=== PATIENT | female | born 1960 | race Caucasian/White ===

== ENCOUNTER → 2018-03-04 09:00 | Outpatient (CLI) | payer OTHER, SELFPAY | PROVIDERS: Family Provider Physician Assistant; PCP Physician Assistant | DX: Z23 Encounter for immunization (principal) | CPT/HCPCS: 90471; 90686 ==

== ENCOUNTER → 2018-05-20 09:55 | Outpatient (CLI) | payer OTHER, SELFPAY ==
[2018-05-20 10:15] LABS: Add Manual Diff / Slide Review NO; Basophils Percent Auto 0.5 % (0-2); Eosinophils Percent Auto 2.6 % (2-4); Hematocrit 35.3 % (36-46); Hemoglobin 11.9 g/dL (12.0-16.0); Lymphocytes Percent Auto 18.7 % (25-40); Mean Corpuscular HGB Conc 33.6 % (30-36); Mean Corpuscular Hemoglobin 30.8 PG (26-34); Mean Corpuscular Volume 91.7 fL (80-100); Monocytes Percent Auto 8.1 % (3-14); Neutrophils Absolute Auto 4800 /uL (3000-5900); Neutrophils Percent Auto 70.1 % (50-75); Platelet Count 179 X10^3/uL (150-400); Red Blood Cell Count 3.85 X10^6/uL (4.0-5.2); Red Cell Distribution Width 12.8 % (11.6-14.8); White Blood Cell Count 6.8 X10^3/uL (4.5-11.0)
[2018-05-20 10:25] LABS: Hemoglobin A1C% w Est Avg Glu 8.8 % (4.0-6.0)
[2018-05-20 10:38] LABS: Alanine Aminotransferase 35 IU/L (9-52); Albumin 4.2 g/dL (3.5-5.0); Albumin Globulin Ratio 1.5 (1.0-2.8); Alkaline Phosphatase 79 U/L (38-126); Aspartate Aminotransferase 29 IU/L (14-36); BUN Creatinine Ratio 25.4 (6-22); Bilirubin Total 0.6 mg/dL (0.2-1.3); Blood Urea Nitrogen 33 mg/dL (7-17); Calcium 9.7 mg/dL (8.4-10.2); Carbon Dioxide 26 mmol/L (22-32); Chloride 100 mmol/L (98-107); Estimated Glomerular Filt Rate 42.1 mL/min (>60); Globulin 2.8 g/dL (1.7-4.1); Glucose 293 mg/dL (70-100); HEMOLYSIS < 15 (0-50); Potassium 4.5 mmol/L (3.4-5.1); Sodium 139 mmol/L (137-145)
[2018-05-20 13:13] LABS: Creatinine Urine Random 81.8 mg/dL
[2018-05-20 13:36] LABS: Microalbumi Creatinin Ratio Ur 298.2 ug/mg CR (<30); Microalbumin Urine Random 24.4 mg/dL (0-1.6)
== END ==
PROVIDERS: Family Provider Physician Assistant; PCP Physician Assistant; Visit Provider Physician Assistant
DX: R73.9 Hyperglycemia, unspecified (principal); R39.9 Unspecified symptoms and signs involving the genitourinary system
CPT/HCPCS: 36415; 80053; 82043; 82570; 83036; 85025; 87077; 87086; 87186

== ENCOUNTER → 2018-05-27 14:30 | Outpatient (CLI) | payer OTHER, SELFPAY | PROVIDERS: Family Provider Physician Assistant; PCP Physician Assistant; Visit Provider Physician Assistant | DX: R30.0 Dysuria (principal) | CPT/HCPCS: 87077; 87086 ==

== ENCOUNTER → 2018-06-11 10:21 | Outpatient (CLI) | payer OTHER, SELFPAY ==
--- NOTE | 2018-06-11 | DI.US.S_ITS ---
PROCEDURE: US RENAL COMPLETE INDICATIONS: ACUTE KIDNEY INJURY/CHRONIC KIDNEY DISEASE TECHNIQUE: Real-time scanning was performed of the kidneys and bladder, with image documentation. COMPARISON: None. FINDINGS: Kidneys: Kidneys are normal in size. Right kidney measures 9.9 cm long; left kidney measures 10.2 cm long. Right renal cortical thickness is 1.6 cm; left renal cortical thickness is 1.4 cm. Renal cortical echotexture is normal. No hydronephrosis or nephrolithiasis. No suspicious solid mass lesions. Bladder: Urinary bladder is completely decompressed at time of imaging which precludes ultrasound evaluation. Miscellaneous: No free pelvic fluid. IMPRESSION: No sonographic abnormality identified of the kidneys. Dictated by: Anya Garcia MD, PhD on 06/11/2018 at 11:49 Approved by: Anya Garcia MD, PhD on 06/11/2018 at 11:49
== END ==
PROVIDERS: Family Provider Physician Assistant; PCP Physician Assistant; Visit Provider Student in an Organized Health Care Education/Training Program
DX: N17.9 Acute kidney failure, unspecified (principal); N18.9 Chronic kidney disease, unspecified
CPT/HCPCS: 76770

== ENCOUNTER → 2018-06-15 14:56 | Outpatient (CLI) | payer OTHER, SELFPAY ==
[2018-06-15 15:38] LABS: Hemoglobin A1C% w Est Avg Glu 7.9 % (4.0-6.0)
== END ==
PROVIDERS: Family Provider Physician Assistant; PCP Physician Assistant; Visit Provider Physician Assistant
DX: E11.65 Type 2 diabetes mellitus with hyperglycemia (principal)
CPT/HCPCS: 36415; 83036

== ENCOUNTER → 2018-06-29 14:14 | Outpatient (CLI) | payer OTHER, SELFPAY ==
[2018-06-29 14:22] LABS: Bacteria Urine None Seen; RBC Urine None Seen (0-5/HPF)
[2018-06-29 14:42] LABS: Appearance Urine UA CLEAR; Bilirubin Urine UA NEGATIVE (NEGATIVE); Color Urine UA YELLOW; Glucose Urine UA NEGATIVE (Negative); Ketones Urine UA NEGATIVE (NEGATIVE); Leukocyte Esterase Urine UA NEGATIVE (NEGATIVE); Nitrite Urine UA NEGATIVE (Negative); Occult Blood Urine UA NEGATIVE (Negative); Protein Urine UA NEGATIVE (Negative); Urobilinogen Urine UA 0.2 E.U./dL (0.2)
[2018-06-29 14:48] LABS: Hematocrit 36.1 % (36-46)
[2018-06-29 15:10] LABS: HEMOLYSIS < 15 (0-50); Iron 110 ug/dL (37-170)
[2018-06-29 15:18] LABS: Culture Indicated Urine Cult Not Indicated; Squamous Epithelial Cell Urine 0-1 /HPF; WBC Urine 0-1/HPF (0-5/HPF)
[2018-06-29 15:20] LABS: Percent Iron Saturation 35 % (15-50); Total Iron Binding Capacity 314 ug/dL (265-497); Transferrin 272 mg/dL (206-381)
[2018-06-29 15:28] LABS: BUN Creatinine Ratio 24.7 (6-22); Blood Urea Nitrogen 42 mg/dL (7-17); Calcium 10.2 mg/dL (8.4-10.2); Carbon Dioxide 27 mmol/L (22-32); Chloride 104 mmol/L (98-107); Estimated Glomerular Filt Rate 30.9 mL/min (>60); Glucose 105 mg/dL (70-100); HEMOLYSIS < 15 (0-50); Phosphorous 3.9 mg/dL (2.5-4.5); Potassium 4.3 mmol/L (3.4-5.1); Sodium 140 mmol/L (137-145)
[2018-06-29 15:31] LABS: Creatinine Urine Random 89.3 mg/dL; Protein (Total) Urine Random 7 mg/dL (0-12); Protein Creatinine Ratio Urine 0.07 GRAM/24H
[2018-07-02 14:26] LABS: Parathyroid Hormone Int 13 pg/mL (14-64)
== END ==
PROVIDERS: Family Provider Physician Assistant; PCP Physician Assistant; Visit Provider Student in an Organized Health Care Education/Training Program
DX: N05.9 Unspecified nephritic syndrome with unspecified morphologic changes (principal); D50.0 Iron deficiency anemia secondary to blood loss (chronic); D64.9 Anemia, unspecified; E83.30 Disorder of phosphorus metabolism, unspecified; N25.81 Secondary hyperparathyroidism of renal origin; N30.00 Acute cystitis without hematuria; R80.9 Proteinuria, unspecified; E11.65 Type 2 diabetes mellitus with hyperglycemia
CPT/HCPCS: 36415; 80048; 81001; 82570; 82728; 83036; 83540; 83550; 83970; 84100; 84156; 85014; 85018

== ENCOUNTER → 2018-08-02 11:44 | Outpatient (CLI) | payer OTHER, SELFPAY ==
[2018-08-02 12:40] LABS: Hematocrit 36.5 % (36-46); Hemoglobin 12.2 g/dL (12.0-16.0)
[2018-08-02 12:55] LABS: HEMOLYSIS < 15 (0-50); Iron 100 ug/dL (37-170)
[2018-08-02 13:01] LABS: BUN Creatinine Ratio 24.2 (6-22); Blood Urea Nitrogen 46 mg/dL (7-17); Calcium 9.4 mg/dL (8.4-10.2); Carbon Dioxide 26 mmol/L (22-32); Chloride 102 mmol/L (98-107); Estimated Glomerular Filt Rate 27.2 mL/min (>60); Glucose 102 mg/dL (70-100); HEMOLYSIS < 15 (0-50); Potassium 4.2 mmol/L (3.4-5.1); Sodium 139 mmol/L (137-145)
[2018-08-02 13:06] LABS: Percent Iron Saturation 33 % (15-50); Total Iron Binding Capacity 306 ug/dL (265-497); Transferrin 243 mg/dL (206-381)
[2018-08-02 15:27] LABS: Creatinine Urine Random 83.6 mg/dL; Protein (Total) Urine Random 7 mg/dL (0-12); Protein Creatinine Ratio Urine 0.08 GRAM/24H
== END ==
PROVIDERS: Family Provider Physician Assistant; PCP Physician Assistant; Visit Provider Student in an Organized Health Care Education/Training Program
DX: N05.9 Unspecified nephritic syndrome with unspecified morphologic changes (principal); D50.0 Iron deficiency anemia secondary to blood loss (chronic); D64.9 Anemia, unspecified; R80.9 Proteinuria, unspecified
CPT/HCPCS: 36415; 80048; 82570; 82728; 83540; 83550; 84156; 85014; 85018

== ENCOUNTER → 2018-08-12 08:43 | Outpatient (CLI) | payer OTHER, SELFPAY ==
[2018-08-12 10:28] LABS: BUN Creatinine Ratio 25.7 (6-22); Blood Urea Nitrogen 36 mg/dL (7-17); Calcium 9.4 mg/dL (8.4-10.2); Carbon Dioxide 28 mmol/L (22-32); Chloride 102 mmol/L (98-107); Estimated Glomerular Filt Rate 38.6 mL/min (>60); Glucose 144 mg/dL (70-100); HEMOLYSIS < 15 (0-50); Potassium 4.2 mmol/L (3.4-5.1); Sodium 139 mmol/L (137-145)
[2018-08-12 10:31] LABS: B Type Natriuretic Peptide < 100 (<100)
== END ==
PROVIDERS: PCP Physician Assistant; Visit Provider Student in an Organized Health Care Education/Training Program
DX: N05.9 Unspecified nephritic syndrome with unspecified morphologic changes (principal)
CPT/HCPCS: 36415; 80048; 83880

== ENCOUNTER → 2018-09-09 08:46 | Outpatient (CLI) | payer OTHER, SELFPAY ==
[2018-09-09 10:09] LABS: B Type Natriuretic Peptide < 100 (<100)
[2018-09-09 10:21] LABS: BUN Creatinine Ratio 22.1 (6-22); Blood Urea Nitrogen 31 mg/dL (7-17); Calcium 8.8 mg/dL (8.4-10.2); Carbon Dioxide 25 mmol/L (22-32); Chloride 102 mmol/L (98-107); Estimated Glomerular Filt Rate 38.6 mL/min (>60); Glucose 244 mg/dL (70-100); HEMOLYSIS 35 (0-50); Potassium 3.9 mmol/L (3.4-5.1); Sodium 137 mmol/L (137-145)
== END ==
PROVIDERS: PCP Physician Assistant; Visit Provider Student in an Organized Health Care Education/Training Program
DX: N05.9 Unspecified nephritic syndrome with unspecified morphologic changes (principal); I50.32 Chronic diastolic (congestive) heart failure
CPT/HCPCS: 36415; 80048; 83880

== ENCOUNTER → 2018-10-04 08:35 | Outpatient (CLI) | payer OTHER, SELFPAY ==
[2018-10-04 11:17] LABS: Hemoglobin A1C% w Est Avg Glu 6.5 % (4.0-6.0)
[2018-10-04 11:47] LABS: Thyroid Stimulating Hormone 3.67 uIU/mL (0.47-4.68)
== END ==
PROVIDERS: PCP Physician Assistant; Visit Provider Physician Assistant
DX: E11.65 Type 2 diabetes mellitus with hyperglycemia (principal); E89.0 Postprocedural hypothyroidism
CPT/HCPCS: 36415; 83036; 84443

== ENCOUNTER → 2018-12-17 09:29 | Outpatient (CLI) | payer OTHER, SELFPAY ==
[2018-12-17 10:11] LABS: Hemoglobin 11.9 g/dL (12.0-16.0)
[2018-12-17 10:24] LABS: Creatinine Urine Random 104.8 mg/dL; Protein (Total) Urine Random 8 mg/dL (0-12); Protein Creatinine Ratio Urine 0.07 GRAM/24H
[2018-12-17 10:33] LABS: Hemoglobin A1C% w Est Avg Glu 7.1 % (4.0-6.0)
[2018-12-17 11:27] LABS: Alanine Aminotransferase 28 IU/L (9-52); Albumin Globulin Ratio 1.3 (1.0-2.8); Alkaline Phosphatase 88 U/L (38-126); Aspartate Aminotransferase 28 IU/L (14-36); BUN Creatinine Ratio 16.9 (6-22); Bilirubin Total 0.8 mg/dL (0.2-1.3); Blood Urea Nitrogen 22 mg/dL (7-17); Calcium 9.3 mg/dL (8.4-10.2); Carbon Dioxide 27 mmol/L (22-32); Chloride 105 mmol/L (98-107); Cholesterol 220 mg/dL (140-199); Estimated Glomerular Filt Rate 42.1 mL/min (>60); Globulin 3.2 g/dL (1.7-4.1); Glucose 146 mg/dL (70-100); HDL Cholesterol 52 mg/dL (40-60); HEMOLYSIS < 15 (0-50); LDL Cholesterol Calculated 131 mg/dL (<100); Potassium 4.8 mmol/L (3.4-5.1); Sodium 142 mmol/L (137-145); Total Protein 7.2 g/dL (6.3-8.2); Triglycerides 185 mg/dL (35-150)
[2018-12-21 15:18] LABS: Parathyroid Hormone Int 72 pg/mL (14-64)
== END ==
PROVIDERS: Family Provider Physician Assistant; PCP Physician Assistant; Visit Provider Student in an Organized Health Care Education/Training Program
DX: D64.9 Anemia, unspecified (principal); N25.81 Secondary hyperparathyroidism of renal origin; R80.9 Proteinuria, unspecified; E11.65 Type 2 diabetes mellitus with hyperglycemia; E78.5 Hyperlipidemia, unspecified; I12.9 Hypertensive chronic kidney disease with stage 1 through stage 4 chronic kidney disease, or unspecified chronic kidney disease; N18.9 Chronic kidney disease, unspecified
CPT/HCPCS: 80053; 80061; 82570; 83036; 83970; 84156; 85014; 85018

== ENCOUNTER → 2019-01-10 16:04 | Outpatient (CLI) | payer OTHER, SELFPAY ==
--- NOTE | 2019-01-10 16:10 | DI.ECHO.S_ITS ---
[facility] +---------+ : : [address] : : : : [id number] : : : : Phone: [phone]+ Echocardiogram Report + + :Name: ROBLES CASTELAN Jose Luis Study Date: 01/10/2019 Height: 66 in : :[facility] Weight: 297 lb : : Gender: Female BSA: 2.4 m2 : :: 1960 Age: 58 yrs BP: 138/80 mmHg: :Reason For Study: Murmur : : Performed By: Lluvia Laguna : :Referring: ASHWIN BLOOM : + + Interpretation Summary The left ventricle is normal in size, wall thickness, and systolic function without any focal wall motion abnormalities. The right ventricle grossly appears normal in size with probable normal systolic function. There is mild aortic stenosis. There is mild aortic regurgitation. The right ventricular systolic pressure is estimated to be at least 29 mmHg based on an estimated right atrial pressure of 8 mm Hg. There is no prior echocardiogram noted for this patient. Procedure: A two-dimensional transthoracic echocardiogram with color flow and Doppler was performed. The study quality was technically adequate. There is no prior echocardiogram noted for this patient. The patient was in normal sinus rhythm during the exam. Left Ventricle: The left ventricle is normal in size, wall thickness, and systolic function without any focal wall motion abnormalities. The ejection fraction is estimated to be 60-65%. Diastolic parameters suggest probable normal left ventricular diastolic function and normal filling pressures. Right Ventricle: The right ventricle grossly appears normal in size with probable normal systolic function. Atria: The left atrial size is normal. Right atrial size is normal. There is no Doppler evidence for an interatrial shunt. Mitral Valve: The mitral valve is normal in structure and function. There is no mitral regurgitation noted. Aortic Valve: The aortic valve is mildly calcified. The calculated aortic valve area is 1.6 cm2. The peak aortic velocity is 2.4 m/sec. The aortic valve mean gradient is 12 mmHg. Severity ratio is 0.49. There is mild aortic stenosis. There is mild aortic regurgitation. Tricuspid Valve: The tricuspid valve is normal in structure and function. There is trace tricuspid regurgitation. The right ventricular systolic pressure is estimated to be at least 29 mmHg based on an estimated right atrial pressure of 8 mm Hg. Pulmonic Valve: The pulmonic valve is not well visualized. There is no pulmonic valvular regurgitation. Great Vessels: The aortic root is normal size. The aortic arch is normal in size. The IVC is of normal diameter and collapses greater than 50% with a sniff. This suggests a low right atrial pressure of 3 mm Hg. Pericardium/ Pleura There is no pericardial effusion. There is no pleural effusion. MMode/2D Measurements & Calculations LVIDd: 4.7 cm LVOT diam: 2.0 cm LVIDs: 2.6 cm Ao root diam: 3.2 cm FS: 45.7 % Aortic Jxn: 2.5 cm IVSd: 0.95 cm Ao Arch Diam (Prox Trans): 3.1 cm LVPWd: 0.86 cm LV smith. diameter/BSA (cm/m^2): 2.0 LV sys. diameter/BSA (cm/m^2): 1.1 LA dimension: 3.9 cm RA long axis: 5.6 cm LA A2 area: 25.1 cm2 RA area: 22.5 cm2 LA A4 area: 20.0 cm2 RA vol: 76.9 ml LA length (vol): 5.4 cm RA : 32.5 ml/m2 LA vol: 79.2 ml IVC diam: 2.2 cm LA vol index: 33.5 ml/m2 Doppler Measurements & Calculations Ao V2 max: 238.6 cm/sec LVOT Max Pascual: 109.4 cm/sec Ao V2 mean: 155.9 cm/sec LV V1 max P.8 mmHg Ao max P.8 mmHg LV V1 VTI: 23.9 cm Ao mean P.5 mmHg PAULINE(I,D): 1.6 cm2 Ao V2 VTI: 48.4 cm PAULINE(V,D): 1.5 cm2 sev ratio: 0.49 PAULINE indexed to BSA (cm^2/m^2): 0.68 AI P1/2t: 533.0 msec AI dec slope: 244.1 cm/sec2 MV E max pascual: 87.8 cm/sec TR max pascual: 254.4 cm/sec MV A max pascual: 68.2 cm/sec TR max P.9 mmHg MV E/A: 1.3 PA V2 max: 117.5 cm/sec Med Peak E' Pascual: 9.9 cm/sec PA V2 mean: 80.5 cm/sec E/E' med: 8.9 PA mean P.9 mmHg Lat Peak E' Pascual: 11.9 cm/sec PA Accel Time: 0.16 sec E/E' lat: 7.4 E/e' average: 8.1 MV dec time: 0.18 sec MV P1/2t: 54.8 msec MV P1/2t max pascual: 88.1 cm/sec SV(LVOT): 77.4 ml MVA(P1/2t): 4.0 cm2 Electronically signed by: Roberto Reyna M.D. on Reading Physician:01/10/2019 06:10 PM
== END ==
PROVIDERS: Family Provider Physician Assistant; PCP Physician Assistant; Visit Provider Physician Assistant
DX: I35.2 Nonrheumatic aortic (valve) stenosis with insufficiency (principal); R01.1 Cardiac murmur, unspecified; R60.9 Edema, unspecified; R06.00 Dyspnea, unspecified
CPT/HCPCS: 93306

== ENCOUNTER → 2019-03-01 11:41 | Outpatient (CLI) | payer OTHER, SELFPAY | PROVIDERS: PCP Physician Assistant | DX: Z23 Encounter for immunization (principal) | CPT/HCPCS: 90471; 90686 ==

== ENCOUNTER → 2019-04-19 12:20 | Outpatient (CLI) | payer OTHER, SELFPAY ==
--- NOTE | 2019-04-19 12:21 | DI.MG.S_ITS ---
BILATERAL DIGITAL SCREENING MAMMOGRAM 3D/2D WITH CAD: 04/19/2019 CLINICAL: Routine screening. Comparison is made to exams dated: 05/28/2016 mammogram, 06/09/2014 mammogram, and 02/20/2011 mammogram - [facility]. There are scattered fibroglandular elements in both breasts. Current study was also evaluated with a Computer Aided Detection (CAD) system. No significant masses, calcifications, or other findings are seen in either breast. There has been no significant interval change. IMPRESSION: NEGATIVE There is no mammographic evidence of malignancy. A 1 year screening mammogram is recommended. This exam was interpreted at Station ID: [id number]. NOTE: For mammograms, a report in lay terms will be sent to the patient. Approximately 15% of breast malignancies will not be visualized mammographically. In the management of a palpable breast mass, a negative mammogram must not discourage biopsy of a clinically suspicious lesion. Electronically Signed By: Mayur sanderson/christiano:04/19/2019 18:38:13 letter sent: Normal Exam ACR BI-RADS Category 1: Negative [id number]
[2019-04-19 15:14] LABS: Hemoglobin A1C% w Est Avg Glu 6.5 % (4.0-6.0)
[2019-04-19 16:03] LABS: Thyroid Stimulating Hormone 6.51 uIU/mL (0.47-4.68)
== END ==
PROVIDERS: PCP Physician Assistant; Visit Provider Physician Assistant
DX: Z12.31 Encounter for screening mammogram for malignant neoplasm of breast (principal); E11.65 Type 2 diabetes mellitus with hyperglycemia; E89.0 Postprocedural hypothyroidism
CPT/HCPCS: 36415; 77063; 77067; 83036; 84443

== ENCOUNTER → 2019-05-04 12:32 | Outpatient (CLI) | payer OTHER, SELFPAY ==
[2019-05-04 13:38] LABS: Hematocrit 37.4 % (36-46); Hemoglobin 12.6 g/dL (12.0-16.0)
[2019-05-04 13:57] LABS: BUN Creatinine Ratio 13.8 (6-22); Blood Urea Nitrogen 18 mg/dL (7-17); Calcium 9.4 mg/dL (8.4-10.2); Carbon Dioxide 28 mmol/L (22-32); Chloride 103 mmol/L (98-107); Estimated Glomerular Filt Rate 41.9 mL/min (>60); Glucose 134 mg/dL (70-100); HEMOLYSIS < 15 (0-50); Potassium 4.6 mmol/L (3.4-5.1); Sodium 138 mmol/L (137-145)
[2019-05-04 15:11] LABS: Creatinine Urine Random 113.3 mg/dL; Protein (Total) Urine Random 8 mg/dL (0-12); Protein Creatinine Ratio Urine 0.07 GRAM/24H
[2019-05-07 14:11] LABS: Parathyroid Hormone Int 61 pg/mL (14-64)
== END ==
PROVIDERS: Family Provider Physician Assistant; PCP Physician Assistant; Visit Provider Student in an Organized Health Care Education/Training Program
DX: N05.9 Unspecified nephritic syndrome with unspecified morphologic changes (principal); D64.9 Anemia, unspecified; N25.81 Secondary hyperparathyroidism of renal origin; R80.9 Proteinuria, unspecified
CPT/HCPCS: 36415; 80048; 82570; 83970; 84156; 85014; 85018

== ENCOUNTER → 2019-06-15 13:59 | Outpatient (CLI) | payer OTHER, SELFPAY ==
[2019-06-15 16:38] LABS: Thyroid Stimulating Hormone 1.24 uIU/mL (0.47-4.68)
== END ==
PROVIDERS: PCP Physician Assistant; Visit Provider Physician Assistant
DX: E89.0 Postprocedural hypothyroidism (principal)
CPT/HCPCS: 36415; 84443

== ENCOUNTER 2019-10-26 14:30 | Emergency (ER) | payer OTHER, SELFPAY ==
[2019-10-26] VITALS (10 sets, daily range): BP systolic 130–197; BP diastolic 58–95; PULSE 92–101; RESP 16–94; TEMP 36.8–37; O2SAT 86–100; BMI 42.4
--- NOTE | 2019-10-26 14:34 | ED.GENADULT ---
HPI - General Adult General Chief complaint: Chest Pain Stated complaint: Shortness of Breath Time Seen by Provider: 10/26/19 14:33 Source: patient Mode of arrival: Wheelchair Limitations: no limitations History of Present Illness HPI narrative: Patient is a 59-year-old female who works here at this facility who while she was walking into the emergency department developed primarily shortness of breath with some chest pain. Has never had anything like this in the past. Does not have any underlying lung pathology. No new swelling in her lower extremities. No history of blood clots. No history of cardiac disease. Patient was seen by nursing staff here in the emergency department walking in and was immediately brought back to the emergency department prior to any interventions. Related Data Home Medications Medication Instructions Recorded Confirmed acetaminophen 650 mg PO Q8HP PRN #0 tab 03/10/16 07/14/19 metoprolol succinate 25 mg 25 mg PO DAILY 06/14/18 07/14/19 tablet,extended release 24 hr calcium carbonate 500 mg (1,250 1 tab PO 3XW PRN tab 06/15/18 07/14/19 mg)-vitamin D3 200 unit tablet multivitamin 1 tab PO 3XW PRN tab 06/15/18 07/14/19 hydrochlorothiazide 12.5 mg tablet 12.5 mg PO DAILY 09/27/18 07/14/19 magnesium chloride 64 mg 64 mg PO ONCE PRN tab 12/28/18 07/14/19 (magnesium chloride) tablet,delayed release Previous Rx's Medication Instructions Recorded albuterol sulfate [Ventolin HFA] 2 puff INH Q4-6HP PRN #1 ea 06/16/16 orphenadrine citrate 100 mg PO QDAYP PRN #30 ter 10/09/16 Glucometer with controls #1 ea 05/27/18 Lancets #100 each 05/27/18 Test Strips #100 each 05/27/18 citalopram 20 mg tablet 10 mg PO QDAYP #30 tabs 10/28/18 levothyroxine 175 mcg tablet 175 mcg PO DAILY #90 tab 06/15/19 Allergies Allergy/AdvReac Type Severity Reaction Status Date / Time cefadroxil [CEFADROXIL] Allergy Severe HIVES, Verified 10/26/19 15:10 VOMITING cephalexin [CEPHALEXIN] Allergy Severe HIVES, Verified 10/26/19 15:10 VOMITING dexamethasone [DEXAMETHASONE] Allergy Severe REDNESS, Verified 10/26/19 15:10 RASH AND SWELLING IN BOTH EYES neomycin [NEOMYCIN] Allergy Severe REDNESS, Verified 10/26/19 15:10 RASH AND SWELLING IN BOTH EYES Penicillins [PENICILLINS] Allergy Severe HIVES Verified 10/26/19 15:10 polymyxin B [POLYMYXIN B] Allergy Severe REDNESS, Verified 10/26/19 15:10 RASH AND SWELLING IN BOTH EYES oxycodone [OXYCODONE] AdvReac Intermediate Nausea and Verified 10/26/19 15:10 vomiting Review of Systems Constitutional Constitutional: Denies fatigue, Denies fever(s) and Denies headache(s) ENT Ears, Nose, Mouth, and Throat: Denies vertigo and Denies headache(s) Cardiovascular Cardiovascular: Reports chest pain, Denies syncope, Denies rapid heart rate, Denies irregular heart rhythm, Reports dyspnea and Reports dyspnea on exertion Respiratory Respiratory: Denies cough, Reports dyspnea and Reports dyspnea on exertion Gastrointestinal Gastrointestinal: Denies nausea and Denies vomiting Musculoskeletal Musculoskeletal: Denies myalgias and Denies arthralgias Integumentary/Breasts Skin/Breast: Denies lesions and Denies rash Neurologic Neurologic: Denies vertigo, Denies syncope and Denies headache(s) Psychiatric Psychiatric: Reports anxiety Endocrine Endocrine: Denies fatigue Hematologic/Lymphatic Hematologic/Lymphatic: Denies easy bleeding and Denies easy bruising Patient History Medical History Arthritis (Chronic Unknown) Chronic back pain (Chronic Unknown) Depression (Chronic Unknown) Hyperlipidemia (Chronic) Hypertension (Chronic) Morbid obesity with body mass index (BMI) of 45.0 to 49.9 in adult (Chronic) Osteopenia (Chronic 09/2017) Peptic ulcer disease (Chronic Unknown) Plantar fasciitis (Resolved Unknown) 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) Surgical History History of tonsillectomy and adenoidectomy (Resolved Unknown) Hx of appendectomy (Resolved Unknown) Hx of bilateral oophorectomy (Resolved Unknown) Hx of cholecystectomy (Resolved Unknown) Hx of tubal ligation (Resolved Unknown) Social History Smoking Status: Former smoker (Quit 06/09/13) Tobacco: How many years used: 30 second hand exposure: No alcohol intake: current (rum and coke occasionally) substance use type: does not use Smoking Status: Former smoker (Quit 06/09/13) Exam Initial Vital Signs Initial Vital Signs: Vital Signs Temperature 98.6 F 10/26/19 14:34 Pulse Rate 97 H 10/26/19 14:34 Respiratory Rate 28 H 10/26/19 14:34 Blood Pressure 197/88 H 10/26/19 14:34 Pulse Oximetry 86 L 10/26/19 14:34 Const General: cooperative, No comfortable (Uncomfortable), No acute distress and ill appearing Limitations: mental status not altered HENMT Head: normal to inspection and normocephalic Resp Effort & Inspection: labored and tachypneic Auscultation: clear to auscultation bilaterally Cardio Rate: regular rate Rhythm: regular rhythm GI Inspection: non-distended Skin Lesions: no lesions Rashes: no rashes Neuro General: alert and awake Cognition: normal cognition Speech: speech normal Extrem General: normal to inspection and capillary refill normal Psych Appearance: grossly normal and well kempt Scores GCS [place] coma scale eye opening: Spontaneous [place] coma scale verbal response: Orientated [place] coma scale motor response: Obey commands [place] coma scale total score: 15 Course Orders Ordered: ED Orders 10/26/19 14:34 XR chest 1V Stat EKG-12 Lead Stat 10/26/19 14:35 Complete Blood Count AUTO DIFF Stat Comprehensive Metabolic Panel Stat Lipase Stat NT-proBNP (BNP-Adult 18+) Stat Partial Thromboplastin Time Stat Prothrombin Time INR Stat Troponin I Stat 10/26/19 14:43 CT angio chest PE protocol Stat 10/26/19 14:44 EKG-12 Lead Stat Sodium Chloride (Normal Saline 0.9%) 1,000 mls @ 125 mls/hr IV CONT DANIELE Last Admin: 10/26/19 14:54 Dose: 125 mls/hr Documented by: ELSA Heparin Sodium/Dextrose (Heparin Drip) 25,000 unit in 500 mls @ 24 mls/hr IV CONT DANIELE; Protocol Last Admin: 10/26/19 15:55 Dose: 1,200 units/hr, 24 mls/hr Documented by: ELSA Discontinued Medications Aspirin (Aspirin Chew) 324 mg PO NOW ONE Stop: 10/26/19 15:13 Last Admin: 10/26/19 15:26 Dose: 324 mg Documented by: ELSA Citalopram Hydrobromide (Celexa) 20 mg PO NOW ONE Stop: 10/26/19 14:42 Last Admin: 10/26/19 14:53 Dose: 20 mg Documented by: ELSA Heparin Sodium (Porcine) (Heparin) 7,500 unit IV NOW ONE Stop: 10/26/19 15:31 Last Admin: 10/26/19 15:45 Dose: 7,500 unit Documented by: ELSA Lorazepam (Ativan) 0.5 mg IV NOW ONE Stop: 10/26/19 16:08 Last Admin: 10/26/19 16:13 Dose: 0.5 mg Documented by: ELSA Nitroglycerin (Nitro-Bid) 0.5 inch TOP NOW ONE Stop: 10/26/19 14:42 Last Admin: 10/26/19 14:54 Dose: 0.5 inch Documented by: ELSA Vital Signs Vital signs: Vital Signs - 8 hr 10/26/19 14:34 10/26/19 14:54 10/26/19 15:00 Temperature 98.6 F Pulse Rate 97 H 93 H 92 H Respiratory Rate 28 H 20 Blood Pressure 197/88 H 197/88 H Blood Pressure [rt arm] 130/58 L Pulse Oximetry 86 L 92 10/26/19 15:29 10/26/19 16:22 10/26/19 16:50 Temperature Pulse Rate 98 H 100 H Respiratory Rate 20 22 25 H Blood Pressure Blood Pressure [rt arm] 143/90 H 155/87 H Pulse Oximetry 92 92 90 L 10/26/19 17:16 Temperature Pulse Rate 101 H Respiratory Rate 18 Blood Pressure Blood Pressure [rt arm] 147/87 H Pulse Oximetry 93 Medical Decision Making Lab Data Lab results reviewed: Yes I reviewed the patient's lab results. Result diagrams: 10/26/19 14:35 10/26/19 14:35 Labs: Lab Results 10/26/19 10/26/19 10/26/19 Range/Units 14:35 14:35 14:35 WBC 6.7 (4.5-11.0) X10^3/uL RBC 4.71 (4.0-5.2) X10^6/uL Hgb 14.3 (12.0-16.0) g/dL Hct 42.3 (36-46) % MCV 89.7 (80-100) fL MCH 30.3 (26-34) PG MCHC 33.8 (30-36) % RDW 13.4 (11.6-14.8) % Plt Count 191 (150-400) X10^3/uL Neut % (Auto) 62.0 (50-75) % Lymph % (Auto) 26.5 (25-40) % [place] % (Auto) 8.5 (3-14) % Eos % (Auto) 2.4 (2-4) % Baso % (Auto) 0.6 (0-2) % Neut # (Auto) 4200 (9316-3708) /uL Lymph # (Auto) 1800 (4767-8503) /uL [place] # (Auto) 600 (0-900) /uL Eos # (Auto) 200 (0-450) /uL Baso # (Auto) 0 (0-100) /uL PT 12.2 (10.1-12.7) SECONDS INR 1.1 (0.9-1.3) APTT 39 H (26.4-36.2) SECONDS Sodium 135 L (137-145) mmol/L Potassium 3.7 (3.4-5.1) mmol/L Chloride 97 L (98-107) mmol/L Carbon Dioxide 27 (22-32) mmol/L BUN 25 H (7-17) mg/dL Creatinine 1.28 H (0.52-1.04) mg/dL Estimated GFR 42.7 L (>60) mL/min BUN/Creatinine Ratio 19.5 (6-22) Glucose 349 H (70-100) mg/dL Calcium 10.4 H (8.4-10.2) mg/dL Total Bilirubin 1.0 (0.2-1.3) mg/dL AST 54 H (14-36) IU/L ALT 30 (<35) IU/L Alkaline Phosphatase 122 (38-126) U/L Troponin I (0.01-0.034) ng/mL NT-Pro-B Natriuret Pep (<125) pg/mL Total Protein 8.1 (6.3-8.2) g/dL Albumin 4.4 (3.5-5.0) g/dL Globulin 3.7 (1.7-4.1) g/dL Albumin/Globulin Ratio 1.2 (1.0-2.8) Lipase (23-300) U/L COVID-19 PCR (Negative) 10/26/19 10/26/19 10/26/19 Range/Units 14:35 14:35 14:37 WBC (4.5-11.0) X10^3/uL RBC (4.0-5.2) X10^6/uL Hgb (12.0-16.0) g/dL Hct (36-46) % MCV (80-100) fL MCH (26-34) PG MCHC (30-36) % RDW (11.6-14.8) % Plt Count (150-400) X10^3/uL Neut % (Auto) (50-75) % Lymph % (Auto) (25-40) % [place] % (Auto) (3-14) % Eos % (Auto) (2-4) % Baso % (Auto) (0-2) % Neut # (Auto) (5739-4347) /uL Lymph # (Auto) (4155-2119) /uL [place] # (Auto) (0-900) /uL Eos # (Auto) (0-450) /uL Baso # (Auto) (0-100) /uL PT (10.1-12.7) SECONDS INR (0.9-1.3) APTT (26.4-36.2) SECONDS Sodium (137-145) mmol/L Potassium (3.4-5.1) mmol/L Chloride (98-107) mmol/L Carbon Dioxide (22-32) mmol/L BUN (7-17) mg/dL Creatinine (0.52-1.04) mg/dL Estimated GFR (>60) mL/min BUN/Creatinine Ratio (6-22) Glucose (70-100) mg/dL Calcium (8.4-10.2) mg/dL Total Bilirubin (0.2-1.3) mg/dL AST (14-36) IU/L ALT (<35) IU/L Alkaline Phosphatase (38-126) U/L Troponin I 0.079 H (0.01-0.034) ng/mL NT-Pro-B Natriuret Pep 68 (<125) pg/mL Total Protein (6.3-8.2) g/dL Albumin (3.5-5.0) g/dL Globulin (1.7-4.1) g/dL Albumin/Globulin Ratio (1.0-2.8) Lipase 80 (23-300) U/L COVID-19 PCR Negative (Negative) Imaging Data Chest x-ray: Radiologist's Impression: [address] [address] XRay Report Signed Patient: Caridad Castelan BMR#: [id number] : 1960Acct:[id number] Age/Sex: 59 / FDate of Service: 10/26/19 Loc: ED Accession Number: [id number] Procedure: XR chest 1V Ordering Provider: Clifford León D.O. PROCEDURE: XR CHEST 1V INDICATIONS: Chest pain or shortness of breath TECHNIQUE: One view of the chest was acquired. COMPARISON: [facility], , CHEST 1 VIEW, 09/01/2013, 23:27. [facility], , CHEST 2 VIEW, 01/15/2009, 22:33. FINDINGS: Surgical changes and devices: None. Lungs and pleura: Lungs are abnormal with a mild interstitial prominence previously present, accentuated by reduced inspiratory volume. No pleural effusions or pneumothorax. Mediastinum: Mediastinal contours appear normal. Heart size is normal. Bones and chest wall: No suspicious bony lesions. Overlying soft tissues appear unremarkable. IMPRESSION: Mild chronic interstitial prominence but accentuated by reduced inspiratory volume. A source of chest pain is not found. Dictated by: Shlomo Miguel M.D. on 10/26/2019 at 15:31 Approved by: Shlomo Miguel M.D. on 10/26/2019 at 15:31 CT scan - chest: Radiologist's Impression: [address] [address] [address] Scan Report Signed Patient: Caridad Castelan BMR#: [id number] : 1960Acct:[id number] Age/Sex: 59 / FDate of Service: 10/26/19 Loc: ED Accession Number: [id number] Procedure: CT angio chest PE protocol Ordering Provider: Clifford León D.O. PROCEDURE: CT ANGIO CHEST PE PROTOCOL INDICATIONS: Chest pain, shortness of breath, tachycardia TECHNIQUE: After the administration of intravenous contrast, 2 mm thick sections acquired from the pulmonary apices to the posterior costophrenic angles. 3-dimensional maximum intensity projection (MIP) coronal and sagittal reformats were then acquired through the thorax. For radiation dose reduction, the following was used: automated exposure control, adjustment of mA and/or kV according to patient size. COMPARISON: None. FINDINGS: Image quality: Excellent. Pulmonary arteries: Pulmonary arteries are normal in size, but demonstrate definite bilateral intraluminal filling defects diagnostic of central pulmonary embolism. These include a saddle embolus the crosses the main branch point of the pulmonary artery and extends into the right and left main pulmonary arteries, and also emboli going cephalad on the left into the left upper lobe pulmonary artery, and caudad on the left to involve the basilar segmental pulmonary arteries to a moderate degree. On the right the right upper lobe pulmonary artery also contains thrombus, and more inferiorly the basilar right-sided pulmonary arteries also contain embolus. The embolus present appears acute or subacute, and not chronic. Lungs and pleura: Lungs are clear. No pleural effusions or pneumothorax. Central and peripheral airways are patent. Mediastinum: Heart size is normal, without pericardial effusion. No mediastinal or hilar adenopathy. Thoracic aorta is normal in caliber and enhancement. Esophagus is normal in caliber, without hiatal hernia. Bones and chest wall: No suspicious bony lesions. Ribs and thoracic spine appear intact throughout. Thyroid gland savi is not well-seen. No axillary or supraclavicular adenopathy. Abdomen: Visualized upper abdominal solid organs appear normal in the early arterial phase of enhancement. IMPRESSION: Extensive pulmonary emboli bilaterally as discussed, and findings were immediately called and discussed in detail with Dr. León, the emergency room physician caring for the patient. No pulmonary infarction is found. Dictated by: Shlomo Miguel M.D. on 10/26/2019 at 15:31 Approved by: Shlomo Miguel M.D. on 10/26/2019 at 15:36 echo: Radiologist's Impression: [address] [address] Echocardiography Report Signed Patient: Caridad Castelan BMR#: [id number] : 1960Acct:[id number] Age/Sex: 58 / FDate of Service: 01/10/19 Loc: ECHO Accession Number: [id number] Procedure: EC echo doppler complete Ordering Provider: Kiki Rhoades P.A-C +---------+ Hospital +---------+ : : [address] : : : : [id number] : : : : Phone: [phone] Echocardiogram Report + + :Name: CARIDAD CASTELAN Jose Luis Study Date: 01/10/2019 Height: 66 in : :[facility] Weight: 297 lb : : Gender: Female BSA: 2.4 m2 : :: 1960 Age: 58 yrs BP: 138/80 mmHg: :Reason For Study: Murmur : : Performed By: Lluvia Laguna : :Referring: KIKI RHOADES : + + Interpretation Summary The left ventricle is normal in size, wall thickness, and systolic function without any focal wall motion abnormalities. The right ventricle grossly appears normal in size with probable normal systolic function. There is mild aortic stenosis. There is mild aortic regurgitation. The right ventricular systolic pressure is estimated to be at least 29 mmHg based on an estimated right atrial pressure of 8 mm Hg. There is no prior echocardiogram noted for this patient. Procedure: A two-dimensional transthoracic echocardiogram with color flow and Doppler was performed. The study quality was technically adequate. There is no prior echocardiogram noted for this patient. The patient was in normal sinus rhythm during the exam. Left Ventricle: The left ventricle is normal in size, wall thickness, and systolic function without any focal wall motion abnormalities. The ejection fraction is estimated to be 60-65%. Diastolic parameters suggest probable normal left ventricular diastolic function and normal filling pressures. Right Ventricle: The right ventricle grossly appears normal in size with probable normal systolic function. Atria: The left atrial size is normal. Right atrial size is normal. There is no Doppler evidence for an interatrial shunt. Mitral Valve: The mitral valve is normal in structure and function. There is no mitral regurgitation noted. Aortic Valve: The aortic valve is mildly calcified. The calculated aortic valve area is 1.6 cm2. The peak aortic velocity is 2.4 m/sec. The aortic valve mean gradient is 12 mmHg. Severity ratio is 0.49. There is mild aortic stenosis. There is mild aortic regurgitation. Tricuspid Valve: The tricuspid valve is normal in structure and function. There is trace tricuspid regurgitation. The right ventricular systolic pressure is estimated to be at least 29 mmHg based on an estimated right atrial pressure of 8 mm Hg. Pulmonic Valve: The pulmonic valve is not well visualized. There is no pulmonic valvular regurgitation. Great Vessels: The aortic root is normal size. The aortic arch is normal in size. The IVC is of normal diameter and collapses greater than 50% with a sniff. This suggests a low right atrial pressure of 3 mm Hg. Pericardium/ Pleura There is no pericardial effusion. There is no pleural effusion. MMode/2D Measurements & Calculations LVIDd: 4.7 cm LVOT diam: 2.0 cm LVIDs: 2.6 cm Ao root diam: 3.2 cm FS: 45.7 % Aortic Jxn: 2.5 cm IVSd: 0.95 cm Ao Arch Diam (Prox Trans): 3.1 cm LVPWd: 0.86 cm LV smith. diameter/BSA (cm/m^2): 2.0 LV sys. diameter/BSA (cm/m^2): 1.1 LA dimension: 3.9 cm RA long axis: 5.6 cm LA A2 area: 25.1 cm2 RA area: 22.5 cm2 LA A4 area: 20.0 cm2 RA vol: 76.9 ml LA length (vol): 5.4 cm RA : 32.5 ml/m2 LA vol: 79.2 ml IVC diam: 2.2 cm LA vol index: 33.5 ml/m2 Doppler Measurements & Calculations Ao V2 max: 238.6 cm/sec LVOT Max Pascual: 109.4 cm/sec Ao V2 mean: 155.9 cm/sec LV V1 max P.8 mmHg Ao max P.8 mmHg LV V1 VTI: 23.9 cm Ao mean P.5 mmHg PAULINE(I,D): 1.6 cm2 Ao V2 VTI: 48.4 cm PAULINE(V,D): 1.5 cm2 sev ratio: 0.49 PAULINE indexed to BSA (cm^2/m^2): 0.68 AI P1/2t: 533.0 msec AI dec slope: 244.1 cm/sec2 MV E max pascual: 87.8 cm/sec TR max pascual: 254.4 cm/sec MV A max pascual: 68.2 cm/sec TR max P.9 mmHg MV E/A: 1.3 PA V2 max: 117.5 cm/sec Med Peak E' Pascual: 9.9 cm/sec PA V2 mean: 80.5 cm/sec E/E' med: 8.9 PA mean P.9 mmHg Lat Peak E' Pascual: 11.9 cm/sec PA Accel Time: 0.16 sec E/E' lat: 7.4 E/e' average: 8.1 MV dec time: 0.18 sec MV P1/2t: 54.8 msec MV P1/2t max pascual: 88.1 cm/sec SV(LVOT): 77.4 ml MVA(P1/2t): 4.0 cm2 Electronically signed by: Roberto Reyna M.D. on Reading Physician:01/10/2019 06:10 PM ECG Data Attestation: I personally reviewed and interpreted this ECG as follows: Prior ECG tracings: not available for review Interpretation: EKG upon arrival time 1430 hours Sinus rhythm Normal axis , normal QRS Normal QTC ST depression in lead [address] elevations Repeat EKG timed 1534 hours Sinus rhythm Normal axis Normal QRS ST depression in 1 aVL MDM Narrative Medical decision making narrative: Echocardiogram included in this note is for reference purposes only. It was not performed during this emergency department visit. Patient had fairly sudden onset of both chest pain and shortness of breath with primarily a predominance of the shortness of breath. Patient ill appearing upon arrival. Hypoxic which did improve with 2 L by nasal cannula. Initial EKG had ST depressions but no ST elevations. Was given aspirin. Nitro paste placed for concerns of potential cardiac etiology of her symptoms. CT scan of her chest did show bilateral pulmonary embolisms with a fairly large clot burden. Normal BNP however slightly elevated troponin. Repeat EKG relatively unchanged. Patient's rapid coronavirus test negative. Patient did have quite a bit of anxiety so was given anxiolytics. Patient was never hypotensive. Heparin started. Discussed the case with intensive care medicine at [facility] who recommended transferring patient for catheter directed thrombolysis. I then discussed the case with with Internal Medicine who accepts the patient in transport. Discussed the diagnosis in the transfer with the patient. She expressed understanding and agreement. Patient is stable for transfer. Critical Care Time Critical Care Time Critical Care Time: Yes Total Critical Care Time: 45 Attestation: The high probability of a clinically significant, sudden or life threatening deterioration of the cardiovascular, respiratory system(s) required my full and direct attention, intervention and personal management. The aggregate critical care time was 45 minutes. This time is in addition to time spent performing reported procedures but includes the following: [] Data Review and interpretation [] Patient assessment and monitoring of vital signs [] Documentation [] Medication orders and management Discharge Plan Departure Patient Disposition: [facility] Clinical Impression: Hypoxia Pulmonary embolism Qualifiers: Pulmonary embolism type: saddle Chronicity: acute Acute cor pulmonale presence: unspecified Qualified Code(s): I26.92 - Saddle embolus of pulmonary artery without acute cor pulmonale Prescriptions: No Action multivitamin tablet 1 tab PO 3XW PRNRF: 0 calcium carbonate-vitamin D3 500 mg(1,250mg) -200 unit tablet 1 tab PO 3XW PRNRF: 0 (DME) Glucometer with controls Qty: 1 RF: 0 (DME) Lancets Qty: 100 RF: 0 (DME) Test Strips Qty: 100 RF: 0 acetaminophen 650 MG tablet extended release 650 mg PO Q8HP PRNQty: 0 RF: 0 albuterol sulfate [Ventolin HFA] 90 MCG/PUFF HFA aerosol inhaler 2 puff INH Q4-6HP PRNQty: 1 RF: 0 orphenadrine citrate 100 MG tablet extended release 100 mg PO QDAYP PRNQty: 30 RF: 3 metoprolol succinate 25 mg tablet extended release 24 hr 25 mg PO DAILY RF: 0 hydrochlorothiazide 12.5 mg tablet 12.5 mg PO DAILY RF: 0 citalopram 20 mg tablet 10 mg PO QDAYP Qty: 30 RF: 0 levothyroxine 175 mcg tablet 175 mcg PO DAILY Qty: 90 RF: 1 magnesium chloride 64 mg tablet,delayed release (DR/EC) 64 mg PO ONCE PRNRF: 0 Referrals: Karri Gonzales ARNP [Primary Care Provider] -
--- NOTE | 2019-10-26 14:43 | DI.CT.S_ITS ---
PROCEDURE: CT ANGIO CHEST PE PROTOCOL INDICATIONS: Chest pain, shortness of breath, tachycardia TECHNIQUE: After the administration of intravenous contrast, 2 mm thick sections acquired from the pulmonary apices to the posterior costophrenic angles. 3-dimensional maximum intensity projection (MIP) coronal and sagittal reformats were then acquired through the thorax. For radiation dose reduction, the following was used: automated exposure control, adjustment of mA and/or kV according to patient size. COMPARISON: None. FINDINGS: Image quality: Excellent. Pulmonary arteries: Pulmonary arteries are normal in size, but demonstrate definite bilateral intraluminal filling defects diagnostic of central pulmonary embolism. These include a saddle embolus the crosses the main branch point of the pulmonary artery and extends into the right and left main pulmonary arteries, and also emboli going cephalad on the left into the left upper lobe pulmonary artery, and caudad on the left to involve the basilar segmental pulmonary arteries to a moderate degree. On the right the right upper lobe pulmonary artery also contains thrombus, and more inferiorly the basilar right-sided pulmonary arteries also contain embolus. The embolus present appears acute or subacute, and not chronic. Lungs and pleura: Lungs are clear. No pleural effusions or pneumothorax. Central and peripheral airways are patent. Mediastinum: Heart size is normal, without pericardial effusion. No mediastinal or hilar adenopathy. Thoracic aorta is normal in caliber and enhancement. Esophagus is normal in caliber, without hiatal hernia. Bones and chest wall: No suspicious bony lesions. Ribs and thoracic spine appear intact throughout. Thyroid gland savi is not well-seen. No axillary or supraclavicular adenopathy. Abdomen: Visualized upper abdominal solid organs appear normal in the early arterial phase of enhancement. IMPRESSION: Extensive pulmonary emboli bilaterally as discussed, and findings were immediately called and discussed in detail with Dr. León, the emergency room physician caring for the patient. No pulmonary infarction is found. Dictated by: Shlomo Miguel M.D. on 10/26/2019 at 15:31 Approved by: Shlomo Miguel M.D. on 10/26/2019 at 15:36
[2019-10-26 14:44] LABS: Add Manual Diff / Slide Review NO; Basophils Absolute Auto 0 /uL (0-100); Basophils Percent Auto 0.6 % (0-2); Eosinophils Absolute Auto 200 /uL (0-450); Eosinophils Percent Auto 2.4 % (2-4); Hematocrit 42.3 % (36-46); Hemoglobin 14.3 g/dL (12.0-16.0); Lymphocytes Absolute Auto 1800 /uL (1100-4500); Lymphocytes Percent Auto 26.5 % (25-40); Mean Corpuscular HGB Conc 33.8 % (30-36); Mean Corpuscular Hemoglobin 30.3 PG (26-34); Mean Corpuscular Volume 89.7 fL (80-100); Monocytes Absolute Auto 600 /uL (0-900); Monocytes Percent Auto 8.5 % (3-14); Neutrophils Absolute Auto 4200 /uL (1500-7000); Platelet Count 191 X10^3/uL (150-400); Red Blood Cell Count 4.71 X10^6/uL (4.0-5.2); Red Cell Distribution Width 13.4 % (11.6-14.8); White Blood Cell Count 6.7 X10^3/uL (4.5-11.0)
[2019-10-26 14:51] LABS: INR 1.1 (0.9-1.3); Prothrombin Time 12.2 SECONDS (10.1-12.7)
[2019-10-26 14:53] LABS: PTT Partial Thromboplastin Tim 39 SECONDS (26.4-36.2)
[2019-10-26] MEDS: CITALOPRAM 20 MG TABLET PO (14:53)
[2019-10-26] MEDS: SODIUM CHLORIDE 0.9% 1,000 ML 125 ML IV (14:54)
[2019-10-26] MEDS: NITROGLYCERIN OINT 1 INCH/GM OINT...G. 0.5 INCH TOP (14:54)
[2019-10-26 14:56] LABS: Alanine Aminotransferase 30 IU/L (<35); Albumin 4.4 g/dL (3.5-5.0); Albumin Globulin Ratio 1.2 (1.0-2.8); Alkaline Phosphatase 122 U/L (38-126); Aspartate Aminotransferase 54 IU/L (14-36); BUN Creatinine Ratio 19.5 (6-22); Blood Urea Nitrogen 25 mg/dL (7-17); Calcium 10.4 mg/dL (8.4-10.2); Carbon Dioxide 27 mmol/L (22-32); Chloride 97 mmol/L (98-107); Estimated Glomerular Filt Rate 42.7 mL/min (>60); Globulin 3.7 g/dL (1.7-4.1); Glucose 349 mg/dL (70-100); HEMOLYSIS < 15 (0-50); Lipase 80 U/L (23-300); Potassium 3.7 mmol/L (3.4-5.1); Sodium 135 mmol/L (137-145); Total Protein 8.1 g/dL (6.3-8.2)
[2019-10-26 15:05] LABS: NT-proBNP (BNP-Adult 18+) 68 pg/mL (<125)
[2019-10-26 15:08] LABS: Troponin I 0.079 ng/mL (0.01-0.034)
[2019-10-26] MEDS: ASPIRIN 81 MG CHEW TAB 324 MG PO (15:26)
[2019-10-26 15:35] LABS: COVID19 -Nasal RAPID Negative (Negative)
[2019-10-26] MEDS: HEPARIN 5,000 UNIT/ML VIAL 7500 UNIT IV (15:45)
[2019-10-26] MEDS: HEPARIN DRIP 25,000 UNIT/500 ML IV.SOLN 24 UNIT IV (15:55)
--- NOTE | 2019-10-26 16:12 | PC.NURSE ---
patient has developed dull ache in middle upper abdomen post starting heparin gtt. pt states 2/[address] León notified.
[2019-10-26] MEDS: LORazepam 2 MG/ML INJ 0.5 MG IV (16:13)
--- NOTE | 2019-10-26 18:00 | PC.NURSE ---
pt requested to use the restroom, pt used bedside commode, pt on 3l O2, sats down to 81% once back to the bed. pt O2 up to 5l for 2min and sats up to 95%, O2 back down to 3l, maintaining 93% sat.
== END 2019-10-26 18:21 | disposition short-term general hospital (02) ==
PROVIDERS: Emergency Provider Emergency Medicine; PCP Nurse Practitioner Family
DX: I26.92 Saddle embolus of pulmonary artery without acute cor pulmonale (principal); R09.02 Hypoxemia; R00.0 Tachycardia, unspecified; F41.9 Anxiety disorder, unspecified
CPT/HCPCS: 36415; 71045; 71275; 80053; 83690; 83880; 84484; 85025; 85610; 85730; 87635; 93005; 96365; 96366; 96375; 99285; J1644; J2060; Q9967

== ENCOUNTER → 2019-11-25 11:34 | Outpatient (CLI) | payer OTHER, SELFPAY ==
[2019-11-28 12:13] LABS: Protein S-Functional >280 % (63-140)
[2019-12-14 13:19] LABS: Cardiolipin IgA 29.6
== END ==
PROVIDERS: PCP Nurse Practitioner Family; Referring Provider Internal Medicine Medical Oncology; Visit Provider Internal Medicine Medical Oncology
DX: I74.9 Embolism and thrombosis of unspecified artery (principal)
CPT/HCPCS: 36415; 81240; 81241; 83520; 85300; 85303; 85306; 85307; 86147

== ENCOUNTER → 2019-12-01 12:03 | Outpatient (CLI) | payer OTHER, SELFPAY ==
[2019-12-01 12:47] LABS: BUN Creatinine Ratio 23.8 (6-22); Blood Urea Nitrogen 30 mg/dL (7-17); Calcium 9.3 mg/dL (8.4-10.2); Carbon Dioxide 28 mmol/L (22-32); Chloride 104 mmol/L (98-107); Estimated Glomerular Filt Rate 43.5 mL/min (>60); Glucose 123 mg/dL (70-100); HEMOLYSIS < 15 (0-50); Potassium 4.3 mmol/L (3.4-5.1); Sodium 139 mmol/L (137-145)
== END ==
PROVIDERS: PCP Nurse Practitioner Family; Referring Provider Registered Nurse; Visit Provider Registered Nurse
DX: Z86.711 Personal history of pulmonary embolism (principal)
CPT/HCPCS: 36415; 80048

== ENCOUNTER → 2019-12-16 12:29 | Outpatient (CLI) | payer OTHER, SELFPAY ==
[2019-12-16 13:10] LABS: Hematocrit 34.6 % (36-46); Hemoglobin 11.4 g/dL (12.0-16.0)
[2019-12-16 14:08] LABS: BUN Creatinine Ratio 21.8 (6-22); Blood Urea Nitrogen 24 mg/dL (7-17); Calcium 9.5 mg/dL (8.4-10.2); Carbon Dioxide 26 mmol/L (22-32); Chloride 106 mmol/L (98-107); Estimated Glomerular Filt Rate 50.8 mL/min (>60); Glucose 180 mg/dL (70-100); HEMOLYSIS < 15 (0-50); Potassium 4.3 mmol/L (3.4-5.1); Sodium 138 mmol/L (137-145)
[2019-12-16 16:08] LABS: Creatinine Urine Random 129.4 mg/dL; Protein (Total) Urine Random 6 mg/dL (0-12); Protein Creatinine Ratio Urine 0.04 GRAM/24H
[2019-12-17 09:39] LABS: Parathyroid Hormone Int 26 pg/mL (15-65)
== END ==
PROVIDERS: PCP Nurse Practitioner Family; Referring Provider Nurse Practitioner Family; Visit Provider Student in an Organized Health Care Education/Training Program
DX: N05.9 Unspecified nephritic syndrome with unspecified morphologic changes (principal); D64.9 Anemia, unspecified; N25.81 Secondary hyperparathyroidism of renal origin; R80.9 Proteinuria, unspecified
CPT/HCPCS: 36415; 80048; 82570; 83970; 84156; 85014; 85018

== ENCOUNTER → 2020-01-31 08:41 | Outpatient (CLI) | payer OTHER, SELFPAY ==
--- NOTE | 2020-01-31 | DI.ECHO.S_ITS ---
[place] +---------+ [facility] +---------+ : : [address] : : : : [id number] : : : : Phone: [phone] Echocardiogram Report + + :Name: ROBLES CASTELAN Study Date: 01/31/2020 Height: 67 in : :[facility] Weight: 283 lb : : Gender: Female BSA: 2.3 m2 : :: 1960 Age: 59 yrs BP: 149/68 mmHg: :Reason For Study: HISTORY OF PULMONARY EMBOLISM : :Ordering Physician: Mariah : :Galina Performed By: Oksana Millan : + + Interpretation Summary Normal sinus rhythm. Normal LV size and wall thickness. Normal wall motion and LV systolic function. EF is 60-65%. Moderate LA enlargement; otherwise normal chamber sizes. Aortic valve leaflets are mildly thickened and calcified with mild-moderate associated aortic regurgitation and mild aortic stenosis. Compared to prior study 01/10/2019 no significant changes have occurred. Procedure: A two-dimensional transthoracic echocardiogram with color flow and Doppler was performed. The study quality was technically adequate. Left Ventricle: The left ventricle is normal in size and wall thickness. Left ventricular ejection fraction is estimated to be 65 +/- 5%. Diastolic parameters suggest a relaxation abnormality of the left ventricle, consistent with probable normal filling pressures. Right Ventricle: The right ventricle is normal in size and function. Atria: The left atrium is moderately dilated. Right atrial size is normal. There is no Doppler evidence for an interatrial shunt. Mitral Valve: The mitral valve is normal in structure and function. There is trace mitral regurgitation. Aortic Valve: The aortic valve is trileaflet. The aortic valve is mildly calcified. There is mild to moderate aortic regurgitation. Tricuspid Valve: The tricuspid valve is normal in structure and function. The right ventricular systolic pressure is estimated to be at least 31 mmHg based on an estimated right atrial pressure of 8 mm Hg. There is mild tricuspid regurgitation. Pulmonic Valve: The pulmonic valve is not well seen, but is grossly normal. There is no pulmonic valvular regurgitation. Great Vessels: The aortic root is normal size. The ascending aorta is mildly enlarged. The IVC is dilated (diameter is greater than 2.1 cm) yet it collapses greater than 50% with a sniff. This suggests a right atrial pressure of 8 mm Hg. Pericardium/ Pleura There is no pericardial effusion. There is no pleural effusion. MMode/2D Measurements & Calculations LVIDd: 4.8 cm LVOT diam: 2.1 cm LVIDs: 3.0 cm Ao root diam: 2.9 cm FS: 38.2 % asc Aorta Diam: 3.6 cm EPSS: 0.46 cm Ao Arch Diam (Prox Trans): 2.5 cm IVSd: 1.1 cm LVPWd: 0.92 cm LV smith. diameter/BSA (cm/m^2): 2.1 LV sys. diameter/BSA (cm/m^2): 1.3 LA A2 area: 28.8 cm2 RA long axis: 5.4 cm LA A4 area: 27.2 cm2 RA area: 16.8 cm2 LA length (vol): 6.6 cm RA vol: 44.5 ml LA vol: 100.2 ml RA : 19.0 ml/m2 LA vol index: 42.8 ml/m2 IVC diam: 2.2 cm RVD1 (basal): 3.9 cm TAPSE: 2.3 cm Doppler Measurements & Calculations Ao V2 max: 249.6 cm/sec LVOT Max Pascual: 122.1 cm/sec Ao V2 mean: 166.9 cm/sec LV V1 max P.0 mmHg Ao max P.9 mmHg LV V1 VTI: 26.9 cm Ao mean P.7 mmHg PAULINE(I,D): 1.7 cm2 Ao V2 VTI: 56.3 cm PAULINE(V,D): 1.7 cm2 sev ratio: 0.48 PAULINE indexed to BSA (cm^2/m^2): 0.73 AI P1/2t: 668.2 msec AI dec slope: 202.3 cm/sec2 MV E max pascual: 85.5 cm/sec TR max pascual: 240.2 cm/sec MV A max pascual: 85.1 cm/sec TR max P.1 mmHg MV E/A: 1.0 PA V2 max: 94.6 cm/sec Med Peak E' Pascual: 9.7 cm/sec PA V2 mean: 60.5 cm/sec E/E' med: 8.8 PA mean P.7 mmHg Lat Peak E' Pascual: 9.3 cm/sec PA pr(Accel): 39.6 mmHg E/E' lat: 9.2 E/e' average: 9.0 MV dec time: 0.25 sec SV(LVOT): 96.1 ml Electronically signed by: Shanika Cronin M.D. on Reading Physician:02/01/2020 12:23 AM
[2020-01-31 10:05] LABS: Hemoglobin 11.7 g/dL (12.0-16.0); Mean Corpuscular HGB Conc 33.3 % (30-36); Mean Corpuscular Hemoglobin 30.5 PG (26-34); Mean Corpuscular Volume 91.4 fL (80-100); Platelet Count 202 X10^3/uL (150-400); Red Blood Cell Count 3.83 X10^6/uL (4.0-5.2); Red Cell Distribution Width 13.9 % (11.6-14.8); White Blood Cell Count 4.7 X10^3/uL (4.5-11.0)
[2020-01-31 10:11] LABS: Hemoglobin A1C% w Est Avg Glu 6.6 % (4.0-6.0)
[2020-01-31 11:07] LABS: Alanine Aminotransferase 27 IU/L (<35); Albumin 3.7 g/dL (3.5-5.0); Albumin Globulin Ratio 1.2 (1.0-2.8); Alkaline Phosphatase 86 U/L (38-126); Aspartate Aminotransferase 46 IU/L (14-36); BUN Creatinine Ratio 17.7 (6-22); Bilirubin Total 0.5 mg/dL (0.2-1.3); Blood Urea Nitrogen 20 mg/dL (7-17); Calcium 9.5 mg/dL (8.4-10.2); Carbon Dioxide 29 mmol/L (22-32); Chloride 107 mmol/L (98-107); Cholesterol 197 mg/dL (140-199); Estimated Glomerular Filt Rate 49.3 mL/min (>60); Globulin 3.1 g/dL (1.7-4.1); Glucose 109 mg/dL (70-100); HDL Cholesterol 52 mg/dL (40-60); HEMOLYSIS 16 (0-50); LDL Cholesterol Calculated 106 mg/dL (<100); Potassium 4.3 mmol/L (3.4-5.1); Sodium 140 mmol/L (137-145); Total Protein 6.8 g/dL (6.3-8.2); Triglycerides 193 mg/dL (35-150)
== END ==
PROVIDERS: PCP Nurse Practitioner Family; Referring Provider Nurse Practitioner Family; Visit Provider Registered Nurse
DX: I08.2 Rheumatic disorders of both aortic and tricuspid valves (principal); I77.89 Other specified disorders of arteries and arterioles; E11.65 Type 2 diabetes mellitus with hyperglycemia; Z13.6 Encounter for screening for cardiovascular disorders; Z86.711 Personal history of pulmonary embolism
CPT/HCPCS: 36415; 80053; 80061; 83036; 85027; 93306

== ENCOUNTER → 2020-03-08 | Outpatient (CLI) | payer OTHER, SELFPAY | PROVIDERS: PCP Nurse Practitioner Family; Referring Provider Internal Medicine; Visit Provider Internal Medicine | DX: Z23 Encounter for immunization (principal) | CPT/HCPCS: 90471; 90686 ==

== ENCOUNTER 2020-04-20 03:12 | Emergency (ER) | payer OTHER, SELFPAY ==
[2020-04-20 03:19] VITALS: BP 143/62; PULSE 92; RESP 20; O2SAT 98; BMI 39.5
--- NOTE | 2020-04-20 03:30 | DI.RAD.S_ITS ---
PROCEDURE: XR KNEE RT 3V INDICATIONS: pain and effusion TECHNIQUE: 3 views of the knee were acquired. COMPARISON: None. FINDINGS: Bones: No fractures or dislocations. No suspicious bony lesions. Moderate tricompartmental osteoarthritis. Soft tissues: Large suprapatellar joint effusion. No suspicious soft tissue calcifications. IMPRESSION: 1. Moderate tricompartmental osteoarthritis. 2. Large nonspecific joint effusion. Dictated by: Anya Garcia MD, PhD on 04/20/2020 at 8:38 Approved by: Anya Garcia MD, PhD on 04/20/2020 at 8:39
--- NOTE | 2020-04-20 03:31 | ED.LOWEXIN ---
HPI - Extremity Injury (Lower) General Chief Complaint: Extremity Injury, Lower Stated Complaint: right knee pain Time Seen by Provider: 04/20/20 03:18 Source: patient Mode of arrival: Wheelchair Limitations: no limitations History of Present Illness HPI Narrative: 60-year-old woman with recently diagnosed bilateral pulmonary embolism on Pradaxa, recently diagnosed uterine cancer, hypothyroidism, diabetes, and hyperlipidemia presents with severe exhaustion and significant right knee pain. Patient works at [employer] and had finished her evening shift. She noted that her right knee has been bothering her a bit more and she had been limping a bit by the end of her shift over the last few days. Today was similar. After she drove home she stated that the pain was severe she had trouble getting out of the car that progressively got worse in the 2 hours that she was home. She was noticing significant muscle spasm associated with the knee. She is unable to bear weight. She describes no specific trauma. She does note that she has had intermittent issues with her knees compounded by her morbid obesity. She also notes that she is dramatically more fatigued and slightly dyspneic. She reports heavy vaginal bleeding going through multiple large pads daily since her recent uterine cancer diagnosis. She is scheduled to complete a 6 month course of Pradaxa within the next week or so and then will stop the Pradaxa and is scheduled for hysterectomy on May 08. Related Data Home Medications Medication Instructions Recorded Confirmed acetaminophen 650 mg PO Q8HP PRN #0 tab 03/10/16 02/28/20 Glucometer with controls ea 11/04/19 02/28/20 Lancets each 11/04/19 02/28/20 Test Strips each 11/04/19 02/28/20 multivitamin 1 tab PO DAILY tab 11/04/19 02/28/20 Previous Rx's Medication Instructions Recorded orphenadrine citrate 100 mg PO QDAYP PRN #30 ter 10/09/16 citalopram 20 mg tablet 10 mg PO QDAYP PRN #45 tab 11/28/19 dabigatran etexilate 150 mg capsule 150 mg PO BID #180 cap 11/28/19 glipizide 2.5 mg tablet, extended 2.5 mg PO BID #180 tab 11/28/19 release 24 hr metformin 500 mg tablet 500 mg PO BID #180 tab 11/28/19 levothyroxine 175 mcg tablet 175 mcg PO DAILY #90 tab 12/07/19 rosuvastatin 5 mg tablet 5 mg PO DAILY #90 tab 02/03/20 D/C oxygen #1 ea 02/07/20 hydrocodone-acetaminophen [Concepcion] 1 tab PO Q6H PRN #14 tab 04/20/20 hydroxyzine HCl 25 mg PO QID PRN #20 tab 04/20/20 Allergies Allergy/AdvReac Type Severity Reaction Status Date / Time cefadroxil [CEFADROXIL] Allergy Severe HIVES, Verified 02/28/20 11:49 VOMITING cephalexin [CEPHALEXIN] Allergy Severe HIVES, Verified 02/28/20 11:49 VOMITING dexamethasone [DEXAMETHASONE] Allergy Severe REDNESS, Verified 02/28/20 11:49 RASH AND SWELLING IN BOTH EYES neomycin [NEOMYCIN] Allergy Severe REDNESS, Verified 02/28/20 11:49 RASH AND SWELLING IN BOTH EYES Penicillins [PENICILLINS] Allergy Severe HIVES Verified 02/28/20 11:49 polymyxin B [POLYMYXIN B] Allergy Severe REDNESS, Verified 02/28/20 11:49 RASH AND SWELLING IN BOTH EYES oxycodone [OXYCODONE] AdvReac Intermediate Nausea and Verified 02/28/20 11:49 vomiting Review of Systems Review of Systems Narrative: Pertinent positive and negative findings as per HPI Remainder of review of systems is otherwise unremarkable for Constitutional: Fevers, chills, ENT: No sore throat, neck pain, ear pain CV: Chest pain, Respiratory: Cough, wheeze, GI: vomiting, diarrhea, change in bowel habits, black or bloody stools : Dysuria, hematuria, flank pain Patient History Medical History Arthritis (Chronic Unknown) Chronic back pain (Chronic Unknown) Depression (Chronic Unknown) Family history of colon cancer (Acute) Hyperlipidemia (Chronic) Hypertension (Chronic) Morbid obesity with body mass index (BMI) of 45.0 to 49.9 in adult (Chronic) Osteopenia (Chronic 09/2017) Peptic ulcer disease (Chronic Unknown) Plantar fasciitis (Resolved Unknown) 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) Postmenopausal bleeding (Acute) Pulmonary embolism (Acute 10/2019) Uterine cancer (Acute) Surgical History History of tonsillectomy and adenoidectomy (Resolved Unknown) Hx of appendectomy (Resolved Unknown) Hx of bilateral oophorectomy (Resolved Unknown) Hx of cholecystectomy (Resolved Unknown) Social History Smoking Status: Former smoker Tobacco: How many years used: 30 second hand exposure: No alcohol intake: current (rum and coke occasionally) substance use type: does not use Smoking Status: Former smoker alcohol intake frequency: other Substance Use Type: does not use Exam Narrative Exam Narrative: General: Morbidly obese, pale and obvious pain, appears fatigued. Able to give a complete and coherent history. Well-nourished well-developed HEENT: Moist mucous membranes, normal sclera with reactive pupils, Respiratory: Lungs are clear to auscultation, no wheezing no rales no rhonchi. Full and symmetrical air movement Cardiac: Regular rate and rhythm, 3/6 systolic ejection murmur no bruits Abdomen: Soft nontender good bowel tones, no flank pain Skin: Pale, dry, no rashes Neurologic: Grossly neurologically intact with no obvious asymmetries or abnormalities Extremities: No trauma, well perfused, chronic lower extremity edema with chronic venous stasis changes. Right knee with moderate effusion, no warmth or erythema. Exquisitely tender to touch with quadriceps muscle spasm. Range of motion exam is not possible due to severity of pain. Psych: Cooperative, appropriate insight and affect Initial Vital Signs Initial Vital Signs: Vital Signs Pulse Rate 92 H 04/20/20 03:19 Respiratory Rate 20 04/20/20 03:19 Blood Pressure 143/62 H 04/20/20 03:19 Pulse Oximetry 98 04/20/20 03:19 Course Orders Ordered: ED Orders 04/20/20 03:30 XR knee RT 3V Stat 04/20/20 03:45 Complete Blood Count AUTO DIFF Stat Comprehensive Metabolic Panel Stat 04/20/20 03:50 COVID19 Stat Hydromorphone HCl (Dilaudid) 0.5 mg IV Q15MIN PRN PRN Reason: Pain, Last Admin: 04/20/20 04:35 Dose: 0.5 mg Documented by: JOSEPH Discontinued Medications Hydrocodone Bitart/Acetaminophen (Concepcion 10/325) 1 tab PO NOW ONE Stop: 04/20/20 03:31 Last Admin: 04/20/20 04:22 Dose: Not Given Documented by: JOSEPH Hydrocodone Bitart/Acetaminophen (Concepcion 5/325) 2 tab PO NOW ONE Stop: 04/20/20 03:44 Last Admin: 04/20/20 03:46 Dose: 2 tab Documented by: JOSEPH Hydrocodone Bitart/Acetaminophen (Vicodin 5/325 Prepack) 1 bottle MISC SEEINSTR ONE Stop: 04/20/20 04:32 Last Admin: 04/20/20 04:36 Dose: 1 bottle Documented by: JOSEPH Hydroxyzine Pamoate (Vistaril) 50 mg PO NOW ONE Stop: 04/20/20 03:31 Last Admin: 04/20/20 03:42 Dose: 50 mg Documented by: JOSEPH Ketorolac Tromethamine (Toradol) 15 mg IV NOW ONE Stop: 04/20/20 03:31 Last Admin: 04/20/20 03:42 Dose: 15 mg Documented by: JOSEPH Ondansetron HCl (Zofran Odt) 4 mg SL NOW ONE Stop: 04/20/20 04:18 Last Admin: 04/20/20 04:22 Dose: 4 mg Documented by: JOSEPH Ondansetron HCl (Zofran Odt Prepack) 1 bottle MISC SEEINSTR ONE Stop: 04/20/20 04:32 Vital Signs Vital signs: Vital Signs - 8 hr 04/20/20 03:19 Pulse Rate 92 H Respiratory Rate 20 Blood Pressure 143/62 H Pulse Oximetry 98 MDM - Extremity Injury (Lower) Medical Records Attestation: I reviewed the patient's medical records. Lab Data Result diagrams: 04/20/20 03:45 04/20/20 03:45 Labs: Lab Results 04/20/20 04/20/20 04/20/20 Range/Units 03:45 03:45 03:50 WBC 9.2 (4.5-11.0) X10^3/uL RBC 2.78 L (4.0-5.2) X10^6/uL Hgb 8.5 L (12.0-16.0) g/dL Hct 25.6 L (36-46) % MCV 92.2 (80-100) fL MCH 30.5 (26-34) PG MCHC 33.1 (30-36) % RDW 13.5 (11.6-14.8) % Plt Count 213 (150-400) X10^3/uL Neut % (Auto) 71.3 (50-75) % Lymph % (Auto) 16.0 L (25-40) % [place] % (Auto) 8.3 (3-14) % Eos % (Auto) 3.6 (2-4) % Baso % (Auto) 0.8 (0-2) % Neut # (Auto) 6600 (4098-5401) /uL Lymph # (Auto) 1500 (8320-1125) /uL [place] # (Auto) 800 (0-900) /uL Eos # (Auto) 300 (0-450) /uL Baso # (Auto) 100 (0-100) /uL Sodium 135 L (137-145) mmol/L Potassium 4.1 (3.4-5.1) mmol/L Chloride 106 (98-107) mmol/L Carbon Dioxide 22 (22-32) mmol/L BUN 29 H (7-17) mg/dL Creatinine 1.45 H (0.52-1.04) mg/dL Estimated GFR 36.8 L (>60) mL/min BUN/Creatinine Ratio 20.0 (6-22) Glucose 185 H (80-110) mg/dL Calcium 8.8 (8.4-10.2) mg/dL Total Bilirubin 0.4 (0.2-1.3) mg/dL AST 44 H (14-36) IU/L ALT 26 (<35) IU/L Alkaline Phosphatase 96 (38-126) U/L Total Protein 6.5 (6.3-8.2) g/dL Albumin 3.4 L (3.5-5.0) g/dL Globulin 3.1 (1.7-4.1) g/dL Albumin/Globulin Ratio 1.1 (1.0-2.8) COVID-19 PCR Negative (Negative) MDM Narrative Medical decision making narrative: 60-year-old woman who works at [employer] complaining of severe rather acute onset right knee pain with effusion uncertain etiology. She also notes heavy vaginal bleeding, increasing fatigue and dyspnea and is at high risk for COVID exposure through her work setting. Will treat her right knee pain, follow-up with x-rays, will also check a CBC as well as a COVID test Pain is modestly improved enough that she is able to at least move her leg. We have reviewed her anemia and she is aware that she needs to review this with her surgeon. She has 4 days off to allow the knee to rest. She will need to re-evaluate her personal pain threshold, overall level of fatigue from her anemia and her ability to work and not end up in the severity of pain that she was experiencing this evening in deciding whether not she will be able to return to work prior to her surgery. She is safe for home discharge Discharge Plan Departure Patient Disposition: Home Clinical Impression: Acute blood loss anemia Acute knee pain Qualifiers: Laterality: right Qualified Code(s): M25.561 - Pain in right knee Uterine cancer Qualifiers: Malignant neoplasm of uterus location: unspecified site of uterus Qualified Code(s): C55 - Malignant neoplasm of uterus, part unspecified Instructions: DI for Knee Pain Activity Restrictions/Additional Instructions: Thank you for coming into Your knee does not have any evidence of acute injury. It looks more like chronic arthritis that has been irritated to the point that you have developed an effusion and that is contributing to the severe pain and muscle spasm. Use the walker for stability. Ice and elevation can help. I have given you Concepcion to use sparingly for the knee pain. I have also given you hydroxyzine to use for muscle spasm related to the knee pain. 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 Hemoglobin and hematocrit (blood counts) on April 01 were 11.7 and 35.0. Today they are 8.5 and 25.6. This level of anemia is clearly contributing to your overall fatigue by the end of a work shift. Please contact your surgeon and let him know these most recent numbers. He may have additional recommendations and may recommend transfusion in the weaker to prior to your anticipated surgery. It would be prudent to recheck these numbers in a few days to understand how quickly they are dropping. Prescriptions: New hydrocodone-acetaminophen [Concepcion] 10-325 mg tablet 1 tab PO Q6H PRN (Reason: pain) Qty: 14 RF: 0 hydroxyzine HCl 25 mg tablet 25 mg PO QID PRN (Reason: Spasm) Qty: 20 RF: 0 No Action multivitamin Tablet 1 tab PO DAILY RF: 0 acetaminophen 650 MG tablet extended release 650 mg PO Q8HP PRNQty: 0 RF: 0 orphenadrine citrate 100 MG tablet extended release 100 mg PO QDAYP PRNQty: 30 RF: 3 citalopram 20 mg tablet 10 mg PO QDAYP PRN (Reason: depression) Qty: 45 RF: 1 glipizide 2.5 mg tablet extended release 24hr 2.5 mg PO BID Qty: 180 RF: 1 metformin 500 mg tablet 500 mg PO BID Qty: 180 RF: 1 Pradaxa 150 mg capsule 150 mg PO BID Qty: 180 RF: 1 levothyroxine 175 mcg tablet 175 mcg PO DAILY Qty: 90 RF: 1 (DME) D/C oxygen Qty: 1 RF: 0 (DME) Glucometer with controls RF: 0 (DME) Lancets RF: 0 (DME) Test Strips RF: 0 rosuvastatin 5 mg tablet 5 mg PO DAILY Qty: 90 RF: 0 Referrals: Karri Gonzales ARNP [Primary Care Provider] -
[2020-04-20] MEDS: hydrOXYzine pamoate 25 MG CAPSULE 50 MG PO (03:42)
[2020-04-20] MEDS: KETOROLAC 60 MG/2 ML VIAL 15 MG IV (03:42)
[2020-04-20] MEDS: HYDROCODONE/ACET 5/325 TABLET 2 TAB PO (03:46)
[2020-04-20 03:48] LABS: Add Manual Diff / Slide Review NO; Basophils Absolute Auto 100 /uL (0-100); Basophils Percent Auto 0.8 % (0-2); Eosinophils Absolute Auto 300 /uL (0-450); Eosinophils Percent Auto 3.6 % (2-4); Hematocrit 25.6 % (36-46); Hemoglobin 8.5 g/dL (12.0-16.0); Lymphocytes Absolute Auto 1500 /uL (1100-4500); Mean Corpuscular HGB Conc 33.1 % (30-36); Mean Corpuscular Hemoglobin 30.5 PG (26-34); Mean Corpuscular Volume 92.2 fL (80-100); Monocytes Absolute Auto 800 /uL (0-900); Monocytes Percent Auto 8.3 % (3-14); Neutrophils Absolute Auto 6600 /uL (1500-7000); Neutrophils Percent Auto 71.3 % (50-75); Platelet Count 213 X10^3/uL (150-400); Red Blood Cell Count 2.78 X10^6/uL (4.0-5.2); Red Cell Distribution Width 13.5 % (11.6-14.8); White Blood Cell Count 9.2 X10^3/uL (4.5-11.0)
[2020-04-20 04:00] LABS: Alanine Aminotransferase 26 IU/L (<35); Albumin 3.4 g/dL (3.5-5.0); Albumin Globulin Ratio 1.1 (1.0-2.8); Alkaline Phosphatase 96 U/L (38-126); Aspartate Aminotransferase 44 IU/L (14-36); Bilirubin Total 0.4 mg/dL (0.2-1.3); Blood Urea Nitrogen 29 mg/dL (7-17); Calcium 8.8 mg/dL (8.4-10.2); Carbon Dioxide 22 mmol/L (22-32); Chloride 106 mmol/L (98-107); Estimated Glomerular Filt Rate 36.8 mL/min (>60); Globulin 3.1 g/dL (1.7-4.1); Glucose 185 mg/dL (80-110); HEMOLYSIS 24 (0-50); Potassium 4.1 mmol/L (3.4-5.1); Sodium 135 mmol/L (137-145); Total Protein 6.5 g/dL (6.3-8.2)
[2020-04-20] MEDS: ONDANSETRON 4 MG ODT SL (04:22)
[2020-04-20 04:33] LABS: COVID19 -Nasal RAPID Negative (Negative)
[2020-04-20] MEDS: HYDROMORPHONE 0.5 MG INJ IV (04:35)
[2020-04-20] MEDS: HYDROCODONE/ACET 5/325 PREPACK 1 BOTTLE MISC (04:36)
--- NOTE | 2020-04-20 04:46 | PC.NURSE ---
Initial pain meds did nt help much she said,MD notified and new orders were received and carried out.
[2020-04-20] MEDS: ONDANSETRON 4 MG ODT PREPACK 1 BOTTLE MISC (05:02)
[2020-04-20 05:28] VITALS: BP 131/61; PULSE 90; RESP 18; O2SAT 95
--- NOTE | 2020-04-20 05:30 | PC.NURSE ---
WE provided her with a walker which she was able to use safely here.
== END 2020-04-20 05:30 | disposition home or self-care (01) ==
PROVIDERS: Emergency Provider Emergency Medicine; PCP Nurse Practitioner Family
DX: M25.561 Pain in right knee (principal); C55 Malignant neoplasm of uterus, part unspecified; D62 Acute posthemorrhagic anemia; I26.99 Other pulmonary embolism without acute cor pulmonale; Z79.01 Long term (current) use of anticoagulants
CPT/HCPCS: 36415; 73562; 80053; 85025; 87635; 96374; 96375; 99284; J1170; J1885

== ENCOUNTER → 2020-04-26 10:48 | Outpatient (CLI) | payer OTHER, SELFPAY ==
[2020-04-26 13:16] LABS: HEMOLYSIS < 15 (0-50); Iron 51 ug/dL (37-170)
[2020-04-26 13:30] LABS: Percent Iron Saturation 15 % (15-50); Total Iron Binding Capacity 331 ug/dL (265-497); Transferrin 241 mg/dL (206-381)
[2020-04-26 13:53] LABS: Ferritin 64 ng/mL (11-264)
[2020-04-26 16:24] LABS: Alanine Aminotransferase 21 IU/L (<35); Albumin Globulin Ratio 1.1 (1.0-2.8); Alkaline Phosphatase 89 U/L (38-126); Aspartate Aminotransferase 38 IU/L (14-36); BUN Creatinine Ratio 12.3 (6-22); Bilirubin Total 0.6 mg/dL (0.2-1.3); Blood Urea Nitrogen 20 mg/dL (7-17); Calcium 8.3 mg/dL (8.4-10.2); Carbon Dioxide 27 mmol/L (22-32); Chloride 104 mmol/L (98-107); Estimated Glomerular Filt Rate 32.4 mL/min (>60); Globulin 2.8 g/dL (1.7-4.1); Glucose 231 mg/dL (80-110); HEMOLYSIS < 15 (0-50); Sodium 137 mmol/L (137-145); Total Protein 5.8 g/dL (6.3-8.2)
[2020-04-26 16:55] LABS: Thyroid Stimulating Hormone 9.55 uIU/mL (0.47-4.68)
== END ==
PROVIDERS: PCP Nurse Practitioner Family; Referring Provider Nurse Practitioner Family; Visit Provider Nurse Practitioner Family
DX: D62 Acute posthemorrhagic anemia (principal); E11.65 Type 2 diabetes mellitus with hyperglycemia; Z00.00 Encounter for general adult medical examination without abnormal findings; E89.0 Postprocedural hypothyroidism
CPT/HCPCS: 36415; 80053; 82728; 83540; 83550; 84443

== ENCOUNTER → 2020-04-27 15:55 | Outpatient (CLI) | payer OTHER, SELFPAY ==
[2020-04-27 16:43] LABS: Hematocrit 21.7 % (36-46); Mean Corpuscular HGB Conc 32.2 % (30-36); Mean Corpuscular Hemoglobin 30.2 PG (26-34); Mean Corpuscular Volume 93.8 fL (80-100); Platelet Count 243 X10^3/uL (150-400); Red Blood Cell Count 2.31 X10^6/uL (4.0-5.2); Red Cell Distribution Width 14.6 % (11.6-14.8)
== END ==
PROVIDERS: PCP Nurse Practitioner Family; Referring Provider Nurse Practitioner Family; Visit Provider Nurse Practitioner Family
DX: E11.65 Type 2 diabetes mellitus with hyperglycemia (principal); Z00.00 Encounter for general adult medical examination without abnormal findings
CPT/HCPCS: 85027

== ENCOUNTER 2020-04-27 19:12 | Emergency (ER) | payer OTHER, SELFPAY ==
[2020-04-27] VITALS (15 sets, daily range): BP systolic 98–145; BP diastolic 49–65; PULSE 71–90; RESP 14–27; TEMP 36.3–36.8; O2SAT 93–100; BMI 42.5
--- NOTE | 2020-04-27 20:11 | ED.RECABL ---
HPI - Recheck/Abnormal Lab/Rx General Chief Complaint: Recheck/Abnormal Lab/Rx Stated Complaint: LOW BLOOD COUNT AND WEAKNESS Time Seen by Provider: 04/27/20 19:15 Source: patient Mode of arrival: Ambulatory Limitations: no limitations History of Present Illness HPI narrative: 60-year-old female former smoker with history of pulmonary embolism on anticoagulation as well as relatively newly diagnosed uterine cancer presents with a chief complaint of significant vaginal bleeding including the saturation of a pad every 3-4 hours. She presents feeling weak and fatigued and states that she had outpatient labs and was called at home stating her hemoglobin was too and she should proceed to the emergency department immediately. She denies runny nose, sore throat or cough. She denies fever or chills. She has scheduled to be on her anticoagulant for 2 more days and then goes off it prior to a scheduled hysterectomy in a few weeks. MD complaint: abnormal lab Symptoms since prior visit: no new symptoms Associated symptoms: shortness of breath Related Data Home Medications Medication Instructions Recorded Confirmed acetaminophen 650 mg PO Q8HP PRN #0 tab 03/10/16 02/28/20 Glucometer with controls ea 11/04/19 02/28/20 Lancets each 11/04/19 02/28/20 Test Strips each 11/04/19 02/28/20 multivitamin 1 tab PO DAILY tab 11/04/19 02/28/20 Previous Rx's Medication Instructions Recorded orphenadrine citrate 100 mg PO QDAYP PRN #30 ter 10/09/16 citalopram 20 mg tablet 10 mg PO QDAYP PRN #45 tab 11/28/19 dabigatran etexilate 150 mg capsule 150 mg PO BID #180 cap 11/28/19 glipizide 2.5 mg tablet, extended 2.5 mg PO BID #180 tab 11/28/19 release 24 hr metformin 500 mg tablet 500 mg PO BID #180 tab 11/28/19 levothyroxine 175 mcg tablet 175 mcg PO DAILY #90 tab 12/07/19 rosuvastatin 5 mg tablet 5 mg PO DAILY #90 tab 02/03/20 D/C oxygen #1 ea 02/07/20 hydrocodone-acetaminophen [[place]] 1 tab PO Q6H PRN #14 tab 04/20/20 hydroxyzine HCl 25 mg PO QID PRN #20 tab 04/20/20 Allergies Allergy/AdvReac Type Severity Reaction Status Date / Time cefadroxil [CEFADROXIL] Allergy Severe HIVES, Verified 04/27/20 19:32 VOMITING cephalexin [CEPHALEXIN] Allergy Severe HIVES, Verified 04/27/20 19:32 VOMITING dexamethasone [DEXAMETHASONE] Allergy Severe REDNESS, Verified 04/27/20 19:32 RASH AND SWELLING IN BOTH EYES neomycin [NEOMYCIN] Allergy Severe REDNESS, Verified 04/27/20 19:32 RASH AND SWELLING IN BOTH EYES Penicillins [PENICILLINS] Allergy Severe HIVES Verified 04/27/20 19:32 polymyxin B [POLYMYXIN B] Allergy Severe REDNESS, Verified 04/27/20 19:32 RASH AND SWELLING IN BOTH EYES oxycodone [OXYCODONE] AdvReac Intermediate Nausea and Verified 04/27/20 19:32 vomiting Review of Systems Constitutional Constitutional: Denies chills, Denies fatigue, Denies fever(s), Denies frequent falls, Denies lethargy and Denies weakness Eyes Eyes: Denies change in vision, Denies eye discharge, Denies irritation and Denies loss of vision ENT Ears, Nose, Mouth, and Throat: Denies change in voice, Denies dizziness, Denies neck pain, Denies sore throat and Denies throat swelling Cardiovascular Cardiovascular: Denies chest pain, Denies irregular heart rhythm, Denies lightheadedness, Denies palpitations, Denies dyspnea, Denies dyspnea on exertion and Denies orthopnea Respiratory Respiratory: Denies cough, Denies dyspnea, Denies dyspnea on exertion and Denies wheezing Gastrointestinal Gastrointestinal: Denies abdominal pain, Denies change in bowel habits, Denies diarrhea, Denies nausea and Denies vomiting Genitourinary Genitourinary: Reports abnormal vaginal bleeding Musculoskeletal Musculoskeletal: Denies neck pain and Denies numbness Integumentary/Breasts Skin/Breast: Denies pruritus, Denies erythema, Denies rash and Denies wounds Neurologic Neurologic: Denies behavioral changes, Denies confusion, Denies dizziness, Denies frequent falls, Denies loss of vision, Denies numbness and Denies weakness Psychiatric Psychiatric: Denies anxiety, Denies behavioral changes, Denies confusion, Denies depression, Denies homicidal ideation and Denies suicidal ideation Endocrine Endocrine: Denies fatigue, Denies flushing and Denies palpitations Hematologic/Lymphatic Hematologic/Lymphatic: Denies easy bruising Allergic/Immunologic Allergic/Immunologic: Denies urticaria, Denies throat swelling and Denies wheezing Patient History Medical History (Updated 04/28/20 @ 03:10 by Mina Maharaj DO) Arthritis (Unknown) Chronic back pain (Unknown) Depression (Unknown) Family history of colon cancer Hyperlipidemia Hypertension Morbid obesity with body mass index (BMI) of 45.0 to 49.9 in adult Osteopenia (09/2017) Peptic ulcer disease (Unknown) Plantar fasciitis (Unknown) 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) Postmenopausal bleeding Pulmonary embolism (10/2019) Uterine cancer Surgical History History of tonsillectomy and adenoidectomy (Unknown) Hx of appendectomy (Unknown) Hx of bilateral oophorectomy (Unknown) Hx of cholecystectomy (Unknown) Social History Smoking Status: Former smoker Tobacco: How many years used: 30 second hand exposure: No alcohol intake: current (rum and coke occasionally) substance use type: does not use Smoking Status: Former smoker alcohol intake frequency: other Substance Use Type: does not use Exam Narrative Exam Narrative: GENERAL: [60] year old patient appears stated age. Well-nourished, well-developed patient, in mild distress. Weak and fatigued HEAD: Atraumatic. Normocephalic. EYES: Pale conjunctiva Pupils equal round and reactive. Extraocular motions intact. No scleral icterus. No injection or drainage. ENT: Nose without bleeding, purulent drainage. Throat without erythema, tonsillar hypertrophy or exudate. Airway patent. NECK: Trachea midline. Non tender CARDIOVASCULAR: Regular rate and rhythm without murmurs, gallops, or rubs. RESPIRATORY: Clear to auscultation. Breath sounds equal bilaterally. No wheezes, rales, or rhonchi. GASTROINTESTINAL: Abdomen soft, non-tender, nondistended. EXTREMITIES: No edema or joint tenderness. BACK: Nontender without deformity or crepitance. No flank tenderness. NEURO: AOx3. SKIN: No rash or erythema of visible areas Initial Vital Signs Initial Vital Signs: Vital Signs Temperature 98.1 F 04/27/20 19:32 Pulse Rate 90 04/27/20 19:32 Respiratory Rate 26 H 04/27/20 19:32 Blood Pressure 145/64 H 04/27/20 19:32 Pulse Oximetry 99 04/27/20 19:32 Course Course Course Narrative: Patient feeling significant improvement after a few units of blood. Her color has improved, she denies any dizziness or shortness of breath. Her vitals remain stable, she looks and feels great. She understands return precautions and has had her questions answered to her apparent satisfaction. Orders Ordered: ED Orders 04/27/20 19:54 Packed Cells Stat Type and Screen Stat Vital Signs Vital signs: Vital Signs - 8 hr 04/27/20 22:18 04/27/20 22:26 04/27/20 22:30 Temperature 97.3 F L Pulse Rate 78 75 73 Respiratory Rate 22 27 H 19 Blood Pressure 112/58 L 112/58 L 114/57 L Pulse Oximetry 98 96 04/27/20 22:39 04/27/20 22:41 04/27/20 23:00 Temperature 98.3 F Pulse Rate 73 75 73 Respiratory Rate 16 24 18 Blood Pressure 106/57 L 106/57 L 117/55 L Pulse Oximetry 97 93 04/27/20 23:30 04/27/20 23:35 04/28/20 00:00 Temperature Pulse Rate 74 77 78 Respiratory Rate 18 20 21 Blood Pressure 98/49 L 110/61 113/56 L Pulse Oximetry 96 95 97 04/28/20 00:30 04/28/20 00:35 04/28/20 00:47 Temperature 98 F 98 F Pulse Rate 78 78 78 Respiratory Rate 15 20 20 Blood Pressure 110/56 L 110/56 L 110/56 L Pulse Oximetry 96 04/28/20 00:50 04/28/20 01:08 04/28/20 01:30 Temperature 97.9 F Pulse Rate 80 82 78 Respiratory Rate 22 18 Blood Pressure 131/62 131/62 Pulse Oximetry 95 04/28/20 02:00 04/28/20 02:23 04/28/20 02:30 Temperature Pulse Rate 72 72 71 Respiratory Rate 17 18 18 Blood Pressure 111/56 L Pulse Oximetry 94 95 93 04/28/20 03:00 04/28/20 03:08 04/28/20 03:18 Temperature 98.1 F Pulse Rate 70 72 72 Respiratory Rate 15 20 20 Blood Pressure 117/56 L 117/56 L Pulse Oximetry 96 96 [facility] - Recheck/Abnormal Lab/Rx Lab Data Labs: Lab Results 04/27/20 Range/Units 19:54 Blood Type A Positive Antibody Screen Negative Crossmatch See Detail [facility] Narrative Medical decision making narrative: Anticoagulated patient with increased vaginal bleeding due to uterine cancer and planned hysterectomy presents feeling fatigued with suspicion of anemia. Blood counts note hemoglobin 7, 2 units packed red cells ordered. Bedside discussion involved discussion of stopping anticoagulation, contacting her providers. Return precautions include worsening of symptoms, saturation of a pad per hour and other concerns. Discharge Plan Departure Patient Disposition: Home Clinical Impression: Abnormal vaginal bleeding Anemia Qualifiers: Anemia type: unspecified type Qualified Code(s): D64.9 - Anemia, unspecified Instructions: Anemia Activity Restrictions/Additional Instructions: *You have been diagnosed with [weakness and fatigue due to anemia secondary to ongoing bleeding and persistent use of anticoagulation.] *What to do: *Take medications as directed: Please stop your anticoagulation as discussed. *Follow up with your primary care provider in 2-3 days, call for an appointment. Let them know you were seen in the Emergency Department and that we ask that you be seen in follow up *Return to ER if you should have any new, worsening or concerning symptoms, such as [bleeding through more than 1 pad per hour for multiple hours, fever greater than 101 F, significant pain, other bothersome symptoms] Prescriptions: No Action multivitamin Tablet 1 tab PO DAILY RF: 0 acetaminophen 650 MG tablet extended release 650 mg PO Q8HP PRNQty: 0 RF: 0 orphenadrine citrate 100 MG tablet extended release 100 mg PO QDAYP PRNQty: 30 RF: 3 citalopram 20 mg tablet 10 mg PO QDAYP PRN (Reason: depression) Qty: 45 RF: 1 glipizide 2.5 mg tablet extended release 24hr 2.5 mg PO BID Qty: 180 RF: 1 metformin 500 mg tablet 500 mg PO BID Qty: 180 RF: 1 Pradaxa 150 mg capsule 150 mg PO BID Qty: 180 RF: 1 levothyroxine 175 mcg tablet 175 mcg PO DAILY Qty: 90 RF: 1 (DME) D/C oxygen Qty: 1 RF: 0 (DME) Glucometer with controls RF: 0 (DME) Lancets RF: 0 (DME) Test Strips RF: 0 rosuvastatin 5 mg tablet 5 mg PO DAILY Qty: 90 RF: 0 hydrocodone-acetaminophen [[place]] 10-325 mg tablet 1 tab PO Q6H PRN (Reason: pain) Qty: 14 RF: 0 hydroxyzine HCl 25 mg tablet 25 mg PO QID PRN (Reason: Spasm) Qty: 20 RF: 0 Referrals: Karri Gonzales ARNP [Primary Care Provider] -
[2020-04-28] VITALS (13 sets, daily range): BP systolic 110–131; BP diastolic 56–62; PULSE 70–82; RESP 15–22; TEMP 36.6–36.7; O2SAT 93–97
--- NOTE | 2020-04-28 01:25 | PC.NURSE ---
after her first unit of blood transfused,she had me wait until she went to the bathroom,her blood pressure was slightly elevated after but soon returned to baseline,she verbalized feeling better,more energy and warmer.She had me wait to start the 2nd unit of blood while she went to the bathroom.
--- NOTE | 2020-04-28 03:24 | PC.NURSE ---
approx. 650 ml packed red blood cells infused when she left at 0330 on 04/28/20.also 100 ml ns infused.
== END 2020-04-28 03:36 | disposition home or self-care (01) ==
PROVIDERS: Emergency Provider Emergency Medicine; PCP Nurse Practitioner Family
DX: N93.9 Abnormal uterine and vaginal bleeding, unspecified (principal); D64.9 Anemia, unspecified; C55 Malignant neoplasm of uterus, part unspecified; R53.1 Weakness; I26.99 Other pulmonary embolism without acute cor pulmonale; Z79.01 Long term (current) use of anticoagulants
CPT/HCPCS: 36430; 85027; 86850; 86900; 86901; 99281; 99284; P9016

== ENCOUNTER → 2020-05-30 14:44 | Outpatient (CLI) | payer OTHER, SELFPAY ==
[2020-05-30 15:45] LABS: Hemoglobin 9.7 g/dL (12.0-16.0); Mean Corpuscular HGB Conc 32.5 % (30-36); Mean Corpuscular Hemoglobin 29.3 PG (26-34); Mean Corpuscular Volume 90.2 fL (80-100); Platelet Count 319 X10^3/uL (150-400); Red Blood Cell Count 3.32 X10^6/uL (4.0-5.2); Red Cell Distribution Width 14.8 % (11.6-14.8); White Blood Cell Count 6.3 X10^3/uL (4.5-11.0)
== END ==
PROVIDERS: PCP Nurse Practitioner Family; Referring Provider Nurse Practitioner Family; Visit Provider Nurse Practitioner Family
DX: D64.9 Anemia, unspecified (principal); N93.9 Abnormal uterine and vaginal bleeding, unspecified
CPT/HCPCS: 36415; 85027

== ENCOUNTER → 2020-06-12 13:32 | Outpatient (CLI) | payer OTHER, SELFPAY ==
[2020-06-12 14:58] LABS: Hematocrit 33.2 % (36-46); Hemoglobin 10.8 g/dL (12.0-16.0); Mean Corpuscular HGB Conc 32.4 % (30-36); Mean Corpuscular Hemoglobin 28.9 PG (26-34); Mean Corpuscular Volume 89.3 fL (80-100); Platelet Count 258 X10^3/uL (150-400); Red Blood Cell Count 3.72 X10^6/uL (4.0-5.2); Red Cell Distribution Width 14.8 % (11.6-14.8); White Blood Cell Count 5.6 X10^3/uL (4.5-11.0)
[2020-06-12 15:08] LABS: Hemoglobin A1C% w Est Avg Glu 6.1 % (4.0-6.0)
[2020-06-12 15:17] LABS: Alanine Aminotransferase 33 IU/L (<35); Albumin 4.1 g/dL (3.5-5.0); Albumin Globulin Ratio 1.1 (1.0-2.8); Alkaline Phosphatase 92 U/L (38-126); Aspartate Aminotransferase 59 IU/L (14-36); Bilirubin Total 0.4 mg/dL (0.2-1.3); Blood Urea Nitrogen 29 mg/dL (7-17); Calcium 9.2 mg/dL (8.4-10.2); Carbon Dioxide 28 mmol/L (22-32); Chloride 106 mmol/L (98-107); Estimated Glomerular Filt Rate 45.4 mL/min (>60); Globulin 3.6 g/dL (1.7-4.1); Glucose 161 mg/dL (80-110); HEMOLYSIS < 15 (0-50); Potassium 4.3 mmol/L (3.4-5.1); Sodium 140 mmol/L (137-145); Total Protein 7.7 g/dL (6.3-8.2)
[2020-06-12 15:27] LABS: HEMOLYSIS < 15 (0-50); Iron 54 ug/dL (37-170)
[2020-06-12 15:43] LABS: Percent Iron Saturation 14 % (15-50); Total Iron Binding Capacity 374 ug/dL (265-497); Transferrin 278 mg/dL (206-381)
[2020-06-12 15:47] LABS: Ferritin 77 ng/mL (11-264)
[2020-06-12 16:00] LABS: Thyroid Stimulating Hormone 1.63 uIU/mL (0.47-4.68)
== END ==
PROVIDERS: PCP Nurse Practitioner Family; Referring Provider Nurse Practitioner Family; Visit Provider Nurse Practitioner Family
DX: E11.65 Type 2 diabetes mellitus with hyperglycemia (principal); I10 Essential (primary) hypertension; N18.9 Chronic kidney disease, unspecified; D50.9 Iron deficiency anemia, unspecified; E89.0 Postprocedural hypothyroidism
CPT/HCPCS: 36415; 80053; 82728; 83036; 83540; 83550; 84443; 85027

== ENCOUNTER → 2020-06-26 12:05 | Outpatient (CLI) | payer OTHER, SELFPAY ==
--- NOTE | 2020-06-26 12:08 | DI.MG.S_ITS ---
BILATERAL DIGITAL SCREENING MAMMOGRAM 3D/2D WITH CAD: 06/26/2020 CLINICAL: Routine screening. Comparison is made to exams dated: 04/19/2019 mammogram, 05/28/2016 mammogram, and 06/09/2014 mammogram - [facility]. There are scattered fibroglandular elements in both breasts. Current study was also evaluated with a Computer Aided Detection (CAD) system. No significant masses, calcifications, or other findings are seen in either breast. There has been no significant interval change. IMPRESSION: NEGATIVE There is no mammographic evidence of malignancy. A 1 year screening mammogram is recommended. This exam was interpreted at Station ID: [id number]. NOTE: For mammograms, a report in lay terms will be sent to the patient. Approximately 15% of breast malignancies will not be visualized mammographically. In the management of a palpable breast mass, a negative mammogram must not discourage biopsy of a clinically suspicious lesion. Electronically Signed By: Brady mcfarland/[email or web address]:06/26/2020 14:41:44 letter sent: Normal Exam ACR BI-RADS Category 1: Negative [id number]
== END ==
PROVIDERS: PCP Nurse Practitioner Family; Referring Provider Nurse Practitioner Family; Visit Provider Nurse Practitioner Family
DX: Z12.31 Encounter for screening mammogram for malignant neoplasm of breast (principal); M85.851 Other specified disorders of bone density and structure, right thigh; Z78.0 Asymptomatic menopausal state; E07.9 Disorder of thyroid, unspecified; E11.9 Type 2 diabetes mellitus without complications; Z87.891 Personal history of nicotine dependence
CPT/HCPCS: 77063; 77067; 77080

== ENCOUNTER → 2020-08-20 10:27 | Outpatient (CLI) | payer OTHER, SELFPAY ==
[2020-08-20 11:40] LABS: COVID19 -Nasal RAPID Negative (Negative)
== END ==
PROVIDERS: PCP Nurse Practitioner Family; Visit Provider Surgery
DX: Z20.822 Contact with and (suspected) exposure to COVID-19 (principal)
CPT/HCPCS: 87635; C9803

== ENCOUNTER 2020-08-21 09:25 | Day surgery (SDC) | payer OTHER, SELFPAY ==
[2020-08-21] VITALS (8 sets, daily range): BP systolic 110–147; BP diastolic 59–80; PULSE 72–83; RESP 11–20; TEMP 35.9–37.1; O2SAT 93–97
--- NOTE | 2020-08-21 | PATH_ITS ---
[facility] Accession Number: [id number] . 01 Material submitted: . PART A: colon - SMALL COLON POLYP AT 55CM PART B: colon - 35CM COLON POLYP . 01 Clinical history: . SCREENING COLONOSCOPY . 02 Diagnosis: A. Small Colon Polyp at 55 cm: Serrated lesion, favor hyperplastic polyp. . B. 35 cm Colon Polyp: Tubular adenoma. MRV 08/27/2020 1336 Local . 02 Electronically signed: . Morenita Kahn MD, Pathologist NPI- [id number] . 01 Gross description: . A. The specimen is received in formalin, labeled small polyp at 55 cm and consists of a 0.4 x 0.4 x 0.3 cm gallagher fragment of soft tissue which is entirely submitted in cassette A1. B. The specimen is received in formalin, labeled 35 cm colon polyp and consists of a 0.4 x 0.4 x 0.3 cm gallagher fragment of soft tissue which is entirely submitted in cassette B1. (EA:[id number]) /MRV 08/22/2020 1203 Local . 02 Pathologist provided ICD-10: K63.5, Z12.11, Z80.0 . 02 CPT . 544603, 450993 Performed at: 01 [facility] [address], [place], [place] [id number] MD Satya Weinberg MD Phone: [phone] Performed at: 02 [facility] [address] [place], [place] [id number] MD Mariah Duval MD Phone: [phone]
[2020-08-21] MEDS: SODIUM CHLORIDE 0.9% 1,000 ML 200 ML IV (10:37)
--- NOTE | 2020-08-21 10:49 | P.OP.ENDO_ITS ---
Operative Date/Time/Diagnoses Date of procedure: 08/21/20 Time of procedure: 10:49 Pre-op diagnosis: Family history of colon cancer in a primary relative, personal history of colon polyps Post-op diagnosis: other (two small polyps) Procedure & Clinicians Study performed: Colonoscopy Procedural sedation performed by the endoscopy Polypectomy x2 with Jumbo forceps Same procedure as scheduled: Yes Indications: Personal history of colon polyps, high risk family history for colon cancer Surgeon: Jacey Yeboah Procedure Notes SCOAP/Timeout: Performed Procedure in detail: The patient was brought to the room and placed in left lateral decubitus position with all bony prominences padded. A time-out was performed and then the patient was given procedural sedation starting with 4 mg of Versed and 100 mcg of fentanyl. A total of 5 mg of Versed and 150 micro g of fentanyl were given for the entire procedure. Vitals were monitored throughout the procedure and remained stable. Once adequately sedated, the procedure was begun. A rectal exam was performed revealing no abnormalities. The colonoscope was then introduced to the rectum and advanced to the cecum in the usual fashion. The cecum was identified by the appendiceal orifice, the mucosal tri- fold, and the ileocecal valve. The scope was then retracted while rotating side to side and examining each mucosal fold. Two polyps were found and removed with Jumbo forceps. One polyp was at 55 cm and the other was at 35 cm. Both appeared benign. At the conclusion of the procedure retroflexion was performed and small grade 1-2 internal hemorrhoids without stigmata of bleeding were seen. The scope was then withdrawn from the rectum the procedure was concluded. The patient tolerated the procedure well and was transferred to the PACU in stable condition. Scope withdrawal time: 11 Sedation minutes: 23 Findings: polyp Specimen(s): other (Two small polyps) Complications: none Impression: Two small polyps, otherwise normal colon Post-procedure Recommendations: Colonscopy in 5 years Follow up: as needed Disposition: PACU
--- NOTE | 2020-08-21 10:50 | P.HP_ITS ---
History of Present Illness History of Present Illness Date Patient Seen: 08/21/20 Time Patient Seen: 10:50 Chief complaint: SCREENING COLONOCOSPY Narrative: This is a 60-year-old woman with obesity, hypertension, history of pulmonary emboli, history of gynecologic cancer. She has a family history of a colon cancer in her mother and maternal grandfather. She has had colonoscopies every 5 years with no abnormal findings. She is here for follow-up 5 year high risk screening colonoscopy. She denies any melena, hematochezia, unexplained abdominal pain, unexplained weight loss, changes in bowel habit ROS: Thirteen system review is otherwise negative other than as mentioned below and in HPI. PE: GENERAL: Well groomed and cooperative. Appears stated age. Answers questions promptly and appropriately. Vital signs noted. HENT: Normocephalic, atraumatic. Hearing intact. EYES: Conjunctiva pink, sclera white, no periorbital swelling. CARDIOVASCULAR: Regular rate. No pedal edema. RESPIRATORY: Non-tachypneic, breathing comfortably on room air. GASTROINTESTINAL: Abdomen soft and non-distended GENITALURINARY: No flank tenderness. MUSCULOSKELETAL: Equal tone and mass bilaterally. SKIN: Warm, dry, soft, appropriate color for ethnicity. No other lesions, rashes, or wounds. NEURO: Alert and Oriented X 3. No gross sensory deficits, or cognitive issues. PSYCH: Appropriate affect and mood. 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) Postmenopausal bleeding Pulmonary embolism (10/2019) Uterine cancer Surgical History History of hysterectomy (05/2020) History of tonsillectomy and adenoidectomy (Unknown) Hx of appendectomy (Unknown) Hx of bilateral oophorectomy (Unknown) Hx of cholecystectomy (Unknown) Family & Social History Social History: household members spouse Tobacco & Substance use: Smoking Status Former smoker alcohol intake current alcohol intake frequency holiday/special occasion Substance Use Type does not use,painkillers Meds Home Medications and Allergies Home Medications Medication Instructions Recorded Confirmed Type acetaminophen 650 mg PO Q8HP PRN #0 tab 03/10/16 08/21/20 History Glucometer with controls ea 11/04/19 06/05/20 History Lancets each 11/04/19 06/05/20 History Test Strips each 11/04/19 06/05/20 History multivitamin 1 tab PO DAILY tab 11/04/19 08/21/20 History citalopram 20 mg tablet 10 mg PO QDAYP PRN #45 tab 11/28/19 08/21/20 Rx D/C oxygen #1 ea 02/07/20 06/05/20 Rx hydrocodone-acetaminophen [[place]] 1 tab PO Q6H PRN #14 tab 04/20/20 08/21/20 Rx orphenadrine citrate 100 mg 100 mg PO QDAYP PRN #30 ter 05/02/20 08/21/20 Rx tablet,extended release glipizide 2.5 mg tablet, extended 2.5 mg PO BID #180 tab 05/25/20 08/21/20 Rx release 24 hr docusate sodium 250 mg capsule 250 mg PO DAILY 06/06/20 08/21/20 History ferrous sulfate 325 mg (65 mg 325 mg PO DAILY 06/06/20 08/21/20 History iron) tablet metformin 500 mg tablet 500 mg PO BID #180 tab 06/14/20 08/21/20 Rx levothyroxine 175 mcg tablet See Rx Instructions .ROUTE 06/27/20 08/21/20 Rx .COMPLEX #90 tab rosuvastatin 5 mg tablet 5 mg PO DAILY #90 tab 08/14/20 08/21/20 Rx Allergies Allergy/AdvReac Type Severity Reaction Status Date / Time cefadroxil [CEFADROXIL] Allergy Severe HIVES, Verified 06/05/20 13:52 VOMITING cephalexin [CEPHALEXIN] Allergy Severe HIVES, Verified 06/05/20 13:52 VOMITING dexamethasone [DEXAMETHASONE] Allergy Severe REDNESS, Verified 06/05/20 13:52 RASH AND SWELLING IN BOTH EYES neomycin [NEOMYCIN] Allergy Severe REDNESS, Verified 06/05/20 13:52 RASH AND SWELLING IN BOTH EYES Penicillins [PENICILLINS] Allergy Severe HIVES Verified 06/05/20 13:52 polymyxin B [POLYMYXIN B] Allergy Severe REDNESS, Verified 06/05/20 13:52 RASH AND SWELLING IN BOTH EYES hydroxyzine Allergy Intermediate Rash to Verified 06/05/20 13:54 abdomen oxycodone [OXYCODONE] AdvReac Intermediate Nausea and Verified 06/05/20 13:52 vomiting Exam Vital Signs (past 8 hours): - 08/21/20 10:13 Temperature 98.7 F Pulse Rate 75 Respiratory Rate 20 Blood Pressure 147/74 H Pulse Oximetry 95 Oxygen Delivery Method Room Air Assessment & Plan Assessment and plan (1) Morbid obesity with body mass index (BMI) of 45.0 to 49.9 in adult: Status: Chronic (2) Pulmonary embolism: Problem details: Result of elevated BMI, historical. Resolved. Qualifiers: Pulmonary embolism type: unspecified Chronicity: unspecified Acute cor pulmonale presence: unspecified Qualified Code(s): I26.99 - Other pulmonary embolism without acute cor pulmonale Status: Acute (3) Family history of colon cancer: Status: Acute Assessment & Plan narrative: Risks and benefits of screening colonoscopy and possible polypectomy were discussed with the patient including risk of bleeding, perforation, need for additional procedures, risks of anesthesia. The patient desires to proceed with the colonoscopy procedure. COVID-19 COVID-19 status: Negative Result date/Date tested (Pos, Neg/Pending): 08/20/20 Time Spent With Patient Time with patient: 15-24 minutes Quality VTE Deep Vein Thrombosis/Pulmonary Embolism Present on Admission: No
[2020-08-21] MEDS: fentaNYL 250 MCG/5 ML INJ IV (11:01)
[2020-08-21] MEDS: MIDAZOLAM 5 MG/5 ML VIAL IV (11:01)
--- NOTE | 2020-08-21 16:19 | SUR.PHASEII ---
late entry. Pt A/O, up steady on feet. tolerating fluids. DC to home with spouse.
== END 2020-08-21 12:10 | disposition home or self-care (01) ==
PROVIDERS: PCP Nurse Practitioner Family; Referring Provider Surgery; Visit Provider Surgery
PROC: 0DJD8ZZ Inspection of Lower Intestinal Tract, Via Natural or Artificial Opening Endoscopic (ICD-10-PCS; CPT 45378; principal; 2020-08-21 10:45)
DX: Z12.11 Encounter for screening for malignant neoplasm of colon (principal); Z86.010 Personal history of colon polyps; Z80.0 Family history of malignant neoplasm of digestive organs; E66.01 Morbid (severe) obesity due to excess calories; Z68.42 Body mass index [BMI] 45.0-49.9, adult; D50.9 Iron deficiency anemia, unspecified; I10 Essential (primary) hypertension; Z86.711 Personal history of pulmonary embolism; E03.9 Hypothyroidism, unspecified; K64.0 First degree hemorrhoids
CPT/HCPCS: 45380; 99152; J2250; J3010

== ENCOUNTER → 2020-09-03 14:31 | Outpatient (CLI) | payer OTHER, SELFPAY ==
[2020-09-03 15:24] LABS: Hemoglobin A1C% w Est Avg Glu 8.5 % (4.0-6.0)
[2020-09-03 15:35] LABS: Alanine Aminotransferase 29 IU/L (<35); Albumin 3.8 g/dL (3.5-5.0); Albumin Globulin Ratio 1.1 (1.0-2.8); Alkaline Phosphatase 76 U/L (38-126); Aspartate Aminotransferase 48 IU/L (14-36); BUN Creatinine Ratio 22.7 (6-22); Bilirubin Total 0.6 mg/dL (0.2-1.3); Blood Urea Nitrogen 25 mg/dL (7-17); Calcium 9.3 mg/dL (8.4-10.2); Carbon Dioxide 27 mmol/L (22-32); Chloride 104 mmol/L (98-107); Estimated Glomerular Filt Rate 50.7 mL/min (>60); Globulin 3.4 g/dL (1.7-4.1); Glucose 267 mg/dL (80-110); HEMOLYSIS < 15 (0-50); Sodium 138 mmol/L (137-145); Total Protein 7.2 g/dL (6.3-8.2)
[2020-09-03 15:36] LABS: Hematocrit 37.5 % (36-46); Hemoglobin 12.4 g/dL (12.0-16.0); Mean Corpuscular HGB Conc 33.1 % (30-36); Mean Corpuscular Hemoglobin 28.9 PG (26-34); Mean Corpuscular Volume 87.5 fL (80-100); Platelet Count 176 X10^3/uL (150-400); Red Blood Cell Count 4.28 X10^6/uL (4.0-5.2); Red Cell Distribution Width 15.1 % (11.6-14.8)
[2020-09-03 16:36] LABS: Creatinine Urine Random 139.7 mg/dL; Protein (Total) Urine Random 7 mg/dL (0-12); Protein Creatinine Ratio Urine 0.05 GRAM/24H
[2020-09-03 16:47] LABS: Thyroid Stimulating Hormone 0.402 uIU/mL (0.47-4.68)
[2020-09-04 05:36] LABS: Parathyroid Hormone Int 47 pg/mL (15-65)
== END ==
PROVIDERS: PCP Nurse Practitioner Family; Referring Provider Student in an Organized Health Care Education/Training Program; Visit Provider Student in an Organized Health Care Education/Training Program
DX: Z00.00 Encounter for general adult medical examination without abnormal findings (principal); N05.9 Unspecified nephritic syndrome with unspecified morphologic changes; D64.9 Anemia, unspecified; N25.81 Secondary hyperparathyroidism of renal origin; R80.9 Proteinuria, unspecified; D50.8 Other iron deficiency anemias; E11.65 Type 2 diabetes mellitus with hyperglycemia; N18.32 Chronic kidney disease, stage 3b
CPT/HCPCS: 80053; 82570; 83036; 83970; 84156; 84443; 85027

== ENCOUNTER 2020-09-23 20:58 | Emergency (ER) | payer OTHER, SELFPAY ==
--- NOTE | 2020-09-23 20:59 | ED.ABDPAIN ---
HPI - Abdominal Pain General Chief Complaint: Abdominal Pain Stated Complaint: right lower abdomen knot that really hurts Time Seen by Provider: 09/23/20 20:59 Source: patient and family Mode of arrival: Ambulatory Limitations: no limitations History of Present Illness HPI narrative: 60-year-old female former smoker with history of pulmonary emboli, iron deficiency anemia, chronic kidney disease, uterine cancer presents with a chief complaint of a painful bulge in her right lower abdomen for the past few days. It is near incision site from a surgery she had last year and seems to be worse when she stands up and improves when she lays down. She denies any fever chills nor any nausea or vomiting. She has had no constipation dysuria or frequency. The pain does not move and she has never had discomfort like this in the past MD complaint: abdominal pain Onset (ago): day(s) Pain Consistency: constant Location: RLQ Severity: moderate Quality: stabbing Radiation: none Relieving factors: rest Exacerbating factors: movement Associated symptoms: denies other symptoms Related Data Home Medications Medication Instructions Recorded Confirmed acetaminophen 650 mg PO Q8HP PRN #0 tab 03/10/16 08/21/20 Glucometer with controls ea 11/04/19 06/05/20 Lancets each 11/04/19 06/05/20 Test Strips each 11/04/19 06/05/20 multivitamin 1 tab PO DAILY tab 11/04/19 08/21/20 docusate sodium 250 mg capsule 250 mg PO DAILY 06/06/20 08/21/20 ferrous sulfate 325 mg (65 mg 325 mg PO DAILY 06/06/20 08/21/20 iron) tablet Previous Rx's Medication Instructions Recorded citalopram 20 mg tablet 10 mg PO QDAYP PRN #45 tab 11/28/19 D/C oxygen #1 ea 02/07/20 hydrocodone-acetaminophen [[place]] 1 tab PO Q6H PRN #14 tab 04/20/20 orphenadrine citrate 100 mg 100 mg PO QDAYP PRN #30 ter 05/02/20 tablet,extended release glipizide 2.5 mg tablet, extended 2.5 mg PO BID #180 tab 05/25/20 release 24 hr metformin 500 mg tablet 500 mg PO BID #180 tab 06/14/20 levothyroxine 175 mcg tablet See Rx Instructions .ROUTE 06/27/20 .COMPLEX #90 tab rosuvastatin 5 mg tablet 5 mg PO DAILY #90 tab 08/14/20 hydrocodone-acetaminophen 1 tab PO Q4-6H PRN #20 tab 09/23/20 Allergies Allergy/AdvReac Type Severity Reaction Status Date / Time cefadroxil [CEFADROXIL] Allergy Severe HIVES, Verified 06/05/20 13:52 VOMITING cephalexin [CEPHALEXIN] Allergy Severe HIVES, Verified 06/05/20 13:52 VOMITING dexamethasone [DEXAMETHASONE] Allergy Severe REDNESS, Verified 06/05/20 13:52 RASH AND SWELLING IN BOTH EYES neomycin [NEOMYCIN] Allergy Severe REDNESS, Verified 06/05/20 13:52 RASH AND SWELLING IN BOTH EYES Penicillins [PENICILLINS] Allergy Severe HIVES Verified 06/05/20 13:52 polymyxin B [POLYMYXIN B] Allergy Severe REDNESS, Verified 06/05/20 13:52 RASH AND SWELLING IN BOTH EYES hydroxyzine Allergy Intermediate Rash to Verified 06/05/20 13:54 abdomen oxycodone [OXYCODONE] AdvReac Intermediate Nausea and Verified 06/05/20 13:52 vomiting Review of Systems Constitutional Constitutional: Denies chills, Denies fatigue, Denies fever(s), Denies frequent falls, Denies lethargy and Denies weakness Eyes Eyes: Denies change in vision, Denies eye discharge, Denies irritation and Denies loss of vision ENT Ears, Nose, Mouth, and Throat: Denies change in voice, Denies dizziness, Denies neck pain, Denies sore throat and Denies throat swelling Cardiovascular Cardiovascular: Denies chest pain, Denies irregular heart rhythm, Denies lightheadedness, Denies palpitations, Denies dyspnea, Denies dyspnea on exertion and Denies orthopnea Respiratory Respiratory: Denies cough, Denies dyspnea, Denies dyspnea on exertion and Denies wheezing Gastrointestinal Gastrointestinal: Reports abdominal pain, Denies change in bowel habits, Denies diarrhea, Denies nausea and Denies vomiting Musculoskeletal Musculoskeletal: Denies neck pain and Denies numbness Integumentary/Breasts Skin/Breast: Denies pruritus, Denies erythema, Denies rash and Denies wounds Neurologic Neurologic: Denies behavioral changes, Denies confusion, Denies dizziness, Denies frequent falls, Denies loss of vision, Denies numbness and Denies weakness Psychiatric Psychiatric: Denies anxiety, Denies behavioral changes, Denies confusion, Denies depression, Denies homicidal ideation and Denies suicidal ideation Endocrine Endocrine: Denies fatigue, Denies flushing and Denies palpitations Hematologic/Lymphatic Hematologic/Lymphatic: Denies easy bruising Allergic/Immunologic Allergic/Immunologic: Denies urticaria, Denies throat swelling and Denies wheezing 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) Postmenopausal bleeding Pulmonary embolism (10/2019) Uterine cancer Surgical History History of hysterectomy (05/2020) History of tonsillectomy and adenoidectomy (Unknown) Hx of appendectomy (Unknown) Hx of bilateral oophorectomy (Unknown) Hx of cholecystectomy (Unknown) Social History household members: spouse Smoking Status: Former smoker Tobacco: How many years used: 30 second hand exposure: No alcohol intake: current substance use type: does not use Smoking Status: Former smoker alcohol intake frequency: holidays/special occasions only Substance Use Type: does not use and painkillers Exam Narrative Exam Narrative: GENERAL: [60] year old patient appears stated age. Well-nourished, well-developed patient, in mild distress. Obviously uncomfortable, rubbing her right lower abdomen HEAD: Atraumatic. Normocephalic. EYES: Pupils equal round and reactive. Extraocular motions intact. No scleral icterus. No injection or drainage. ENT: Nose without bleeding, purulent drainage. Throat without erythema, tonsillar hypertrophy or exudate. Airway patent. NECK: Trachea midline. Non tender CARDIOVASCULAR: Regular rate and rhythm without murmurs, gallops, or rubs. RESPIRATORY: Clear to auscultation. Breath sounds equal bilaterally. No wheezes, rales, or rhonchi. GASTROINTESTINAL: Abdomen soft, tender in right lower quadrant just medial to surgical incision, small palpable lump and possible associated rent consistent with possible hernia, no overlying erythema. Resolves when laying flat, nondistended. EXTREMITIES: No edema or joint tenderness. BACK: Nontender without deformity or crepitance. No flank tenderness. NEURO: AOx3. SKIN: No rash or erythema of visible areas Initial Vital Signs Initial Vital Signs: Vital Signs Temperature 99.2 F 09/23/20 21:03 Pulse Rate 101 H 09/23/20 21:03 Respiratory Rate 22 09/23/20 21:03 Blood Pressure 182/87 H 09/23/20 21:03 Pulse Oximetry 95 09/23/20 21:03 Course Orders Ordered: ED Orders 09/23/20 21:10 Complete Blood Count AUTO DIFF Stat Comprehensive Metabolic Panel Stat Lactate (Lactic Acid) Stat Lipase Stat 09/23/20 21:45 CT abdomen pelvis w con Stat Discontinued Medications Hydrocodone Bitart/Acetaminophen (Hydrocodone/Acet 5/325 Prepack) 1 bottle [facility] Stop: 09/23/20 22:50 Last Admin: 09/23/20 22:55 Dose: 1 bottle Documented by: JESSICA Hydromorphone HCl (Hydromorphone 0.5 Mg Inj) 0.5 mg IV NOW ONE Stop: 09/23/20 21:06 Last Admin: 09/23/20 21:17 Dose: 0.5 mg Documented by: JESSICA Hydromorphone HCl (Hydromorphone 0.5 Mg Inj) 0.5 mg IV NOW ONE Stop: 09/23/20 21:46 Last Admin: 09/23/20 21:51 Dose: 0.5 mg Documented by: JESSICA Sodium Chloride (Normal Saline 0.9%) 1,000 mls @ 125 mls/hr IV CONT DANIELE Last Infusion: 09/23/20 22:48 Dose: 0 mls/hr Documented by: Admin: 09/23/20 21:16 Dose: 125 mls/hr Documented by: JESSICA Ondansetron HCl (Ondansetron 4 Mg Odt Prepack) 1 bottle MISC SEEINSTR ONE Stop: 09/23/20 22:50 Last Admin: 09/23/20 22:55 Dose: 1 bottle Documented by: JESSICA Vital Signs Vital signs: Vital Signs - 8 hr 04/18/21 21:03 09/23/20 21:22 09/23/20 21:30 Temperature 99.2 F Pulse Rate 101 H 89 93 H Respiratory Rate 22 Blood Pressure 182/87 H Pulse Oximetry 95 94 92 09/23/20 22:00 09/23/20 22:23 09/23/20 22:30 Temperature Pulse Rate 82 84 82 Respiratory Rate 16 Blood Pressure 182/87 H 178/80 H Pulse Oximetry 95 92 96 MDM - Abdominal Pain Lab Data Result diagrams: 09/23/20 21:10 09/23/20 21:10 Labs: Lab Results 09/23/20 09/23/20 09/23/20 Range/Units 21:10 21:10 21:10 WBC 7.4 (4.5-11.0) X10^3/uL RBC 4.46 (4.0-5.2) X10^6/uL Hgb 12.8 (12.0-16.0) g/dL Hct 39.4 (36-46) % MCV 88.2 (80-100) fL MCH 28.6 (26-34) PG MCHC 32.4 (30-36) % RDW 15.3 H (11.6-14.8) % Plt Count 207 (150-400) X10^3/uL Neut % (Auto) 59.6 (50-75) % Lymph % (Auto) 26.1 (25-40) % [place] % (Auto) 9.7 (3-14) % Eos % (Auto) 4.1 H (2-4) % Baso % (Auto) 0.5 (0-2) % Neut # (Auto) 4400 (8496-4729) /uL Lymph # (Auto) 1900 (8599-4871) /uL [place] # (Auto) 700 (0-900) /uL Eos # (Auto) 300 (0-450) /uL Baso # (Auto) 0 (0-100) /uL Sodium 140 (137-145) mmol/L Potassium 3.8 (3.4-5.1) mmol/L Chloride 104 (98-107) mmol/L Carbon Dioxide 26 (22-32) mmol/L BUN 28 H (7-17) mg/dL Creatinine 1.27 H (0.52-1.04) mg/dL Estimated GFR 42.9 L (>60) mL/min BUN/Creatinine Ratio 22.0 (6-22) Glucose 207 H (80-110) mg/dL Lactate 1.7 (0.7-2.1) mmol/L Calcium 9.5 (8.4-10.2) mg/dL Total Bilirubin 0.4 (0.2-1.3) mg/dL AST 50 H (14-36) IU/L ALT 29 (<35) IU/L Alkaline Phosphatase 80 (38-126) U/L Total Protein 7.9 (6.3-8.2) g/dL Albumin 4.1 (3.5-5.0) g/dL Globulin 3.8 (1.7-4.1) g/dL Albumin/Globulin Ratio 1.1 (1.0-2.8) Lipase 127 (23-300) U/L Imaging Data CT scan - abdomen/pelvis: Radiologist's Impression: No evidence of acute pathology. No free air or ascites. No GI tract obstruction or wall thickening. No secondary signs of acute appendicitis. No significant abdominal or inguinal hernia MDM Narrative Medical decision making narrative: Multiple diagnoses considered including hernia versus bowel obstruction versus appendicitis versus kidney stone versus other. Her exam is most consistent with an early postsurgical rent and possible hernia that seems to reduce when she lays flat. Very reassuring labs and imaging. Return precautions given and questions answered to her apparent satisfaction Discharge Plan Departure Patient Disposition: Home Clinical Impression: Abdominal wall pain in right lower quadrant Instructions: DI for Abdominal Pain-Adult Activity Restrictions/Additional Instructions: *You have been diagnosed with [abdominal wall pain, possibly due to early hernia. Physical exam, labs and CT scan are very reassuring and do not demonstrate any significant findings that would require admission to the hospital or surgery] *What to do: *Take medications as directed * avoid heavy lifting. Be sure to drink plenty of water and eat foods high in fiber and possibly take stool softeners to ensure there is no straining with bowel movements *Follow up with your surgeon in 2-3 days, call for an appointment. Let them know you were seen in the Emergency Department and that we ask that you be seen in follow up *Return to ER if you should have any new, worsening or concerning symptoms, such as [increasing pain, fever greater than 101 F, persistent vomiting, inability to have bowel movement or pass gas or other bothersome symptoms] Prescriptions: New hydrocodone-acetaminophen 5-325 mg tablet 1 tab PO Q4-6H PRN (Reason: pain) Qty: 20 RF: 0 No Action multivitamin Tablet 1 tab PO DAILY RF: 0 acetaminophen 650 MG tablet extended release 650 mg PO Q8HP PRN (Reason: Pain (Scale Score 1-3)) Qty: 0 RF: 0 citalopram 20 mg tablet 10 mg PO QDAYP PRN (Reason: depression) Qty: 45 RF: 1 (DME) D/C oxygen Qty: 1 RF: 0 orphenadrine citrate 100 mg tablet extended release 100 mg PO QDAYP PRN (Reason: Knee Pain) Qty: 30 RF: 3 glipizide 2.5 mg tablet extended release 24hr 2.5 mg PO BID Qty: 180 RF: 1 metformin 500 mg tablet 500 mg PO BID Qty: 180 RF: 1 levothyroxine 175 mcg tablet See Rx Instructions .ROUTE .COMPLEX Qty: 90 RF: 0 rosuvastatin 5 mg tablet 5 mg PO DAILY Qty: 90 RF: 3 (DME) Glucometer with controls RF: 0 (DME) Lancets RF: 0 (DME) Test Strips RF: 0 ferrous sulfate [Feosol] 325 mg (65 mg iron) tablet 325 mg PO DAILY RF: 0 docusate sodium [Stool Softener] 250 mg capsule 250 mg PO DAILY RF: 0 hydrocodone-acetaminophen [[place]] 10-325 mg tablet 1 tab PO Q6H PRN (Reason: pain) Qty: 14 RF: 0 Referrals: Karri Gonzales ARNP [Primary Care Provider] - Jacey Yeboah MD [Physician] -
[2020-09-23 21:03] VITALS: BP 182/87; PULSE 101; RESP 22; TEMP 37.3; O2SAT 95
[2020-09-23] MEDS: SODIUM CHLORIDE 0.9% 1,000 ML 125 ML IV (21:16)
[2020-09-23] MEDS: HYDROMORPHONE 0.5 MG INJ IV ×2 (21:17→21:51)
[2020-09-23 21:21] LABS: Add Manual Diff / Slide Review NO; Basophils Absolute Auto 0 /uL (0-100); Basophils Percent Auto 0.5 % (0-2); Eosinophils Absolute Auto 300 /uL (0-450); Eosinophils Percent Auto 4.1 % (2-4); Hematocrit 39.4 % (36-46); Hemoglobin 12.8 g/dL (12.0-16.0); Lymphocytes Absolute Auto 1900 /uL (1100-4500); Lymphocytes Percent Auto 26.1 % (25-40); Mean Corpuscular HGB Conc 32.4 % (30-36); Mean Corpuscular Hemoglobin 28.6 PG (26-34); Mean Corpuscular Volume 88.2 fL (80-100); Monocytes Absolute Auto 700 /uL (0-900); Monocytes Percent Auto 9.7 % (3-14); Neutrophils Absolute Auto 4400 /uL (1500-7000); Neutrophils Percent Auto 59.6 % (50-75); Platelet Count 207 X10^3/uL (150-400); Red Blood Cell Count 4.46 X10^6/uL (4.0-5.2); Red Cell Distribution Width 15.3 % (11.6-14.8); White Blood Cell Count 7.4 X10^3/uL (4.5-11.0)
[2020-09-23 21:22] VITALS: PULSE 89; O2SAT 94
[2020-09-23 21:30] VITALS: PULSE 93; O2SAT 92
[2020-09-23 21:31] LABS: Alanine Aminotransferase 29 IU/L (<35); Albumin 4.1 g/dL (3.5-5.0); Albumin Globulin Ratio 1.1 (1.0-2.8); Alkaline Phosphatase 80 U/L (38-126); Aspartate Aminotransferase 50 IU/L (14-36); Bilirubin Total 0.4 mg/dL (0.2-1.3); Blood Urea Nitrogen 28 mg/dL (7-17); Calcium 9.5 mg/dL (8.4-10.2); Carbon Dioxide 26 mmol/L (22-32); Chloride 104 mmol/L (98-107); Estimated Glomerular Filt Rate 42.9 mL/min (>60); Globulin 3.8 g/dL (1.7-4.1); Glucose 207 mg/dL (80-110); HEMOLYSIS < 15 (0-50); Lipase 127 U/L (23-300); Potassium 3.8 mmol/L (3.4-5.1); Sodium 140 mmol/L (137-145); Total Protein 7.9 g/dL (6.3-8.2)
[2020-09-23 21:32] LABS: Lactate (Lactic Acid) 1.7 mmol/L (0.7-2.1)
--- NOTE | 2020-09-23 21:45 | DI.CT.S_ITS ---
PROCEDURE: CT ABDOMEN PELVIS W CON INDICATIONS: severe pain in right mid abdomen, painful lump, incarcerated TECHNIQUE: After the administration of intravenous contrast, 5 mm thick sections acquired from the diaphragm to the symphysis. 5 mm coronal and sagittal reformats were acquired. For radiation dose reduction, the following was used: automated exposure control, adjustment of mA and/or kV according to patient size. COMPARISON: [facility], CT, CT ANGIO CHEST PE PROTOCOL, 10/26/2019, 15:03. CT, KIDNEY/ URETER/BLADDER, 03/25/2011, 5:31. FINDINGS: Image quality: Excellent. ABDOMEN: Lung bases: Lung bases are clear. Heart size is normal. Solid organs: Liver is normal in size and enhancement. Gallbladder has been resected. Biliary system is non dilated. Pancreas enhances normally. Spleen is normal in size and enhancement. No adrenal nodules. Kidneys demonstrate normal size and enhancement, without hydronephrosis. Peritoneum and bowel: Bowel loops demonstrate normal wall thickness and caliber. No free fluid or air. Nodes and vessels: No retroperitoneal or mesenteric adenopathy by size criteria. Aorta and inferior vena cava are normal in size. Miscellaneous: No ventral hernias. PELVIS: Genitourinary: Bladder wall thickness is normal. Miscellaneous: No inguinal hernias or adenopathy. Bones: No suspicious bony lesions. No vertebral body compression fractures. IMPRESSION: Portions of the right lower quadrant are not fully evaluated due to absence of oral contrast, and depending on the clinical status follow-up by colonoscopy may be warranted if pain is considered potentially secondary to mass within the right colon. Prior cholecystectomy. Dictated by: Shlomo Miguel M.D. on 09/24/2020 at 10:12 Approved by: Shlomo Miguel M.D. on 09/24/2020 at 10:15
[2020-09-23 22:00] VITALS: PULSE 82; O2SAT 95
[2020-09-23 22:23] VITALS: BP 182/87; PULSE 84; RESP 16; O2SAT 92
[2020-09-23 22:30] VITALS: BP 178/80; PULSE 82; O2SAT 96
[2020-09-23] MEDS: HYDROCODONE/ACET 5/325 PREPACK 1 BOTTLE MISC (22:55)
[2020-09-23] MEDS: ONDANSETRON 4 MG ODT PREPACK 1 BOTTLE MISC (22:55)
== END 2020-09-23 22:59 | disposition home or self-care (01) ==
PROVIDERS: Emergency Provider Emergency Medicine; PCP Nurse Practitioner Family
DX: R10.31 Right lower quadrant pain (principal)
CPT/HCPCS: 36415; 74177; 80053; 83605; 83690; 85025; 96361; 96374; 96376; 99284; J1170; Q9967

== ENCOUNTER → 2020-11-16 13:42 | Outpatient (CLI) | payer OTHER, SELFPAY ==
[2020-11-16 15:12] LABS: Free T4, Direct Thyroxine 1.68 ng/dL (0.78-2.19)
[2020-11-16 15:26] LABS: Thyroid Stimulating Hormone 1.35 uIU/mL (0.47-4.68)
== END ==
PROVIDERS: PCP Nurse Practitioner Family; Referring Provider Nurse Practitioner Family; Visit Provider Nurse Practitioner Family
DX: E89.0 Postprocedural hypothyroidism (principal)
CPT/HCPCS: 36415; 84439; 84443

== ENCOUNTER → 2021-01-31 15:10 | Outpatient (CLI) | payer OTHER, SELFPAY | PROVIDERS: PCP Nurse Practitioner Family; Referring Provider Nurse Practitioner; Visit Provider Nurse Practitioner | DX: N39.0 Urinary tract infection, site not specified (principal) | CPT/HCPCS: 87077; 87086; 87186 ==

== ENCOUNTER → 2021-02-01 16:20 | Outpatient (CLI) | payer OTHER, SELFPAY ==
[2021-02-01 16:50] LABS: Hematocrit 36.7 % (36-46); Mean Corpuscular HGB Conc 32.8 % (30-36); Mean Corpuscular Hemoglobin 29.8 PG (26-34); Mean Corpuscular Volume 90.9 fL (80-100); Platelet Count 197 X10^3/uL (150-400); Red Blood Cell Count 4.04 X10^6/uL (4.0-5.2); Red Cell Distribution Width 14.1 % (11.6-14.8); White Blood Cell Count 6.9 X10^3/uL (4.5-11.0)
[2021-02-01 18:06] LABS: Alanine Aminotransferase 29 IU/L (<35); Albumin 3.8 g/dL (3.5-5.0); Alkaline Phosphatase 90 U/L (38-126); Aspartate Aminotransferase 43 IU/L (14-36); BUN Creatinine Ratio 16.1 (6-22); Bilirubin Total 0.7 mg/dL (0.2-1.3); Blood Urea Nitrogen 24 mg/dL (7-17); Calcium 10.3 mg/dL (8.4-10.2); Carbon Dioxide 29 mmol/L (22-32); Chloride 102 mmol/L (98-107); Cholesterol 131 mg/dL (140-199); Estimated Glomerular Filt Rate 35.7 mL/min (>60); Globulin 3.7 g/dL (1.7-4.1); Glucose 242 mg/dL (80-110); HDL Cholesterol 52 mg/dL (40-60); HEMOLYSIS < 15 (0-50); LDL Cholesterol Calculated 55 mg/dL (<100); Potassium 4.4 mmol/L (3.4-5.1); Sodium 136 mmol/L (137-145); Total Protein 7.5 g/dL (6.3-8.2); Triglycerides 119 mg/dL (35-150)
[2021-02-01 18:18] LABS: Free T4, Direct Thyroxine 1.46 ng/dL (0.78-2.19)
[2021-02-01 18:31] LABS: Thyroid Stimulating Hormone 7.05 uIU/mL (0.47-4.68)
== END ==
PROVIDERS: PCP Nurse Practitioner Family; Referring Provider Nurse Practitioner; Visit Provider Nurse Practitioner
DX: Z00.00 Encounter for general adult medical examination without abnormal findings (principal); E89.0 Postprocedural hypothyroidism; E78.2 Mixed hyperlipidemia; I10 Essential (primary) hypertension; E11.65 Type 2 diabetes mellitus with hyperglycemia; Z13.6 Encounter for screening for cardiovascular disorders
CPT/HCPCS: 80053; 80061; 83036; 84439; 84443; 85027

== ENCOUNTER → 2021-02-07 08:24 | Outpatient (CLI) | payer OTHER, SELFPAY ==
[2021-02-07] MEDS: COVID-19 VACC #1, MRNA(MOD) 100 MCG/0.5 ML VIAL IM (14:20)
== END ==
PROVIDERS: PCP Nurse Practitioner Family; Referring Provider Internal Medicine; Visit Provider Internal Medicine
DX: Z23 Encounter for immunization (principal)
CPT/HCPCS: 0011A; 91301

== ENCOUNTER → 2021-03-07 12:20 | Outpatient (CLI) | payer OTHER, SELFPAY ==
[2021-03-07] MEDS: COVID-19 VACC #2, MRNA(MOD) 100 MCG/0.5 ML VIAL IM (14:25)
== END ==
PROVIDERS: PCP Nurse Practitioner Family; Visit Provider Internal Medicine
DX: Z23 Encounter for immunization (principal)
CPT/HCPCS: 0012A; 91301

== ENCOUNTER → 2021-03-07 13:42 | Outpatient (CLI) | payer OTHER, SELFPAY ==
[2021-03-07 14:50] LABS: Add Manual Diff / Slide Review NO; Basophils Absolute Auto 0 /uL (0-100); Basophils Percent Auto 0.5 % (0-2); Eosinophils Absolute Auto 300 /uL (0-450); Eosinophils Percent Auto 6.8 % (2-4); Hematocrit 37.9 % (36-46); Hemoglobin 12.5 g/dL (12.0-16.0); Lymphocytes Absolute Auto 1300 /uL (1100-4500); Lymphocytes Percent Auto 29.1 % (25-40); Mean Corpuscular HGB Conc 32.9 % (30-36); Mean Corpuscular Hemoglobin 30.3 PG (26-34); Mean Corpuscular Volume 92.2 fL (80-100); Monocytes Absolute Auto 400 /uL (0-900); Monocytes Percent Auto 8.8 % (3-14); Neutrophils Absolute Auto 2500 /uL (1500-7000); Neutrophils Percent Auto 54.8 % (50-75); Platelet Count 177 X10^3/uL (150-400); Red Blood Cell Count 4.11 X10^6/uL (4.0-5.2); White Blood Cell Count 4.6 X10^3/uL (4.5-11.0)
[2021-03-07 15:19] LABS: Alanine Aminotransferase 28 IU/L (<35); Albumin 3.8 g/dL (3.5-5.0); Albumin Globulin Ratio 1.2 (1.0-2.8); Alkaline Phosphatase 84 U/L (38-126); Aspartate Aminotransferase 46 IU/L (14-36); BUN Creatinine Ratio 20.9 (6-22); Bilirubin Total 0.6 mg/dL (0.2-1.3); Blood Urea Nitrogen 24 mg/dL (7-17); Calcium 9.8 mg/dL (8.4-10.2); Carbon Dioxide 29 mmol/L (22-32); Chloride 102 mmol/L (98-107); Globulin 3.1 g/dL (1.7-4.1); Glucose 409 mg/dL (80-110); HEMOLYSIS < 15 (0-50); Potassium 4.3 mmol/L (3.4-5.1); Sodium 137 mmol/L (137-145); Total Protein 6.9 g/dL (6.3-8.2)
[2021-03-08 15:07] LABS: Calcium 9.7 mg/dL (8.7-10.3); Parathyroid Hormone, Intact 20 pg/mL (15-65)
== END ==
PROVIDERS: PCP Family Medicine; Referring Provider Family Medicine; Visit Provider Family Medicine
DX: E11.65 Type 2 diabetes mellitus with hyperglycemia (principal); E78.5 Hyperlipidemia, unspecified; E83.52 Hypercalcemia; I10 Essential (primary) hypertension; R10.9 Unspecified abdominal pain
CPT/HCPCS: 36415; 80053; 82310; 83970; 85025

== ENCOUNTER → 2021-03-17 15:42 | Outpatient (CLI) | payer OTHER, SELFPAY ==
[2021-03-17 16:10] LABS: COVID19 -Nasal RAPID Negative (Negative)
== END ==
PROVIDERS: PCP Family Medicine; Visit Provider Nurse Practitioner Family
DX: H92.09 Otalgia, unspecified ear (principal); Z20.822 Contact with and (suspected) exposure to COVID-19
CPT/HCPCS: 87635

== ENCOUNTER → 2021-04-04 12:39 | Outpatient (CLI) | payer OTHER, SELFPAY ==
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
== END ==
PROVIDERS: PCP Family Medicine; Referring Provider Family Medicine; Visit Provider Family Medicine
DX: E11.9 Type 2 diabetes mellitus without complications (principal); Z71.3 Dietary counseling and surveillance; Z79.84 Long term (current) use of oral hypoglycemic drugs; Z79.4 Long term (current) use of insulin
CPT/HCPCS: G0108

== ENCOUNTER → 2021-04-18 12:50 | Outpatient (CLI) | payer OTHER, SELFPAY ==
--- NOTE | 2021-04-23 14:14 | DIAB.FU ---
Follow-up Diabetes Education Assessment Name: Caridad Clements Date: 04/18/21 Time: 1-2p Dx: Type II Diabetes Caridad presents for follow-up DM ed. States she has started insulin and is up to 18u HS. Following provider guidelines for titration. States she has been avoiding sweets, but this is difficult as her ([place]) often purchases sweets, ie licorice. When discussing carb counting and moderation, she states she would prefer to avoid sweets all together. Endorses increased vegetable intake and more consistent protein. Continues only two eating occurrences most days. Also reports drinking sugared sodas 2 x per week. Anthropometrics: Ht: 68 Wt: 285.2# today Weight history: 282# last PCP visit Physical Activity: Not currently walking due to weather. Was walking on the weekends with niece. Safety concerns with walking in her neighborhood reportedly. Does butt crunches q night. Self-Monitoring Blood Glucose: Overall BG have improved since last visit with fewer readings in the 200s, however BG seem to range vastly in the morning from 154-296 mg/dL. Endorses 8 hours of fasting prior to FBG checks. Possible that late night soda is contributing? Plans to titrate insulin appropriately. Date Pre Post Pre Post Pre Post HS 04/07 216 04/08 225 04/11 159 04/12 163 04/13 154 04/14 217 04/15 296 Diabetes Medications: 500 mg Metformin BID 5mg glipizide BID Glargine 18u HS Pertinent Labs: 02/01/21: HgA1c 10% H, T, cholesterol: 131, HDL: 52 Past Medical History: (Last Updated 02/14/21 @ 10:47 by Nestor Godinez MD) Arthritis (Unknown) Chronic back pain (Unknown) Chronic kidney disease Follows with Nephrology Depression (Unknown) Family history of colon cancer History of hysterectomy (05/2020) History of tonsillectomy and adenoidectomy (Unknown) Hx of appendectomy (Unknown) Hx of bilateral oophorectomy (Unknown) Hx of cholecystectomy (Unknown) Hypercalcemia Hyperlipidemia Hypertension Hypothyroidism Iron deficiency anemia Related to blood loss Morbid obesity with body mass index (BMI) of 45.0 to 49.9 in adult Osteopenia (09/2017) Peptic ulcer disease (Unknown) Plantar fasciitis (Unknown) Postablative hypothyroidism (02/23/16) Postmenopausal bleeding Pulmonary embolism (10/2019) Result of elevated BMI, historical. Resolved. Uterine cancer Diagnosed March 2020, hysterectomy May 08, 2020, was told she is cancer free Intervention: This participant was very receptive. Provided appropriate educational handouts. Discussed the following topics: Recent blood sugar results and trends Medication management Review of general nutrition recommendations and current intake Impact of sugared beverages on BG, carb counting and reading food labels Physical activity plan and impact on blood sugars Prevention of complications: foot care, dental and eye appointments, kidney and heart health, neuropathy, vaccination recommendations Snack ideas Created SMART goals for patient self-care and success. Goals: Try walking videos at home Increase insulin as rx'd Have a balanced, scheduled HS snack Follow-up: HUGH MEJIA follow-up in 2-3 weeks Paty Peña RDN, JACKIE Certified Diabetes Care and Manufacturing Automation Engineer P: [phone] Thank you for this referral
== END ==
PROVIDERS: PCP Family Medicine; Referring Provider Family Medicine; Visit Provider Family Medicine
DX: E11.9 Type 2 diabetes mellitus without complications (principal)
CPT/HCPCS: G0108

== ENCOUNTER → 2021-04-25 15:12 | Outpatient (CLI) | payer OTHER, SELFPAY | PROVIDERS: PCP Family Medicine; Referring Provider Internal Medicine; Visit Provider Internal Medicine | DX: Z23 Encounter for immunization (principal) | CPT/HCPCS: 90471; 90686 ==

== ENCOUNTER → 2021-05-01 14:12 | Outpatient (CLI) | payer OTHER, SELFPAY ==
[2021-05-01 14:37] LABS: Hematocrit 37.7 % (36-46); Hemoglobin 12.4 g/dL (12.0-16.0)
[2021-05-01 16:28] LABS: BUN Creatinine Ratio 25.2 (6-22); Blood Urea Nitrogen 29 mg/dL (7-17); Calcium 9.5 mg/dL (8.4-10.2); Carbon Dioxide 26 mmol/L (22-32); Chloride 103 mmol/L (98-107); Glucose 468 mg/dL (80-110); HEMOLYSIS < 15 (0-50); Potassium 4.2 mmol/L (3.4-5.1); Sodium 138 mmol/L (137-145)
[2021-05-01 16:30] LABS: Creatinine Urine Random 38.4 mg/dL; Protein (Total) Urine Random 6 mg/dL (0-12); Protein Creatinine Ratio Urine 0.15 GRAM/24H
[2021-05-02 10:37] LABS: Parathyroid Hormone Int 26 pg/mL (15-65)
== END ==
PROVIDERS: Referring Provider Student in an Organized Health Care Education/Training Program; Visit Provider Student in an Organized Health Care Education/Training Program
DX: N05.9 Unspecified nephritic syndrome with unspecified morphologic changes (principal); D64.9 Anemia, unspecified; N25.81 Secondary hyperparathyroidism of renal origin; R80.9 Proteinuria, unspecified
CPT/HCPCS: 36415; 80048; 82570; 83970; 84156; 85014; 85018

== ENCOUNTER → 2021-06-04 12:59 | Outpatient (CLI) | payer OTHER, SELFPAY ==
--- NOTE | 2021-06-04 14:24 | DIAB.FU ---
Follow-up Diabetes Education Assessment Name: Caridad Clements Date: 06/04/21 Time: 1-2pm Dx: Type II Diabetes Caridad presents for follow-up diabetes visit. States she saw the endo on 05/29 and as a result increased insulin to 34u HS. States she has not received instruction from him to continue titrating until FBG in range, but he is trying to get her approved for Trulicity. No other DM med changes currently. She plans to check in with him via phone in two weeks and in person in three months. States her main concerns today are diet and exercise. Cont eating BID with some meals high in CHO, ie 1.5c raisin bran with milk (70-75g). States she has been trying to have variety for breakfast. Denies any recent changes in wt. Recently her has had two hospitalizations for sepsis related to dental issues. He has unmanaged T2DM with hyperglycemia. As a result of recent health concerns, he has been bringing home much less refined carb foods. Caridad endorses checking feet daily, getting her flu shot, and seeing her accounts payable specialist and dentist this year. She is interested in taking DM classes in Jul. Physical Activity: No program. Barriers reported: weather, husbands health, dog hair on the ground (does not want to do her exercises on the floor). Self-Monitoring Blood Glucose: No meter today. Endorses improved FBG of 150-165 mg/dL. Still above goal, but hoping Trulicity will be approved soon. Diabetes Medications: 500 mg Metformin BID 5mg glipizide BID Glargine 18u HS Waiting on Trulicity Pertinent Labs: 02/01/21: HgA1c 10% H, T, cholesterol: 131, HDL: 52. Received rapid HgA1c in endo clinic of 9.8% Past Medical History: (Last Updated 02/14/21 @ 10:47 by Nestor Godinez MD) Arthritis (Unknown) Chronic back pain (Unknown) Chronic kidney disease Follows with Nephrology Depression (Unknown) Family history of colon cancer History of hysterectomy (05/2020) History of tonsillectomy and adenoidectomy (Unknown) Hx of appendectomy (Unknown) Hx of bilateral oophorectomy (Unknown) Hx of cholecystectomy (Unknown) Hypercalcemia Hyperlipidemia Hypertension Hypothyroidism Iron deficiency anemia Related to blood loss Morbid obesity with body mass index (BMI) of 45.0 to 49.9 in adult Osteopenia (09/2017) Peptic ulcer disease (Unknown) Plantar fasciitis (Unknown) 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 Resolved. Uterine cancer Diagnosed March 2020, hysterectomy May 08, 2020, was told she is cancer free Intervention: This participant was very receptive. Provided appropriate educational handouts. Discussed the following topics: Recent blood sugar results and trends Medication management Review of nutrition recommendations and current intake Label reading and cereal carb content Macronutrient pairing Physical activity plan and impact on blood sugars Created SMART goals for patient self-care and success. Goals: Try walking videos at home- not met Increase insulin as rx'd - met Have a balanced, scheduled HS snack- d/c Look into lower carb cereals- new Add protein to breakfast- new Consider seated or standing exercises discussed- new Follow-up: [facility] MEJIA follow-up in 1 month for DSME class series. Agrees to bring as support person. She agrees that they both could benefit from education. Encouraged her to contact me prn this month with Dm questions or concerns. Otherwise, plans to discuss med changes with endo provider. Paty Peña RDN, [facility] Certified Diabetes Care and Salesperson [employer] P: [phone] Thank you for this referral
== END ==
PROVIDERS: PCP Family Medicine; Referring Provider Family Medicine; Visit Provider Family Medicine
DX: E11.9 Type 2 diabetes mellitus without complications (principal); Z79.84 Long term (current) use of oral hypoglycemic drugs
CPT/HCPCS: G0108

== ENCOUNTER → 2021-07-09 09:17 | Outpatient (CLI) | payer OTHER, SELFPAY ==
--- NOTE | 2021-07-09 14:25 | DIAB.FU ---
Diabetes Education Class Series: Diabetes and Nutrition Name: Caridad Clements Date: 07/09/21 Time: [id number] Caridad presents to class 1 for the diabetes education class series. States she has been working on avoiding sweets. Reports sweets were a big part of her family growing up, always having dessert after dinner. Her with T2Dm as well, has been successfully working on changes to lifestyle as well. One barrier in nutrition reported, limited acceptance of certain vegetables reported. Class topics covered: ? Debunk nutrition myths and discuss how to sustain healthy eating long-term through moderation and variety ? Define macronutrients and determine their impact on blood sugars ? Discuss macronutrient pairing, Plate Method, and carb counting ? Review general recommendations for carbohydrates ? Practice label reading ? Discuss the role of fiber in diabetes and provide examples of sources ? Review heart health nutrition: fats, fiber, and sodium ? Determine recommendations for grocery shopping and eating out ? Discuss alcohol recommendations ? Review the role of substitute sugars in diabetes management ? Set SMART goals Goal Set: Prepare carrots and celery ahead of time for 4 days per week Follow-up: Diabetes Physiology and Medication Class in one week Paty Peña RDN, [facility] Certified Diabetes Care and Mineralogy Professor P: [phone] Thank you for this referral
== END ==
PROVIDERS: PCP Family Medicine; Referring Provider Family Medicine; Visit Provider Family Medicine
DX: E11.9 Type 2 diabetes mellitus without complications (principal)
CPT/HCPCS: G0108

== ENCOUNTER → 2021-07-16 09:16 | Outpatient (CLI) | payer OTHER, SELFPAY ==
--- NOTE | 2021-07-16 16:36 | DIAB.FU ---
Diabetes Education Class Series: Diabetes Physiology and Medications Name: Caridad Clements Date: 07/16/21 Time: [id number] Caridad presents today for class 2 of 3 of diabetes Ed. States she has been increasing vegetable intake to meet the goal she set last visit. States she does have questions today about eating out, which we addressed at the end of class. Reports difficulty trying to get her insurance to cover her for a GLP1 RA, still in progress. Reports elevated BG, FBG often 130-140. Class topics covered: ? Diabetes pathophysiology ? Discuss different types of diabetes ? Review criteria for diagnosing diabetes ? Review HgA1c measurement and associated blood sugars ? Review blood sugar monitoring safety, technique, and goals ? Discuss ways to reduce complications associated with diabetes, includes microvascular and macrovascular complications ? Review diabetes medications types, action, and side effects ? Health care visits recommended for people with T2DM ? Immunization recommended for people with T2DM ? SMART goals review Goal Set: Prepare carrots and celery ahead of time for 4 days per week - met Follow-up: Diabetes Lifestyle and Ongoing Support Class next week Paty Peña RDN, [facility] Certified Diabetes Care and Passenger Service Manager P: [phone] Thank you for this referral
== END ==
PROVIDERS: PCP Family Medicine; Referring Provider Family Medicine; Visit Provider Family Medicine
DX: E11.9 Type 2 diabetes mellitus without complications (principal); Z71.3 Dietary counseling and surveillance
CPT/HCPCS: G0109

== ENCOUNTER → 2021-07-23 09:24 | Outpatient (CLI) | payer OTHER, SELFPAY ==
--- NOTE | 2021-07-23 17:38 | DIAB.FU ---
Diabetes Education Class Series: Diabetes Lifestyle Change and Ongoing Support Name: Caridad Clements Date: 07/23/21 Time: [id number] Caridad reports she has been more consistent with veggie intake. Physical activity is still a work in progress. Also reports some difficulty with getting her on board with changes. States she feels her depression is more an issue with overly empathizing with others. States she manages stress with expressing her feelings directly and trying not to hold feelings in. Class topics covered: ? Discuss the difference between physical activity and exercise ? Determine physical activity benefits and impact on diabetes ? Review physical activity recommendations and safety ? Discuss emergency preparedness ? Discuss diabetes and emotions (diabetes burnout/distress) ? Review and practice stress management techniques ? Review support groups and community resources ? Discuss the role of family support in diabetes care ? What is going well? Challenges of diabetes? ? Set SMART goals Goal Set: Add vegetables to meals- met Follow-up: 1:1 visit follow-up Paty Peña RDN, [facility] Certified Diabetes Care and Therapeutic Dietitian P: [phone] Thank you for this referral
== END ==
PROVIDERS: PCP Family Medicine; Referring Provider Family Medicine; Visit Provider Family Medicine
DX: E11.9 Type 2 diabetes mellitus without complications (principal); F32.A Depression, unspecified; Z71.3 Dietary counseling and surveillance
CPT/HCPCS: G0109

== ENCOUNTER → 2021-10-22 12:46 | Outpatient (CLI) | payer OTHER, SELFPAY ==
--- NOTE | 2021-10-22 13:58 | DIAB.FU ---
Addendum entered by Paty Peña 11/20/21 18:33: Phone check in: Still averaging mid 200s BG. Increasing a few units 70/30 q couple weeks. Right now 35u BID. 194mg/dL FBG this morning. Plans to increase to 40u BID. Saw kidney doc today, good report per Caridad. Sees endo again in a couple weeks. Plans to switch insurance plans for better med coverage. Followed closely by endo. Would like f/u prn. Original Note: Follow-up Diabetes Education Assessment Name: Caridad Clements Date: 10/22/21 Time: 1-1:45p Dx: Type II Diabetes Caridad presents for follow-up diabetes education visit. Has completed the 3 class series. Reports today her main concern is her extreme fatigue. Endorses possible heart murmur discussed with endo and plan for calling PCP for EKG referral. Also endorses consistent elevated BG in the morning (over 200 every day). She attributes the elevations to changes to meds. States her insurance will no longer cover Lantus and never approved Trulicity. Per report, her endo has then had to change her insulin to 70/30 BID. Reports weight gain, fatigue, and frustration with BG readings since. This has been an issue for about 2 weeks. States she has called her insurance and was told they will cover it but she will have a higher [id number] cost. Endo office has told her they cannot get the med covered. She is feeling confused about how to proceed. Sees software engineer web applications next month. Sees hook and eye sewing machine operator in December. Eating 2-3 x per day. Breakfast 20-40g CHO, dinner 45-100+g CHO, snack 0-20g CHO. Once per week has regular soda with dinner. At home beverages are usually low carb, ie water, crystal light, diet soda. Anthropometrics: Declined wt today. States she feels her weight has been increasing and feel it is likely in the 290s. Physical Activity: yard work once per week. Physical activity has historically been difficult for her, but with the added fatigue lately it has been more difficult than usual. Self-Monitoring Blood Glucose: Visits in the past, Caridad has had elevated BG but often <200 for fasting. These are the highest readings she has had since working with [facility]. Endorses a POC HgA1c at endo office two weeks ago of 9-10%. No low BG reported on the 70/30. Likely needs to titrate up. Date Pre Post Pre Post Pre Post HS 10/10 189 10/12 245 10/18 275 10/19 280 15 231 16 227 10/22 244 Diabetes Medications: 500 mg Metformin BID 10mg glipizide BID 70/30 20u BID Pertinent Labs: no new labs in EMR; reports a 9% or 10% HgA1c Past Medical History: (Last Updated 02/14/21 @ 10:47 by Nestor Godinez MD) Arthritis (Unknown) Chronic back pain (Unknown) Chronic kidney disease Follows with Nephrology Depression (Unknown) Family history of colon cancer History of hysterectomy (05/2020) History of tonsillectomy and adenoidectomy (Unknown) Hx of appendectomy (Unknown) Hx of bilateral oophorectomy (Unknown) Hx of cholecystectomy (Unknown) Hypercalcemia Hyperlipidemia Hypertension Hypothyroidism Iron deficiency anemia Related to blood loss Morbid obesity with body mass index (BMI) of 45.0 to 49.9 in adult Osteopenia (09/2017) Peptic ulcer disease (Unknown) Plantar fasciitis (Unknown) 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 Resolved. Uterine cancer Diagnosed March 2020, hysterectomy May 08, 2020, was told she is cancer free Intervention: This participant was very receptive. Provided appropriate educational handouts. Discussed the following topics: Recent blood sugar results and trends Medication management Review of general nutrition recommendations and current intake, rec avoiding high carb beverages and meals (especially with current hyperglycemia) Physical activity plan and impact on blood sugars Created SMART goals for patient self-care and success. Goals: Look into lower carb cereals- met Add protein to breakfast- met Consider seated or standing exercises discussed- not met Contact PCP for potential EKG referral, as rec'd by endo per report- new Call endo about FBG consistently >200 mg/dL- new Avoid regular soda- new Follow-up: [facility] MEJIA follow-up phone call in one month. Caridad would like to hold off on additional visits until medications get straightened out. JACKIE offered to call her in one month to check-in. She agreed to this plan. Also, requested communications/notes sent to endo for continuity of care. Paty Peña RDN, [facility] Certified Diabetes Care and Fuel Storage Technician P: [phone] Thank you for this referral
== END ==
PROVIDERS: PCP Family Medicine; Referring Provider Family Medicine; Visit Provider Family Medicine
DX: E11.9 Type 2 diabetes mellitus without complications (principal); Z71.3 Dietary counseling and surveillance; Z79.4 Long term (current) use of insulin; Z79.84 Long term (current) use of oral hypoglycemic drugs
CPT/HCPCS: G0108

== ENCOUNTER → 2021-11-06 14:02 | Outpatient (CLI) | payer OTHER, SELFPAY ==
[2021-11-06 14:46] LABS: Hemoglobin 12.2 g/dL (12.0-16.0)
[2021-11-06 14:56] LABS: BUN Creatinine Ratio 21.4 (6-22); Blood Urea Nitrogen 28 mg/dL (7-17); Calcium 9.2 mg/dL (8.4-10.2); Carbon Dioxide 29 mmol/L (22-32); Chloride 99 mmol/L (98-107); Estimated Glomerular Filt Rate 46 mL/min (>60); HEMOLYSIS < 15 (0-50); Potassium 3.9 mmol/L (3.4-5.1); Sodium 134 mmol/L (137-145)
[2021-11-06 15:38] LABS: Glucose 526 mg/dL (80-110)
[2021-11-06 19:15] LABS: Creatinine Urine Random 51.8 mg/dL; Protein (Total) Urine Random 8 mg/dL (0-12); Protein Creatinine Ratio Urine 0.15 GRAM/24H
[2021-11-07 06:18] LABS: Parathyroid Hormone Int 31 pg/mL (15-65)
== END ==
PROVIDERS: PCP Family Medicine; Referring Provider Student in an Organized Health Care Education/Training Program; Visit Provider Student in an Organized Health Care Education/Training Program
DX: N05.9 Unspecified nephritic syndrome with unspecified morphologic changes (principal); D64.9 Anemia, unspecified; N25.81 Secondary hyperparathyroidism of renal origin; R80.9 Proteinuria, unspecified
CPT/HCPCS: 36415; 80048; 82570; 83970; 84156; 85014; 85018

== ENCOUNTER → 2021-12-11 13:06 | Outpatient (CLI) | payer OTHER, SELFPAY ==
[2021-12-11 14:28] LABS: Hemoglobin A1C% w Est Avg Glu 10.5 % (4.0-6.0)
[2021-12-11 14:38] LABS: Alanine Aminotransferase 27 IU/L (<35); Albumin 3.5 g/dL (3.5-5.0); Albumin Globulin Ratio 1.1 (1.0-2.8); Alkaline Phosphatase 86 U/L (38-126); Aspartate Aminotransferase 48 IU/L (14-36); BUN Creatinine Ratio 14.3 (6-22); Blood Urea Nitrogen 20 mg/dL (7-17); Calcium 10.3 mg/dL (8.4-10.2); Carbon Dioxide 29 mmol/L (22-32); Chloride 105 mmol/L (98-107); Cholesterol 141 mg/dL (140-199); Estimated Glomerular Filt Rate 43 mL/min (>60); Globulin 3.3 g/dL (1.7-4.1); Glucose 124 mg/dL (80-110); HDL Cholesterol 50 mg/dL (40-60); HEMOLYSIS < 15 (0-50); LDL Cholesterol Calculated 66 mg/dL (<100); Phosphorous 3.5 mg/dL (2.8-4.1); Potassium 4.1 mmol/L (3.4-5.1); Sodium 138 mmol/L (137-145); Total Protein 6.8 g/dL (6.3-8.2); Triglycerides 123 mg/dL (35-150)
[2021-12-11 15:54] LABS: Creatinine Urine Random 206.2 mg/dL
[2021-12-11 15:57] LABS: Microalbumi Creatinin Ratio Ur 5.3 ug/mg CR (<30); Microalbumin Urine Random 1.1 mg/dL (0-1.6)
[2021-12-13 03:21] LABS: Free T4, Direct Thyroxine 2.22 ng/dL (0.78-2.19)
[2021-12-13 03:35] LABS: Thyroid Stimulating Hormone 0.515 uIU/mL (0.47-4.68)
== END ==
PROVIDERS: PCP Family Medicine; Referring Provider Student in an Organized Health Care Education/Training Program; Visit Provider Student in an Organized Health Care Education/Training Program
DX: E11.69 Type 2 diabetes mellitus with other specified complication (principal)
CPT/HCPCS: 36415; 80053; 80061; 80069; 82043; 82570; 83036; 84439; 84443

== ENCOUNTER → 2021-12-14 11:50 | Outpatient (CLI) | payer OTHER, SELFPAY ==
[2021-12-14 14:05] LABS: BUN Creatinine Ratio 17.4 (6-22); Blood Urea Nitrogen 27 mg/dL (7-17); Calcium 9.3 mg/dL (8.4-10.2); Carbon Dioxide 29 mmol/L (22-32); Chloride 106 mmol/L (98-107); Estimated Glomerular Filt Rate 38 mL/min (>60); Glucose 263 mg/dL (80-110); HEMOLYSIS < 15 (0-50); Potassium 4.2 mmol/L (3.4-5.1); Sodium 140 mmol/L (137-145)
[2021-12-14 14:12] LABS: NT-proBNP (BNP-Adult 18+) 117 pg/mL (<125)
== END ==
PROVIDERS: PCP Family Medicine; Referring Provider Student in an Organized Health Care Education/Training Program; Visit Provider Student in an Organized Health Care Education/Training Program
DX: N05.9 Unspecified nephritic syndrome with unspecified morphologic changes (principal); I50.32 Chronic diastolic (congestive) heart failure; E03.9 Hypothyroidism, unspecified
CPT/HCPCS: 36415; 80048; 83880

== ENCOUNTER → 2021-12-30 16:38 | Outpatient (CLI) | payer OTHER, SELFPAY | PROVIDERS: PCP Family Medicine; Visit Provider Nurse Practitioner Family | DX: N34.3 Urethral syndrome, unspecified (principal) | CPT/HCPCS: 87077; 87086; 87186 ==

== ENCOUNTER → 2022-01-01 13:29 | Outpatient (CLI) | payer OTHER, SELFPAY ==
[2022-01-01 14:19] LABS: BUN Creatinine Ratio 23.1 (6-22); Blood Urea Nitrogen 37 mg/dL (7-17); Calcium 8.7 mg/dL (8.4-10.2); Carbon Dioxide 30 mmol/L (22-32); Chloride 96 mmol/L (98-107); Estimated Glomerular Filt Rate 36 mL/min (>60); Glucose 193 mg/dL (80-110); HEMOLYSIS < 15 (0-50); Sodium 134 mmol/L (137-145)
== END ==
PROVIDERS: PCP Family Medicine; Referring Provider Student in an Organized Health Care Education/Training Program; Visit Provider Student in an Organized Health Care Education/Training Program
DX: N05.9 Unspecified nephritic syndrome with unspecified morphologic changes (principal); N30.00 Acute cystitis without hematuria
CPT/HCPCS: 36415; 80048

== ENCOUNTER → 2022-01-07 14:15 | Outpatient (CLI) | payer OTHER, SELFPAY ==
[2022-01-07 16:06] LABS: HEMOLYSIS < 15 (0-50); Potassium 3.5 mmol/L (3.4-5.1)
== END ==
PROVIDERS: PCP Family Medicine; Referring Provider Student in an Organized Health Care Education/Training Program; Visit Provider Student in an Organized Health Care Education/Training Program
DX: E87.5 Hyperkalemia (principal)
CPT/HCPCS: 36415; 84132

== ENCOUNTER → 2022-03-19 14:13 | Outpatient (CLI) | payer OTHER, SELFPAY ==
[2022-03-19 14:57] LABS: Hemoglobin A1C% w Est Avg Glu 10.7 % (4.0-6.0)
== END ==
PROVIDERS: PCP Family Medicine; Referring Provider Family Medicine; Visit Provider Family Medicine
DX: E11.65 Type 2 diabetes mellitus with hyperglycemia (principal)
CPT/HCPCS: 36415; 83036

== ENCOUNTER → 2022-03-25 14:10 | Outpatient (CLI) | payer OTHER, SELFPAY ==
--- NOTE | 2022-03-25 14:11 | DI.RAD.S_ITS ---
PROCEDURE: XR LUMBAR SPINE 2-3V INDICATIONS: subacute low back pain TECHNIQUE: 3 views of the lumbar spine were acquired. COMPARISON: [facility], , L-SPINE 2-3 VIEWS, 02/29/2012, 11:51. FINDINGS: Bones: 5 [id number] vertebrae are present. There is mild, approximately 6 millimeters of L2-L3 retrolisthesis. No vertebral body compression fractures. No suspicious bony lesions. Moderate L3-L4 and L4-L5 degenerative disc disease. Mild L1-L2, L2-L3 and L5-S1 degenerative disc disease. Moderate L3-L4, L4-L5 and L5-S1 facet hypertrophy. Mild L1-L2 and L2-L3 facet hypertrophy. Soft tissues: Overlying bowel gas pattern is normal. No suspicious soft tissue calcifications. Cholecystectomy clips. IMPRESSION: 1. Multilevel degenerative disc disease. 2. Multilevel facet arthropathy. 3. No fracture. No acute osseous lesion. If symptoms and/or clinical suspicion for pathology persists, evaluation with MRI should be considered for further assessment. Dictated by: Anya Garcia MD, PhD on 03/25/2022 at 15:03 Approved by: Anya Garcia MD, PhD on 03/25/2022 at 15:04
== END ==
PROVIDERS: PCP Family Medicine; Referring Provider Family Medicine; Visit Provider Family Medicine
DX: M51.36 Other intervertebral disc degeneration, lumbar region (principal); M47.816 Spondylosis without myelopathy or radiculopathy, lumbar region; M47.817 Spondylosis without myelopathy or radiculopathy, lumbosacral region; M54.50 Low back pain, unspecified; G89.29 Other chronic pain
CPT/HCPCS: 72100

== ENCOUNTER → 2022-04-02 12:51 | Outpatient (CLI) | payer OTHER, SELFPAY ==
[2022-04-02 15:43] LABS: COVID19 -Nasal RAPID Negative (Negative)
--- NOTE | 2022-04-03 21:24 | DI.NM.S_ITS ---
DATE OF SERVICE: 04/02/2022 PROCEDURE: Pharmacological perfusion study. INDICATION: Chest pain with underlying hypertension, aortic valve disease. RADIOPHARMACEUTICAL: 25.6 millicurie technetium-99m Myoview IV was injected at stress and 25.6 millicurie technetium-99m Myoview IV was injected at rest. CARDIAC STRESS: The patient underwent IV Lexiscan perfusion study under the supervision of an attending staff using standard intravenous Lexiscan, as per protocol. She remained hemodynamically stable. Baseline blood pressure 132/84. Baseline rhythm was sinus. During Lexiscan, there were no significant ischemic changes or arrhythmias. Did not have any chest pain or other significant symptoms. RAW DATA: Significant breast shadow seen. The patient's weight is 280 pounds. Increased subdiaphragmatic activity seen, as well. GATED STUDY: Resting LV ejection fraction 69 and stress LV ejection fraction is 74 percent without any wall motion abnormalities. Resting end-diastolic volume 118 mL. TID ratio 1.0, which is within normal limits. Lung/heart ratio 0.29, which is within normal limits. MYOCARDIAL PERFUSION SCAN: Stress supine, resting supine and stress prone images were compared to each other. Stress supine and resting supine images revealed moderate-size, moderately decreased perfusion of mid to distal anteroseptum, which got partially improved during stress prone images. No reversible ischemia. CONCLUSION: I will call this study likely a normal myocardial perfusion study with evidence of breast tissue attenuation artifact, which got partially improved during stress prone images, as stated above. Large breast shadow was seen during raw images. There is normal wall motion. Anterior wall, apex and other left ventricular baig moving well. Stress left ventricular ejection fraction 74 percent. No transient ischemic dilatation. Lung/heart ratio is normal. Hence, likely we are dealing with breast tissue attenuation artifact, as well as some persistent breast tissue attenuation artifact. Overall, Low- risk myocardial perfusion scan. Caridad Clements - OSMANI/sherley/adam doc#: [id number]/job#: [id number] dd: 04/03/2022 16:54:00 dt: 04/03/2022 21:03:00 DICTATING MD/COPIES TO: Selma Michael MD COPIES MNE: MANDEEP;
== END ==
PROVIDERS: PCP Family Medicine; Referring Provider Internal Medicine Cardiovascular Disease; Visit Provider Internal Medicine Cardiovascular Disease
DX: I35.8 Other nonrheumatic aortic valve disorders (principal); R07.9 Chest pain, unspecified; I10 Essential (primary) hypertension; R01.1 Cardiac murmur, unspecified; R06.00 Dyspnea, unspecified; Z20.822 Contact with and (suspected) exposure to COVID-19
CPT/HCPCS: 78452; 87635; 93017; A9502; J2785

== ENCOUNTER → 2022-04-03 14:03 | Outpatient (CLI) | payer OTHER, SELFPAY ==
--- NOTE | 2022-04-03 16:05 | DI.ECHO.S_ITS ---
Interpretation Summary The ejection fraction is estimated to be 60-65%. Diastolic parameters suggest probable normal left ventricular diastolic function and normal filling pressures. The right ventricle is normal in size and function. There is mild aortic stenosis. There is mild aortic regurgitation. Pulmonary artery pressures cannot be estimated because of the lack of a measurable TR jet velocity. Compared to the prior study dated 10/28/2019, there has been progression of the aortic stenosis. Procedure: A two-dimensional transthoracic echocardiogram with color flow and Doppler was performed. The study quality was technically adequate. Comparison is made with the echocardiogram of 10/28/19. Left Ventricle: The left ventricle is normal in size and wall thickness. Left ventricular systolic function is normal. The ejection fraction is estimated to be 60-65%. There are no focal wall motion abnormalities. Diastolic parameters suggest probable normal left ventricular diastolic function and normal filling pressures. Right Ventricle: The right ventricle is normal in size and function. Atria: Both atria are normal in size. The interatrial septum grossly appears intact with no obvious evidence for an atrial septal defect. Mitral Valve: The mitral valve is normal in structure and function. There is no mitral regurgitation noted. Aortic Valve: The aortic valve is mildly calcified. There is mild aortic stenosis. The calculated aortic valve area is 1.6 cm2. The peak aortic velocity is 2.6 m/sec. The aortic valve mean gradient is 15 mmHg. There is mild aortic regurgitation. Tricuspid Valve: The tricuspid valve is normal in structure and function. No tricuspid regurgitation. Pulmonary artery pressures cannot be estimated because of the lack of a measurable TR jet velocity. Pulmonic Valve: The pulmonic valve is normal in structure and function. There is no pulmonic valvular regurgitation. Great Vessels: The aortic root is normal size. The dimensions of the ascending aorta are normal. The IVC is of normal diameter and collapses greater than 50% with a sniff. This suggests a low right atrial pressure of 3 mm Hg. Pericardium/ Pleura There is no pericardial effusion. There is no pleural effusion. MMode/2D Measurements & Calculations LVIDd: 4.9 cm LVOT diam: 2.0 cm LVIDs: 3.1 cm Ao root diam: 2.9 cm FS: 36.7 % asc Aorta Diam: 3.3 cm IVSd: 1.0 cm LVPWd: 1.1 cm LV smith. diameter/BSA (cm/m^2): 2.1 LV sys. diameter/BSA (cm/m^2): 1.3 LA dimension: 3.6 cm RA long axis: 4.9 cm LA A2 area: 18.1 cm2 LA A4 area: 21.4 cm2 LA length (vol): 5.9 cm LA vol: 55.6 ml LA vol index: 23.8 ml/m2 TAPSE_phl: 2.6 cm Doppler Measurements & Calculations Ao V2 max: 264.0 cm/sec LVOT Max Pascual: 137.0 cm/sec Ao V2 mean: 185.0 cm/sec LV V1 max P.5 mmHg Ao max P.0 mmHg LV V1 VTI: 28.7 cm Ao mean P.0 mmHg PAULINE(I,D): 1.6 cm2 Ao V2 VTI: 55.7 cm PAULINE(V,D): 1.6 cm2 sev ratio: 0.52 PAULINE indexed to BSA (cm^2/m^2): 0.69 AI P1/2t: 445.3 msec AI dec slope: 296.0 cm/sec2 MV E max pascual: 87.8 cm/sec SV(LVOT): 90.2 ml MV A max pascual: 91.7 cm/sec MV E/A: 0.96 Med Peak E' Pascual: 9.1 cm/sec E/E' med: 9.7 Lat Peak E' Pascual: 12.5 cm/sec E/E' lat: 7.0 E/e' average: 8.3 MV dec time: 0.23 sec AV P1/2t-pr_phl: 444.0 msec MV P1/2t-pr_phl: 66.0 msec AV VR_phl: 0.52 PAULINE(VTI)/BSA_phl: 0.70 Reading Physician:04:45 PM
== END ==
PROVIDERS: PCP Family Medicine; Referring Provider Internal Medicine Cardiovascular Disease; Visit Provider Internal Medicine Cardiovascular Disease
DX: I35.2 Nonrheumatic aortic (valve) stenosis with insufficiency (principal); R07.9 Chest pain, unspecified
CPT/HCPCS: 93306

== ENCOUNTER 2022-04-10 21:38 | Emergency (ER) | payer OTHER, SELFPAY ==
[2022-04-10 21:46] VITALS: BP 146/65; PULSE 95; RESP 17; TEMP 37.1; O2SAT 96; BMI 43.8
--- NOTE | 2022-04-10 22:28 | ED.HA ---
HPI - Headache General Chief Complaint: Headache Stated Complaint: headache/shaking Time Seen by Provider: 04/10/22 22:28 Source: patient Mode of arrival: Ambulatory Limitations: no limitations History of Present Illness HPI Narrative: This is a 62 year old female with history of hypertension, diabetes and hypothyroidism. Patient presents with 3 days of headache over the frontal area. Patient states she is been afebrile. She states she had 2 episodes where her body was sort of shaking or tremor ring. She states she was awake and alert for this she describes it as all over. This happened 2 times total. She states she is had persistent headache that she woke up with in the morning. She felt a little lightheaded initially, no syncope. She states it was not thunderclap or abrupt. She does not normally get migraines or headaches. Patient states no neck pain, no increase of pain with motion of her neck. No chest pain or shortness of breath. She denies cold cough or congestion. She denies vomiting, some mild nausea. She denies diarrhea constipation, no dysuria, urgency or frequency. Patient has not had new swelling in her extremities. No rash or skin changes. 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 Patient has had cholecystectomy, appendectomy, fallopian tubes removed. Has multiple medication allergies to antibiotics. Related Data Home Medications Medication Instructions Recorded Confirmed Glucometer with controls 11/04/19 03/25/22 multivitamin 1 tab PO DAILY 11/04/19 03/25/22 cetirizine 10 mg tablet 10 mg PO DAILY PRN 02/14/21 03/25/22 glipizide 10 mg tablet 10 mg PO DAILY 03/25/22 03/25/22 levothyroxine 150 mcg capsule 150 mcg PO DAILY 03/25/22 04/10/22 metoprolol succinate 25 mg capsule 25 mg PO DAILY 04/10/22 04/10/22 sprinkle, ext. release 24 hr Previous Rx's Medication Instructions Recorded lancets (OneTouch UltraSoft #200 ea 03/14/21 Lancets) pen needle, diabetic 31 gauge x #100 ea 03/14/2106/11 (Lite Touch Insulin Pen [place]) insulin glargine-yfgn 100 unit/mL 10 unit (0.1 mL) SUBCUT DAILY #9 mL 04/01/21 (3 mL) subcutaneous pen (Semglee (insulin glargine-yfgn) Pen) Test Strips #250 ea 04/10/21 rosuvastatin 5 mg tablet 5 mg PO DAILY #90 tabs 06/28/21 citalopram 20 mg tablet 10 mg PO QDAYP PRN depression #90 07/30/21 tabs metformin 500 mg tablet See Rx Instructions .Route 09/03/21 .COMPLEX #180 tabs hydrochlorothiazide 12.5 mg tablet See Rx Instructions .Route 01/13/22 .COMPLEX #90 tabs Allergies Allergy/AdvReac Type Severity Reaction Status Date / Time cefadroxil [CEFADROXIL] Allergy Severe HIVES, Verified 04/10/22 21:49 VOMITING cephalexin [CEPHALEXIN] Allergy Severe HIVES, Verified 04/10/22 21:49 VOMITING dexamethasone [DEXAMETHASONE] Allergy Severe REDNESS, Verified 04/10/22 21:49 RASH AND SWELLING IN BOTH EYES neomycin [NEOMYCIN] Allergy Severe REDNESS, Verified 04/10/22 21:49 RASH AND SWELLING IN BOTH EYES Penicillins [PENICILLINS] Allergy Severe HIVES Verified 04/10/22 21:49 polymyxin B [POLYMYXIN B] Allergy Severe REDNESS, Verified 04/10/22 21:49 RASH AND SWELLING IN BOTH EYES hydroxyzine Allergy Intermediate Rash to Verified 04/10/22 21:49 abdomen oxycodone [OXYCODONE] AdvReac Intermediate Nausea and Verified 04/10/22 21:49 vomiting Review of Systems Review of Systems ROS Unobtainable: All systems reviewed & are unremarkable except as noted in HPI and below Patient History Medical History Arthritis (Unknown) Chronic back pain (Unknown) Chronic kidney disease Depression (Unknown) Family history of colon cancer Hypercalcemia Hyperlipidemia Hypertension Hypothyroidism Iron deficiency anemia Morbid obesity with body mass index (BMI) of 45.0 to 49.9 in adult Osteopenia (09/2017) Peptic ulcer disease (Unknown) Plantar fasciitis (Unknown) 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) Postmenopausal bleeding Pulmonary embolism (10/2019) Uterine cancer Surgical History History of hysterectomy (05/2020) History of tonsillectomy and adenoidectomy (Unknown) Hx of appendectomy (Unknown) Hx of bilateral oophorectomy (Unknown) Hx of cholecystectomy (Unknown) Family History Mother Diabetes mellitus Cancer Father Colon cancer Diabetes mellitus Social History marital status: household members: spouse occupational status: employed Smoking Status: Former smoker Tobacco: How many years used: 30 second hand exposure: No alcohol intake: current (rarely ) substance use type: does not use Smoking Status: Former smoker alcohol intake frequency: holidays/special occasions only Substance Use Type: does not use and painkillers Exam Narrative Exam Narrative: GEN: well nourished, female, alert and oriented x 3, patient appears to be in mild distress. HEENT: Atraumatic, pupils are equal round reactive to light, no photophobia, extraocular movements are intact, nares are clear, TMs are clear with no fluid, there is no conjunctival pallor. Throat is clear without any exudates, erythema, tonsillar enlargement or uvular deviation, no meningeal signs, negative Kernig's and Brudzinski's. Nontender at the temples. HEART: Regular rate and rhythm without murmur, clicks, rubs. Pulses are equal in upper and lower extremities LUNGS:Lungs clear to auscultation, no wheezes, rales, crackles, chest moves symmetrically ABD:bowel sounds normal, soft, non-tender, no guarding, rebound, rigidity, no masses noted, no hepatosplenomegaly :No CVA tenderness MSCL: Non-tender, no muscle atrophy, muscles strength 5/5 upper and lower extremities, full range of motion, normal gait NEURO:CN 2-12 intact, sensation normal, reflexes 2/4 upper and lower extremities. finger nose finger test normal, heel silvestre test normal SKIN: Rash, erythema or other skin changes. Initial Vital Signs Initial Vital Signs: Vital Signs Temperature 98.8 F 04/10/22 21:46 Pulse Rate 95 H 04/10/22 21:46 Respiratory Rate 17 04/10/22 21:46 Blood Pressure 146/65 H 04/10/22 21:46 Pulse Oximetry 96 04/10/22 21:46 Oxygen Delivery Method 04/10/22 21:46 Scores GCS Sanderson coma scale eye opening: Spontaneous Sanderson coma scale verbal response: Orientated Gail coma scale motor response: Obey commands Gail coma scale total score: 15 Course Orders Ordered: ED Orders 04/10/22 21:47 Covid-19 + FLU A/B by PCR Stat Respiratory Panel (Film Array) Stat 04/10/22 22:00 CBC Auto Diff [Complete Blood Count AUTO DIFF] Stat CMP [Comprehensive Metabolic Panel] Stat Lactate (Lactic Acid) Stat Lipase Stat Procalcitonin Stat 04/10/22 22:39 CT angio head and neck Stat 04/11/22 00:30 Urine Microscopic Stat 04/11/22 00:35 CT kidney ureter bladder (KUB) Stat 04/11/22 01:13 Urine Culture Stat Discontinued Medications Hydrocodone Bitart/Acetaminophen (Hydrocodone/Acet 5/325 Tablet) 2 tab PO NOW ONE Stop: 04/11/22 00:36 Last Admin: 04/11/22 00:43 Dose: 2 tab Documented By: NGOC Sodium Chloride (Normal Saline 0.9%) 1,000 mls @ 1,000 mls/hr IV BOLUS ONE Stop: 04/10/22 23:38 Last Infusion: 04/11/22 00:44 Dose: 0 mls/hr Documented By: Admin: 04/10/22 22:46 Dose: 1,000 mls/hr Documented By: NGOC Metoclopramide HCl (Metoclopramide 10 Mg/2 Ml Inj) 10 mg IV NOW ONE Stop: 04/10/22 22:40 Last Admin: 04/10/22 22:46 Dose: 10 mg Documented By: NOGC Vital Signs Vital signs: Vital Signs - 8 hr 04/10/22 21:46 04/10/22 23:37 04/10/22 23:28 Temperature 98.8 F Pulse Rate 95 H Respiratory Rate 17 Blood Pressure 146/65 H 121/68 Pulse Oximetry 96 85 L Oxygen Delivery Method Room Air 04/10/22 23:30 04/10/22 23:35 04/10/22 23:35 Temperature Pulse Rate 85 86 Respiratory Rate 25 H 21 Blood Pressure 121/68 Pulse Oximetry 98 97 Oxygen Delivery Method 04/11/22 00:00 04/11/22 00:00 04/11/22 00:16 Temperature Pulse Rate 84 84 Respiratory Rate 23 33 H Blood Pressure 130/61 Pulse Oximetry 98 97 Oxygen Delivery Method 04/11/22 00:30 Temperature Pulse Rate Respiratory Rate Blood Pressure 129/61 Pulse Oximetry Oxygen Delivery Method MDM - Headache Lab Data Result diagrams: 04/10/22 22:00 04/10/22 22:00 Labs: Lab Results 04/10/22 04/10/22 04/10/22 Range/Units 21:47 21:47 22:00 WBC 6.0 (4.5-11.0) X10^3/uL RBC 4.06 (4.0-5.2) X10^6/uL Hgb 12.7 (12.0-16.0) g/dL Hct 37.3 (36-46) % MCV 91.7 (80-100) fL MCH 31.2 (26-34) PG MCHC 34.0 (30-36) % RDW 14.1 (11.6-14.8) % Plt Count 101 L (150-400) X10^3/uL Neut % (Auto) Not Reportable Lymph % (Auto) Not Reportable [place] % (Auto) Not Reportable Eos % (Auto) Not Reportable Baso % (Auto) Not Reportable Lymph # (Auto) Not Reportable [place] # (Auto) Not Reportable Baso # (Auto) Not Reportable Total Counted 100 Seg Neutrophils % 56.0 (38-70) % Band Neutrophils % 8.0 H (3-7) % Lymphocytes % (Manual) 17.0 L (25-45) % Monocytes % (Manual) 15.0 H (2-11) % Eosinophils % (Manual) 2.0 (2-4) % Basophils % (Manual) 1.0 (0-1) % Metamyelocytes % 1.0 H (-0) % Neutrophils # (Manual) 3840 (9756-8064) /uL RBC Morphology Normal morphology Sodium (137-145) mmol/L Potassium (3.4-5.1) mmol/L Chloride (98-107) mmol/L Carbon Dioxide (22-32) mmol/L BUN (7-17) mg/dL Creatinine (0.52-1.04) mg/dL Estimated GFR (>60) mL/min BUN/Creatinine Ratio (6-22) Glucose (80-110) mg/dL Lactate (0.7-2.1) mmol/L Calcium (8.4-10.2) mg/dL Total Bilirubin (0.2-1.3) mg/dL AST (14-36) IU/L ALT (<35) IU/L Alkaline Phosphatase (38-126) U/L Total Protein (6.3-8.2) g/dL Albumin (3.5-5.0) g/dL Globulin (1.7-4.1) g/dL Albumin/Globulin Ratio (1.0-2.8) Lipase (23-300) U/L Procalcitonin (<0.5) ng/mL Urine RBC (0-5/HPF) Urine WBC (0-5/HPF) Ur Squamous Epith Cells (0-5/HPF) Urine Bacteria (None) Chlamy pneumoniae PCR Not detected (Not Detect) Adenovirus (PCR) Not detected (Not Detect) B. pertussis DNA (PCR) Not detected (Not Detecte) B.parapertussis DNA PCR Not detected (Not Detecte) Coronavirus OC43 (PCR) Not detected (Not Detect) Coronavirus HKU1 (PCR) Not detected (Not Detect) Coronavirus 229E (PCR) Not detected (Not Detect) SARS-CoV-2 (PCR) Negative Not detected (Negative) Coronavirus NL63 (PCR) Not detected (Not Detect) Human Metapneumovir PCR Not detected (Not Detect) Influenza A (RT-PCR) Flu a negative (NEGATIVE) Influenza Type A (PCR) Not detected (Not Detect) Influenza B (RT-PCR) Flu b negative (NEGATIVE) Influenza Type B (PCR) Not detected (Not Detect) M. pneumoniae (PCR) Not detected (Not Detect) Parainfluenza 1 (PCR) Not detected (Not Detect) Parainfluenza 2 (PCR) Not detected (Not Detect) Parainfluenza 3 (PCR) Not detected (Not Detect) Parainfluenza 4 (PCR) Not detected (Not Detect) RSV (PCR) Not detected (Not Detect) Entero/Rhino (PCR) Not detected (Not Detect) 04/10/22 04/10/22 04/11/22 Range/Units 22:00 22:00 00:30 WBC (4.5-11.0) X10^3/uL RBC (4.0-5.2) X10^6/uL Hgb (12.0-16.0) g/dL Hct (36-46) % MCV (80-100) fL MCH (26-34) PG MCHC (30-36) % RDW (11.6-14.8) % Plt Count (150-400) X10^3/uL Neut % (Auto) Lymph % (Auto) [place] % (Auto) Eos % (Auto) Baso % (Auto) Lymph # (Auto) [place] # (Auto) Baso # (Auto) Total Counted Seg Neutrophils % (38-70) % Band Neutrophils % (3-7) % Lymphocytes % (Manual) (25-45) % Monocytes % (Manual) (2-11) % Eosinophils % (Manual) (2-4) % Basophils % (Manual) (0-1) % Metamyelocytes % (-0) % Neutrophils # (Manual) (2119-9663) /uL RBC Morphology Sodium 136 L (137-145) mmol/L Potassium 3.5 (3.4-5.1) mmol/L Chloride 99 (98-107) mmol/L Carbon Dioxide 28 (22-32) mmol/L BUN 34 H (7-17) mg/dL Creatinine 1.90 H (0.52-1.04) mg/dL Estimated GFR 29 L (>60) mL/min BUN/Creatinine Ratio 17.9 (6-22) Glucose 271 H (80-110) mg/dL Lactate 1.5 (0.7-2.1) mmol/L Calcium 8.5 (8.4-10.2) mg/dL Total Bilirubin 0.8 (0.2-1.3) mg/dL AST 49 H (14-36) IU/L ALT 31 (<35) IU/L Alkaline Phosphatase 90 (38-126) U/L Total Protein 7.7 (6.3-8.2) g/dL Albumin 3.5 (3.5-5.0) g/dL Globulin 4.2 H (1.7-4.1) g/dL Albumin/Globulin Ratio 0.8 L (1.0-2.8) Lipase 66 (23-300) U/L Procalcitonin 2.78 H (<0.5) ng/mL Urine RBC None seen (0-5/HPF) Urine WBC None seen (0-5/HPF) Ur Squamous Epith Cells 0-1 /hpf (0-5/HPF) Urine Bacteria None seen (None) Chlamy pneumoniae PCR (Not Detect) Adenovirus (PCR) (Not Detect) B. pertussis DNA (PCR) (Not Detecte) B.parapertussis DNA PCR (Not Detecte) Coronavirus OC43 (PCR) (Not Detect) Coronavirus HKU1 (PCR) (Not Detect) Coronavirus 229E (PCR) (Not Detect) SARS-CoV-2 (PCR) (Negative) Coronavirus NL63 (PCR) (Not Detect) Human Metapneumovir PCR (Not Detect) Influenza A (RT-PCR) (NEGATIVE) Influenza Type A (PCR) (Not Detect) Influenza B (RT-PCR) (NEGATIVE) Influenza Type B (PCR) (Not Detect) M. pneumoniae (PCR) (Not Detect) Parainfluenza 1 (PCR) (Not Detect) Parainfluenza 2 (PCR) (Not Detect) Parainfluenza 3 (PCR) (Not Detect) Parainfluenza 4 (PCR) (Not Detect) RSV (PCR) (Not Detect) Entero/Rhino (PCR) (Not Detect) Urine Dip Bedside Urine Glucose 500 mg/dl Bedside Urine Bilirubin - Negative Bedside Urine Ketone - Negative Urine Specific Nikolai 1.01 Bedside Urine Occult Blood - Negative Bedside Urine pH 6.5 Bedside Urine Protein - Negative Bedside Urine Urobilinogen - Negative Bedside Urine Nitrite - Negative Bedside Urine Leukocytes - Negative Esterase Imaging Data CTA - brain/neck: Radiologist's Impression: Close Head/Neck CTA (Signed) Satya Moe - 04/10/22 [place] [address] CT Scan Report Signed Patient: Caridad Clements MR#: [id number] : 1960 Acct:[id number] Age/Sex: 62 / F Date of Service: 04/10/22 Loc: ED Accession Number: [id number] ?? Procedure: CT angio head and neck Ordering Provider: Carmen Saunders D.O. PROCEDURE:? CT ANGIO HEAD AND NECK ? INDICATIONS:? headache x 3 days, persistent ? TECHNIQUE:? Pre-contrast 4.5 mm thick sections acquired from the foramen magnum to the vertex.? After the administration of intravenous contrast, 1 mm thick sections acquired from the aortic arch through the D[place] of [place].? Post-contrast 4.5 mm thick sections then re-acquired from the foramen magnum to the vertex.? 3-dimensional bboxrsn-jxzjtfrsr-gjsxqgrphn (MIP) and/or volume rendering reformats were acquired of the central intracranial vasculature and neck separately. For radiation dose reduction, the following was used:? automated exposure control, adjustment of mA and/or kV according to patient size.? ? Examination online and available for interpretation 04/10/2022 at 11:59 p.m.. ? COMPARISON:? None. ? FINDINGS:? Image quality:? Excellent.? ? BRAIN:? CSF spaces:? Basal cisterns are patent.? No extra-axial fluid collections.? Ventricles are normal in size and shape.? ? Brain:? No intracranial hemorrhage, mass, or mass effect.? Cooper-white matter interface appears preserved.? No abnormal intracranial enhancement.? ? Skull and face:? Calvarium and facial bones appear intact, without suspicious lesions.? Orbits appear normal.? ? Sinuses:? Sinuses and mastoids are clear.? ? HEAD CT ANGIOGRAPHY:? Anterior circulation:? Intracranial internal carotid arteries are normal in size and appear patent bilaterally.? There is mild atherosclerotic calcification along the cavernous segments of the internal carotid arteries.? The paired anterior cerebral arteries appear patent bilaterally.? The anterior communicating artery also appears patent. The middle cerebral arteries appear patent bilaterally.? No high-grade stenosis, occlusion, or filling defects.? No cerebral aneurysms identified. ? Posterior circulation:? Visualized portions of the vertebral arteries demonstrate a right dominant vertebrobasilar system with a diminutive left vertebral artery.? The vertebral arteries join to form a patent basilar artery.? The posterior cerebral arteries appears patent bilaterally.? No high-grade stenosis, occlusion, or filling defects.? No cerebral aneurysms identified. ? NECK CT ANGIOGRAPHY:? Carotid system:? The great vessels demonstrate a bovine aortic arch with common origin of the right brachiocephalic and left common carotid arteries as they arise from the aortic arch.? The origins of the common carotid arteries appear patent.? The common carotid arteries demonstrate normal caliber and courses.? The bifurcation regions are both widely patent.? The internal carotid arteries demonstrate normal calibers and courses.? ? Posterior circulation:? The origins of the vertebral arteries both appear patent.? There is a right dominant vertebrobasilar system with a diminutive left vertebral artery.? The more superior extracranial portions of both vertebral arteries appear patent bilaterally. ?They join to form a patent basilar artery.? ? Soft tissues:? Visualized neck soft tissues demonstrate no suspicious abnormalities.? ? Bones:? No suspicious bony lesions.? Visualized cervical spine demonstrates straightening of the cervical lordosis.? There is degenerative disc disease within the lower cervical spine. ? ? IMPRESSION:? ? 1. No acute intracranial abnormality. ? 2. No high-grade stenosis or occlusion of the central intracranial arteries. ? 3. No high-grade stenosis or occlusion of the head and neck arteries.? ? Any quantitative measurements of stenosis were performed using NASCET criteria.? ? ? Dictated by: Satya Moe M.D. on 04/11/2022 at 0:02 ? ? Approved by: Satya Moe M.D. on 04/11/2022 at 0:11?? ECG Data Attestation: I personally reviewed and interpreted this ECG as follows: Interpretation: Sinus rhythm, rate of 91 [place] 176 QRS of 76 and QTC of 447. No acute ST changes noted. MDM Narrative Medical decision making narrative: 62-year-old female with persistent headache for 3 days some rigors and no improvement. No fevers at home. Patient workup including head CTA is negative, CBC does show bandemia as well as elevated monocytes, chemistry shows bump in creatinine from 1.6-1.9, BUN is 34 with a sodium of 136 glucose is 271, patient's LFTs show an AST of 49, procalcitonin of 2.78 urine showed glucose was sent for microscopy. CT KUB was obtained as patient did have a bump in her creatinine. Patient did receive fluids. CT KUB was ordered this does not show any clear acute change. Urine does not show obvious infection. Viral workup for influenza and COVID was negative. Patient does not appear septic but does have bandemia with elevated procalcitonin, blood cultures are pending. Patient's exam she has headache she is been afebrile, she has normal range of motion without any meningeal signs, CT angio is negative. Discussed with patient I am concerned for bacterial source of her infection, my suspicion is higher for bacteremia but meningitis is a possibility. Discussed lumbar puncture which was deferred, discussed I would like to keep her for observation in the hospital. I would not start antibiotics as I do not have a clear source but I suspect that her blood cultures will be positive in the next 24-48 hours. Patient has a cardiology appointment today that has taken 3 months for her to set, she would really like to not miss this. She is feeling improved she defers observation or admission but is aware that I would like to keep her and that she is to return if feeling worse at all. She is also aware that my suspicion is that she does have a bacterial infection causing her symptoms. Discharge Plan Departure Patient Disposition: Home Clinical Impression: Headache, Bandemia Activity Restrictions/Additional Instructions: I strongly suspect you have a bacterial infection today causing your symptoms and recommend keeping you in the hospital overnight. Your labs show a bandemia and elevated procalcitonin which is very suspicious for bacterial infection. As discussed meningitis is on the list of possibilities but I am also very suspicious for bacteremia or bacteria in your blood stream. You do have blood cultures pending as well as a urine culture if these are positive you will be contacted. Please return for fevers, worsening symptoms, altered mental status, increasing headaches, new chest pain, shortness of breath, persistent vomiting or other new or concerning symptoms Prescriptions: No Action multivitamin Tablet 1 tab PO DAILY (DME) pen needle, diabetic [Lite Touch Insulin Pen [place]] 31 gauge x 1/4 needle See Rx Instructions .Route Qty: 100 3RF Rx Instructions: use daily as directed (DME) lancets [OneTouch UltraSoft Lancets] [facility] [place] See Rx Instructions .Route Qty: 200 3RF Rx Instructions: use daily as directed insulin glargine-yfgn [Semglee(insulin glarg-yfgn)Pen] 100 unit/mL (3 mL) insulin pen 10 unit SUBCUT DAILY Qty: 9 3RF (DME) Test Strips Qty: 250 6RF Dose Instruction: As directed Rx Instructions: Test blood sugar 2 times daily - FILL PER INSURANCE. 04/10/21 rosuvastatin 5 mg tablet 5 mg PO DAILY Qty: 90 3RF citalopram 20 mg tablet 10 mg PO QDAYP PRN (Reason: depression) Qty: 90 3RF metformin 500 mg tablet See Rx Instructions .ROUTE .COMPLEX Qty: 180 3RF Dose Instruction: TAKE 1 TABLET BY MOUTH TWICE DAILY Rx Instructions: TAKE 1 TABLET BY MOUTH TWICE DAILY hydrochlorothiazide 12.5 mg tablet See Rx Instructions .ROUTE .COMPLEX Qty: 90 0RF Dose Instruction: TAKE 1 TABLET BY MOUTH DAILY Rx Instructions: TAKE 1 TABLET BY MOUTH DAILY cetirizine 10 mg tablet 10 mg PO DAILY PRN (DME) Glucometer with controls Dose Instruction: As directed Rx Instructions: Test blood sugars 2 times daily levothyroxine 150 mcg capsule 150 mcg PO DAILY glipizide 10 mg tablet 10 mg PO DAILY metoprolol succinate 25 mg Capsule,Sprinkle,Er 24hr 25 mg PO DAILY Referrals: Nestor Godinez MD [Primary Care Provider] - Visit Report Forms: Patient Portal/API
--- NOTE | 2022-04-10 22:39 | DI.CT.S_ITS ---
PROCEDURE: CT ANGIO HEAD AND NECK INDICATIONS: headache x 3 days, persistent TECHNIQUE: Pre-contrast 4.5 mm thick sections acquired from the foramen magnum to the vertex. After the administration of intravenous contrast, 1 mm thick sections acquired from the aortic arch through the [place] of [place]. Post-contrast 4.5 mm thick sections then re-acquired from the foramen magnum to the vertex. 3-dimensional rkqxduw-ecanqanqy-bvhcxesfzk (MIP) and/or volume rendering reformats were acquired of the central intracranial vasculature and neck separately. For radiation dose reduction, the following was used: automated exposure control, adjustment of mA and/or kV according to patient size. Examination online and available for interpretation 04/10/2022 at 11:59 p.m.. COMPARISON: None. FINDINGS: Image quality: Excellent. BRAIN: CSF spaces: Basal cisterns are patent. No extra-axial fluid collections. Ventricles are normal in size and shape. Brain: No intracranial hemorrhage, mass, or mass effect. Cooper-white matter interface appears preserved. No abnormal intracranial enhancement. Skull and face: Calvarium and facial bones appear intact, without suspicious lesions. Orbits appear normal. Sinuses: Sinuses and mastoids are clear. HEAD CT ANGIOGRAPHY: Anterior circulation: Intracranial internal carotid arteries are normal in size and appear patent bilaterally. There is mild atherosclerotic calcification along the cavernous segments of the internal carotid arteries. The paired anterior cerebral arteries appear patent bilaterally. The anterior communicating artery also appears patent. The middle cerebral arteries appear patent bilaterally. No high-grade stenosis, occlusion, or filling defects. No cerebral aneurysms identified. Posterior circulation: Visualized portions of the vertebral arteries demonstrate a right dominant vertebrobasilar system with a diminutive left vertebral artery. The vertebral arteries join to form a patent basilar artery. The posterior cerebral arteries appears patent bilaterally. No high-grade stenosis, occlusion, or filling defects. No cerebral aneurysms identified. NECK CT ANGIOGRAPHY: Carotid system: The great vessels demonstrate a bovine aortic arch with common origin of the right brachiocephalic and left common carotid arteries as they arise from the aortic arch. The origins of the common carotid arteries appear patent. The common carotid arteries demonstrate normal caliber and courses. The bifurcation regions are both widely patent. The internal carotid arteries demonstrate normal calibers and courses. Posterior circulation: The origins of the vertebral arteries both appear patent. There is a right dominant vertebrobasilar system with a diminutive left vertebral artery. The more superior extracranial portions of both vertebral arteries appear patent bilaterally. They join to form a patent basilar artery. Soft tissues: Visualized neck soft tissues demonstrate no suspicious abnormalities. Bones: No suspicious bony lesions. Visualized cervical spine demonstrates straightening of the cervical lordosis. There is degenerative disc disease within the lower cervical spine. IMPRESSION: 1. No acute intracranial abnormality. 2. No high-grade stenosis or occlusion of the central intracranial arteries. 3. No high-grade stenosis or occlusion of the head and neck arteries. Any quantitative measurements of stenosis were performed using NASCET criteria. Dictated by: Satya Moe M.D. on 04/11/2022 at 0:02 Approved by: Satya Moe M.D. on 04/11/2022 at 0:11
[2022-04-10] MEDS: METOCLOPRAMIDE 10 MG/2 ML INJ IV (22:46)
[2022-04-10] MEDS: SODIUM CHLORIDE 0.9% 1,000 ML 1000 ML IV (22:46)
[2022-04-10 22:52] LABS: Lactate (Lactic Acid) 1.5 mmol/L (0.7-2.1)
[2022-04-10 22:53] LABS: Alanine Aminotransferase 31 IU/L (<35); Albumin 3.5 g/dL (3.5-5.0); Albumin Globulin Ratio 0.8 (1.0-2.8); Alkaline Phosphatase 90 U/L (38-126); Aspartate Aminotransferase 49 IU/L (14-36); BUN Creatinine Ratio 17.9 (6-22); Bilirubin Total 0.8 mg/dL (0.2-1.3); Blood Urea Nitrogen 34 mg/dL (7-17); Calcium 8.5 mg/dL (8.4-10.2); Carbon Dioxide 28 mmol/L (22-32); Chloride 99 mmol/L (98-107); Estimated Glomerular Filt Rate 29 mL/min (>60); Globulin 4.2 g/dL (1.7-4.1); Glucose 271 mg/dL (80-110); HEMOLYSIS < 15 (0-50); Lipase 66 U/L (23-300); Potassium 3.5 mmol/L (3.4-5.1); Sodium 136 mmol/L (137-145); Total Protein 7.7 g/dL (6.3-8.2)
[2022-04-10 22:55] LABS: Influenza A - CEPHEID Flu A NEGATIVE (NEGATIVE); Influenza B - CEPHEID Flu B NEGATIVE (NEGATIVE)
[2022-04-10 23:07] LABS: Hematocrit 37.3 % (36-46); Hemoglobin 12.7 g/dL (12.0-16.0); Mean Corpuscular Hemoglobin 31.2 PG (26-34); Mean Corpuscular Volume 91.7 fL (80-100); Platelet Count 101 X10^3/uL (150-400); Red Blood Cell Count 4.06 X10^6/uL (4.0-5.2); Red Cell Distribution Width 14.1 % (11.6-14.8)
[2022-04-10 23:09] LABS: Add Manual Diff / Slide Review YES; Procalcitonin 2.78 ng/mL (<0.5)
[2022-04-10 23:16] LABS: COVID-19 CEPHEID 4-PLEX PCR Negative (Negative)
[2022-04-10 23:28] VITALS: O2SAT 85
[2022-04-10 23:30] VITALS: PULSE 85; RESP 25; O2SAT 98
[2022-04-10 23:35] VITALS: BP 121/68; PULSE 86; RESP 21; O2SAT 97
[2022-04-10 23:37] VITALS: BP 121/68
[2022-04-10 23:50] LABS: Neutrophils Absolute Manual 3840 /uL (3000-5900); RBC Morphology Normal Morphology; Total Cells Counted 100
[2022-04-11] VITALS: BP 130/61; PULSE 84; RESP 23; O2SAT 98
[2022-04-11 00:16] VITALS: PULSE 84; RESP 33; O2SAT 97
[2022-04-11 00:30] VITALS: BP 129/61
--- NOTE | 2022-04-11 00:35 | DI.CT.S_ITS ---
PROCEDURE: CT KIDNEY URETER BLADDER (KUB) INDICATIONS: shaji, rigors TECHNIQUE: Axial sections were acquired from the lung bases to the pubic symphysis. Coronal and sagittal reformats were performed. For radiation dose reduction, the following was used: automated exposure control, adjustment of mA and/or kV according to patient size. COMPARISON: [facility], CT, CT ABDOMEN PELVIS W CON, 09/23/2020, 22:03. [facility], CT, CT ANGIO HEAD AND NECK, 04/10/2022, 22:44. [facility], CT, KIDNEY/ URETER/BLADDER, 03/25/2011, 5:31. FINDINGS: Image quality: There is residual contrast within the renal collecting systems and bladder from recent head and neck CTA limiting evaluation. Lung bases: There is minimal atelectasis. Heart: Heart is normal in size. URINARY: Right Kidney and Ureter: No hydronephrosis or hydroureter. Excreted residual contrast from the recent CT limits evaluation for renal stones. No perinephric fluid collections. Left Kidney and Ureter: No hydronephrosis or hydroureter. Residual excreted contrast within the renal collecting systems from recent CT limits evaluation for renal stones. No perinephric fluid collections. Bladder: Normal wall thickness. ABDOMEN: Liver: Noncontrast evaluation of the liver demonstrates no discrete mass. There is nodularity of the hepatic contour suggestive of cirrhosis. Gallbladder: Surgically absent. Biliary ducts: No biliary ductal dilatation. Pancreas: Unremarkable. Spleen: The spleen is enlarged, measuring up to 14.8 cm. Adrenal Glands: No adrenal nodules. Stomach and Bowel: Stomach, small bowel loops, and colon are normal in caliber and wall thickness. Appendix is surgically absent. Peritoneum: No abnormal intraperitoneal fluid. No free air. Ventral Wall: No hernia. Abdominal Nodes: No retroperitoneal or mesenteric adenopathy by size criteria. Vessels: Aorta and inferior vena cava are normal in size. There are gastroesophageal and splenic varices. A splenorenal shunt is also present. PELVIS: Pelvic Organs: Unremarkable. Pelvic Nodes: No enlarged lymph nodes. Miscellaneous: No inguinal hernias identified. Bones: Visualized osseous structures demonstrate no suspicious focal lesions. IMPRESSION: 1. No evidence of hydronephrosis. 2. Residual excreted contrast within the renal collecting systems from bladder from recent CTA limits evaluation for possible renal stones. 3. No perinephric stranding, fluid collections, or striated nephrogram to suggest pyelonephritis. Dictated by: Satya Moe M.D. on 04/11/2022 at 1:54 Approved by: Satya Moe M.D. on 04/11/2022 at 2:00
[2022-04-11] MEDS: HYDROCODONE/ACET 5/325 TABLET 2 TAB PO (00:43)
[2022-04-11 01:02] LABS: Bacteria Urine None Seen; RBC Urine None Seen (0-5/HPF); Squamous Epithelial Cell Urine 0-1 /HPF (0-5/HPF); WBC Urine None Seen (0-5/HPF)
[2022-04-11 02:30] LABS: Adenovirus Not Detected (Not Detect); B. parapertussis Not Detected (Not Detecte); Bordetella pertussis Not Detected (Not Detecte); Chlamydophila pneumoniae Not Detected (Not Detect); Coronavirus 229E Not Detected (Not Detect); Coronavirus HKU1 Not Detected (Not Detect); Coronavirus NL 63 Not Detected (Not Detect); Coronavirus OC43 Not Detected (Not Detect); Human Metapneumovirus Not Detected (Not Detect); Human Rhinovirus/Enterovirus Not Detected (Not Detect); Influenza A Not Detected (Not Detect); Influenza B Not Detected (Not Detect); Mycoplasma pneumoniae Not Detected (Not Detect); Parainfluenza Virus 1 Not Detected (Not Detect); Parainfluenza Virus 2 Not Detected (Not Detect); Parainfluenza Virus 3 Not Detected (Not Detect); Parainfluenza Virus 4 Not Detected (Not Detect); Respiratory Syncytial Virus Not Detected (Not Detect); SARS- CoV-2 Not Detected (Not Detecte)
== END 2022-04-11 02:53 | disposition home or self-care (01) ==
PROVIDERS: Emergency Provider Emergency Medicine; PCP Family Medicine
DX: R51.9 Headache, unspecified (principal); D72.825 Bandemia; R25.1 Tremor, unspecified; Z20.822 Contact with and (suspected) exposure to COVID-19
CPT/HCPCS: 36415; 70496; 70498; 74176; 80053; 81003; 81015; 83605; 83690; 84145; 85007; 85025; 87040; 87086; 87633; 87635; 93005; 93010; 96361; 96374; 99284; C9803; J2765; Q9967

== ENCOUNTER → 2022-04-15 12:36 | Outpatient (CLI) | payer OTHER, SELFPAY | PROVIDERS: PCP Family Medicine; Referring Provider Internal Medicine; Visit Provider Internal Medicine | DX: Z23 Encounter for immunization (principal) | CPT/HCPCS: 90471; 90686 ==

== ENCOUNTER → 2022-05-08 13:45 | Outpatient (CLI) | payer OTHER, SELFPAY ==
[2022-05-08 14:51] LABS: Hematocrit 38.4 % (36-46); Hemoglobin 12.8 g/dL (12.0-16.0)
[2022-05-08 15:33] LABS: Creatinine Urine Random 166.7 mg/dL
[2022-05-08 15:34] LABS: BUN Creatinine Ratio 18.8 (6-22); Blood Urea Nitrogen 39 mg/dL (7-17); Calcium 9.2 mg/dL (8.4-10.2); Carbon Dioxide 31 mmol/L (22-32); Chloride 99 mmol/L (98-107); Estimated Glomerular Filt Rate 26 mL/min (>60); Glucose 175 mg/dL (80-110); HEMOLYSIS < 15 (0-50); Potassium 3.5 mmol/L (3.4-5.1); Protein (Total) Urine Random < 5 mg/dL (0-12); Protein Creatinine Ratio Urine 0.02 GRAM/24H; Sodium 139 mmol/L (137-145)
[2022-05-08 15:44] LABS: NT-proBNP (BNP-Adult 18+) 81 pg/mL (<125)
[2022-05-09 09:12] LABS: Parathyroid Hormone Int 29 pg/mL (15-65)
== END ==
PROVIDERS: PCP Family Medicine; Referring Provider Student in an Organized Health Care Education/Training Program; Visit Provider Student in an Organized Health Care Education/Training Program
DX: N05.9 Unspecified nephritic syndrome with unspecified morphologic changes (principal); I50.32 Chronic diastolic (congestive) heart failure; D64.9 Anemia, unspecified; N25.81 Secondary hyperparathyroidism of renal origin; R80.9 Proteinuria, unspecified
CPT/HCPCS: 36415; 80048; 82570; 83880; 83970; 84156; 85014; 85018

== ENCOUNTER → 2022-06-18 14:13 | Outpatient (CLI) | payer OTHER, SELFPAY ==
[2022-06-18 15:04] LABS: Hematocrit 37.9 % (36-46); Hemoglobin 12.8 g/dL (12.0-16.0)
[2022-06-18 15:17] LABS: BUN Creatinine Ratio 19.2 (6-22); Blood Urea Nitrogen 42 mg/dL (7-17); Calcium 9.1 mg/dL (8.4-10.2); Carbon Dioxide 31 mmol/L (22-32); Chloride 92 mmol/L (98-107); Estimated Glomerular Filt Rate 25 mL/min (>60); Glucose 485 mg/dL (80-110); HEMOLYSIS < 15 (0-50); Potassium 3.4 mmol/L (3.4-5.1); Sodium 132 mmol/L (137-145)
[2022-06-18 15:23] LABS: NT-proBNP (BNP-Adult 18+) 76 pg/mL (<125)
[2022-06-18 16:37] LABS: Creatinine Urine Random 75.4 mg/dL; Protein (Total) Urine Random 10 mg/dL (0-12); Protein Creatinine Ratio Urine 0.13 GRAM/24H
[2022-06-20 11:08] LABS: Parathyroid Hormone Int 48 pg/mL (15-65)
== END ==
PROVIDERS: PCP Family Medicine; Referring Provider Student in an Organized Health Care Education/Training Program; Visit Provider Student in an Organized Health Care Education/Training Program
DX: N05.9 Unspecified nephritic syndrome with unspecified morphologic changes (principal); I50.32 Chronic diastolic (congestive) heart failure; D64.9 Anemia, unspecified; N25.81 Secondary hyperparathyroidism of renal origin; R80.9 Proteinuria, unspecified
CPT/HCPCS: 36415; 80048; 82570; 83880; 83970; 84156; 85014; 85018

== ENCOUNTER → 2022-07-08 14:19 | Outpatient (CLI) | payer OTHER, SELFPAY ==
[2022-07-08 15:11] LABS: Blood Urea Nitrogen 33 mg/dL (7-17); Calcium 8.2 mg/dL (8.4-10.2); Carbon Dioxide 26 mmol/L (22-32); Chloride 102 mmol/L (98-107); Estimated Glomerular Filt Rate 33 mL/min (>60); Glucose 389 mg/dL (80-110); HEMOLYSIS < 15 (0-50); Potassium 4.7 mmol/L (3.4-5.1); Sodium 135 mmol/L (137-145)
[2022-07-08 15:19] LABS: NT-proBNP (BNP-Adult 18+) 256 pg/mL (<125)
== END ==
PROVIDERS: PCP Family Medicine; Referring Provider Student in an Organized Health Care Education/Training Program; Visit Provider Student in an Organized Health Care Education/Training Program
DX: N05.9 Unspecified nephritic syndrome with unspecified morphologic changes (principal); I50.32 Chronic diastolic (congestive) heart failure
CPT/HCPCS: 36415; 80048; 83880

== ENCOUNTER → 2022-08-21 14:04 | Outpatient (CLI) | payer OTHER, SELFPAY ==
[2022-08-21 16:02] LABS: BUN Creatinine Ratio 19.4 (6-22); Blood Urea Nitrogen 30 mg/dL (7-17); Calcium 8.6 mg/dL (8.4-10.2); Carbon Dioxide 30 mmol/L (22-32); Chloride 101 mmol/L (98-107); Estimated Glomerular Filt Rate 38 mL/min (>60); Glucose 287 mg/dL (80-110); HEMOLYSIS < 15 (0-50); Potassium 4.3 mmol/L (3.4-5.1); Sodium 136 mmol/L (137-145)
[2022-08-21 16:04] LABS: NT-proBNP (BNP-Adult 18+) 175 pg/mL (<125)
== END ==
PROVIDERS: PCP Family Medicine; Referring Provider Student in an Organized Health Care Education/Training Program; Visit Provider Student in an Organized Health Care Education/Training Program
DX: N05.9 Unspecified nephritic syndrome with unspecified morphologic changes (principal); I50.32 Chronic diastolic (congestive) heart failure
CPT/HCPCS: 36415; 80048; 83880

== ENCOUNTER → 2023-01-06 14:03 | Outpatient (CLI) | payer OTHER, SELFPAY ==
[2023-01-06 15:36] LABS: Add Manual Diff / Slide Review NO; Basophils Absolute Auto 0 /uL (0-100); Basophils Percent Auto 0.4 % (0-2); Eosinophils Absolute Auto 200 /uL (0-450); Eosinophils Percent Auto 5.3 % (2-4); Hematocrit 36.7 % (36-46); Hemoglobin 12.5 g/dL (12.0-16.0); Lymphocytes Absolute Auto 1200 /uL (1100-4500); Lymphocytes Percent Auto 27.6 % (25-40); Mean Corpuscular Hemoglobin 31.5 PG (26-34); Mean Corpuscular Volume 92.6 fL (80-100); Monocytes Absolute Auto 500 /uL (0-900); Monocytes Percent Auto 10.6 % (3-14); Neutrophils Absolute Auto 2500 /uL (1500-7000); Neutrophils Percent Auto 56.1 % (50-75); Platelet Count 109 X10^3/uL (150-400); Red Blood Cell Count 3.96 X10^6/uL (4.0-5.2); Red Cell Distribution Width 14.6 % (11.6-14.8); White Blood Cell Count 4.4 X10^3/uL (4.5-11.0)
[2023-01-06 16:45] LABS: Alanine Aminotransferase 25 IU/L (<35); Albumin 3.3 g/dL (3.5-5.0); Alkaline Phosphatase 192 U/L (38-126); Aspartate Aminotransferase 42 IU/L (14-36); BUN Creatinine Ratio 13.8 (6-22); Bilirubin Total 0.7 mg/dL (0.2-1.3); Blood Urea Nitrogen 18 mg/dL (7-17); Carbon Dioxide 23 mmol/L (22-32); Chloride 108 mmol/L (98-107); Cholesterol 214 mg/dL (140-199); Estimated Glomerular Filt Rate 46 mL/min (>60); Globulin 3.3 g/dL (1.7-4.1); Glucose 180 mg/dL (80-110); HDL Cholesterol 59 mg/dL (40-60); HEMOLYSIS < 15 (0-50); LDL Cholesterol Calculated 126 mg/dL (<100); Potassium 4.6 mmol/L (3.4-5.1); Sodium 136 mmol/L (137-145); Total Protein 6.6 g/dL (6.3-8.2); Triglycerides 147 mg/dL (35-150)
[2023-01-06 16:51] LABS: Microalbumin Urine Random 0.8 mg/dL (0-1.6)
[2023-01-06 18:18] LABS: TSH w/ Reflex to FT4 0.85 uIU/mL (0.47-4.68)
[2023-01-07 12:09] LABS: Gamma Glutamyl Transpeptidase 146 U/L (12-43)
[2023-01-08 05:52] LABS: x Labcorp Estim. Avg Glu (eAG) 232 mg/dL (.); x Labcorp Hemoglobin A1c 9.7 % (4.8-5.6)
== END ==
PROVIDERS: PCP Family Medicine; Referring Provider Family Medicine; Visit Provider Family Medicine
DX: D50.8 Other iron deficiency anemias (principal); E11.65 Type 2 diabetes mellitus with hyperglycemia; E78.2 Mixed hyperlipidemia; E83.52 Hypercalcemia; E89.0 Postprocedural hypothyroidism; I10 Essential (primary) hypertension
CPT/HCPCS: 36415; 80053; 80061; 82043; 82570; 82977; 83036; 84443; 85025

== ENCOUNTER → 2023-01-16 13:05 | Outpatient (CLI) | payer OTHER, SELFPAY ==
--- NOTE | 2023-01-16 13:06 | DI.US.S_ITS ---
PROCEDURE: US ABDOMEN LIMITED INDICATIONS: Elevated liver enyzmes TECHNIQUE: Real-time focused scanning was performed of the abdomen, with image documentation. COMPARISON: [facility], CT, CT KIDNEY URETER BLADDER (KUB), 04/11/2022, 0:57. FINDINGS: Liver length of 15.9 cm. The liver is echogenic with marked attenuation of the ultrasound beam. Prior cholecystectomy. No intrahepatic biliary ductal dilation. Extrahepatic bile duct measures 9 mm likely within normal limits for post cholecystectomy state. Visualized pancreas is unremarkable sonographically. IMPRESSION: 1. The liver is echogenic, a nonspecific finding commonly seen in the setting of steatosis. 2. Prior cholecystectomy. Prominent caliber of the extrahepatic bile duct, likely within normal limits for post cholecystectomy state however correlation with the patient's symptoms and laboratory markers for evidence of biliary obstruction may be helpful. Dictated by: Brady Figueroa M.D. on 01/16/2023 at 14:38 Approved by: Brady Figueroa M.D. on 01/16/2023 at 14:51
== END ==
PROVIDERS: PCP Family Medicine; Referring Provider Family Medicine; Visit Provider Family Medicine
DX: R74.8 Abnormal levels of other serum enzymes (principal); E83.52 Hypercalcemia; E03.9 Hypothyroidism, unspecified; Z90.49 Acquired absence of other specified parts of digestive tract
CPT/HCPCS: 76705

== ENCOUNTER 2023-01-28 09:21 | Emergency (ER) | payer OTHER, SELFPAY ==
[2023-01-28] VITALS (16 sets, daily range): BP systolic 112–157; BP diastolic 54–112; PULSE 64–80; RESP 16–21; TEMP 37; O2SAT 91–97; BMI 45.6
--- NOTE | 2023-01-28 09:32 | DI.RAD.S_ITS ---
PROCEDURE: XR CHEST 1V INDICATIONS: chest pain TECHNIQUE: One view of the chest was acquired. COMPARISON: [facility], , XR CHEST 1V, 10/26/2019, 14:48. [facility], , CHEST 1 VIEW, 09/01/2013, 23:27. FINDINGS: Surgical changes and devices: None. Lungs and pleura: Lungs are clear. No pleural effusions or pneumothorax. Mediastinum: Mediastinal contours appear normal. Heart size is normal. Bones and chest wall: No suspicious bony lesions. Overlying soft tissues appear unremarkable. IMPRESSION: No acute cardiopulmonary process. Dictated by: Romario Yao M.D. on 01/28/2023 at 10:15 Approved by: Romario Yao M.D. on 01/28/2023 at 10:16
--- NOTE | 2023-01-28 09:33 | ED_ITS ---
HPI - Chest Pain General Chief Complaint: Chest Pain Stated Complaint: chest/back pain headach T-0 L shoulder pain Time Seen by Provider: 01/28/23 09:33 History of Present Illness HPI narrative: 62-year-old female former smoker with history of chronic kidney disease, uterine cancer, diabetes, prior pulmonary embolism presents with daughter and a chief complaint of chest pain with radiation to her back that started this morning. She states it is worse with deep breath and seems to improve with rest. She denies any exertional component. She denies any shortness of breath, dizziness, weakness or lightheadedness. She does state that over the past few weeks she has felt more fatigued than normal. She is had a prior stress test without any significant findings. She denies fever or chills. She has no runny nose, sore throat or cough. She denies nausea, vomiting or diarrhea. Related Data Home Medications Medication Instructions Recorded Confirmed Glucometer with controls 11/04/19 01/12/23 cetirizine 10 mg tablet 10 mg PO DAILY PRN 02/14/21 01/12/23 metoprolol succinate 25 mg capsule 25 mg PO DAILY 04/10/22 01/12/23 sprinkle, ext. release 24 hr insulin NPH isoph U-100 human SUBCUT 01/12/23 01/12/23 [Novolin N FlexPen] Previous Rx's Medication Instructions Recorded lancets (OneTouch UltraSoft #200 ea 03/14/21 Lancets) pen needle, diabetic 31 gauge x #100 ea 03/14/2106/11 (Lite Touch Insulin Pen [place]) Test Strips #250 ea 04/10/21 citalopram 20 mg tablet 10 mg PO QDAYP PRN depression #90 08/29/22 tabs levothyroxine 150 mcg capsule 150 mcg PO DAILY #90 caps 11/07/22 metformin 500 mg tablet See Rx Instructions .Route 12/01/22 .COMPLEX #180 tabs empagliflozin 25 mg tablet See Rx Instructions PO DAILY #90 01/12/23 (Jardiance) tabs rosuvastatin 5 mg tablet 5 mg PO DAILY #90 tabs 01/12/23 semaglutide 0.25 mg or 0.5 mg (2 0.25 mg (0.368 mL) SUBCUT QWEEK 01/15/23 mg/3 mL) subcutaneous pen injector uncontrolled diabetes 28 days (Ozempic) #1.472 mL furosemide 20 mg tablet 60 mg PO DAILY #90 tabs 01/20/23 hydrocodone 5 mg-acetaminophen 325 1 tab PO Q4-6H PRN pain #10 tabs 01/28/23 mg tablet ondansetron 4 mg disintegrating 4 mg PO TID-QID PRN nausea and 01/28/23 tablet vomiting #10 tabs Allergies Allergy/AdvReac Type Severity Reaction Status Date / Time cefadroxil [CEFADROXIL] Allergy Severe HIVES, Verified 01/12/23 15:18 VOMITING cephalexin [CEPHALEXIN] Allergy Severe HIVES, Verified 01/12/23 15:18 VOMITING dexamethasone [DEXAMETHASONE] Allergy Severe REDNESS, Verified 01/12/23 15:18 RASH AND SWELLING IN BOTH EYES neomycin [NEOMYCIN] Allergy Severe REDNESS, Verified 01/12/23 15:18 RASH AND SWELLING IN BOTH EYES Penicillins [PENICILLINS] Allergy Severe HIVES Verified 01/12/23 15:18 polymyxin B [POLYMYXIN B] Allergy Severe REDNESS, Verified 01/12/23 15:18 RASH AND SWELLING IN BOTH EYES hydroxyzine Allergy Intermediate Rash to Verified 01/12/23 15:18 abdomen oxycodone [OXYCODONE] AdvReac Intermediate Nausea and Verified 01/12/23 15:18 vomiting Review of Systems Review of Systems Narrative: GENERAL: Denies chills, fatigue, malaise, fever, sweats. HEENT: Denies sinus pain, ear pain, sore throat, difficulty swallowing, dizziness. RESPIRATORY: See HPI CARDIOVASCULAR: See HPI GASTROINTESTINAL: See HPI : Denies dysuria, frequency, incontinence, hematuria, urinary retention. MUSCULOSKELETAL: denies weakness, joint pain, or bony pain SKIN: Denies rash, skin lesions, or other NEUROLOGIC: Denies weakness, headache, numbness, change in speech, confusion, seizures, incoordination. PSYCHIATRIC: No concerning psychosocial issues. 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) Postmenopausal bleeding Pulmonary embolism (10/2019) Uterine cancer Surgical History History of hysterectomy (05/2020) History of tonsillectomy and adenoidectomy (Unknown) Hx of appendectomy (Unknown) Hx of bilateral oophorectomy (Unknown) Hx of cholecystectomy (Unknown) Family History Mother Diabetes mellitus Cancer Father Colon cancer Diabetes mellitus Social History marital status: household members: spouse occupational status: employed Smoking Status: Former smoker Tobacco: How many years used: 30 second hand exposure: No alcohol intake: current (rarely ) substance use type: does not use Smoking Status: Former smoker alcohol intake frequency: holidays/special occasions only Substance Use Type: does not use and painkillers Exam Narrative Exam Narrative: GENERAL: [62] year old patient appears stated age. Well-developed patient, in mild distress. HEAD: Atraumatic. Normocephalic. EYES: Pupils equal round and reactive. Extraocular motions intact. No scleral icterus. No injection or drainage. ENT: Nose without bleeding, purulent drainage. Throat without erythema, tonsillar hypertrophy or exudate. Airway patent. NECK: Trachea midline. Non tender CARDIOVASCULAR: Regular rate and rhythm without murmurs, gallops, or rubs. RESPIRATORY: Clear to auscultation. Breath sounds equal bilaterally. No wheezes, rales, or rhonchi. GASTROINTESTINAL: Abdomen soft, non-tender, nondistended. EXTREMITIES: No edema or joint tenderness. BACK: Nontender without deformity or crepitance. No flank tenderness. NEURO: AOx3. SKIN: No rash or erythema of visible areas Initial Vital Signs Initial Vital Signs: Vital Signs Temperature 98.6 F 01/28/23 09:25 Pulse Rate 80 01/28/23 09:25 Respiratory Rate 16 01/28/23 09:25 Blood Pressure 157/66 H 01/28/23 09:25 Pulse Oximetry 96 01/28/23 09:25 Oxygen Delivery Method Room Air 01/28/23 09:25 Course Orders Ordered: Discontinued Medications Acetaminophen (Acetaminophen 325 Mg Tablet) 975 mg PO NOW ONE Stop: 01/28/23 13:27 Last Admin: 01/28/23 13:39 Dose: 975 mg Documented By: CHANDRAKANT Aspirin (Aspirin 81 Mg Chew Tab) 324 mg PO NOW ONE Stop: 01/28/23 09:32 Last Admin: 01/28/23 10:08 Dose: 324 mg Documented By: CHANDRAKANT Sodium Chloride (Normal Saline 0.9%) 500 mls @ 1,000 mls/hr IV BOLUS ONE Stop: 01/28/23 11:03 Last Infusion: 01/28/23 11:14 Dose: 0 mls/hr Documented By: Admin: 01/28/23 10:45 Dose: 1,000 mls/hr Documented By: CHANDRAKANT Vital Signs Vital signs: Vital Signs - 8 hr 01/28/23 09:25 01/28/23 10:02 01/28/23 09:58 Temperature 98.6 F Pulse Rate 80 65 78 Respiratory Rate 16 16 Blood Pressure 157/66 H 126/55 L Pulse Oximetry 96 96 93 Oxygen Delivery Method Room Air Room Air 01/28/23 10:00 01/28/23 10:00 01/28/23 10:03 Temperature Pulse Rate 73 Respiratory Rate 21 Blood Pressure 149/112 H 126/55 L Pulse Oximetry 91 Oxygen Delivery Method 01/28/23 10:03 01/28/23 10:15 01/28/23 10:15 Temperature Pulse Rate 67 66 Respiratory Rate 19 21 Blood Pressure 123/57 L Pulse Oximetry 92 94 Oxygen Delivery Method 01/28/23 10:30 01/28/23 10:30 01/28/23 10:45 Temperature Pulse Rate 66 Respiratory Rate 19 Blood Pressure 116/56 L 115/54 L Pulse Oximetry 95 Oxygen Delivery Method 01/28/23 10:45 01/28/23 11:00 01/28/23 11:00 Temperature Pulse Rate 68 67 Respiratory Rate 20 16 Blood Pressure 112/55 L Pulse Oximetry 96 95 Oxygen Delivery Method 01/28/23 11:30 01/28/23 12:00 Temperature Pulse Rate 68 65 Respiratory Rate 18 19 Blood Pressure Pulse Oximetry 93 93 Oxygen Delivery Method MDM - Chest Pain Lab Data 01/28/23 09:48 01/28/23 09:48 Labs: Lab Results 01/28/23 01/28/23 01/28/23 Range/Units 09:48 09:48 09:48 WBC 4.5 (4.5-11.0) X10^3/uL RBC 4.10 (4.0-5.2) X10^6/uL Hgb 12.9 (12.0-16.0) g/dL Hct 37.9 (36-46) % MCV 92.4 (80-100) fL MCH 31.5 (26-34) PG MCHC 34.1 (30-36) % RDW 13.9 (11.6-14.8) % Plt Count 117 L (150-400) X10^3/uL Neut % (Auto) 58.8 (50-75) % Lymph % (Auto) 23.4 L (25-40) % [place] % (Auto) 13.5 (3-14) % Eos % (Auto) 3.8 (2-4) % Baso % (Auto) 0.5 (0-2) % Neut # (Auto) 2600 (8332-5875) /uL Lymph # (Auto) 1100 (1427-7734) /uL [place] # (Auto) 600 (0-900) /uL Eos # (Auto) 200 (0-450) /uL Baso # (Auto) 0 (0-100) /uL PT 12.6 (10.1-12.7) SECONDS INR 1.1 (0.9-1.3) APTT 36 (26-36) SECONDS D-Dimer (<500) ng/ml Sodium 136 L (137-145) mmol/L Potassium 3.7 (3.4-5.1) mmol/L Chloride 98 (98-107) mmol/L Carbon Dioxide 31 (22-32) mmol/L BUN 29 H (7-17) mg/dL Creatinine 1.79 H (0.52-1.04) mg/dL Estimated GFR 32 L (>60) mL/min BUN/Creatinine Ratio 16.2 (6-22) Glucose 245 H (80-110) mg/dL Calcium 9.3 (8.4-10.2) mg/dL Magnesium 2.6 H (1.6-2.3) mg/dL Total Bilirubin 0.7 (0.2-1.3) mg/dL AST 51 H (14-36) IU/L ALT 30 (<35) IU/L Alkaline Phosphatase 161 H (38-126) U/L Total Creatine Kinase 105 (30-135) U/L Troponin I 0.015 (0.01-0.034) ng/mL NT-Pro-B Natriuret Pep 88 (<125) pg/mL Total Protein 7.4 (6.3-8.2) g/dL Albumin 3.8 (3.5-5.0) g/dL Globulin 3.6 (1.7-4.1) g/dL Albumin/Globulin Ratio 1.1 (1.0-2.8) Lipase 417 H (23-300) U/L 01/28/23 01/28/23 Range/Units 09:48 12:45 WBC (4.5-11.0) X10^3/uL RBC (4.0-5.2) X10^6/uL Hgb (12.0-16.0) g/dL Hct (36-46) % MCV (80-100) fL MCH (26-34) PG MCHC (30-36) % RDW (11.6-14.8) % Plt Count (150-400) X10^3/uL Neut % (Auto) (50-75) % Lymph % (Auto) (25-40) % [place] % (Auto) (3-14) % Eos % (Auto) (2-4) % Baso % (Auto) (0-2) % Neut # (Auto) (2192-2702) /uL Lymph # (Auto) (3589-2210) /uL [place] # (Auto) (0-900) /uL Eos # (Auto) (0-450) /uL Baso # (Auto) (0-100) /uL PT (10.1-12.7) SECONDS INR (0.9-1.3) APTT (26-36) SECONDS D-Dimer 2102 H (<500) ng/ml Sodium (137-145) mmol/L Potassium (3.4-5.1) mmol/L Chloride (98-107) mmol/L Carbon Dioxide (22-32) mmol/L BUN (7-17) mg/dL Creatinine (0.52-1.04) mg/dL Estimated GFR (>60) mL/min BUN/Creatinine Ratio (6-22) Glucose (80-110) mg/dL Calcium (8.4-10.2) mg/dL Magnesium (1.6-2.3) mg/dL Total Bilirubin (0.2-1.3) mg/dL AST (14-36) IU/L ALT (<35) IU/L Alkaline Phosphatase (38-126) U/L Total Creatine Kinase 92 (30-135) U/L Troponin I 0.013 (0.01-0.034) ng/mL NT-Pro-B Natriuret Pep (<125) pg/mL Total Protein (6.3-8.2) g/dL Albumin (3.5-5.0) g/dL Globulin (1.7-4.1) g/dL Albumin/Globulin Ratio (1.0-2.8) Lipase (23-300) U/L MDM Narrative Medical decision making narrative: CC: 62-year-old female with chest pain and radiation to back Complicating co-morbidities: Age, kidney disease, prior pulmonary embolism Data collected from: Patient Medical records reviewed: Prior notes reviewed in our EMR Differential considered, but not limited to: Cardiac ischemia versus pulmonary embolism versus pancreatitis versus dissection versus pneumonia versus esophageal spasm versus gallbladder disease versus other Exam documented above, pertinent findings include: Heart rate regular, lungs clear, abdomen soft Lab Test results independently reviewed as above. Pertinent findings: Troponin x2 negative, D-dimer is elevated, lipase slightly elevated Independently reviewed EKG as above Imaging studies independently reviewed: CTA demonstrates no acute pulmonary emboli, no acute pulmonary process Treatments: Fluids, Tylenol Re-evaluations: Symptoms improved Discussion: Patient presents with epigastric or central chest pain in the absence of other cardiac equivalent, no exertional symptoms and no exercise intolerance. Multiple diagnoses considered as noted above. Cardiac ischemia considered unlikely as she has no occlusive findings on EKG, troponin x2 is negative. Recurrent pulmonary embolism considered but thought unlikely given reassuring findings on imaging. Gastrointestinal complaints such as pancreatitis, gallbladder disease, bowel obstruction all considered, she does have a slightly elevated lipase, however pain is well controlled, she is tolerating orals, no imaging findings. Appropriate for discharge, encouraged to follow closely, return precautions discussed and include but are not limited to recurrence or worsening of pain, additional symptoms such as shortness of breath, dizziness or lightheadedness, nausea or vomiting or other bothersome or concerning symptoms Disposition: see below, along with detailed discharge instructions that have been reviewed with patient as well as indications for ED re-evaluation and additional outpatient follow up Discharge Plan Departure Patient Disposition: Home Clinical Impression: Chest pain, Elevated lipase Instructions: DI for Atypical Chest Pain Activity Restrictions/Additional Instructions: *You have been diagnosed with [chest pain and slightly elevated lipase. As we discussed there is no evidence of heart attack, blood clot or other significant diagnosis requiring specific or immediate intervention] *What to do: *Please continue to take your regular medications as directed. [ x] New medication prescriptions sent to your pharmacy: [[facility] ] [ ] New medication written as a paper prescription [ ] No new medications given *Please follow up with your primary care provider in 2-3 days, call for an appointment. Let them know you were seen in the Emergency Department and that we ask that you be seen in follow up. We will electronically transmit a record of today's note if your PCP is in our system *Please consider a clear liquid diet for the next 24-48 hours and then slowly advance to regular as tolerated. Also, try to avoid alcohol, nicotine, caffeine, spicy, acidic or fatty foods as this may worsen your symptoms *Return to Emergency Department if you should have any new, worsening or concerning symptoms, such as [fever greater than 101 F, shaking chills, worsening pain, persistent vomiting or other bothersome symptoms] Prescriptions: New hydrocodone-acetaminophen 5-325 mg tablet 1 tab PO Q4-6H PRN (Reason: pain) Qty: 10 0RF ondansetron 4 mg tablet,disintegrating 4 mg PO TID-QID PRN (Reason: nausea and vomiting) Qty: 10 0RF No Action (DME) pen needle, diabetic [Lite Touch Insulin Pen [place]] 31 gauge x 1/4 needle See Rx Instructions .Route Qty: 100 3RF Rx Instructions: use daily as directed (DME) lancets [OneTouch UltraSoft Lancets] Misc See Rx Instructions .Route Qty: 200 3RF Rx Instructions: use daily as directed (DME) Test Strips Qty: 250 6RF Dose Instruction: As directed Rx Instructions: Test blood sugar 2 times daily - FILL PER INSURANCE. 04/10/21 citalopram 20 mg tablet 10 mg PO QDAYP PRN (Reason: depression) Qty: 90 3RF levothyroxine 150 mcg capsule 150 mcg PO DAILY Qty: 90 0RF metformin 500 mg tablet See Rx Instructions .ROUTE .COMPLEX Qty: 180 3RF Dose Instruction: TAKE 1 TABLET BY MOUTH TWICE DAILY Rx Instructions: TAKE 1 TABLET BY MOUTH TWICE DAILY Ozempic 0.25 mg or 0.5 mg (2 mg/3 mL) pen injector 0.25 mg SUBCUT QWEEK 28 Days Qty: 1.472 2RF Rx Instructions: for 4 weeks; then increase to 0.5 mg every week. Still not controlled with insulin and metformin. furosemide 20 mg tablet 60 mg PO DAILY Qty: 90 3RF cetirizine 10 mg tablet 10 mg PO DAILY PRN (DME) Glucometer with controls Dose Instruction: As directed Rx Instructions: Test blood sugars 2 times daily insulin NPH isoph U-100 human [Novolin N FlexPen] SUBCUT rosuvastatin 5 mg tablet 5 mg PO DAILY Qty: 90 3RF Jardiance 25 mg tablet See Rx Instructions PO DAILY Qty: 90 3RF Rx Instructions: take 1/2 tab orally daily for 1 week then t1 tab daily thereafter; metoprolol succinate 25 mg Capsule,Sprinkle,Er 24hr 25 mg PO DAILY Referrals: Nestor Godinez MD [Primary Care Provider] - Stand Alone Forms: Patient Portal/API
[2023-01-28 09:58] LABS: Add Manual Diff / Slide Review NO; Basophils Absolute Auto 0 /uL (0-100); Basophils Percent Auto 0.5 % (0-2); Eosinophils Absolute Auto 200 /uL (0-450); Eosinophils Percent Auto 3.8 % (2-4); Hematocrit 37.9 % (36-46); Hemoglobin 12.9 g/dL (12.0-16.0); Lymphocytes Absolute Auto 1100 /uL (1100-4500); Lymphocytes Percent Auto 23.4 % (25-40); Mean Corpuscular HGB Conc 34.1 % (30-36); Mean Corpuscular Hemoglobin 31.5 PG (26-34); Mean Corpuscular Volume 92.4 fL (80-100); Monocytes Absolute Auto 600 /uL (0-900); Monocytes Percent Auto 13.5 % (3-14); Neutrophils Absolute Auto 2600 /uL (1500-7000); Neutrophils Percent Auto 58.8 % (50-75); Platelet Count 117 X10^3/uL (150-400); Red Cell Distribution Width 13.9 % (11.6-14.8); White Blood Cell Count 4.5 X10^3/uL (4.5-11.0)
[2023-01-28] MEDS: ASPIRIN 81 MG CHEW TAB 324 MG PO (10:08)
[2023-01-28 10:11] LABS: INR 1.1 (0.9-1.3); Prothrombin Time 12.6 SECONDS (10.1-12.7)
[2023-01-28 10:13] LABS: PTT Partial Thromboplastin Tim 36 SECONDS (26-36)
[2023-01-28 10:15] LABS: Alanine Aminotransferase 30 IU/L (<35); Albumin 3.8 g/dL (3.5-5.0); Albumin Globulin Ratio 1.1 (1.0-2.8); Alkaline Phosphatase 161 U/L (38-126); Aspartate Aminotransferase 51 IU/L (14-36); BUN Creatinine Ratio 16.2 (6-22); Bilirubin Total 0.7 mg/dL (0.2-1.3); Blood Urea Nitrogen 29 mg/dL (7-17); Calcium 9.3 mg/dL (8.4-10.2); Carbon Dioxide 31 mmol/L (22-32); Chloride 98 mmol/L (98-107); Creatine Kinase 105 U/L (30-135); Estimated Glomerular Filt Rate 32 mL/min (>60); Globulin 3.6 g/dL (1.7-4.1); Glucose 245 mg/dL (80-110); HEMOLYSIS 31 (0-50); Lipase 417 U/L (23-300); Magnesium 2.6 mg/dL (1.6-2.3); Potassium 3.7 mmol/L (3.4-5.1); Sodium 136 mmol/L (137-145); Total Protein 7.4 g/dL (6.3-8.2)
[2023-01-28 10:21] LABS: D Dimer 2102 ng/ml (<500)
[2023-01-28 10:24] LABS: NT-proBNP (BNP-Adult 18+) 88 pg/mL (<125); Troponin I 0.015 ng/mL (0.01-0.034)
[2023-01-28] MEDS: SODIUM CHLORIDE 0.9% 500 ML 1000 ML IV (10:45)
--- NOTE | 2023-01-28 11:04 | DI.CT.S_ITS ---
PROCEDURE: CT ANGIO CHEST PE PROTOCOL INDICATIONS: chest pain, hx PE, critical dimer TECHNIQUE: After the administration of intravenous contrast, 2 mm thick sections acquired from the pulmonary apices to the posterior costophrenic angles. 3-dimensional maximum intensity projection (MIP) coronal and sagittal reformats were then acquired through the thorax. For radiation dose reduction, the following was used: automated exposure control, adjustment of mA and/or kV according to patient size. COMPARISON: [facility], CT, CT KIDNEY URETER BLADDER (KUB), 04/11/2022, 0:57. [facility], CT, CT ANGIO CHEST PE PROTOCOL, 10/26/2019, 15:03. FINDINGS: Image quality: Excellent. Pulmonary arteries: Pulmonary arteries are normal in size, and demonstrate no intraluminal filling defects to suggest central pulmonary embolism. Lungs and pleura: Lungs are clear. No pleural effusions or pneumothorax. Central and peripheral airways are patent. Mediastinum: Heart size is normal, without pericardial effusion. No mediastinal or hilar adenopathy. Thoracic aorta is normal in caliber and enhancement. Esophagus is normal in caliber, without hiatal hernia. Bones and chest wall: No suspicious bony lesions. Ribs and thoracic spine appear intact throughout. Thyroid gland is small without nodules. No axillary or supraclavicular adenopathy. Abdomen: Cirrhosis. Splenomegaly. Left upper quadrant varicosities. IMPRESSION: 1. No acute pulmonary emboli. 2. No acute pulmonary process. 3. Cirrhosis. 4. Portal venous hypertension with splenomegaly and varicosities. Dictated by: Fred Garcia M.D. on 01/28/2023 at 12:44 Approved by: Fred Garcia M.D. on 01/28/2023 at 12:49
[2023-01-28 13:02] LABS: Creatine Kinase 92 U/L (30-135)
[2023-01-28 13:14] LABS: Troponin I 0.013 ng/mL (0.01-0.034)
[2023-01-28] MEDS: ACETAMINOPHEN 325 MG TABLET 975 MG PO (13:39)
== END 2023-01-28 14:21 | disposition home or self-care (01) ==
PROVIDERS: Emergency Provider Emergency Medicine; PCP Family Medicine
DX: R07.9 Chest pain, unspecified (principal); R74.8 Abnormal levels of other serum enzymes
CPT/HCPCS: 36415; 71045; 71275; 80053; 82550; 83690; 83735; 83880; 84484; 85025; 85379; 85610; 85730; 93005; 99284; 99285; Q9967

== ENCOUNTER → 2023-02-03 14:00 | Outpatient (CLI) | payer OTHER, SELFPAY ==
[2023-02-03 15:22] LABS: Hematocrit 38.4 % (36-46); Hemoglobin 13.1 g/dL (12.0-16.0)
[2023-02-03 15:47] LABS: Blood Urea Nitrogen 28 mg/dL (7-17); Calcium 9.1 mg/dL (8.4-10.2); Carbon Dioxide 26 mmol/L (22-32); Chloride 100 mmol/L (98-107); Estimated Glomerular Filt Rate 30 mL/min (>60); Glucose 338 mg/dL (80-110); HEMOLYSIS < 15 (0-50); Potassium 4.3 mmol/L (3.4-5.1); Sodium 136 mmol/L (137-145)
[2023-02-03 18:00] LABS: Creatinine Urine Random 55.7 mg/dL; Protein (Total) Urine Random 10 mg/dL (0-12); Protein Creatinine Ratio Urine 0.17 GRAM/24H
[2023-02-04 06:40] LABS: Parathyroid Hormone Int 76 pg/mL (15-65)
== END ==
PROVIDERS: PCP Family Medicine; Referring Provider Student in an Organized Health Care Education/Training Program; Visit Provider Student in an Organized Health Care Education/Training Program
DX: N05.9 Unspecified nephritic syndrome with unspecified morphologic changes (principal); D64.9 Anemia, unspecified; N25.81 Secondary hyperparathyroidism of renal origin; R80.9 Proteinuria, unspecified
CPT/HCPCS: 36415; 80048; 82570; 83970; 84156; 85014; 85018

== ENCOUNTER → 2023-03-04 16:30 | Outpatient (CLI) | payer OTHER, SELFPAY ==
[2023-03-04 18:24] LABS: Appearance Urine UA CLEAR; Bilirubin Urine UA NEGATIVE (NEGATIVE); Color Urine UA YELLOW; Glucose Urine UA 3+ g/dL (Negative); Ketones Urine UA NEGATIVE (NEGATIVE); Leukocyte Esterase Urine UA NEGATIVE (NEGATIVE); Nitrite Urine UA NEGATIVE (Negative); Occult Blood Urine UA NEGATIVE (Negative); Protein Urine UA NEGATIVE (Negative); Specific Gravity Urine UA <=1.005 (1.000-1.035); Urobilinogen Urine UA 0.2 E.U./dL (0.2)
[2023-03-04 19:28] LABS: Bacteria Urine Occasional (0-1); Culture Indicated Urine Cult Not Indicated; RBC Urine 0-1/HPF (0-5/HPF); Squamous Epithelial Cell Urine 5-10 /HPF (0-5/HPF); WBC Urine 0-1/HPF (0-5/HPF)
== END ==
PROVIDERS: PCP Family Medicine; Referring Provider Family Medicine; Visit Provider Family Medicine
DX: R10.9 Unspecified abdominal pain (principal)
CPT/HCPCS: 81001

== ENCOUNTER → 2023-03-25 11:22 | Outpatient (CLI) | payer OTHER, SELFPAY | PROVIDERS: PCP Family Medicine; Referring Provider Family Medicine; Visit Provider Family Medicine | DX: Z23 Encounter for immunization (principal) | CPT/HCPCS: 90471; 90686 ==

== ENCOUNTER → 2023-05-08 10:39 | Outpatient (CLI) | payer OTHER, SELFPAY ==
[2023-05-08 12:14] LABS: Alanine Aminotransferase 25 IU/L (<35); Albumin 3.5 g/dL (3.5-5.0); Alkaline Phosphatase 115 U/L (38-126); Aspartate Aminotransferase 47 IU/L (14-36); BUN Creatinine Ratio 16.9 (6-22); Blood Urea Nitrogen 32 mg/dL (7-17); Calcium 9.4 mg/dL (8.4-10.2); Carbon Dioxide 27 mmol/L (22-32); Chloride 102 mmol/L (98-107); Cholesterol 159 mg/dL (140-199); Estimated Glomerular Filt Rate 29 mL/min (>60); Globulin 3.6 g/dL (1.7-4.1); Glucose 145 mg/dL (80-110); HDL Cholesterol 43 mg/dL (40-60); HEMOLYSIS < 15 (0-50); LDL Cholesterol Calculated 98 mg/dL (<100); Potassium 4.4 mmol/L (3.4-5.1); Sodium 135 mmol/L (137-145); Total Protein 7.1 g/dL (6.3-8.2); Triglycerides 92 mg/dL (35-150)
== END ==
PROVIDERS: PCP Family Medicine; Referring Provider Family Medicine; Visit Provider Family Medicine
DX: E78.2 Mixed hyperlipidemia (principal); E11.65 Type 2 diabetes mellitus with hyperglycemia; I10 Essential (primary) hypertension; E83.52 Hypercalcemia; E89.0 Postprocedural hypothyroidism
CPT/HCPCS: 36415; 80053; 80061; 83036

== ENCOUNTER → 2023-05-14 15:15 | Outpatient (CLI) | payer OTHER, SELFPAY ==
[2023-05-14 16:31] LABS: Hemoglobin 14.1 g/dL (12.0-16.0)
[2023-05-14 16:53] LABS: BUN Creatinine Ratio 14.7 (6-22); Blood Urea Nitrogen 26 mg/dL (7-17); Calcium 9.6 mg/dL (8.4-10.2); Carbon Dioxide 28 mmol/L (22-32); Chloride 104 mmol/L (98-107); Estimated Glomerular Filt Rate 32 mL/min (>60); Glucose 147 mg/dL (80-110); HEMOLYSIS < 15 (0-50); Potassium 4.4 mmol/L (3.4-5.1); Sodium 139 mmol/L (137-145)
[2023-05-14 18:43] LABS: Creatinine Urine Random 97.3 mg/dL
[2023-05-14 19:13] LABS: Protein (Total) Urine Random < 5 mg/dL (0-12); Protein Creatinine Ratio Urine 0.05 GRAM/24H
[2023-05-15 10:10] LABS: Parathyroid Hormone Int 66 pg/mL (15-65)
== END ==
PROVIDERS: PCP Family Medicine; Referring Provider Student in an Organized Health Care Education/Training Program; Visit Provider Student in an Organized Health Care Education/Training Program
DX: N05.9 Unspecified nephritic syndrome with unspecified morphologic changes (principal); D70.9 Neutropenia, unspecified; D63.1 Anemia in chronic kidney disease; N25.81 Secondary hyperparathyroidism of renal origin; R80.9 Proteinuria, unspecified
CPT/HCPCS: 36415; 80048; 82570; 83970; 84156; 85014; 85018

== ENCOUNTER → 2023-07-01 15:22 | Outpatient (CLI) | payer OTHER, SELFPAY ==
--- NOTE | 2023-07-01 15:25 | DI.RAD.S_ITS ---
PROCEDURE: XR LUMBAR SPINE MIN 4V INDICATIONS: BACK PAIN TECHNIQUE: 5 views of the lumbar spine were acquired, including bilateral oblique views. COMPARISON: [facility], CR, XR LUMBAR SPINE 2-3V, 03/25/2022, 14:29. FINDINGS: Bones: 5 nonrib-bearing vertebrae are present. There is normal bony alignment. No vertebral body compression fractures. No suspicious bony lesions. Disc space narrowing and sclerotic facet joints noted the lower lumbar spine Soft tissues: Overlying bowel gas pattern is normal. No suspicious soft tissue calcifications. Surgical clips noted in the right upper quadrant Oblique images: No pars defects. 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 on 07/01/2023 at 18:59
== END ==
LOC: RAD 15:24
PROVIDERS: PCP Family Medicine; Referring Provider Physical Medicine & Rehabilitation; Visit Provider Physical Medicine & Rehabilitation
DX: M51.36 Other intervertebral disc degeneration, lumbar region (principal); M47.816 Spondylosis without myelopathy or radiculopathy, lumbar region; M54.9 Dorsalgia, unspecified
CPT/HCPCS: 72110

== ENCOUNTER → 2023-08-05 15:34 | Outpatient (CLI) | payer OTHER, SELFPAY ==
[2023-08-05 16:39] LABS: Add Manual Diff / Slide Review NO; Basophils Absolute Auto 0 /uL (0-100); Basophils Percent Auto 0.7 % (0-2); Eosinophils Absolute Auto 400 /uL (0-450); Eosinophils Percent Auto 9.3 % (2-4); Hematocrit 39.1 % (36-46); Lymphocytes Absolute Auto 1300 /uL (1100-4500); Lymphocytes Percent Auto 27.8 % (25-40); Mean Corpuscular HGB Conc 33.2 % (30-36); Mean Corpuscular Volume 93.5 fL (80-100); Monocytes Absolute Auto 500 /uL (0-900); Monocytes Percent Auto 10.8 % (3-14); Neutrophils Absolute Auto 2300 /uL (1500-7000); Neutrophils Percent Auto 51.4 % (50-75); Platelet Count 103 X10^3/uL (150-400); Red Blood Cell Count 4.19 X10^6/uL (4.0-5.2); Red Cell Distribution Width 14.2 % (11.6-14.8); White Blood Cell Count 4.6 X10^3/uL (4.5-11.0)
[2023-08-05 16:59] LABS: Alanine Aminotransferase 23 IU/L (<35); Albumin 3.4 g/dL (3.5-5.0); Albumin Globulin Ratio 0.9 (1.0-2.8); Alkaline Phosphatase 103 U/L (38-126); Aspartate Aminotransferase 43 IU/L (14-36); BUN Creatinine Ratio 15.4 (6-22); Bilirubin Total 1.1 mg/dL (0.2-1.3); Blood Urea Nitrogen 29 mg/dL (7-17); Calcium 9.3 mg/dL (8.4-10.2); Carbon Dioxide 38 mmol/L (22-32); Chloride 106 mmol/L (98-107); Estimated Glomerular Filt Rate 30 mL/min (>60); Globulin 3.6 g/dL (1.7-4.1); Glucose 231 mg/dL (80-110); HEMOLYSIS 38 (0-50); Potassium 4.3 mmol/L (3.4-5.1); Sodium 138 mmol/L (137-145)
== END ==
PROVIDERS: PCP Family Medicine; Referring Provider Family Medicine; Visit Provider Family Medicine
DX: N18.9 Chronic kidney disease, unspecified (principal); E11.65 Type 2 diabetes mellitus with hyperglycemia; I10 Essential (primary) hypertension; E78.5 Hyperlipidemia, unspecified
CPT/HCPCS: 36415; 80053; 83036; 85025

== ENCOUNTER → 2023-08-12 14:04 | Outpatient (CLI) | payer OTHER, SELFPAY ==
[2023-08-12 15:22] LABS: Hematocrit 37.3 % (36-46); Hemoglobin 12.6 g/dL (12.0-16.0)
[2023-08-12 15:23] LABS: BUN Creatinine Ratio 16.4 (6-22); Blood Urea Nitrogen 29 mg/dL (7-17); Calcium 9.3 mg/dL (8.4-10.2); Carbon Dioxide 28 mmol/L (22-32); Chloride 106 mmol/L (98-107); Estimated Glomerular Filt Rate 32 mL/min (>60); Glucose 285 mg/dL (80-110); HEMOLYSIS 20 (0-50); Potassium 4.3 mmol/L (3.4-5.1); Sodium 138 mmol/L (137-145)
[2023-08-12 17:07] LABS: Creatinine Urine Random 84.3 mg/dL; Protein (Total) Urine Random 7 mg/dL (0-12); Protein Creatinine Ratio Urine 0.08 GRAM/24H
[2023-08-14 10:57] LABS: Parathyroid Hormone Int 24 pg/mL (15-65)
== END ==
PROVIDERS: PCP Family Medicine; Referring Provider Student in an Organized Health Care Education/Training Program; Visit Provider Student in an Organized Health Care Education/Training Program
DX: N05.9 Unspecified nephritic syndrome with unspecified morphologic changes (principal); D70.9 Neutropenia, unspecified; D63.1 Anemia in chronic kidney disease; N25.81 Secondary hyperparathyroidism of renal origin; R80.9 Proteinuria, unspecified
CPT/HCPCS: 36415; 80048; 82570; 83970; 84156; 85014; 85018

== ENCOUNTER → 2023-09-21 13:41 | Outpatient (CLI) | payer OTHER, SELFPAY ==
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
== END ==
LOC: MRI 13:41
PROVIDERS: PCP Family Medicine; Referring Provider Physical Medicine & Rehabilitation; Visit Provider Physical Medicine & Rehabilitation
DX: M47.816 Spondylosis without myelopathy or radiculopathy, lumbar region (principal); M47.817 Spondylosis without myelopathy or radiculopathy, lumbosacral region; M53.3 Sacrococcygeal disorders, not elsewhere classified; M48.061 Spinal stenosis, lumbar region without neurogenic claudication; M48.07 Spinal stenosis, lumbosacral region
CPT/HCPCS: 72148

== ENCOUNTER → 2023-11-09 15:21 | Outpatient (CLI) | payer OTHER, SELFPAY ==
[2023-11-09 17:06] LABS: Add Manual Diff / Slide Review NO; Basophils Absolute Auto 0 /uL (0-100); Basophils Percent Auto 0.8 % (0-2); Eosinophils Absolute Auto 300 /uL (0-450); Eosinophils Percent Auto 9.4 % (2-4); Hematocrit 36.3 % (36-46); Hemoglobin 12.2 g/dL (12.0-16.0); Lymphocytes Absolute Auto 1000 /uL (1100-4500); Mean Corpuscular HGB Conc 33.7 % (30-36); Mean Corpuscular Hemoglobin 32.1 PG (26-34); Mean Corpuscular Volume 95.4 fL (80-100); Monocytes Absolute Auto 400 /uL (0-900); Monocytes Percent Auto 11.4 % (3-14); Neutrophils Absolute Auto 1900 /uL (1500-7000); Neutrophils Percent Auto 51.4 % (50-75); Platelet Count 86 X10^3/uL (150-400); Red Cell Distribution Width 14.6 % (11.6-14.8); White Blood Cell Count 3.7 X10^3/uL (4.5-11.0)
[2023-11-09 17:15] LABS: Hemoglobin A1C% w Est Avg Glu 6.7 % (4.0-6.0)
[2023-11-09 17:50] LABS: Alanine Aminotransferase 19 IU/L (<35); Albumin 3.3 g/dL (3.5-5.0); Albumin Globulin Ratio 1.1 (1.0-2.8); Alkaline Phosphatase 91 U/L (38-126); Aspartate Aminotransferase 35 IU/L (14-36); BUN Creatinine Ratio 17.3 (6-22); Blood Urea Nitrogen 35 mg/dL (7-17); Calcium 8.7 mg/dL (8.4-10.2); Carbon Dioxide 29 mmol/L (22-32); Chloride 111 mmol/L (98-107); Estimated Glomerular Filt Rate 27 mL/min (>60); Globulin 3.1 g/dL (1.7-4.1); Glucose 194 mg/dL (80-110); HEMOLYSIS < 15 (0-50); Potassium 4.3 mmol/L (3.4-5.1); Sodium 141 mmol/L (137-145); Total Protein 6.4 g/dL (6.3-8.2)
[2023-11-09 18:15] LABS: TSH w/ Reflex to FT4 0.02 uIU/mL (0.47-4.68)
[2023-11-09 18:45] LABS: Free T4, Direct Thyroxine 1.69 ng/dL (0.78-2.19)
[2023-11-09 18:51] LABS: Hep C Virus Ab w/Reflex Quant NEGATIVE s/c (NEGATIVE)
== END ==
PROVIDERS: PCP Family Medicine; Referring Provider Family Medicine; Visit Provider Family Medicine
DX: E83.52 Hypercalcemia (principal); E03.9 Hypothyroidism, unspecified; I10 Essential (primary) hypertension; E78.5 Hyperlipidemia, unspecified; I35.0 Nonrheumatic aortic (valve) stenosis; E11.65 Type 2 diabetes mellitus with hyperglycemia; E66.01 Morbid (severe) obesity due to excess calories; Z68.42 Body mass index [BMI] 45.0-49.9, adult
CPT/HCPCS: 36415; 80053; 83036; 84439; 84443; 85025; 86803

== ENCOUNTER → 2023-11-24 07:49 | Outpatient (CLI) | payer OTHER, SELFPAY ==
--- NOTE | 2023-11-24 07:50 | DI.ECHO.S_ITS ---
[facility] : : [id number] : [place] : : [id number] : : Phone: [phone] Echocardiogram Report + + :Name: ROBLES CASTELAN Study Date: 11/24/2023 Height: 67 in : :[facility] ReadingLocation: Weight: 290 lb : : Gender: Female BSA: 2.4 m2 : :: 1960 Age: 63 yrs BP: 123/76 mmHg: :Reason For Study: AORTIC STENOSIS : :Ordering Physician: EDENILSON, : :SUZAN Performed By: Oksana Millan : :Referring: SUZAN PYLE : + + Interpretation Summary 1) Normal left ventricular thickness, size, wall motion, and systolic function (EF 60-65%). 2) Mildly enlarged right ventricle with normal function. 3) There is moderate aortic stenosis (valve area 1.1cm2, mean gradient 27mmHg). 4) There is mild to moderate aortic regurgitation. 5) Compareed to the Echo done 01/31/2020, aortic stenosis has progressed from mild to moderate on this study. Recommend repeat Echo in 1-2 years for serial monitoring, earlier if clinically indicated. Procedure: A two-dimensional transthoracic echocardiogram with color flow and Doppler was performed. The study quality was technically adequate. Comparison is made with the echocardiogram of 01/31/2020. The patient was in sinus rhythm with heart rates between 66-75 bpm during the exam. Left Ventricle: The left ventricle is normal in size and wall thickness. The ejection fraction is estimated to be 60-65%. Left ventricular systolic function appears normal without focal wall motion abnormalities. Diastolic parameters suggest a relaxation abnormality of the left ventricle, consistent with probable normal filling pressures. Right Ventricle: The right ventricle is mildly dilated. The right ventricular systolic function is normal. Atria: The left atrium is borderline dilated. Right atrial size is normal. There is no Doppler evidence for an interatrial shunt. Mitral Valve: The mitral valve is normal in structure and function. There is mild mitral regurgitation. Aortic Valve: The aortic valve is moderately calcified. The aortic valve is trileaflet. There is moderate aortic stenosis. The peak aortic velocity is 3.4 m/sec. The aortic valve mean gradient is 27 mmHg. The calculated aortic valve area is 1.1 cm2. There is mild to moderate aortic regurgitation. Tricuspid Valve: The tricuspid valve leaflets are thin and pliable. There is mild tricuspid regurgitation. The right ventricular systolic pressure is estimated to be at least 36 mmHg based on an estimated right atrial pressure of 8 mm Hg. Pulmonic Valve: The pulmonic valve is not well visualized. There is no pulmonic valvular regurgitation. Great Vessels: The aortic root is normal size. The dimensions of the ascending aorta are normal. The IVC is dilated (diameter is greater than 2.1 cm) yet it collapses greater than 50% with a sniff. This suggests a right atrial pressure of 8 mm Hg. Pericardium/ Pleura There is no pericardial effusion. There is no pleural effusion. MMode/2D Measurements & Calculations LVIDd: 5.7 cm LVOT diam: 2.0 cm LVIDs: 3.3 cm Ao root diam: 2.7 cm FS: 42.9 % asc Aorta Diam: 2.8 cm IVSd: 1.1 cm Ao Arch Diam (Prox Trans): 3.0 cm LVPWd: 0.97 cm LV smith. diameter/BSA (cm/m^2): 2.4 LV sys. diameter/BSA (cm/m^2): 1.4 LA A2 area: 25.9 cm2 RA long axis: 5.7 cm LA A4 area: 21.9 cm2 RA area: 18.7 cm2 LA length (vol): 6.0 cm RA vol: 52.4 ml LA vol: 80.2 ml RA : 22.1 ml/m2 LA vol index: 33.9 ml/m2 IVC diam: 3.0 cm TAPSE: 2.2 cm Doppler Measurements & Calculations Ao V2 max: 338.3 cm/sec LVOT Max Pascual: 110.0 cm/sec Ao V2 mean: 238.2 cm/sec LV V1 max P.8 mmHg Ao max P.0 mmHg LV V1 VTI: 26.7 cm Ao mean P.6 mmHg PAULINE(I,D): 1.1 cm2 Ao V2 VTI: 79.5 cm PAULINE(V,D): 1.1 cm2 sev ratio: 0.34 PAULINE indexed to BSA (cm^2/m^2): 0.46 AI P1/2t: 417.1 msec AI dec slope: 315.0 cm/sec2 MV E max pascual: 94.1 cm/sec TR max pascual: 265.1 cm/sec MV A max pascual: 80.1 cm/sec TR max P.3 mmHg MV E/A: 1.2 PA V2 max: 110.3 cm/sec Med Peak E' Pascual: 9.8 cm/sec PA V2 mean: 81.9 cm/sec E/E' med: 9.6 PA mean P.8 mmHg Lat Peak E' Pascual: 10.5 cm/sec E/E' lat: 8.9 E/e' average: 9.3 MV dec time: 0.21 sec SV(LVOT): 86.5 ml Reading Physician:11:55 AM
== END ==
PROVIDERS: PCP Family Medicine; Referring Provider Family Medicine; Visit Provider Family Medicine
DX: I08.3 Combined rheumatic disorders of mitral, aortic and tricuspid valves (principal); E83.52 Hypercalcemia; E03.9 Hypothyroidism, unspecified; I10 Essential (primary) hypertension; E78.5 Hyperlipidemia, unspecified
CPT/HCPCS: 93306

== ENCOUNTER → 2024-01-13 16:31 | Outpatient (CLI) | payer OTHER, SELFPAY ==
[2024-01-13 17:19] LABS: Add Manual Diff / Slide Review NO; Basophils Absolute Auto 0 /uL (0-100); Basophils Percent Auto 0.5 % (0-2); Eosinophils Absolute Auto 300 /uL (0-450); Eosinophils Percent Auto 8.7 % (2-4); Hematocrit 41.9 % (36-46); Lymphocytes Absolute Auto 1000 /uL (1100-4500); Lymphocytes Percent Auto 31.7 % (25-40); Mean Corpuscular HGB Conc 33.4 % (30-36); Mean Corpuscular Hemoglobin 31.7 PG (26-34); Mean Corpuscular Volume 94.8 fL (80-100); Monocytes Absolute Auto 500 /uL (0-900); Monocytes Percent Auto 14.6 % (3-14); Neutrophils Absolute Auto 1400 /uL (1500-7000); Neutrophils Percent Auto 44.5 % (50-75); Platelet Count 92 X10^3/uL (150-400); Red Blood Cell Count 4.42 X10^6/uL (4.0-5.2); White Blood Cell Count 3.1 X10^3/uL (4.5-11.0)
[2024-01-13 19:07] LABS: Free T4, Direct Thyroxine 1.99 ng/dL (0.78-2.19)
== END ==
LOC: LAB 16:32
PROVIDERS: PCP Family Medicine; Referring Provider Family Medicine; Visit Provider Family Medicine
DX: E11.65 Type 2 diabetes mellitus with hyperglycemia (principal); I10 Essential (primary) hypertension; E78.5 Hyperlipidemia, unspecified; E66.01 Morbid (severe) obesity due to excess calories; Z68.42 Body mass index [BMI] 45.0-49.9, adult; E89.0 Postprocedural hypothyroidism; D61.818 Other pancytopenia
CPT/HCPCS: 36415; 84439; 84443; 85025

== ENCOUNTER → 2024-01-23 14:03 | Outpatient (CLI) | payer OTHER, SELFPAY ==
--- NOTE | 2024-01-23 14:04 | DI.MG.S_ITS ---
BILATERAL DIGITAL SCREENING MAMMOGRAM 3D/2D WITH CAD: 01/23/2024 CLINICAL: Routine screening. Comparison is made to exams dated: 06/26/2020 mammogram, 04/19/2019 mammogram, and 05/28/2016 mammogram - [facility]. There are scattered areas of fibroglandular density in both breasts (category b / 25%-50% glandular tissue). Current study was also evaluated with a Computer Aided Detection (CAD) system. No significant masses, calcifications, or other findings are seen in either breast. There has been no significant interval change. IMPRESSION: NEGATIVE There is no mammographic evidence of malignancy. A 1 year screening mammogram is recommended. Based on the Tyrer Cuzick model (a risk assessment model) the patient's lifetime risk is 7.3% and her 10 year risk is 3.3%. According to the ACR, ACS, and NCCN guidelines, an annual breast MRI exam along with mammogram is recommended if the patient's lifetime risk is 20% or greater. This exam was interpreted at Station ID: [id number]. NOTE: For mammograms, a report in lay terms will be sent to the patient. Approximately 15% of breast malignancies will not be visualized mammographically. In the management of a palpable breast mass, a negative mammogram must not discourage biopsy of a clinically suspicious lesion. Electronically Signed By: Alin medina/christiano:01/25/2024 09:55:57 letter sent: Normal Exam ACR BI-RADS Category 1: Negative [id number]
== END ==
PROVIDERS: PCP Family Medicine; Referring Provider Family Medicine; Visit Provider Family Medicine
DX: Z12.31 Encounter for screening mammogram for malignant neoplasm of breast (principal); R92.323 Mammographic fibroglandular density, bilateral breasts
CPT/HCPCS: 77063; 77067

== ENCOUNTER → 2024-01-26 14:16 | Outpatient (CLI) | payer OTHER, SELFPAY ==
[2024-01-26 15:13] LABS: Hematocrit 39.7 % (36-46); Hemoglobin 13.2 g/dL (12.0-16.0)
[2024-01-26 15:31] LABS: BUN Creatinine Ratio 13.2 (6-22); Blood Urea Nitrogen 20 mg/dL (7-17); Carbon Dioxide 24 mmol/L (22-32); Chloride 110 mmol/L (98-107); Estimated Glomerular Filt Rate 39 mL/min (>60); Glucose 158 mg/dL (80-110); HEMOLYSIS < 15 (0-50); Potassium 3.9 mmol/L (3.4-5.1); Sodium 141 mmol/L (137-145)
[2024-01-26 16:09] LABS: Creatinine Urine Random 111.97 mg/dL; Protein (Total) Urine Random 6 mg/dL (0-12); Protein Creatinine Ratio Urine 0.05 GRAM/24H
== END ==
LOC: LAB 14:17
PROVIDERS: PCP Family Medicine; Referring Provider Student in an Organized Health Care Education/Training Program; Visit Provider Student in an Organized Health Care Education/Training Program
DX: N05.9 Unspecified nephritic syndrome with unspecified morphologic changes (principal); D70.9 Neutropenia, unspecified; D63.1 Anemia in chronic kidney disease; R80.9 Proteinuria, unspecified; N25.81 Secondary hyperparathyroidism of renal origin
CPT/HCPCS: 36415; 80048; 82570; 83970; 84156; 85014; 85018

== ENCOUNTER → 2024-02-09 14:16 | Outpatient (CLI) | payer OTHER, SELFPAY | PROVIDERS: PCP Family Medicine; Referring Provider Nurse Practitioner; Visit Provider Nurse Practitioner | DX: D69.6 Thrombocytopenia, unspecified (principal) | CPT/HCPCS: 83013 ==

== ENCOUNTER 2024-02-16 14:18 | Outpatient (CLI) | payer OTHER, SELFPAY ==
[2024-02-16] VITALS (10 sets, daily range): BP systolic 123–150; BP diastolic 57–71; PULSE 61–70; RESP 16–22; TEMP 36.4; O2SAT 93–98
--- NOTE | 2024-02-16 15:15 | DI.RAD.S_ITS ---
PROCEDURE: PAIN L/S FACET INJ/BLK 1ST ZAID INDICATIONS: SPONDYLOSIS COMPARISON: None. FINDINGS: Fluoroscopic spot filming was performed to verify placement of spinal needles at the L3 through S1 level(s), as labeled on the films. Appropriate location(s) of the needle tip(s) was confirmed by injection of iodinated contrast. IMPRESSION: Contrast and needle localization overlying L3 through S1. Dictated by: Riya Caballero M.D. on 02/16/2024 at 17:46 Approved by: Riya Caballero M.D. on 02/16/2024 at 17:47
[2024-02-16] MEDS: MIDAZOLAM 2 MG/2 ML VIAL IV (15:39)
[2024-02-16] MEDS: iopamidoL 15 ML VIAL 3 ML INJ (15:44)
[2024-02-16] MEDS: LIDOCAINE 1% 20 ML INJ (15:45)
[2024-02-16] MEDS: BUPIVACAINE 0.5% (PF) 10 ML VIAL INJ (15:46)
--- NOTE | 2024-02-16 16:11 | P.PCN_ITS ---
Date/Time/Diagnoses Date of procedure: 02/16/24 Time of procedure: 16:11 Pre-procedure diagnosis: FACET ARTHROPATHY Post-procedure diagnosis: same Procedure Notes Procedure: 1. BILATERAL L3, L4 AND L5 DIAGNOSTIC MB BLOCKS -LA Indications: Caridad is referred by Dr. Godinez for treatment of Bilateral Axial LBP. Physician: Benja Lund Total Fluoroscopy time (seconds): 15 Total sedation minutes: 21 Complications: none Procedure in detail & Post-procedure care: DESCRIPTION OF PROCEDURE Fluoroscopically guided, contrast-controlled bilateral L3, L4 and L5 medial branch blocks with 0.5cc of 0.5% Marcaine. Following review of allergy and review of potential side effects and complications, including, but not necessarily limited to, infection, allergic reaction, local tissue breakdown, nerve injury, paralysis, stroke and possible , the patient indicated that the patient understood and agreed to proceed. An informed consent document was signed by the patient, witnessed by a nurse, and placed in the patient's chart. After review of previous anaesthesic history and IV conscious sedation the patient was deemed safe to proceed with today's procedure with IV conscious sedation as ASA class II designation. Safety time-out was performed to confirm patient ID, procedure to be performed and site of procedure. IV sedation was accomplished with a combination of 2mg of Versed was administered by the RN after DO order, titrated to patient comfort during the course of the procedure while the patient remained responsive to all verbal commands In the prone position, following sterile prep and drape of the lumbar region, the right L3, L4 and L5 anatomical location of the medial branch of the dorsal ramus was identified fluoroscopically. Subsequently an anesthetic skin wheal using 1% lidocaine solution was initiated at each of the anatomical spots. Subsequently then a 22-gauge 3.5-inch spinal needle was atraumatically introduced and advanced under fluoroscopic guidance at each of the corresponding sites at the right L3, L4 and L5 MB. After negative aspiration, 0.2cc of Isovue 200 was injected, confirming placement without vascular or intrathecal uptake. Subsequently then 0.5cc of 0.5% Marcaine solution was injected at each of the corresponding sites at the right L3, L4 and L5 medial branch locations. The identical procedure was replicated on the left. The patient tolerated the pr ocedure well without signs or symptoms of complications. The patient tolerated the procedure well without signs or symptoms of complications prior to transfer to the recovery area continued monitoring without incident. Post-procedure, the patient was monitored initiating provocative activities to measure the amount of relief from block of the facetogenic pain. The patient reported a VAS of 8 prior to the procedure and a post-procedure VAS of 1. It has been a pleasure to assist in the diagnostic and therapeutic care of your patient. POST OP INSTRUCTIONS The patient was provided with a Pain Log to complete over the next several hours and subsequent days prior to the patient's follow up with the ordering physician. If the patient has metal ceiling builder relief to the solution applied, then they may be a candidate for medial branch rhizotomy. The patient is aware, was provided, once again, with a Pain Log and will follow up with the referring physician for review and clinical correlation
== END 2024-02-16 16:22 | disposition home or self-care (01) ==
PROVIDERS: PCP Family Medicine; Referring Provider Physical Medicine & Rehabilitation; Visit Provider Physical Medicine & Rehabilitation
DX: M47.816 Spondylosis without myelopathy or radiculopathy, lumbar region (principal)
CPT/HCPCS: 64493; 64494; 99152; J2250

== ENCOUNTER → 2024-02-17 16:19 | Outpatient (CLI) | payer OTHER, SELFPAY | LOC: LAB 16:20 | PROVIDERS: PCP Family Medicine; Referring Provider Nurse Practitioner; Visit Provider Nurse Practitioner | DX: D69.6 Thrombocytopenia, unspecified (principal) | CPT/HCPCS: 83013 ==

== ENCOUNTER → 2024-03-01 15:05 | Outpatient (CLI) | payer OTHER, SELFPAY | PROVIDERS: PCP Family Medicine; Referring Provider Nurse Practitioner; Visit Provider Nurse Practitioner | DX: D69.6 Thrombocytopenia, unspecified (principal) | CPT/HCPCS: 83013 ==

== ENCOUNTER 2024-03-15 18:13 | Observation (INO) | payer OTHER, SELFPAY ==
[2024-03-15 18:13] VITALS: BP 154/70; PULSE 76; RESP 18; TEMP 36.4; O2SAT 100; BMI 47.0
--- NOTE | 2024-03-15 18:17 | DI.CT.S_ITS ---
PROCEDURE: CT ANGIO HEAD AND NECK INDICATIONS: altered mental status, last known normal Thursday TECHNIQUE: After the administration of intravenous contrast, 1 mm thick sections acquired from the aortic arch through the [place] of [place]. 3-dimensional pacrjbi-qzhbqmeys-ltlhwtgjnh (MIP) and/or volume rendering reformats were acquired of the central intracranial vasculature and neck separately. For radiation dose reduction, the following was used: automated exposure control, adjustment of mA and/or kV according to patient size. COMPARISON: [facility], CT, CT HEAD/BRAIN WO CON, 03/15/2024, 18:40. [facility], CT, CT ANGIO HEAD AND NECK, 04/10/2022, 22:44. FINDINGS: Image quality: Limited by bolus timing, with venous contamination. There is streak artifact seen through the level of the shoulders. BRAIN: CSF spaces: Ventricles are normal in size and shape. Basal cisterns are patent. No extra-axial fluid collections. Brain: No significant abnormality of the brain can be seen. Skull and face: Calvarium and facial bones appear intact, without suspicious lesions. Orbits appear normal. Sinuses: Sinuses and mastoids are clear. HEAD CT ANGIOGRAPHY: Anterior circulation: Intracranial internal carotid arteries are normal in size and flow. There is a diminutive right A1 segment, with a corresponding robust left A1 segment. This is considered to be a normal developmental variant of the [place] of [place], of typically no clinical consequence. The flow within the paired anterior cerebral arteries is otherwise normal and symmetric. The flow within the middle cerebral arteries is normal and symmetric. The anterior communicating artery is seen. No aneurysms are seen. Posterior circulation: Visualized portions of the vertebral arteries demonstrate normal caliber, and join to form a normal appearing basilar artery. Flow within the posterior cerebral arteries is normal and symmetric. No aneurysms are seen. NECK CT ANGIOGRAPHY: Carotid system: The great vessels demonstrate a conventional anatomy as they arise from the aortic arch. The origins of the common carotid arteries appear patent. The common carotid arteries demonstrate normal caliber and courses. The bifurcation regions are both widely patent. The internal carotid arteries demonstrate normal calibers and courses. Posterior circulation: The origins of the vertebral arteries both appear widely patent. The more superior extracranial portions of both vertebral arteries also demonstrate normal courses and calibers. The right vertebral artery is dominant to the left. Soft tissues: Visualized neck soft tissues demonstrate no suspicious abnormalities. Bones: No suspicious bony lesions. Visualized cervical spine appears normally aligned. Focal degenerative change can be seen at C6-C7. IMPRESSION: No significant intracranial arterial abnormality is seen. No significant abnormality is seen within the arteries of the neck. Additional findings: Dsgwnt-qm-Fggfqi developmental anomalies Focal C6-C7 degenerative change Any quantitative measurements of stenosis were performed using NASCET criteria. Dictated by: Rodri Allison M.D. on 03/15/2024 at 18:04 Approved by: Rodri Allison M.D. on 03/15/2024 at 18:06
--- NOTE | 2024-03-15 18:18 | DI.CT.S_ITS ---
PROCEDURE: CT HEAD/BRAIN WO CON INDICATIONS: altered mental status, last known normal Thursday TECHNIQUE: Noncontrast 4.5 mm thick angled axial sections acquired from the foramen magnum to the vertex, with coronal and sagittal reformats. For radiation dose reduction, the following was used: automated exposure control, adjustment of mA and/or kV according to patient size. COMPARISON: [facility], CT, CT ANGIO HEAD AND NECK, 04/10/2022, 22:44. [facility], CT, CT ANGIO HEAD AND NECK, 03/15/2024, 18:49. FINDINGS: Image quality: Diagnostic. CSF spaces: Basal cisterns are patent. No extra-axial fluid collections. The ventricles are symmetric in size and shape. Brain: No intracranial bleeds or masses. There is cerebral volume loss for age, with resultant ventricular and sulcal prominence. There are periventricular and deep white matter chronic small vessel ischemic changes. There is intracranial internal carotid artery atherosclerosis. Skull and face: Calvarium and visualized facial bones appear intact, without suspicious lesions. Sinuses: Visualized sinuses and mastoids are clear. IMPRESSION: No acute intracranial pathology. If there is strong clinical suspicion for an acute stroke, please consider a brain MRI for further evaluation, as it is more sensitive (assuming that there is no contraindication to MRI). Dictated by: Rodri Allison M.D. on 03/15/2024 at 18:03 Approved by: Rodri Allison M.D. on 03/15/2024 at 18:04
--- NOTE | 2024-03-15 18:18 | DI.RAD.S_ITS ---
PROCEDURE: XR CHEST 1V INDICATIONS: altered mental status, last known normal Thursday TECHNIQUE: One view of the chest was acquired. COMPARISON: [facility], CR, XR CHEST 1V, 10/26/2019, 14:48. [facility], CT, CT ANGIO HEAD AND NECK, 03/15/2024, 18:49. [facility], CT, CT HEAD/BRAIN WO CON, 03/15/2024, 18:40. [facility], CR, XR CHEST 1V, 01/28/2023, 9:41. FINDINGS: Surgical changes and devices: None. Lungs and pleura: Generalized interstitial prominence can be seen. No pleural effusions or pneumothorax. Low lung volumes are noted. This causes a crowded appearance to the lung markings and limits evaluation. Mediastinum: Mediastinal contours appear normal. Heart size is mildly to moderately enlarged. Bones and chest wall: No suspicious bony lesions. Age-appropriate bony degenerative changes are seen. Overlying soft tissues appear unremarkable. IMPRESSION: Cardiomegaly and interstitial prominence. CHF is suspected. Dictated by: Rodri Allison M.D. on 03/15/2024 at 18:07 Approved by: Rodri Allison M.D. on 03/15/2024 at 18:07
[2024-03-15 18:45] LABS: Add Manual Diff / Slide Review NO; Basophils Absolute Auto 0 /uL (0-100); Basophils Percent Auto 0.4 % (0-2); Eosinophils Absolute Auto 300 /uL (0-450); Eosinophils Percent Auto 5.1 % (2-4); Hematocrit 43.3 % (36-46); Hemoglobin 14.4 g/dL (12.0-16.0); Lymphocytes Absolute Auto 1100 /uL (1100-4500); Lymphocytes Percent Auto 19.7 % (25-40); Mean Corpuscular HGB Conc 33.3 % (30-36); Monocytes Absolute Auto 600 /uL (0-900); Neutrophils Absolute Auto 3700 /uL (1500-7000); Neutrophils Percent Auto 64.8 % (50-75); Platelet Count 122 X10^3/uL (150-400); Red Blood Cell Count 4.51 X10^6/uL (4.0-5.2); Red Cell Distribution Width 15.2 % (11.6-14.8); White Blood Cell Count 5.7 X10^3/uL (4.5-11.0)
[2024-03-15 18:56] LABS: INR 1.1 (0.9-1.3); Prothrombin Time 12.8 SECONDS (9.4-12.5)
[2024-03-15 18:58] LABS: PTT Partial Thromboplastin Tim 39 SECONDS (25.1-36.5)
[2024-03-15 19:02] LABS: Lactate (Lactic Acid) 2.9 mmol/L (0.7-2.1)
[2024-03-15 19:03] LABS: Acetaminophen < 10 ug/mL (10-30); Alanine Aminotransferase 24 IU/L (<35); Albumin 3.8 g/dL (3.5-5.0); Alkaline Phosphatase 126 U/L (38-126); Aspartate Aminotransferase 44 IU/L (14-36); BUN Creatinine Ratio 15.7 (6-22); Bilirubin Total 1.7 mg/dL (0.2-1.3); Blood Urea Nitrogen 31 mg/dL (7-17); Calcium 9.1 mg/dL (8.4-10.2); Carbon Dioxide 24 mmol/L (22-32); Chloride 109 mmol/L (98-107); Creatine Kinase 68 U/L (30-135); Estimated Glomerular Filt Rate 28 mL/min (>60); Ethanol (ETOH) < 10 mg/dL; Globulin 3.7 g/dL (1.7-4.1); Glucose 159 mg/dL (80-110); HEMOLYSIS < 15 (0-50); Potassium 4.4 mmol/L (3.4-5.1); Salicylate < 1.0 mg/dL (<20); Sodium 141 mmol/L (137-145); Total Protein 7.5 g/dL (6.3-8.2)
[2024-03-15 19:07] VITALS: BP 133/58; PULSE 90; RESP 19; O2SAT 97
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
[2024-03-15 19:13] LABS: Troponin I < 0.012 ng/mL (0.01-0.034)
[2024-03-15 19:18] LABS: Procalcitonin 0.141 ng/mL (<0.5); Prolactin 20.1 ng/mL (3.0-18.6)
[2024-03-15 19:32] LABS: Thyroid Stimulating Hormone 0.186 uIU/mL (0.47-4.68)
--- NOTE | 2024-03-15 19:33 | EKG_ITS ---
[id number] [address] Test Date: 2024-03-15 Pat Name: Caridad Clements Department: Room: Gender: Female [employer]cher: URSULA : 1960 Requested By: Order Number: [id number] Reading MD: Samson Cheek MD Measurements Intervals [place] Rate: 69 P: 28 WV: 192 QRS: -9 QRSD: 76 T: 11 QT: 422 QTc: 452 Interpretive Statements Normal sinus rhythm Inferior infarct , age undetermined Electronically Signed On 03-16-2024 7:49:15 PDT by Samson Cheek MD
[2024-03-15 20:17] LABS: Reflexed Lactate in 2 Hours Y
[2024-03-15] MEDS: ASPIRIN EC 325 MG TABLET PO (20:17)
[2024-03-15 20:21] VITALS: BP 155/65; PULSE 76; RESP 26; O2SAT 91
[2024-03-15 20:30] VITALS: BP 139/65; PULSE 67; RESP 21; TEMP 36.6; O2SAT 97
[2024-03-15 20:32] LABS: Appearance Urine UA CLEAR; Bilirubin Urine UA NEGATIVE (NEGATIVE); Color Urine UA YELLOW; Glucose Urine UA 3+ g/dL (Negative); Ketones Urine UA NEGATIVE (NEGATIVE); Leukocyte Esterase Urine UA NEGATIVE (NEGATIVE); Nitrite Urine UA NEGATIVE (Negative); Occult Blood Urine UA NEGATIVE (Negative); Protein Urine UA NEGATIVE (Negative)
[2024-03-15 20:33] VITALS: BMI 51.4
--- NOTE | 2024-03-15 20:37 | DI.ECHO.S_ITS ---
[place] [facility]---------+ [facility] : : [address] : : [place] : : [id number] : : Phone: [phone] Echocardiogram Report + :Name: ROBLES DYSON Study Date: 03/16/2024 Height: 67 in : :[facility] ReadingLocation: Weight: 300 lb : : Gender: Female BSA: 2.4 m2 : :: 1960 Age: 64 yrs BP: 141/66 mmHg: :Reason For Study: SUSPECTED CVA : :Ordering Physician: ROJAS : :CHIQUITA GODOY Performed By: Oksana Millan : :Referring: CHIQUITA LOPEZ : + Interpretation Summary 1. The left ventricular contractility is normal. Estimate ejection fraction is greater than 60% with no segmental wall motion abnormalities. Mild concentric LVH. Normal diastolic function. 2. The right ventricular contractility is normal. 3 all cardiac chambers are normal size. 4. Moderate aortic valvular stenosis with mean gradient of 34 mmHg and dimensionless index of 0.31. Mild aortic insufficiency present. 5. Mild tricuspid regurgitation with estimated pulmonary systolic artery pressures of 43 mmHg. 6. No intracardiac shunts noted on agitated saline contrast study. 7. No obvious intracardiac masses nor thrombi. 8. No hemodynamically significant pericardial effusion. 9. Normal right-sided filling pressures. Conclusion: Normal biventricular function with moderate aortic valvular stenosis and mild insufficiency. No intracardiac shunts noted. Procedure: A two-dimensional transthoracic echocardiogram with color flow and Doppler was performed. The study quality was technically adequate. Comparison is made with the echocardiogram of 11/24/2023. The patient was in sinus rhythm with heart rates between 69-76 bpm during the exam. Left Ventricle: The left ventricle is normal in size. There is mild concentric left ventricular hypertrophy. The ejection fraction is estimated to be 60-65%. Right Ventricle: The right ventricle is normal in size and function. Atria: The left atrial size is normal. Right atrial size is normal. There is no Doppler evidence for an interatrial shunt. Mitral Valve: The mitral valve is normal in structure and function. There is trace mitral regurgitation. Aortic Valve: The aortic valve is trileaflet. The aortic valve is moderately calcified. There is moderately reduced leaflet mobility. The peak aortic velocity is 3.8 m/sec. The aortic valve mean gradient is 34 mmHg. The calculated aortic valve area is 1.0 cm2. There is moderate aortic stenosis. There is mild aortic regurgitation. Tricuspid Valve: The tricuspid valve is normal in structure and function. There is mild tricuspid regurgitation. The right ventricular systolic pressure is estimated to be at least 43 mmHg based on an estimated right atrial pressure of 8 mm Hg. Pulmonic Valve: The pulmonic valve leaflets are thin and pliable; valve motion is normal. There is no pulmonic valvular regurgitation. Great Vessels: The aortic root is normal size. The dimensions of the ascending aorta are normal. The IVC is dilated (diameter is greater than 2.1 cm) yet it collapses greater than 50% with a sniff. This suggests a right atrial pressure of 8 mm Hg. Pericardium/ Pleura There is no pericardial effusion. There is no pleural effusion. MMode/2D Measurements & Calculations LVIDd: 5.4 cm LVOT diam: 2.1 cm LVIDs: 3.3 cm Ao root diam: 3.0 cm FS: 38.9 % asc Aorta Diam: 3.5 cm IVSd: 1.0 cm Ao Arch Diam (Prox Trans): 2.9 cm LVPWd: 1.1 cm LV smith. diameter/BSA (cm/m^2): 2.3 LV sys. diameter/BSA (cm/m^2): 1.4 LA A2 area: 24.3 cm2 RA long axis: 5.7 cm LA A4 area: 22.1 cm2 RA area: 19.8 cm2 LA length (vol): 6.1 cm RA vol: 58.3 ml LA vol: 74.1 ml RA : 24.3 ml/m2 LA vol index: 30.9 ml/m2 IVC diam: 2.5 cm RVD1 (basal): 3.7 cm RVD2 (mid): 2.8 cm TAPSE: 2.8 cm Doppler Measurements & Calculations Ao V2 max: 383.1 cm/sec LVOT Max Pascual: 115.5 cm/sec Ao V2 mean: 264.8 cm/sec LV V1 max P.3 mmHg Ao max P.7 mmHg LV V1 VTI: 24.8 cm Ao mean P.2 mmHg PAULINE(I,D): 1.1 cm2 Ao V2 VTI: 79.3 cm PAULINE(V,D): 1.0 cm2 sev ratio: 0.31 PAULINE indexed to BSA (cm^2/m^2): 0.45 AI P1/2t: 465.1 msec AI dec slope: 279.2 cm/sec2 MV E max pascual: 84.7 cm/sec TR max pascual: 295.2 cm/sec MV A max pascual: 87.0 cm/sec TR max P.9 mmHg MV E/A: 0.97 PA V2 max: 129.0 cm/sec Med Peak E' Pascual: 8.8 cm/sec PA V2 mean: 94.4 cm/sec E/E' med: 9.6 PA mean P.8 mmHg Lat Peak E' Pascual: 11.0 cm/sec PA pr(Accel): 22.5 mmHg E/E' lat: 7.7 E/e' average: 8.7 MV dec time: 0.21 sec SV(LVOT): 86.0 ml Reading Physician:
[2024-03-15 20:49] LABS: Ur Creatinine Normal (Normal); Ur Specific Gravity Normal (Normal); Urine pH Normal (Normal)
[2024-03-15 20:50] LABS: UR Morphine/Opiate cutoff 300 Negative (Negative); Urine Amphetamines Negative (Negative); Urine Barbiturates Negative (Negative); Urine Benzodiazepines Negative (Negative); Urine Cocaine Negative (Negative); Urine MDMA Negative (Negative); Urine Methadone Negative (Negative); Urine Methamphetamines Negative (Negative); Urine Oxycodone Negative (Negative); Urine Phencyclidine Negative (Negative); Urine Tetrahydrocannabinol Negative (Negative); Urine Tricyclic Antidepressant Negative (Negative)
[2024-03-15 20:54] LABS: Bacteria Urine None Seen; Culture Indicated Urine Cult Not Indicated; RBC Urine 0-1/HPF (0-5/HPF); Squamous Epithelial Cell Urine 0-1 /HPF (0-5/HPF); Urine Volume 10mL (spun); WBC Urine 0-1/HPF (0-5/HPF)
[2024-03-15 21:15] LABS: Lactate 2HR (Lactic Acid Rflx) 2.4 mmol/L (0.7-2.1)
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
[2024-03-15 22:37] LABS: Ammonia (NH3) 74 umol/L (9-30)
--- NOTE | 2024-03-15 22:41 | DI.MRI.S_ITS ---
PROCEDURE: MR HEAD/BRAIN WO CON INDICATIONS: suspected stroke TECHNIQUE: Non-contrast axial T1 spin echo, axial T2 fast spin echo, sagittal and axial FLAIR, coronal T2 fast spin echo, axial gradient echo, axial diffusion and ADC through the brain. COMPARISON: [facility], CT, CT ANGIO HEAD AND NECK, 03/15/2024, 18:49. [facility], CT, CT HEAD/BRAIN WO CON, 03/15/2024, 18:40. FINDINGS: Image quality: This examination is limited by involuntary motion artifact. CSF spaces: Ventricles appear symmetric in size and shape. Basal cisterns are patent. No extra-axial fluid collections. Brain: No intracranial bleeds or mass effects. There is cerebral volume loss for age. There are periventricular and deep white matter chronic small vessel ischemic changes. Brainstem appears normal. Diffusion-weighted images show no acute infarct. No chronic ischemic insults. Normal intravascular flow voids are present. Skull and face: Calvarial bone marrow is normal in signal. Orbits are normal. Incidental note is made of hyperostosis frontalis. This is not considered to be pathologic in a woman of this age. Sinuses: Sinuses and mastoids are clear. IMPRESSION: No findings of acute or subacute infarction can be seen. Note is made of age-appropriate brain parenchymal volume loss and chronic small vessel ischemic changes. Dictated by: Rodri Allison M.D. on 03/16/2024 at 9:47 Approved by: Rodri Allison M.D. on 03/16/2024 at 9:49
[2024-03-15 23:35] VITALS: BP 144/47; PULSE 75; RESP 18; TEMP 37; O2SAT 95
[2024-03-16 03:35] VITALS: BP 146/78; PULSE 86; RESP 18; TEMP 37.1; O2SAT 96
--- NOTE | 2024-03-16 05:22 | DI.US.S_ITS ---
PROCEDURE: US ABDOMEN LIMITED INDICATIONS: ELEVATED AST AND BILIRUBIN TECHNIQUE: Real-time scanning was performed of the abdominal and retroperitoneal organs, with image documentation. COMPARISON: [facility], , US ABDOMEN LIMITED, 01/16/2023, 13:13. FINDINGS: Liver: Hepatic parenchyma shows diffuse increased echogenicity consistent with fatty infiltration. Gallbladder: Cholecystectomy Biliary ducts: Intrahepatic bile ducts are non-dilated. Extrahepatic bile duct caliber measures 9.3 mm. Normal is 6-7 mm or less in diameter, or 10 mm or less post-cholecystectomy. Pancreas: Visualized portions of the pancreas are sonographically normal. Miscellaneous: No free abdominal fluid. IMPRESSION: Hepatic fatty infiltration without focal mass lesion. Cholecystectomy Approved by: Robert Horowitz M.D. on 03/16/2024 at 11:58
[2024-03-16] MEDS: LEVOTHYROXINE 50 MCG TABLET 150 MCG PO (06:29)
[2024-03-16] MEDS: LACTULOSE 20 GM/30 ML SOLUTION 30 GM PO (06:31)
[2024-03-16 06:32] LABS: Add Manual Diff / Slide Review NO; Basophils Absolute Auto 0 /uL (0-100); Basophils Percent Auto 0.6 % (0-2); Eosinophils Absolute Auto 300 /uL (0-450); Eosinophils Percent Auto 7.9 % (2-4); Hematocrit 35.6 % (36-46); Hemoglobin 12.2 g/dL (12.0-16.0); Lymphocytes Absolute Auto 1400 /uL (1100-4500); Lymphocytes Percent Auto 33.7 % (25-40); Mean Corpuscular HGB Conc 34.3 % (30-36); Mean Corpuscular Hemoglobin 32.5 PG (26-34); Mean Corpuscular Volume 94.7 fL (80-100); Monocytes Absolute Auto 600 /uL (0-900); Monocytes Percent Auto 13.1 % (3-14); Neutrophils Absolute Auto 1900 /uL (1500-7000); Neutrophils Percent Auto 44.7 % (50-75); Platelet Count 93 X10^3/uL (150-400); Red Blood Cell Count 3.76 X10^6/uL (4.0-5.2); Red Cell Distribution Width 14.7 % (11.6-14.8); White Blood Cell Count 4.2 X10^3/uL (4.5-11.0)
[2024-03-16 06:43] LABS: Hemoglobin A1C% w Est Avg Glu 6.8 % (4.0-6.0)
[2024-03-16 07:00] VITALS: BP 128/61; PULSE 70; RESP 16; TEMP 36.1; O2SAT 96
[2024-03-16 07:08] LABS: BUN Creatinine Ratio 18.7 (6-22); Blood Urea Nitrogen 32 mg/dL (7-17); Calcium 8.7 mg/dL (8.4-10.2); Carbon Dioxide 25 mmol/L (22-32); Chloride 110 mmol/L (98-107); Cholesterol 142 mg/dL (140-199); Estimated Glomerular Filt Rate 33 mL/min (>60); Glucose 95 mg/dL (80-110); HDL Cholesterol 46 mg/dL (40-60); HEMOLYSIS < 15 (0-50); LDL Cholesterol Calculated 73 mg/dL (<100); Potassium 3.6 mmol/L (3.4-5.1); Sodium 137 mmol/L (137-145); Triglycerides 114 mg/dL (35-150)
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
[2024-03-16 08:00] VITALS: BP 128/61; PULSE 70; RESP 16; TEMP 36.1; O2SAT 96
[2024-03-16 12:00] VITALS: BP 141/66; RESP 17; TEMP 36.7; O2SAT 94
[2024-03-16 12:16] LABS: Procalcitonin 0.134 ng/mL (<0.5)
[2024-03-16] MEDS: LACTULOSE 20 GM/30 ML SOLUTION PO ×2 (12:47→15:59)
--- NOTE | 2024-03-16 13:19 | CM.DANOTE ---
B DCP Assessment note Pt is a 64yo F here following AMS with suspected stroke. PMH of , CKD, and depression, see H&P for more PCP Dr. Herbert Enriquez [facility] and self pay PERINATAL COORDINATOR reviewed EMR. Per chart review, pt lives in [place] and works here at [employer]. Pt had met with PERINATAL COORDINATOR Johnna, whose note appears to have not saved in chart due to technical difficulties. Per verbal handoff from JAY shen, pt indept/drives at baseline. family was at bedside during assessment. Per PERINATAL COORDINATOR, MRI negative for stroke, anticipated dc tomorrow 03/17 no CM needs. Per PERINATAL COORDINATOR, pt already has plans for f/u appt with PCP. P: anticipate home with local family support 03/17. CM team will continue to follow as needed JAY Brooks Discharge Planning/Care Management CM Discharge Assessment Start: 03/16/24 11:57 Freq: Status: Active Protocol: Document 03/16/24 13:18 (Rec: 03/16/24 13:19 [id number]) Discharge Planning Assessment Assigned General Dentist JAY Ye Advance Directives? No History Provided By Patient,Family Member Prior Living Arrangements House Household Members none Type of transporation used prior to Drives own vehicle admit Independent with ADL's Yes Is patient alert and oriented? Yes Barriers to Discharge No Discharge Plan Home Referrals Initiated None needed Review Status In Process Please Provide Date Initial DC 03/16/24 Assessment Was Performed Next Review Type Continued Stay Review
[2024-03-16] MEDS: CITALOPRAM 10 MG TABLET PO (15:59)
[2024-03-16] MEDS: MELOXICAM 7.5 MG TABLET 15 MG PO (15:59)
[2024-03-16 16:00] VITALS: BP 120/43; PULSE 69; RESP 16; TEMP 36.4; O2SAT 96
[2024-03-16 16:32] LABS: C-Reactive Protein Quant < 0.5 mg/dL (<1.0)
[2024-03-16] MEDS: INSULIN LISPRO 100 UNIT/ML 3ML VIAL SUBCUT (17:04)
[2024-03-16 20:00] VITALS: BP 135/53; PULSE 69; RESP 14; TEMP 36.3; O2SAT 96
[2024-03-16] MEDS: ATORVASTATIN 20 MG TABLET 10 MG PO (21:10)
[2024-03-17] VITALS: BP 122/55; PULSE 73; RESP 20; TEMP 36.5; O2SAT 95
[2024-03-17 04:00] VITALS: BP 141/57; PULSE 71; RESP 20; TEMP 36.4; O2SAT 91
[2024-03-17] MEDS: LEVOTHYROXINE 50 MCG TABLET 150 MCG PO (06:00)
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
[2024-03-17 08:00] VITALS: BP 135/61; PULSE 83; RESP 16; TEMP 36.1; O2SAT 100
[2024-03-17] MEDS: CITALOPRAM 10 MG TABLET PO (08:26)
[2024-03-17] MEDS: MELOXICAM 7.5 MG TABLET 15 MG PO (08:26)
[2024-03-17] MEDS: SODIUM CHLORIDE 0.9% FLUSH 10 ML IV ×2 (08:27→20:56)
[2024-03-17 09:06] LABS: Hematocrit 38.7 % (36-46); Hemoglobin 12.9 g/dL (12.0-16.0); Mean Corpuscular HGB Conc 33.4 % (30-36); Mean Corpuscular Hemoglobin 31.8 PG (26-34); Mean Corpuscular Volume 95.2 fL (80-100); Platelet Count 99 X10^3/uL (150-400); Red Blood Cell Count 4.06 X10^6/uL (4.0-5.2); Red Cell Distribution Width 14.4 % (11.6-14.8); White Blood Cell Count 6.1 X10^3/uL (4.5-11.0)
[2024-03-17 09:10] LABS: Alanine Aminotransferase 23 IU/L (<35); Albumin 3.3 g/dL (3.5-5.0); Alkaline Phosphatase 107 U/L (38-126); Aspartate Aminotransferase 55 IU/L (14-36); BUN Creatinine Ratio 17.2 (6-22); Bilirubin Total 2.4 mg/dL (0.2-1.3); Blood Urea Nitrogen 28 mg/dL (7-17); Calcium 8.9 mg/dL (8.4-10.2); Carbon Dioxide 22 mmol/L (22-32); Chloride 109 mmol/L (98-107); Estimated Glomerular Filt Rate 35 mL/min (>60); Globulin 3.4 g/dL (1.7-4.1); Glucose 105 mg/dL (80-110); HEMOLYSIS < 15 (0-50); Sodium 136 mmol/L (137-145); Total Protein 6.7 g/dL (6.3-8.2)
[2024-03-17 09:39] LABS: Acinetobacter calcoa-baumannii Not Detected (Not Detect); Bacteroides fragilis Not Detected (Not Detect); Candida albicans Not Detected (Not Detect); Candida auris Not Detected (Not Detect); Candida glabrata Not Detected (Not Detect); Candida krusei Not Detected (Not Detect); Candida parapsilosis Not Detected (Not Detect); Candida tropicalis Not Detected (Not Detect); Cryptococcus neoformans/gatti Not Detected (Not Detect); Enterobacter cloacae complex Not Detected (Not Detect); Enterobacterales Not Detected (Not Detect); Enterococcus faecalis Not Detected (Not Detect); Enterococcus faecium Not Detected (Not Detect); Haemophilus influenzae Not Detected (Not Detect); Klebsiella aerogenes Not Detected (Not Detect); Listeria monocytogenes Not Detected (Not Detect); Neisseria meningitidis Not Detected (Not Detect); Proteus species Not Detected (Not Detect); Pseudomonas aeruginosa Not Detected (Not Detect); Salmonella species Not Detected (Not Detect); Serratia marcescens Not Detected (Not Detect); Staphylococcus epidermidis Not Detected (Not Detect); Staphylococcus lugdunensis Not Detected (Not Detect); Staphylococcus species Not Detected (Not Detect); Stenotrophomonas maltophilia Not Detected (Not Detect); Streptococcus agalactiae (Gr B Not Detected (Not Detect); Streptococcus pneumonia Not Detected (Not Detect); Streptococcus pyogenes (Gr A) Not Detected (Not Detect); Streptococcus species Not Detected (Not Detect)
[2024-03-17 12:00] VITALS: BP 134/61; PULSE 78; RESP 18; TEMP 36.3; O2SAT 93
--- NOTE | 2024-03-17 14:27 | CM.DPC ---
DCP Continued: Reviewed EMR and team rounds for pt?s medical status. DCP entered room, introduced self and role. Present in the room is pt's niece and adopted niece. DCP discussed anticipated discharge plans for tomorrow, pt agreeable to returning home and declined this [employer]'s offer for home health or other community services. DCP encouraged pt and family to advocate for HH if necessary post-discharge, pt verbalized understanding. No other discharge needs identified at this time. Plan: Anticipating discharge home with family on 03/18, niece to transport. Pending follow up appointment pending with transitional care team. CM Team will continue to follow for coordination of discharge plans RACHEL Caceres
[2024-03-17 14:36] LABS: Osmolality, Serum 309 mOsmol/kg (280-301)
[2024-03-17 16:00] VITALS: BP 129/61; PULSE 78; RESP 17; TEMP 36.4; O2SAT 97
[2024-03-17 20:00] VITALS: BP 136/57; PULSE 83; RESP 22; TEMP 36.6; O2SAT 95
[2024-03-17] MEDS: LACTULOSE 20 GM/30 ML SOLUTION PO (20:48)
[2024-03-17] MEDS: INSULIN LISPRO 100 UNIT/ML 3ML VIAL SUBCUT (20:49)
[2024-03-17] MEDS: ATORVASTATIN 20 MG TABLET 10 MG PO (20:49)
[2024-03-18 04:00] VITALS: BP 111/54; PULSE 71; RESP 20; TEMP 36.1; O2SAT 94
[2024-03-18] MEDS: LEVOTHYROXINE 50 MCG TABLET 150 MCG PO (06:08)
[2024-03-18 08:00] VITALS: BP 119/50; PULSE 69; RESP 16; TEMP 36.2; O2SAT 95
--- NOTE | 2024-03-18 08:33 | PC.NURSE ---
Patient is alert and oriented x4, she denies pain or discomfort. Patient dos have 2+ edema to her bilateral legs and feet. Up independently and patient states that she had a small bm lose in the toilet.
[2024-03-18 08:54] LABS: Hematocrit 39.1 % (36-46); Hemoglobin 13.1 g/dL (12.0-16.0); Mean Corpuscular HGB Conc 33.4 % (30-36); Mean Corpuscular Hemoglobin 31.9 PG (26-34); Mean Corpuscular Volume 95.3 fL (80-100); Platelet Count 101 X10^3/uL (150-400); Red Cell Distribution Width 14.5 % (11.6-14.8); White Blood Cell Count 6.7 X10^3/uL (4.5-11.0)
[2024-03-18 09:06] LABS: Ammonia (NH3) 24 umol/L (9-30)
[2024-03-18] MEDS: LACTULOSE 20 GM/30 ML SOLUTION PO (09:20)
[2024-03-18] MEDS: SODIUM CHLORIDE 0.9% FLUSH 10 ML IV (09:20)
[2024-03-18] MEDS: CITALOPRAM 10 MG TABLET PO (09:20)
[2024-03-18] MEDS: MELOXICAM 7.5 MG TABLET 15 MG PO (09:20)
[2024-03-18 09:31] LABS: Alanine Aminotransferase 24 IU/L (<35); Albumin Globulin Ratio 0.9 (1.0-2.8); Alkaline Phosphatase 103 U/L (38-126); Aspartate Aminotransferase 58 IU/L (14-36); BUN Creatinine Ratio 15.5 (6-22); Bilirubin Total 2.2 mg/dL (0.2-1.3); Blood Urea Nitrogen 25 mg/dL (7-17); Calcium 8.8 mg/dL (8.4-10.2); Carbon Dioxide 23 mmol/L (22-32); Chloride 107 mmol/L (98-107); Estimated Glomerular Filt Rate 36 mL/min (>60); Globulin 3.4 g/dL (1.7-4.1); Glucose 110 mg/dL (80-110); HEMOLYSIS < 15 (0-50); Sodium 134 mmol/L (137-145); Total Protein 6.4 g/dL (6.3-8.2)
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
--- NOTE | 2024-03-18 11:44 | CM.DPNOTE ---
DCP Note LOW VOLTAGE ELECTRICIAN reviewed EMR. per hospitalist in morning rounds, pt to dc home today. Per OP TCM team, various OP f/u appts available. LOW VOLTAGE ELECTRICIAN met with pt briefly in room. Preference for OP f/u is 10-24 at 1030. Pt denied other DCP needs at this time. P: dc home today with dtr support and close OP f/u. CM team will continue to follow as needed JAY Brooks
== END 2024-03-18 12:10 | disposition home or self-care (01) ==
LOC: ED 20:06 → AC 20:06
PROVIDERS: Hospitalist; Admitting Provider Internal Medicine; Emergency Provider Emergency Medicine; PCP Family Medicine; Referring Provider Emergency Medicine; Visit Provider Internal Medicine
DX: G93.41 Metabolic encephalopathy (principal); D61.818 Other pancytopenia; E78.2 Mixed hyperlipidemia; E11.65 Type 2 diabetes mellitus with hyperglycemia; I10 Essential (primary) hypertension; N18.32 Chronic kidney disease, stage 3b; E89.0 Postprocedural hypothyroidism; M47.816 Spondylosis without myelopathy or radiculopathy, lumbar region
CPT/HCPCS: 36415; 70450; 70496; 70498; 70551; 71045; 76705; 80048; 80053; 80061; 80305; 80320; 80329; 81001; 82140; 82550; 82962; 83036; 83090; 83605; 83930; 84145; 84146; 84443; 84484; 85025; 85027; 85610; 85730; 86140; 87040; 87077; 87086; 87154; 87186; 93005; 93010; 93306; 99284; G0378; G0480; J1815; Q9967

== ENCOUNTER → 2024-03-25 14:53 | Outpatient (CLI) | payer OTHER, SELFPAY ==
[2024-03-15 20:33] VITALS: BMI 51.4
[2024-03-25 15:29] LABS: Ammonia (NH3) 58 umol/L (9-30)
[2024-03-25 15:54] LABS: Alanine Aminotransferase 27 IU/L (<35); Albumin 3.7 g/dL (3.5-5.0); Albumin Globulin Ratio 1.1 (1.0-2.8); Alkaline Phosphatase 123 U/L (38-126); Aspartate Aminotransferase 46 IU/L (14-36); BUN Creatinine Ratio 11.3 (6-22); Bilirubin Direct 0.5 mg/dL (0.0-0.4); Bilirubin Total 1.3 mg/dL (0.2-1.3); Blood Urea Nitrogen 23 mg/dL (7-17); Calcium 9.8 mg/dL (8.4-10.2); Carbon Dioxide 29 mmol/L (22-32); Chloride 106 mmol/L (98-107); Estimated Glomerular Filt Rate 27 mL/min (>60); Globulin 3.5 g/dL (1.7-4.1); Glucose 158 mg/dL (80-110); HEMOLYSIS < 15 (0-50); Potassium 4.5 mmol/L (3.4-5.1); Sodium 140 mmol/L (137-145); Total Protein 7.2 g/dL (6.3-8.2)
[2024-03-25 17:01] LABS: Folate > 20.0 ng/mL (2.76-20.0); Vitamin B12 Reflex MMA if <400 > 1000 pg/mL (239-931)
== END ==
PROVIDERS: PCP Family Medicine; Referring Provider Family Medicine; Visit Provider Family Medicine
DX: K76.82 Hepatic encephalopathy (principal); I12.9 Hypertensive chronic kidney disease with stage 1 through stage 4 chronic kidney disease, or unspecified chronic kidney disease; N18.9 Chronic kidney disease, unspecified; D50.9 Iron deficiency anemia, unspecified; R41.82 Altered mental status, unspecified; K76.0 Fatty (change of) liver, not elsewhere classified; E78.5 Hyperlipidemia, unspecified
CPT/HCPCS: 36415; 80053; 82140; 82248; 82607; 82746; 84146

== ENCOUNTER 2024-03-29 14:41 | Outpatient (CLI) | payer OTHER, SELFPAY ==
[2024-03-29] VITALS (9 sets, daily range): BP systolic 127–170; BP diastolic 67–86; PULSE 68–79; RESP 14–74; TEMP 36.6; O2SAT 96–99
--- NOTE | 2024-03-29 15:30 | DI.RAD.S_ITS ---
PROCEDURE: PAIN L/S FACET INJ/BLK 1ST ZAID INDICATIONS: Bilateral L3-L4 and L5 medial branch block short-acting COMPARISON: [facility], XA, PAIN L/S FACET INJ/BLK 1ST ZAID, 02/16/2024, 15:43. FINDINGS: Fluoroscopic spot filming was performed to verify placement of spinal needles at the L3, L4 and L5 level(s), as labeled on the films. Appropriate location(s) of the needle tip(s) was confirmed by injection of iodinated contrast. IMPRESSION: Fluoroscopic guidance utilized for a medial branch block. Dictated by: Esequiel Mayes M.D. on 03/29/2024 at 20:50 Approved by: Esequiel Mayes M.D. on 03/29/2024 at 20:54
[2024-03-29] MEDS: MIDAZOLAM 2 MG/2 ML VIAL IV (16:22)
[2024-03-29] MEDS: iopamidoL 15 ML VIAL 3 ML INJ (16:24)
[2024-03-29] MEDS: LIDOCAINE 2% INJ MDV 20ML 5 ML INJ (16:24)
[2024-03-29] MEDS: LIDOCAINE 1% 20 ML 5 ML INJ (16:24)
--- NOTE | 2024-03-29 16:46 | PM.PROC.IR.1 ---
Date/Time/Diagnoses Date of procedure: 03/29/24 Time of procedure: 16:47 Pre-procedure diagnosis: 1. FACET ARTHROPATHY Post-procedure diagnosis: same Procedure Notes Procedure: 1. BILATERAL L3, L4 AND L5 DIAGNOSTIC MB BLOCKS Indications: Caridad is referred by Dr. Godinez for treatment of Bilateral Axial LBP. Physician: eBnja Lund Total Fluoroscopy time (seconds): 14 Total sedation minutes: 19 Complications: none Procedure in detail & Post-procedure care: DESCRIPTION OF PROCEDURE Fluoroscopically guided, contrast-controlled bilateral L3, L4 AND L5 medial branch blocks with 0.5cc of 2% Lidocaine. Following review of allergy and review of potential side effects and complications, including, but not necessarily limited to, infection, allergic reaction, local tissue breakdown, nerve injury, paralysis, stroke and possible , the patient indicated that the patient understood and agreed to proceed. An informed consent document was signed by the patient, witnessed by a nurse, and placed in the patient's chart. After review of previous anaesthesic history and IV conscious sedation the patient was deemed safe to proceed with today's procedure with IV conscious sedation as ASA class II designation. Safety time-out was performed to confirm patient ID, procedure to be performed and site of procedure. IV sedation was accomplished with a combination of 2mg of Versed was administered by the RN after DO order, titrated to patient comfort during the course of the procedure while the patient remained responsive to all verbal commands In the prone position, following sterile prep and drape of the lumbar region, the right L3, L4 AND L5 anatomical location of the medial branch of the dorsal ramus was identified fluoroscopically. Subsequently an anesthetic skin wheal using 1% lidocaine solution was initiated at each of the anatomical spots. Subsequently then a 22-gauge 3.5-inch spinal needle was atraumatically introduced and advanced under fluoroscopic guidance at each of the corresponding sites at the right L3, L4 and L5 MB. After negative aspiration, 0.2cc of Isovue 200 was injected, confirming placement without vascular or intrathecal uptake. Subsequently then 0.5cc of 2% Lidocaine solution was injected at each of the corresponding sites at the right L3, L4 and L5 medial branch locations. The identical procedure was replicated on the left. The patient tolerated the procedure well without signs or symptoms of complications. The patient tolerated the procedure well without signs or symptoms of complications prior to transfer to the recovery area continued monitoring without incident. Post-procedure, the patient was monitored initiating provocative activities to measure the amount of relief from block of the facetogenic pain. The patient reported a VAS of 7 prior to the procedure and a post-procedure VAS of 1. It has been a pleasure to assist in the diagnostic and therapeutic care of your patient. POST OP INSTRUCTIONS The patient was provided with a Pain Log to complete over the next several hours and subsequent days prior to the patient's follow up with the ordering physician. If the patient has superintendent of schools relief to the solution applied, then they may be a candidate for medial branch rhizotomy. The patient is aware, was provided, once again, with a Pain Log and will follow up with the referring physician for review and clinical correlation
== END 2024-03-29 17:00 | disposition home or self-care (01) ==
LOC: RAD 14:42
PROVIDERS: PCP Family Medicine; Referring Provider Physical Medicine & Rehabilitation; Visit Provider Physical Medicine & Rehabilitation
DX: M47.816 Spondylosis without myelopathy or radiculopathy, lumbar region (principal)
CPT/HCPCS: 64493; 64494; 99152; J2250

== ENCOUNTER → 2024-04-20 14:01 | Outpatient (CLI) | payer OTHER, SELFPAY ==
[2024-04-20 14:37] LABS: Ammonia (NH3) 170 umol/L (9-30)
== END ==
PROVIDERS: PCP Family Medicine; Referring Provider Family Medicine; Visit Provider Family Medicine
DX: K76.82 Hepatic encephalopathy (principal); K76.0 Fatty (change of) liver, not elsewhere classified; D50.8 Other iron deficiency anemias; N18.32 Chronic kidney disease, stage 3b; I12.9 Hypertensive chronic kidney disease with stage 1 through stage 4 chronic kidney disease, or unspecified chronic kidney disease; E78.2 Mixed hyperlipidemia
CPT/HCPCS: 36415; 82140

== ENCOUNTER → 2024-05-03 | Outpatient (CLI) | payer OTHER, SELFPAY | PROVIDERS: PCP Family Medicine; Referring Provider Internal Medicine; Visit Provider Internal Medicine | DX: Z23 Encounter for immunization (principal) | CPT/HCPCS: 90471; 90656 ==

== ENCOUNTER → 2024-05-17 11:40 | Outpatient (CLI) | payer OTHER, SELFPAY ==
[2024-05-17 12:21] LABS: Add Manual Diff / Slide Review NO; Basophils Absolute Auto 0 /uL (0-100); Basophils Percent Auto 0.9 % (0-2); Eosinophils Absolute Auto 300 /uL (0-450); Eosinophils Percent Auto 5.8 % (2-4); Hematocrit 41.9 % (36-46); Lymphocytes Absolute Auto 1200 /uL (1100-4500); Lymphocytes Percent Auto 25.7 % (25-40); Mean Corpuscular HGB Conc 33.5 % (30-36); Mean Corpuscular Hemoglobin 32.3 PG (26-34); Mean Corpuscular Volume 96.5 fL (80-100); Monocytes Absolute Auto 400 /uL (0-900); Monocytes Percent Auto 9.6 % (3-14); Neutrophils Absolute Auto 2600 /uL (1500-7000); Platelet Count 110 X10^3/uL (150-400); Red Blood Cell Count 4.34 X10^6/uL (4.0-5.2); Red Cell Distribution Width 14.8 % (11.6-14.8); White Blood Cell Count 4.5 X10^3/uL (4.5-11.0)
[2024-05-17 15:50] LABS: Alanine Aminotransferase 36 IU/L (<35); Albumin 3.4 g/dL (3.5-5.0); Alkaline Phosphatase 96 U/L (38-126); Aspartate Aminotransferase 70 IU/L (14-36); BUN Creatinine Ratio 10.3 (6-22); Bilirubin Direct 0.6 mg/dL (0.0-0.4); Bilirubin Total 1.7 mg/dL (0.2-1.3); Blood Urea Nitrogen 22 mg/dL (7-17); Calcium 9.6 mg/dL (8.4-10.2); Carbon Dioxide 23 mmol/L (22-32); Chloride 107 mmol/L (98-107); Estimated Glomerular Filt Rate 25 mL/min (>60); Globulin 3.4 g/dL (1.7-4.1); Glucose 175 mg/dL (80-110); HEMOLYSIS < 15 (0-50); Potassium 3.8 mmol/L (3.4-5.1); Sodium 138 mmol/L (137-145); Total Protein 6.8 g/dL (6.3-8.2)
[2024-05-17 16:21] LABS: TSH w/ Reflex to FT4 3.01 uIU/mL (0.47-4.68)
[2024-05-17 21:55] LABS: Hemoglobin A1C% w Est Avg Glu 5.7 % (4.0-6.0)
== END ==
LOC: LAB 11:41
PROVIDERS: PCP Family Medicine; Referring Provider Family Medicine; Visit Provider Family Medicine
DX: K76.82 Hepatic encephalopathy (principal); R41.82 Altered mental status, unspecified; E11.65 Type 2 diabetes mellitus with hyperglycemia; E66.01 Morbid (severe) obesity due to excess calories; Z68.42 Body mass index [BMI] 45.0-49.9, adult; E03.9 Hypothyroidism, unspecified; R74.8 Abnormal levels of other serum enzymes
CPT/HCPCS: 36415; 80053; 82248; 83036; 84443; 85025

== ENCOUNTER → 2024-05-18 14:09 | Outpatient (CLI) | payer OTHER, SELFPAY ==
[2024-05-18 14:48] LABS: Ammonia (NH3) 40 umol/L (9-30)
== END ==
PROVIDERS: PCP Family Medicine; Referring Provider Family Medicine; Visit Provider Family Medicine
DX: K76.82 Hepatic encephalopathy (principal); R41.82 Altered mental status, unspecified
CPT/HCPCS: 82140

== ENCOUNTER 2024-05-19 05:52 | Outpatient (CLI) | payer OTHER, SELFPAY ==
[2024-05-19] VITALS (17 sets, daily range): BP systolic 118–152; BP diastolic 59–71; PULSE 66–76; RESP 12–21; TEMP 36.7; O2SAT 95–99
--- NOTE | 2024-05-19 05:54 | DI.RAD.S_ITS ---
PROCEDURE: PAIN L/S MED/LAT N RFA BILAT INDICATIONS: LUMBAR ARTHROPATHY COMPARISON: None. FINDINGS/IMPRESSION: Fluoroscopic spot filming was performed to verify placement of spinal needles at the L3, L4 and L5 level(s), as labeled on the films. Appropriate location(s) of the needle tip(s) was confirmed by injection of iodinated contrast. Dictated by: Sher Marcos M.D. on 05/19/2024 at 15:00 Approved by: Sher Marcos M.D. on 05/19/2024 at 15:00
[2024-05-19] MEDS: MIDAZOLAM 2 MG/2 ML VIAL IV (08:13)
[2024-05-19] MEDS: LIDOCAINE 1% 20 ML 5 ML INJ (08:19)
[2024-05-19] MEDS: BUPIVACAINE 0.5% (PF) 10 ML VIAL 5 ML INJ (08:20)
[2024-05-19] MEDS: MIDAZOLAM 5 MG/ML VIAL 1 MG IV ×2 (08:32→08:40)
--- NOTE | 2024-05-19 09:02 | P.PCN_ITS ---
Date/Time/Diagnoses Date of procedure: 05/19/24 Time of procedure: 09:03 Pre-procedure diagnosis: 1. RECALCITRANT FACET ARTHROPATHY Post-procedure diagnosis: same Procedure Notes Procedure: 1. BILATERAL L3, L4 AND L5 MEDIAL BRANCH RADIOFREQUENCY NEUROTOMY Indications: Caridad is referred by Dr. Godinez for treatment of facet arthropathy. Physician: Benja Lund Total Fluoroscopy time (seconds): 24 Total sedation minutes: 44 Complications: none Procedure in detail & Post-procedure care: DESCRIPTION OF PROCEDURE Bilateral L3, L4 and L5 medial branch radiofrequency neurotomy The patient is well known to this clinic having undergone previous facet injections with good but temporary relief. The patient has experienced appropriate, concordant relief with previous facet and median branch blocks but the patient's pain has been recalcitrant to further conservative measures. Therefore, based upon the patient's relief and persistent symptoms, the patient is considered an appropriate candidate for facet rhizotomy. All of the patient's questions regarding the risks versus benefits of the procedure, including, but not limited to, bleeding, infection, temporary as well as lasting nerve injury, paralysis, stroke, and , as well treatment alternatives were answered to satisfaction. After obtaining informed consent, denial of pertinent drug allergies, as well as being made aware of the potential risks of bleeding, infection, spinal cord trauma, paralysis, temporary and permanent nerve damage, seizure, stroke, and possible , the patient was brought to the fluoroscopy suite and positioned prone on the fluoroscopy table. After review of previous anaesthesic history and IV conscious sedation the patient was deemed safe to proceed with today's procedure with IV conscious sedation as ASA class II designation. Safety time-out was performed to confirm patient ID, procedure to be performed and site of procedure. IV sedation was accomplished with a combination of 4mg of Versed administered by the RN after DO order, titrated to patient comfort during the course of the procedure while the patient remained responsive to all verbal commands. The lumbar region was prepped in usual sterile fashion and covered with a fenestrated drape in the usual sterile fashion. Appropriate monitors applied including pulse oximeter, pulse, and blood pressure for regular monitoring throughout the procedure. After local infiltration using 1% lidocaine, under fluoroscopic guidance, a 10- cm RF insulated needle with a 10-mm active tip was positioned parallel to the junction of the right the superior articulating process where the L5 medial branch resides. Needle placement was confirmed with motor stimulation of .5v on the right which produced local stimulation without radicular component. The stimulation was then increased to 2v with, once again, only local multifidus stimulation without radicular component. The needle was then removed and the identical procedure was performed along the length of the right L4 medial branch with motor stimulation at .7v on the right. The identical procedure was once again performed along the length of the right L3 and medial branch with motor s timulation of .5v on the right. The medial branches were then anesthetised with 0.5% marcaine. This was then followed by two discreet lesions performed at 80 degrees Celsius for 90 seconds each. The identical procedures were repeated on the left. The patient tolerated the procedure well without signs or symptoms of complications prior to transfer to the recovery area continued monitoring without incident. The patient was then transferred to the recovery area where they were observed for an appropriate period of time after the injection. The patient reported a VAS score of 9 prior to the procedure and a post-procedure VAS of 0. POST OP INSTRUCTIONS The patient was provided a Pain Log to continue to record the patient's response to the target-specific procedure prior to the patient's follow-up visit with the referring physician. Additionally, specific post-injection care instructions and a contact number to our office were provided if concerns arise regarding possible complications associated with the procedure are suspected.
== END 2024-05-19 09:35 | disposition home or self-care (01) ==
PROVIDERS: PCP Family Medicine; Referring Provider Physical Medicine & Rehabilitation; Visit Provider Physical Medicine & Rehabilitation
DX: M47.816 Spondylosis without myelopathy or radiculopathy, lumbar region (principal)
CPT/HCPCS: 64635; 64636; 99152; 99153; J2250

== ENCOUNTER → 2024-06-14 12:58 | Outpatient (CLI) | payer OTHER, SELFPAY ==
[2024-06-14 13:28] LABS: Add Manual Diff / Slide Review NO; Basophils Absolute Auto 0 /uL (0-100); Basophils Percent Auto 0.3 % (0-2); Eosinophils Absolute Auto 400 /uL (0-450); Eosinophils Percent Auto 7.7 % (2-4); Hematocrit 39.6 % (36-46); Hemoglobin 13.1 g/dL (12.0-16.0); Lymphocytes Absolute Auto 1300 /uL (1100-4500); Lymphocytes Percent Auto 27.9 % (25-40); Mean Corpuscular HGB Conc 33.2 % (30-36); Mean Corpuscular Hemoglobin 32.5 PG (26-34); Monocytes Absolute Auto 500 /uL (0-900); Monocytes Percent Auto 10.8 % (3-14); Neutrophils Absolute Auto 2500 /uL (1500-7000); Neutrophils Percent Auto 53.3 % (50-75); Platelet Count 146 X10^3/uL (150-400); Red Blood Cell Count 4.04 X10^6/uL (4.0-5.2); Red Cell Distribution Width 15.2 % (11.6-14.8); White Blood Cell Count 4.6 X10^3/uL (4.5-11.0)
[2024-06-14 14:09] LABS: Alanine Aminotransferase 25 IU/L (<35); Albumin 3.3 g/dL (3.5-5.0); Alkaline Phosphatase 104 U/L (38-126); Aspartate Aminotransferase 48 IU/L (14-36); BUN Creatinine Ratio 10.6 (6-22); Bilirubin Total 1.6 mg/dL (0.2-1.3); Blood Urea Nitrogen 20 mg/dL (7-17); Calcium 8.6 mg/dL (8.4-10.2); Carbon Dioxide 28 mmol/L (22-32); Chloride 109 mmol/L (98-107); Cholesterol 220 mg/dL (140-199); Estimated Glomerular Filt Rate 29 mL/min (>60); Globulin 3.3 g/dL (1.7-4.1); Glucose 120 mg/dL (80-110); HDL Cholesterol 54 mg/dL (40-60); HEMOLYSIS < 15 (0-50); LDL Cholesterol Calculated 144 mg/dL (<100); Magnesium 2.4 mg/dL (1.6-2.3); Potassium 3.9 mmol/L (3.4-5.1); Sodium 140 mmol/L (137-145); Total Protein 6.6 g/dL (6.3-8.2); Triglycerides 110 mg/dL (35-150)
[2024-06-14 14:40] LABS: TSH w/ Reflex to FT4 1.31 uIU/mL (0.47-4.68)
== END ==
LOC: LAB 13:00
PROVIDERS: PCP Family Medicine; Referring Provider Physician Assistant; Visit Provider Physician Assistant
DX: I10 Essential (primary) hypertension (principal); E78.5 Hyperlipidemia, unspecified
CPT/HCPCS: 36415; 80053; 80061; 83735; 84443; 85025

== ENCOUNTER → 2024-08-03 14:19 | Outpatient (CLI) | payer OTHER, SELFPAY ==
[2024-07-05 12:04] VITALS: BMI 51.4
[2024-08-03 15:02] LABS: Hematocrit 40.4 % (36-46); Hemoglobin 13.3 g/dL (12.0-16.0)
[2024-08-03 15:20] LABS: BUN Creatinine Ratio 14.2 (6-22); Blood Urea Nitrogen 25 mg/dL (7-17); Calcium 8.8 mg/dL (8.4-10.2); Carbon Dioxide 24 mmol/L (22-32); Chloride 107 mmol/L (98-107); Estimated Glomerular Filt Rate 32 mL/min (>60); Glucose 166 mg/dL (80-110); HEMOLYSIS < 15 (0-50); Sodium 140 mmol/L (137-145)
[2024-08-03 16:00] LABS: Creatinine Urine Random 71.99 mg/dL; Protein (Total) Urine Random 6 mg/dL (0-12); Protein Creatinine Ratio Urine 0.08 GRAM/24H
[2024-08-06 07:11] LABS: Parathyroid Hormone Int 61 pg/mL (15-65)
== END ==
PROVIDERS: PCP Family Medicine; Referring Provider Student in an Organized Health Care Education/Training Program; Visit Provider Student in an Organized Health Care Education/Training Program
DX: N05.9 Unspecified nephritic syndrome with unspecified morphologic changes (principal); D70.9 Neutropenia, unspecified; D63.1 Anemia in chronic kidney disease; N25.81 Secondary hyperparathyroidism of renal origin; R80.9 Proteinuria, unspecified
CPT/HCPCS: 36415; 80048; 82570; 83970; 84156; 85014; 85018

== ENCOUNTER → 2024-08-12 09:55 | Outpatient (CLI) | payer OTHER, SELFPAY ==
[2024-07-05 12:04] VITALS: BMI 51.4
--- NOTE | 2024-08-12 09:56 | DI.US.S_ITS ---
PROCEDURE: US ABDOMEN LIMITED INDICATIONS: LIVER CIRRHOSIS SECONDARY TO MCCLURE TECHNIQUE: Real-time focused scanning was performed of the abdomen, with image documentation. COMPARISON: [facility], , US ABDOMEN LIMITED, 03/16/2024, 7:17. FINDINGS: Liver is coarsened lobulated with cirrhotic appearance. It measures 10.5 cm. Mild appearance of steatosis. Gallbladder is been removed. Common bile duct measures 10 mm likely related to post cholecystectomy sequela. Adjacent to the pancreatic head focus of echogenicity is present measuring 2.1 x 1.5 x 0.8 cm. Spleen is grossly within normal limits. IMPRESSION: Cirrhotic appearance of the liver. Questionable lymph node at the pancreatic head poorly visualized. Dictated by: Riya Caballero M.D. on 08/12/2024 at 15:52 Approved by: Riya Caballero M.D. on 08/12/2024 at 15:53
== END ==
PROVIDERS: PCP Family Medicine; Referring Provider Student in an Organized Health Care Education/Training Program; Visit Provider Student in an Organized Health Care Education/Training Program
DX: K75.81 Nonalcoholic steatohepatitis (NASH) (principal); K74.60 Unspecified cirrhosis of liver; Z90.49 Acquired absence of other specified parts of digestive tract
CPT/HCPCS: 76705

== ENCOUNTER 2024-08-23 18:18 | Emergency (ER) | payer OTHER, SELFPAY ==
[2024-07-05 12:04] VITALS: BMI 51.4
[2024-08-23] VITALS (16 sets, daily range): BP systolic 126–167; BP diastolic 60–68; PULSE 76–93; RESP 20–27; TEMP 37.6–37.8; O2SAT 94–98; BMI 43.8
--- NOTE | 2024-08-23 18:32 | DI.CT.S_ITS ---
PROCEDURE: CT CERVICAL SPINE WO CON INDICATIONS: fall TECHNIQUE: Noncontrast 3 mm thick sections acquired from the skull base to the T4 level. Sagittal and coronal reformats were then constructed. For radiation dose reduction, the following was used: automated exposure control, adjustment of mA and/or kV according to patient size. COMPARISON: None. FINDINGS: Image quality: Excellent. Bones: No fractures or dislocations. Visualized superior ribs are intact. Disc osteophyte complex at C6-7 causing moderate spinal canal narrowing. Soft tissues: Prevertebral soft tissues are normal in thickness. No paravertebral hematomas. No apical pneumothoraces. IMPRESSION: No displaced fracture or traumatic subluxation. Moderate spinal canal narrowing at C6-7 due to degenerative disc disease. Dictated by: Esequiel Mayes M.D. on 08/23/2024 at 19:48 Approved by: Esequiel Mayes M.D. on 08/23/2024 at 19:49
--- NOTE | 2024-08-23 18:32 | DI.CT.S_ITS ---
PROCEDURE: CT HEAD/BRAIN WO CON INDICATIONS: fall TECHNIQUE: Noncontrast 4.5 mm thick angled axial sections acquired from the foramen magnum to the vertex, with coronal and sagittal reformats. For radiation dose reduction, the following was used: automated exposure control, adjustment of mA and/or kV according to patient size. COMPARISON: [facility], CT, CT HEAD/BRAIN WO CON, 03/15/2024, 18:40. FINDINGS: Image quality: Diagnostic. CSF spaces: Basal cisterns are patent. No extra-axial fluid collections. The ventricles are symmetric in size and shape. Brain: No intracranial bleeds or masses. There is cerebral volume loss for age, with resultant ventricular and sulcal prominence. There are periventricular and deep white matter chronic small vessel ischemic changes. There is intracranial internal carotid artery atherosclerosis. Skull and face: Calvarium and visualized facial bones appear intact, without suspicious lesions. Sinuses: Visualized sinuses and mastoids are clear. IMPRESSION: No acute intracranial pathology. Dictated by: Esequiel Mayes M.D. on 08/23/2024 at 19:45 Approved by: Esequiel Mayes M.D. on 08/23/2024 at 19:46
--- NOTE | 2024-08-23 18:32 | DI.RAD.S_ITS ---
PROCEDURE: XR HAND LT 2V INDICATIONS: fall TECHNIQUE: 3 views of the hand(s) acquired. COMPARISON: None. FINDINGS: Bones: Chronic fracture deformity of the styloid process. No displaced, acute fracture. Soft tissues: No suspicious soft tissue calcifications. IMPRESSION: No acute bony abnormality. Dictated by: Esequiel Mayes M.D. on 08/23/2024 at 19:52 Approved by: Esequiel Mayes M.D. on 08/23/2024 at 19:53
--- NOTE | 2024-08-23 18:32 | DI.CT.S_ITS ---
PROCEDURE: CT FACIAL BONES WO CON INDICATIONS: fall TECHNIQUE: Noncontrast 2.5 mm thick axial images acquired from the mandible through the frontal sinuses, with coronal and sagittal reformatting. For radiation dose reduction, the following was used: automated exposure control, adjustment of mA and/or kV according to patient size. COMPARISON: None. FINDINGS: Image quality: Excellent. Bones and teeth: Orbital baig are intact. Sinus baig show no fracture or deformity. Nasal bones and septum are intact. Visualized portions of the mandible demonstrate no fractures or subluxation. Zygomatic arches are intact. Pterygoid plates are intact. Visualized portions of the skull base and auditory canals are intact. Sinuses: Paranasal sinuses are aerated, without fluid levels, mucosal thickening, or mucoceles. Mastoid air cells are aerated. Soft tissues: Soft tissue edema about the nose and anterior to the maxilla. Vascular: Visualized vascular structures appear normal in the absence of contrast. Bony vascular foramina and canals are intact. IMPRESSION: Soft tissue edema about the nose and anterior to the maxilla. No displaced fracture. No air-fluid level in the sinuses. Dictated by: Esequiel Mayes M.D. on 08/23/2024 at 19:46 Approved by: Esequiel Mayes M.D. on 08/23/2024 at 19:48
--- NOTE | 2024-08-23 18:36 | DI.CT.S_ITS ---
PROCEDURE: CT CHEST ABD PEL WO CON INDICATIONS: trauma, left sided cp TECHNIQUE: After the administration of oral contrast, 5 mm thick sections acquired from the lung apices to the symphysis pubis. 5 mm thick coronal and sagittal reformats acquired, with additional 7 mm coronal MIP reformats through the lungs. For radiation dose reduction, the following was used: automated exposure control, adjustment of mA and/or kV according to patient size. COMPARISON: None. FINDINGS: Image quality: Suboptimal due to lack of intravenous contrast and motion artifact. CHEST: Lower Neck: No enlarged lymph nodes. Thyroid: No thyroid nodules which require sonographic follow up, per consensus guidelines. Axillae: No enlarged lymph nodes. Chest Wall: Subcutaneous fat stranding in the anterior left chest wall. Bones: Unremarkable. Lungs and Pleura: No pneumothorax or pleural effusions. No consolidation or suspicious nodules. Heart: Heart size is normal. No pericardial effusion. Thoracic Vessels: The aorta and pulmonary arteries demonstrate normal size. Mediastinum and Joy: No enlarged lymph nodes. Esophagus: No wall thickening. No hiatal hernia. ABDOMEN: Liver: Cirrhosis. Gallbladder: Absent. Biliary ducts: No biliary dilation. Pancreas: No ductal dilation. Spleen: Enlarged. Adrenal Glands: No adrenal nodules. Kidneys and Ureters: No hydronephrosis. No solid mass. No complex renal cystic lesion which requires follow up. Stomach and Bowel: Normal colonic caliber, without significant wall thickening. Portal colopathy of the ascending colon. Peritoneum: No abnormal intraperitoneal fluid. No free air. Ventral Wall: No hernia. Abdominal Nodes: No retroperitoneal or mesenteric adenopathy by size criteria. Vessels: Aorta and inferior vena cava are normal in size. PELVIS: Pelvic Organs: Unremarkable. Bladder: Unremarkable. Pelvic Nodes: No enlarged lymph nodes. Miscellaneous: No inguinal hernias are seen. Bones: No aggressive osseous abnormality. IMPRESSION: Subcutaneous edema of the anterior left chest wall, likely a sequela of trauma. No underlying fracture. Cirrhotic liver morphology with portal hypertension. Recommend GI referral if not already performed. HCC screening may be warranted. Dictated by: Esequiel Mayes M.D. on 08/23/2024 at 19:49 Approved by: Esequiel Mayes M.D. on 08/23/2024 at 19:52
--- NOTE | 2024-08-23 18:42 | EKG_ITS ---
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
[2024-08-23 18:50] LABS: Add Manual Diff / Slide Review NO; Basophils Absolute Auto 0 /uL (0-100); Basophils Percent Auto 0.5 % (0-2); Eosinophils Absolute Auto 0 /uL (0-450); Eosinophils Percent Auto 0.6 % (2-4); Hematocrit 38.2 % (36-46); Lymphocytes Absolute Auto 600 /uL (1100-4500); Lymphocytes Percent Auto 9.5 % (25-40); Mean Corpuscular Hemoglobin 32.7 PG (26-34); Monocytes Absolute Auto 900 /uL (0-900); Monocytes Percent Auto 13.7 % (3-14); Neutrophils Absolute Auto 4900 /uL (1500-7000); Neutrophils Percent Auto 75.7 % (50-75); Platelet Count 91 X10^3/uL (150-400); Red Blood Cell Count 3.98 X10^6/uL (4.0-5.2); Red Cell Distribution Width 14.4 % (11.6-14.8); White Blood Cell Count 6.4 X10^3/uL (4.5-11.0)
[2024-08-23 18:57] LABS: INR 1.2 (0.9-1.3)
[2024-08-23 18:59] LABS: PTT Partial Thromboplastin Tim 42 SECONDS (25.1-36.5)
[2024-08-23 19:02] LABS: Ammonia (NH3) 52 umol/L (9-30)
[2024-08-23 19:03] LABS: Alanine Aminotransferase 31 IU/L (<35); Albumin 3.6 g/dL (3.5-5.0); Alkaline Phosphatase 92 U/L (38-126); Aspartate Aminotransferase 50 IU/L (14-36); BUN Creatinine Ratio 11.5 (6-22); Bilirubin Total 2.7 mg/dL (0.2-1.3); Blood Urea Nitrogen 23 mg/dL (7-17); Calcium 8.5 mg/dL (8.4-10.2); Carbon Dioxide 17 mmol/L (22-32); Chloride 104 mmol/L (98-107); Estimated Glomerular Filt Rate 27 mL/min (>60); Globulin 3.5 g/dL (1.7-4.1); Glucose 177 mg/dL (80-110); HEMOLYSIS < 15 (0-50); Lipase 168 U/L (23-300); Potassium 3.8 mmol/L (3.4-5.1); Sodium 133 mmol/L (137-145); Total Protein 7.1 g/dL (6.3-8.2)
[2024-08-23 19:04] LABS: Creatine Kinase 110 U/L (30-135); Lactate (Lactic Acid) 3.6 mmol/L (0.7-2.1)
[2024-08-23] MEDS: MORPHINE 2 MG/ML INJ IV (19:13)
[2024-08-23] MEDS: ONDANSETRON 4 MG/2 ML INJ IV (19:14)
[2024-08-23] MEDS: SODIUM CHLORIDE 0.9% 1,000 ML 1000 ML IV (19:14)
--- NOTE | 2024-08-23 19:16 | PC.NURSE ---
No c-collar per putter in KB
[2024-08-23 19:17] LABS: Troponin I < 0.012 ng/mL (0.01-0.034)
[2024-08-23 19:20] LABS: Procalcitonin 0.398 ng/mL (<0.5)
[2024-08-23 19:25] LABS: Influenza A - CEPHEID Flu A NEGATIVE (NEGATIVE); Influenza B - CEPHEID Flu B NEGATIVE (NEGATIVE); Respiratory Syncytial Virus Negative (Negative)
[2024-08-23 19:31] LABS: COVID-19 CEPHEID 4-PLEX PCR Negative (Negative)
[2024-08-23 20:21] LABS: Reflexed Lactate in 2 Hours Y
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
[2024-08-23 21:51] LABS: Bacteria Urine Many (>30); Squamous Epithelial Cell Urine 5-10 /HPF (0-5/HPF); Urine Volume 10mL (spun); WBC Urine 30-100/HPF (0-5/HPF)
[2024-08-23 21:52] LABS: RBC Urine 1-5/HPF (0-5/HPF)
[2024-08-23] MEDS: MORPHINE 4 MG/ML INJ 2 MG IV (21:52)
[2024-08-23] MEDS: TET,DIPH,PERTUSS(ACELL),VAC/PF 0.5 ML SYRINGE IM (21:52)
[2024-08-23] MEDS: TRIMETH/SULFA 160/800 (DS) TABLET 1 TAB PO (22:11)
== END 2024-08-23 23:18 | disposition home or self-care (01) ==
PROVIDERS: Emergency Provider Student in an Organized Health Care Education/Training Program; PCP Family Medicine
DX: S09.90XA Unspecified injury of head, initial encounter (principal); S00.31XA Abrasion of nose, initial encounter; S19.9XXA Unspecified injury of neck, initial encounter; N39.0 Urinary tract infection, site not specified; R53.1 Weakness; R07.9 Chest pain, unspecified; M25.532 Pain in left wrist; R07.81 Pleurodynia; W01.0XXA Fall on same level from slipping, tripping and stumbling without subsequent striking against object, initial encounter; R29.700 NIHSS score 0; Z23 Encounter for immunization
CPT/HCPCS: 0241U; 36415; 70450; 70486; 71250; 72125; 73120; 74176; 80053; 81003; 81015; 82140; 82550; 83605; 83690; 84145; 84484; 85025; 85610; 85730; 87040; 87077; 87086; 87186; 90471; 93005; 93010; 96361; 96374; 96375; 96376; 99285; 90715; J2270; J2405

== ENCOUNTER → 2024-10-10 09:30 | Outpatient (CLI) | payer OTHER, SELFPAY ==
[2024-07-05 12:04] VITALS: BMI 51.4
[2024-10-10 10:29] LABS: Add Manual Diff / Slide Review NO; Basophils Absolute Auto 0 /uL (0-100); Basophils Percent Auto 0.3 % (0-2); Eosinophils Absolute Auto 200 /uL (0-450); Eosinophils Percent Auto 3.9 % (2-4); Hematocrit 35.9 % (36-46); Hemoglobin 12.1 g/dL (12.0-16.0); Lymphocytes Absolute Auto 800 /uL (1100-4500); Lymphocytes Percent Auto 13.3 % (25-40); Mean Corpuscular HGB Conc 33.8 % (30-36); Mean Corpuscular Hemoglobin 32.8 PG (26-34); Mean Corpuscular Volume 97.1 fL (80-100); Monocytes Absolute Auto 500 /uL (0-900); Monocytes Percent Auto 9.3 % (3-14); Neutrophils Absolute Auto 4100 /uL (1500-7000); Neutrophils Percent Auto 73.2 % (50-75); Platelet Count 153 X10^3/uL (150-400); Red Blood Cell Count 3.69 X10^6/uL (4.0-5.2); Red Cell Distribution Width 14.7 % (11.6-14.8); White Blood Cell Count 5.7 X10^3/uL (4.5-11.0)
[2024-10-10 10:30] LABS: Ammonia (NH3) 71 umol/L (9-30)
[2024-10-10 10:35] LABS: Hemoglobin A1C% w Est Avg Glu 5.4 % (4.0-6.0)
[2024-10-10 10:51] LABS: Alanine Aminotransferase 22 IU/L (<35); Albumin 3.2 g/dL (3.5-5.0); Albumin Globulin Ratio 0.9 (1.0-2.8); Alkaline Phosphatase 109 U/L (38-126); Aspartate Aminotransferase 38 IU/L (14-36); BUN Creatinine Ratio 15.7 (6-22); Bilirubin Total 1.8 mg/dL (0.2-1.3); Blood Urea Nitrogen 29 mg/dL (7-17); Calcium 9.7 mg/dL (8.4-10.2); Carbon Dioxide 28 mmol/L (22-32); Chloride 104 mmol/L (98-107); Cholesterol 190 mg/dL (140-199); Estimated Glomerular Filt Rate 30 mL/min (>60); Globulin 3.5 g/dL (1.7-4.1); Glucose 155 mg/dL (70-99); HDL Cholesterol 51 mg/dL (40-60); HEMOLYSIS < 15 (0-50); LDL Cholesterol Calculated 120 mg/dL (<100); Sodium 138 mmol/L (137-145); Total Protein 6.7 g/dL (6.3-8.2); Triglycerides 97 mg/dL (35-150)
[2024-10-10 10:54] LABS: NT-proBNP (BNP-Adult 18+) 151 pg/mL (<125)
[2024-10-10 11:17] LABS: TSH w/ Reflex to FT4 4.11 uIU/mL (0.47-4.68)
== END ==
PROVIDERS: PCP Family Medicine; Referring Provider Student in an Organized Health Care Education/Training Program; Visit Provider Student in an Organized Health Care Education/Training Program
DX: N05.9 Unspecified nephritic syndrome with unspecified morphologic changes (principal); I13.0 Hypertensive heart and chronic kidney disease with heart failure and stage 1 through stage 4 chronic kidney disease, or unspecified chronic kidney disease; N18.9 Chronic kidney disease, unspecified; I50.32 Chronic diastolic (congestive) heart failure; D63.1 Anemia in chronic kidney disease; E11.65 Type 2 diabetes mellitus with hyperglycemia; D70.9 Neutropenia, unspecified; K76.82 Hepatic encephalopathy; E78.5 Hyperlipidemia, unspecified; K74.60 Unspecified cirrhosis of liver; E03.9 Hypothyroidism, unspecified
CPT/HCPCS: 36415; 80053; 80061; 82140; 83036; 83880; 84443; 85025

== ENCOUNTER 2024-10-30 20:26 | Emergency (ER) | payer OTHER, SELFPAY ==
[2024-10-24 16:43] VITALS: BMI 51.4
[2024-10-30] VITALS (13 sets, daily range): BP systolic 98–112; BP diastolic 50–55; PULSE 66–86; RESP 18–20; TEMP 36.9; O2SAT 95–99; BMI 44.2
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
[2024-10-30 21:20] LABS: Add Manual Diff / Slide Review NO; Basophils Absolute Auto 0 /uL (0-100); Basophils Percent Auto 0.4 % (0-2); Eosinophils Absolute Auto 400 /uL (0-450); Eosinophils Percent Auto 6.8 % (2-4); Hematocrit 30.2 % (36-46); Hemoglobin 10.3 g/dL (12.0-16.0); Lymphocytes Absolute Auto 1000 /uL (1100-4500); Lymphocytes Percent Auto 19.2 % (25-40); Mean Corpuscular Hemoglobin 32.9 PG (26-34); Monocytes Absolute Auto 700 /uL (0-900); Monocytes Percent Auto 13.3 % (3-14); Neutrophils Absolute Auto 3200 /uL (1500-7000); Neutrophils Percent Auto 60.3 % (50-75); Platelet Count 130 X10^3/uL (150-400); Red Blood Cell Count 3.12 X10^6/uL (4.0-5.2); Red Cell Distribution Width 14.4 % (11.6-14.8); White Blood Cell Count 5.3 X10^3/uL (4.5-11.0)
[2024-10-30 21:26] LABS: Ammonia (NH3) 227 umol/L (9-30)
[2024-10-30 21:27] LABS: Alanine Aminotransferase 22 IU/L (<35); Albumin 2.9 g/dL (3.5-5.0); Albumin Globulin Ratio 0.9 (1.0-2.8); Alkaline Phosphatase 88 U/L (38-126); Aspartate Aminotransferase 42 IU/L (14-36); BUN Creatinine Ratio 21.8 (6-22); Bilirubin Total 0.9 mg/dL (0.2-1.3); Blood Urea Nitrogen 42 mg/dL (7-17); Calcium 8.2 mg/dL (8.4-10.2); Carbon Dioxide 27 mmol/L (22-32); Chloride 105 mmol/L (98-107); Estimated Glomerular Filt Rate 29 mL/min (>60); Globulin 3.4 g/dL (1.7-4.1); Glucose 173 mg/dL (70-99); HEMOLYSIS < 15 (0-50); Lipase 167 U/L (23-300); Potassium 4.7 mmol/L (3.4-5.1); Sodium 138 mmol/L (137-145); Total Protein 6.3 g/dL (6.3-8.2)
[2024-10-30] MEDS: SODIUM CHLORIDE 0.9% 1,000 ML 1000 ML IV (22:31)
[2024-10-30 22:40] LABS: Occult Blood 1 Positive (Negative); Sample 1 Time 2200
[2024-10-30] MEDS: PANTOPRAZOLE 40 MG VIAL IV (22:49)
== END 2024-10-30 23:49 | disposition home or self-care (01) ==
PROVIDERS: Emergency Provider Family Medicine; PCP Family Medicine
DX: K26.9 Duodenal ulcer, unspecified as acute or chronic, without hemorrhage or perforation (principal)
CPT/HCPCS: 36415; 74174; 80053; 81003; 82140; 82270; 82272; 83690; 85025; 99284; J2470; Q9967

== ENCOUNTER 2024-10-31 19:12 | Inpatient (IN) | payer OTHER, SELFPAY ==
[2024-10-24 16:43] VITALS: BMI 51.4
[2024-10-31] VITALS (11 sets, daily range): BP systolic 114–130; BP diastolic 56–63; PULSE 62–71; RESP 16–24; TEMP 36.8–36.9; O2SAT 97–100; BMI 44.9; BMI 44.1
--- NOTE | 2024-10-31 19:42 | EKG_ITS ---
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
--- NOTE | 2024-10-31 20:20 | PC.NURSE ---
Patients family report confusion today: tried drinking water from cellphone, not verbalizing family member names correctly oriented to self/place for assmt but slow to answer some questions/respond at times. When asked to relax arms for EKG patient instead lifts both arms/hands in front of face and patient had to be shown/demonstrated not just instructed verbally.
[2024-10-31 20:43] LABS: Add Manual Diff / Slide Review NO; Basophils Absolute Auto 0 /uL (0-100); Basophils Percent Auto 0.5 % (0-2); Eosinophils Absolute Auto 400 /uL (0-450); Eosinophils Percent Auto 7.7 % (2-4); Hematocrit 28.7 % (36-46); Hemoglobin 9.8 g/dL (12.0-16.0); Lymphocytes Absolute Auto 1100 /uL (1100-4500); Lymphocytes Percent Auto 22.7 % (25-40); Mean Corpuscular Hemoglobin 32.8 PG (26-34); Mean Corpuscular Volume 96.7 fL (80-100); Monocytes Absolute Auto 600 /uL (0-900); Monocytes Percent Auto 12.6 % (3-14); Neutrophils Absolute Auto 2800 /uL (1500-7000); Neutrophils Percent Auto 56.5 % (50-75); Platelet Count 133 X10^3/uL (150-400); Red Blood Cell Count 2.97 X10^6/uL (4.0-5.2); Red Cell Distribution Width 14.5 % (11.6-14.8)
[2024-10-31 21:02] LABS: Ammonia (NH3) 150 umol/L (9-30)
[2024-10-31 21:03] LABS: Alanine Aminotransferase 21 IU/L (<35); Albumin 2.9 g/dL (3.5-5.0); Albumin Globulin Ratio 0.9 (1.0-2.8); Alkaline Phosphatase 76 U/L (38-126); Aspartate Aminotransferase 35 IU/L (14-36); BUN Creatinine Ratio 22.8 (6-22); Bilirubin Total 1.2 mg/dL (0.2-1.3); Blood Urea Nitrogen 44 mg/dL (7-17); Calcium 8.7 mg/dL (8.4-10.2); Carbon Dioxide 24 mmol/L (22-32); Chloride 110 mmol/L (98-107); Estimated Glomerular Filt Rate 29 mL/min (>60); Globulin 3.4 g/dL (1.7-4.1); Glucose 137 mg/dL (70-99); HEMOLYSIS < 15 (0-50); Potassium 4.3 mmol/L (3.4-5.1); Sodium 140 mmol/L (137-145); Total Protein 6.3 g/dL (6.3-8.2)
[2024-10-31] MEDS: LACTULOSE 20 GM/30 ML SOLUTION PO (21:27)
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
[2024-11-01 01:51] LABS: Bilirubin Urine UA NEGATIVE (NEGATIVE); Color Urine UA YELLOW; Glucose Urine UA 3+ g/dL (Negative); Ketones Urine UA NEGATIVE (NEGATIVE); Leukocyte Esterase Urine UA NEGATIVE (NEGATIVE); Nitrite Urine UA NEGATIVE (Negative); Occult Blood Urine UA 3+ (Negative); Protein Urine UA NEGATIVE (Negative)
[2024-11-01 01:52] LABS: Appearance Urine UA CLOUDY
[2024-11-01 01:53] LABS: RBC Urine 0-1/HPF (0-5/HPF); Urine Volume 10mL (spun); WBC Urine 0-1/HPF (0-5/HPF)
[2024-11-01 01:54] LABS: Bacteria Urine Many (>30)
[2024-11-01 01:57] LABS: Culture Indicated Urine Cult Not Indicated; Squamous Epithelial Cell Urine >30 /HPF (0-5/HPF)
--- NOTE | 2024-11-01 02:01 | PC.NURSE ---
Addendum entered by Nerissa Cardozo R.N. 11/01/24 07:49: No BM overnight. Patient is vomiting a moderate amt of dark brown emesis and has dark red output from rectum. Vital signs are stable (documented). Notified MD Daly & MD Negron of morning H/H and patient condition. Addendum entered by Nerissa Cardozo R.N. 11/01/24 05:05: Bladder scan showed >500cc, patient unable to void, inserted reid per order. Original Note: flatbed driver: Patient arrived onto floor from ED approximately 2300 accompanied by tai Bellamy). Transferred from stretcher to bed via sliding board. Patient is alert to voice, states name accurately, although responds with word salad mostly. Patient is confused and attempts to get OOB independently although cannot ambulate d/t weakness. VSS, SpO2 97% on RA. Denies pain. Passing lots of flatus, abdomen is soft and non-tender, bowel tones present. Dark brown smear on brief noted. spoke with patient & family via [place] cart. Fall precautions in place, plan of care ongoing.
[2024-11-01 06:16] LABS: Add Manual Diff / Slide Review NO; Basophils Absolute Auto 0 /uL (0-100); Basophils Percent Auto 0.3 % (0-2); Eosinophils Absolute Auto 200 /uL (0-450); Eosinophils Percent Auto 3.6 % (2-4); Hematocrit 26.3 % (36-46); Hemoglobin 8.9 g/dL (12.0-16.0); Lymphocytes Absolute Auto 1100 /uL (1100-4500); Lymphocytes Percent Auto 19.5 % (25-40); Mean Corpuscular HGB Conc 33.7 % (30-36); Mean Corpuscular Hemoglobin 32.5 PG (26-34); Mean Corpuscular Volume 96.4 fL (80-100); Monocytes Absolute Auto 600 /uL (0-900); Monocytes Percent Auto 10.5 % (3-14); Neutrophils Absolute Auto 3700 /uL (1500-7000); Neutrophils Percent Auto 66.1 % (50-75); Platelet Count 129 X10^3/uL (150-400); Red Blood Cell Count 2.73 X10^6/uL (4.0-5.2); Red Cell Distribution Width 14.4 % (11.6-14.8); White Blood Cell Count 5.6 X10^3/uL (4.5-11.0)
[2024-11-01 06:20] LABS: Ammonia (NH3) 215 umol/L (9-30)
[2024-11-01 06:26] VITALS: BP 128/64; PULSE 73; RESP 20; O2SAT 97
[2024-11-01 06:28] LABS: Alanine Aminotransferase 22 IU/L (<35); Albumin 2.7 g/dL (3.5-5.0); Albumin Globulin Ratio 0.9 (1.0-2.8); Alkaline Phosphatase 71 U/L (38-126); Aspartate Aminotransferase 34 IU/L (14-36); BUN Creatinine Ratio 21.6 (6-22); Bilirubin Total 1.3 mg/dL (0.2-1.3); Blood Urea Nitrogen 40 mg/dL (7-17); Calcium 8.6 mg/dL (8.4-10.2); Carbon Dioxide 21 mmol/L (22-32); Chloride 113 mmol/L (98-107); Estimated Glomerular Filt Rate 30 mL/min (>60); Globulin 3.1 g/dL (1.7-4.1); Glucose 128 mg/dL (70-99); HEMOLYSIS < 15 (0-50); Sodium 140 mmol/L (137-145); Total Protein 5.8 g/dL (6.3-8.2)
[2024-11-01 06:43] LABS: INR 1.2 (0.9-1.3); Prothrombin Time 13.7 SECONDS (9.4-12.5)
[2024-11-01 06:46] LABS: PTT Partial Thromboplastin Tim 35 SECONDS (25.1-36.5)
[2024-11-01 06:57] LABS: Potassium 4.3 mmol/L (3.4-5.1)
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
[2024-11-01] MEDS: SODIUM CHLORIDE 0.9% 1,000 ML 75 ML IV (08:11)
[2024-11-01] MEDS: ONDANSETRON 4 MG/2 ML INJ IV (08:20)
[2024-11-01] MEDS: PANTOPRAZOLE 40 MG VIAL IV ×2 (08:20→22:02)
[2024-11-01] MEDS: LACTULOSE 20 GM/30 ML SOLUTION 30 GM PR ×3 (09:55→22:03)
[2024-11-01 11:20] LABS: Hematocrit 26.4 % (36-46); Hemoglobin 8.8 g/dL (12.0-16.0)
[2024-11-01 11:27] LABS: INR 1.2 (0.9-1.3); Prothrombin Time 13.8 SECONDS (9.4-12.5)
--- NOTE | 2024-11-01 13:42 | CM.DANOTE ---
Initial DCP Assessment Visit Note Reviewed EMR and team rounds for status updates. Pt is unarousable, pending transfer to the for acute metabolic encephelopathy with comorbid complications, for further eval and tx with endoscopy of GI bleed/ulcer/cirrhosis/possible bleeding varices. Pt was independent and full-time employed prior to her recent hospitalization at [facility], about 1-week ago due to worsening AMS, hepatic encephelopathy, dark stools/emesis. She has been staying with her niece in order to have more care provided and to get her to healthcare appts. No CM d/c assistance/resource needs are identified at this time. Payor: [facility] PCP: Dr. Godinez Pt is a 64 year-old F with a hx of HTN, hypothyroid, hepatic encephalopathy with a recent [facility] admission for worsening hep. enceph. She discharged home with instructions to increase her Lactulose to 3-times per day due to high ammonia levels and inceased confusion. She then started having dark stools and was diagnosed with a duodenal ulcer, likely bleeding varices. Family shared that pt has been demonstrating increasing confusion and is now visually hallucinating, was not able to participate in planning or providing for her own healthcare information. In the ED, she was again found to have high ammonia levels, is not alert/oriented, and is high-risk for continued intense lactulose tx as well as endoscopy. Pt is connected to Hepatology, and a transfer is in progress to transfer her for further scope eval and tx. Discharge Planning/Care Management CM Discharge Assessment Start: 10/31/24 22:51 Freq: Status: Active Protocol: Document 11/01/24 13:40 DPL (Rec: 11/01/24 13:42 DPL [id number]) Discharge Planning Assessment Assigned Bottom Filler JAY Mccormick Advance Directives? No History Provided By Medical Record Expected Length of Stay 1 Has Patient been admitted in last 30 No days? Prior Living Arrangements House Comment has been staying with her niece since hospitalization 1 week ago. Household Members none Type of transporation used prior to Relies on Others admit Independent with ADL's Yes: pt has not been independent for the last few weeks, staying with niece Is patient alert and oriented? No: confused Needs Assistance With Meal Prep,Toileting,Managing Medications,Home Chores / Shopping Caregiver for Another No DME Already Rented / Owned Elevated Toilet Seat,FWW / Walker Comment Pending transfer to a higher level of care. Barriers to Discharge No Discharge Plan Transfer to Higher Level of Care Referrals Initiated None needed Review Status In Process Please Provide Date Initial DC 11/01/24 Assessment Was Performed
[2024-11-01 14:30] VITALS: BP 157/76; RESP 18; TEMP 37.3; O2SAT 98
--- NOTE | 2024-11-01 15:53 | PC.NURSE ---
Upon change of shift patient was vomitting brown liquid and having maroon colored liquid stool. After patient is cleaned up she sleeps soundly every once in a while shifting her body and turning from one side to the other or sitting all the way up in bed, when encouraged to lie down or asking if she is in pain she does not respond. She doesn't answer any yes or no questions or make eye contact. MD aware of blood in stool multiple times overnight. H&H ordered. She is given lactulose rectally but unable to administer po meds as patient is lethargic and not following commands. MD notified that patient is able to take anything PO. Per orders IVF NS @75ml/hr started. Continuous monitoring. Gillian patient's niece at bedside this afternoon updated of patient status and pending transfer orders to . Per MD Sauer, ordered to keep Patient NPO for now.
[2024-11-01] MEDS: OCTREOTIDE 500 MCG in SODIUM CHLORIDE 0.9% 100 ML 10.1 MCG IV (18:00)
[2024-11-01 20:13] VITALS: BP 121/64; PULSE 78; RESP 20; TEMP 36.7; O2SAT 98
[2024-11-01 22:08] LABS: Hematocrit 24.1 % (36-46); Hemoglobin 8.4 g/dL (12.0-16.0)
[2024-11-02 05:56] LABS: Hematocrit 21.3 % (36-46); Hemoglobin 7.4 g/dL (12.0-16.0); Mean Corpuscular HGB Conc 34.6 % (30-36); Mean Corpuscular Hemoglobin 33.5 PG (26-34); Mean Corpuscular Volume 96.9 fL (80-100); Platelet Count 122 X10^3/uL (150-400); Red Cell Distribution Width 14.6 % (11.6-14.8); White Blood Cell Count 7.7 X10^3/uL (4.5-11.0)
[2024-11-02 05:59] LABS: Ammonia (NH3) 121 umol/L (9-30)
[2024-11-02 06:06] LABS: INR 1.3 (0.9-1.3)
[2024-11-02 06:13] LABS: Alanine Aminotransferase 20 IU/L (<35); Albumin 2.4 g/dL (3.5-5.0); Albumin Globulin Ratio 0.8 (1.0-2.8); Alkaline Phosphatase 66 U/L (38-126); Aspartate Aminotransferase 50 IU/L (14-36); BUN Creatinine Ratio 21.3 (6-22); Bilirubin Total 1.1 mg/dL (0.2-1.3); Blood Urea Nitrogen 39 mg/dL (7-17); Calcium 8.3 mg/dL (8.4-10.2); Carbon Dioxide 21 mmol/L (22-32); Chloride 118 mmol/L (98-107); Estimated Glomerular Filt Rate 30 mL/min (>60); Globulin 2.9 g/dL (1.7-4.1); Glucose 128 mg/dL (70-99); HEMOLYSIS < 15 (0-50); Magnesium 2.4 mg/dL (1.6-2.3); Potassium 4.5 mmol/L (3.4-5.1); Sodium 144 mmol/L (137-145); Total Protein 5.3 g/dL (6.3-8.2)
[2024-11-02 08:00] VITALS: BP 136/75; PULSE 73; RESP 16; TEMP 36.6; O2SAT 93
[2024-11-02 09:10] VITALS: BP 133/62; PULSE 80; RESP 18; TEMP 37.1
[2024-11-02] MEDS: PANTOPRAZOLE 40 MG VIAL IV (09:15)
[2024-11-02] MEDS: LACTULOSE 20 GM/30 ML SOLUTION 30 GM PR ×3 (09:16→18:26)
[2024-11-02 09:25] VITALS: BP 131/67; PULSE 80; RESP 18; TEMP 37.1
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
[2024-11-02 11:24] VITALS: BP 138/68; PULSE 77; RESP 18; TEMP 36.8
[2024-11-02] MEDS: SODIUM CHLORIDE 0.9% 1,000 ML 75 ML IV (13:57)
[2024-11-02 17:15] LABS: Hematocrit 24.5 % (36-46); Hemoglobin 8.5 g/dL (12.0-16.0)
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
[2024-11-02 17:27] LABS: Alanine Aminotransferase 23 IU/L (<35); Albumin 2.6 g/dL (3.5-5.0); Albumin Globulin Ratio 0.9 (1.0-2.8); Alkaline Phosphatase 69 U/L (38-126); Aspartate Aminotransferase 56 IU/L (14-36); BUN Creatinine Ratio 19.4 (6-22); Bilirubin Total 2.3 mg/dL (0.2-1.3); Blood Urea Nitrogen 37 mg/dL (7-17); Calcium 8.3 mg/dL (8.4-10.2); Carbon Dioxide 20 mmol/L (22-32); Chloride 120 mmol/L (98-107); Estimated Glomerular Filt Rate 29 mL/min (>60); Glucose 124 mg/dL (70-99); HEMOLYSIS < 15 (0-50); Potassium 4.3 mmol/L (3.4-5.1); Sodium 145 mmol/L (137-145); Total Protein 5.6 g/dL (6.3-8.2)
[2024-11-02 17:28] LABS: Ammonia (NH3) 86 umol/L (9-30)
[2024-11-02 20:00] VITALS: BP 125/61; PULSE 71; RESP 15; TEMP 36.4; O2SAT 97
== END 2024-11-02 19:50 | disposition short-term general hospital (02) | DRG 441 ==
LOC: ED 19:48 → AC 22:18
PROVIDERS: Hospitalist; Admitting Provider Internal Medicine; Emergency Provider Family Medicine; PCP Family Medicine; Visit Provider Internal Medicine
DX: K76.82 Hepatic encephalopathy (principal); K26.0 Acute duodenal ulcer with hemorrhage; D62 Acute posthemorrhagic anemia; D68.9 Coagulation defect, unspecified; K76.6 Portal hypertension; I86.4 Gastric varices; F32.A Depression, unspecified; N18.31 Chronic kidney disease, stage 3a; D69.6 Thrombocytopenia, unspecified; E89.0 Postprocedural hypothyroidism; K75.81 Nonalcoholic steatohepatitis (NASH); I12.9 Hypertensive chronic kidney disease with stage 1 through stage 4 chronic kidney disease, or unspecified chronic kidney disease; E78.5 Hyperlipidemia, unspecified; E11.22 Type 2 diabetes mellitus with diabetic chronic kidney disease; Z79.84 Long term (current) use of oral hypoglycemic drugs; Z87.891 Personal history of nicotine dependence; Z79.890 Hormone replacement therapy; Z79.85 Long-term (current) use of injectable non-insulin antidiabetic drugs
CPT/HCPCS: 36415; 36430; 74174; 80053; 81001; 81003; 82140; 82270; 82272; 82962; 83690; 83735; 85014; 85018; 85025; 85027; 85610; 85730; 86850; 86900; 86901; 93005; 96374; 96375; 99283; 99284; P9016; J2354; J2405; J2470; Q9967

== ENCOUNTER → 2024-11-29 13:52 | Outpatient (CLI) | payer OTHER, SELFPAY ==
[2024-10-31 22:51] VITALS: BMI 44.1
[2024-11-29 14:33] LABS: Hematocrit 24.8 % (36-46); Hemoglobin 8.4 g/dL (12.0-16.0)
[2024-11-29 14:36] LABS: Ammonia (NH3) 38 umol/L (9-30)
[2024-11-29 15:15] LABS: Alanine Aminotransferase 31 IU/L (<35); Albumin 2.9 g/dL (3.5-5.0); Alkaline Phosphatase 84 U/L (38-126); Aspartate Aminotransferase 56 IU/L (14-36); BUN Creatinine Ratio 12.6 (6-22); Blood Urea Nitrogen 25 mg/dL (7-17); Calcium 8.6 mg/dL (8.4-10.2); Carbon Dioxide 25 mmol/L (22-32); Chloride 104 mmol/L (98-107); Estimated Glomerular Filt Rate 28 mL/min (>60); Glucose 122 mg/dL (70-99); HEMOLYSIS < 15 (0-50); Potassium 3.6 mmol/L (3.4-5.1); Sodium 138 mmol/L (137-145); Total Protein 5.9 g/dL (6.3-8.2)
[2024-11-29 15:24] LABS: NT-proBNP (BNP-Adult 18+) 372 pg/mL (<125)
== END ==
LOC: LAB 13:56
PROVIDERS: PCP Family Medicine; Referring Provider Student in an Organized Health Care Education/Training Program; Visit Provider Student in an Organized Health Care Education/Training Program
DX: D70.9 Neutropenia, unspecified (principal); I50.32 Chronic diastolic (congestive) heart failure; N05.9 Unspecified nephritic syndrome with unspecified morphologic changes; E72.20 Disorder of urea cycle metabolism, unspecified; K74.60 Unspecified cirrhosis of liver; I10 Essential (primary) hypertension; D63.1 Anemia in chronic kidney disease; K76.82 Hepatic encephalopathy; E78.5 Hyperlipidemia, unspecified
CPT/HCPCS: 36415; 80053; 82140; 83880; 85014; 85018

== ENCOUNTER → 2024-12-12 12:22 | Outpatient (CLI) | payer SELFPAY ==
[2024-10-31 22:51] VITALS: BMI 44.1
[2024-12-16 10:36] LABS: H. Pylori Antigen Stool Negative (Negative)
== END ==
PROVIDERS: Family Medicine; PCP Family Medicine; Referring Provider Family Medicine; Visit Provider Student in an Organized Health Care Education/Training Program
DX: K29.70 Gastritis, unspecified, without bleeding (principal); B96.81 Helicobacter pylori [H. pylori] as the cause of diseases classified elsewhere
CPT/HCPCS: 87338

== ENCOUNTER 2025-01-05 11:41 | Emergency (ER) | payer OTHER, SELFPAY ==
[2024-10-31 22:51] VITALS: BMI 44.1
[2025-01-05 11:48] VITALS: BP 93/55; PULSE 68; RESP 16; TEMP 36.4; O2SAT 99; BMI 41.1
[2025-01-05 12:26] LABS: Add Manual Diff / Slide Review NO; Hematocrit 29.6 % (36-46); Hemoglobin 9.6 g/dL (12.0-16.0); Lymphocytes Absolute Auto 900 /uL (1100-4500); Mean Corpuscular HGB Conc 32.3 % (30-36); Mean Corpuscular Hemoglobin 28.7 PG (26-34); Mean Corpuscular Volume 88.9 fL (80-100); Platelet Count 138 X10^3/uL (150-400)
[2025-01-05 12:32] LABS: INR 1.2 (0.9-1.3); Prothrombin Time 13.8 SECONDS (9.4-12.5)
[2025-01-05 12:35] LABS: PTT Partial Thromboplastin Tim 34 SECONDS (25.1-36.5)
[2025-01-05 12:40] LABS: Ammonia (NH3) 51 umol/L (9-30)
[2025-01-05 12:41] LABS: Alanine Aminotransferase 23 IU/L (<35); Albumin 3.1 g/dL (3.5-5.0); Albumin Globulin Ratio 0.9 (1.0-2.8); Alkaline Phosphatase 101 U/L (38-126); Blood Urea Nitrogen 27 mg/dL (7-17); Calcium 8.4 mg/dL (8.4-10.2); Carbon Dioxide 18 mmol/L (22-32); Chloride 110 mmol/L (98-107); Estimated Glomerular Filt Rate 34 mL/min (>60); Globulin 3.3 g/dL (1.7-4.1); Glucose 138 mg/dL (70-99); HEMOLYSIS < 15 (0-50); Potassium 4.5 mmol/L (3.4-5.1); Sodium 137 mmol/L (137-145); Total Protein 6.4 g/dL (6.3-8.2)
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
[2025-01-05] MEDS: PANTOPRAZOLE 40 MG VIAL 80 MG IV (13:50)
[2025-01-05 14:29] LABS: Culture Indicated Urine Specimen Cultured
[2025-01-05 14:52] VITALS: BP 110/56; PULSE 66; O2SAT 97
[2025-01-05 15:00] VITALS: BP 101/52; PULSE 64; RESP 17; O2SAT 97
== END 2025-01-05 15:35 | disposition home or self-care (01) ==
PROVIDERS: Emergency Provider Emergency Medicine
DX: K92.2 Gastrointestinal hemorrhage, unspecified (principal)
CPT/HCPCS: 36415; 74176; 80053; 81003; 81015; 82140; 85025; 85610; 85730; 86850; 86900; 86901; 87077; 87086; 87186; 96374; 99284; J2470

== ENCOUNTER 2025-02-14 10:30 | Inpatient (IN) | payer MEDICARE, MEDICAID, SELFPAY ==
[2024-10-31 22:51] VITALS: BMI 44.1
[2025-02-14] VITALS (14 sets, daily range): BP systolic 119–141; BP diastolic 58–80; PULSE 69–84; RESP 12–32; TEMP 36.4–36.6; O2SAT 88–100; BMI 42.1
--- NOTE | 2025-02-14 10:33 | EKG_ITS ---
[address] [address] Test Date: 2025-02-14 Pat Name: Caridad Clements Department: Room: Gender: Female Rn Ambulatory: DIMITRI : 1960 Requested By: Order Number: [id number] Reading MD: Luis Manuel Negron Measurements Intervals [place] Rate: 73 P: 32 OK: 144 QRS: 9 QRSD: 72 T: 17 QT: 426 QTc: 469 Interpretive Statements Normal sinus rhythm Possible Left atrial enlargement Electronically Signed On 02-14-2025 17:29:37 PDT by Luis Manuel Negron
--- NOTE | 2025-02-14 10:33 | DI.RAD.S_ITS ---
PROCEDURE: XR CHEST 1V INDICATIONS: AMS TECHNIQUE: One view of the chest was acquired. COMPARISON: [facility], CT, CT CHEST ABD PEL WO CON, 08/23/2024, 19:05. [facility], CR, XR CHEST 1V, 03/15/2024, 18:34. [facility], CR, XR CHEST 1V, 01/28/2023, 9:41. FINDINGS: Surgical changes and devices: None. Lungs and pleura: Low lung volumes bilaterally. Mild bilateral interstitial prominence. No pleural effusions or pneumothorax. Mediastinum: Mediastinal contours appear normal. Heart size is borderline. Bones and chest wall: No suspicious bony lesions. Overlying soft tissues appear unremarkable. IMPRESSION: Mild interstitial prominence may be secondary to low lung volumes versus mild edema or an atypical or viral pneumonia. Approved by: Brady Dior M.D. on 02/14/2025 at 11:02
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
--- NOTE | 2025-02-14 11:13 | PC.NURSE ---
Pt able to transfer to [facility]. Has difficulty following directions. Pt is forgetful.
[2025-02-14 11:19] LABS: INR 1.1 (0.9-1.3); Prothrombin Time 12.3 SECONDS (9.4-12.5)
[2025-02-14 11:20] LABS: Add Manual Diff / Slide Review NO; Hematocrit 28.2 % (36-46); Hemoglobin 8.9 g/dL (12.0-16.0); Lymphocytes Absolute Auto 700 /uL (1100-4500); Mean Corpuscular HGB Conc 31.7 % (30-36); Mean Corpuscular Hemoglobin 27.3 PG (26-34); Mean Corpuscular Volume 86.1 fL (80-100); Platelet Count 100 X10^3/uL (150-400)
[2025-02-14 11:21] LABS: PTT Partial Thromboplastin Tim 36 SECONDS (25.1-36.5)
[2025-02-14 11:26] LABS: Alanine Aminotransferase 26 IU/L (<35); Albumin 3.2 g/dL (3.5-5.0); Albumin Globulin Ratio 1.0 (1.0-2.8); Alkaline Phosphatase 155 U/L (38-126); Blood Urea Nitrogen 25 mg/dL (7-17); Calcium 9.1 mg/dL (8.4-10.2); Carbon Dioxide 18 mmol/L (22-32); Chloride 109 mmol/L (98-107); Creatine Kinase 146 U/L (30-135); Estimated Glomerular Filt Rate 27 mL/min (>60); Globulin 3.3 g/dL (1.7-4.1); Glucose 179 mg/dL (70-99); HEMOLYSIS < 15 (0-50); Lipase 143 U/L (23-300); Magnesium 2.4 mg/dL (1.6-2.3); Potassium 4.5 mmol/L (3.4-5.1); Sodium 138 mmol/L (137-145); Total Protein 6.5 g/dL (6.3-8.2)
[2025-02-14 11:27] LABS: Ammonia (NH3) 120 umol/L (9-30)
--- NOTE | 2025-02-14 11:29 | DI.CT.S_ITS ---
PROCEDURE: CT HEAD/BRAIN WO CON INDICATIONS: AMS TECHNIQUE: Noncontrast 4.5 mm thick angled axial sections acquired from the foramen magnum to the vertex, with coronal and sagittal reformats. For radiation dose reduction, the following was used: automated exposure control, adjustment of mA and/or kV according to patient size. COMPARISON: [facility], CR, XR CHEST 1V, 02/14/2025, 10:30. [facility], CT, CT HEAD/BRAIN WO CON, 03/15/2024, 18:40. [facility], CT, CT HEAD/BRAIN WO CON, 08/23/2024, 19:05. FINDINGS: Image quality: Diagnostic. CSF spaces: Basal cisterns are patent. No extra-axial fluid collections. The ventricles are symmetric in size and shape. Brain: No intracranial bleeds or mass effect. There is cerebral volume loss, with resultant ventricular and sulcal prominence. There are periventricular and deep white matter chronic small vessel ischemic changes. There is intracranial internal carotid artery atherosclerosis. Skull and face: Calvarium and visualized facial bones appear intact, without suspicious lesions. Incidental note is made of hyperostosis frontalis. This is not considered to be pathologic in a woman of this age. Sinuses: Visualized sinuses and mastoids are clear. IMPRESSION: No imaging explanation is found for this patient's presenting symptoms. To the limits of this noncontrast study, no findings of intracranial masses or mass effect can be seen. No acute intracranial hemorrhage is seen. Similar to prior. Dictated by: Rodri Allison M.D. on 02/14/2025 at 10:36 Approved by: Rodri Allison M.D. on 02/14/2025 at 10:37
[2025-02-14 11:38] LABS: Troponin I < 0.012 ng/mL (0.01-0.034)
[2025-02-14] MEDS: LACTULOSE 20 GM/30 ML SOLUTION PO (11:53)
[2025-02-14] MEDS: AZITHROMYCIN 500 MG in DEXTROSE 5% IN WATER 250 ML 250 MG IV (12:00)
[2025-02-14 12:36] LABS: Coronavirus NL 63 Not Detected (Not Detect); SARS- CoV-2 Not Detected (Not Detecte)
[2025-02-14] MEDS: AZTREONAM 2 GM in SODIUM CHLORIDE 0.9% 100 ML IV (13:19)
[2025-02-14 13:47] LABS: Appearance Urine UA CLEAR; Bilirubin Urine UA NEGATIVE (NEGATIVE); Color Urine UA YELLOW; Glucose Urine UA 3+ g/dL (Negative); Ketones Urine UA NEGATIVE (NEGATIVE); Leukocyte Esterase Urine UA NEGATIVE (NEGATIVE); Nitrite Urine UA NEGATIVE (Negative); Occult Blood Urine UA NEGATIVE (Negative); Protein Urine UA NEGATIVE (Negative); Specific Gravity Urine UA 1.010 (1.000-1.035); Urobilinogen Urine UA 0.2 E.U./dL (0.2)
[2025-02-14 13:50] LABS: pH Urine UA 5.0 (4.5-8.0)
[2025-02-14 13:51] LABS: Culture Indicated Urine Cult Not Indicated
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
[2025-02-14] MEDS: HEPARIN 5,000 UNIT/ML VIAL 7500 UNIT SUBCUT ×2 (16:07→22:56)
[2025-02-14] MEDS: LACTULOSE 20 GM/30 ML SOLUTION 30 GM PO (17:07)
[2025-02-14] MEDS: LACTULOSE 20 GM/30 ML SOLUTION 45 GM PO (21:41)
[2025-02-15] MEDS: LEVOTHYROXINE 125 MCG TABLET 120 MCG PO (05:46)
[2025-02-15 06:42] LABS: Add Manual Diff / Slide Review NO; Hematocrit 26.0 % (36-46); Hemoglobin 8.2 g/dL (12.0-16.0); Lymphocytes Absolute Auto 1400 /uL (1100-4500); Mean Corpuscular HGB Conc 31.7 % (30-36); Mean Corpuscular Hemoglobin 27.1 PG (26-34); Mean Corpuscular Volume 85.4 fL (80-100); Platelet Count 95 X10^3/uL (150-400)
[2025-02-15 06:51] LABS: Ammonia (NH3) 23 umol/L (9-30)
[2025-02-15 06:52] LABS: Alanine Aminotransferase 21 IU/L (<35); Albumin 3.0 g/dL (3.5-5.0); Albumin Globulin Ratio 0.9 (1.0-2.8); Alkaline Phosphatase 108 U/L (38-126); Blood Urea Nitrogen 26 mg/dL (7-17); Calcium 9.1 mg/dL (8.4-10.2); Carbon Dioxide 21 mmol/L (22-32); Chloride 111 mmol/L (98-107); Estimated Glomerular Filt Rate 30 mL/min (>60); Globulin 3.2 g/dL (1.7-4.1); Glucose 104 mg/dL (70-99); HEMOLYSIS 24 (0-50); Potassium 4.1 mmol/L (3.4-5.1); Sodium 138 mmol/L (137-145); Total Protein 6.2 g/dL (6.3-8.2)
[2025-02-15 08:00] VITALS: BP 117/64; PULSE 70; RESP 17; TEMP 36.4; O2SAT 97
[2025-02-15] MEDS: LACTULOSE 20 GM/30 ML SOLUTION 45 GM PO ×4 (08:22→20:51)
[2025-02-15] MEDS: FUROSEMIDE 20 MG TABLET PO (08:23)
[2025-02-15] MEDS: CITALOPRAM 10 MG TABLET PO (08:23)
[2025-02-15] MEDS: SPIRONOLACTONE 25 MG TABLET PO (08:23)
[2025-02-15] MEDS: HEPARIN 5,000 UNIT/ML VIAL 7500 UNIT SUBCUT ×3 (08:23→23:32)
[2025-02-15 08:24] VITALS: BP 117/64; PULSE 70
[2025-02-15] MEDS: POTASSIUM CHLORIDE 20 MEQ TAB PO (08:24)
[2025-02-15] MEDS: PANTOPRAZOLE DR 40 MG TABLET PO (08:24)
--- NOTE | 2025-02-15 09:38 | PC.NURSE ---
Pt alert to self, month, year, and situation. Responses are delayed. Pt able to verbalize how to call for assistance with call light. Resting in bed, with use of bedside common 1-2 person assist. Bed alarm on.
[2025-02-15] MEDS: INSULIN LISPRO 100 UNIT/ML 3ML VIAL SUBCUT (12:05)
[2025-02-15] MEDS: AZITHROMYCIN 500 MG in DEXTROSE 5% IN WATER 250 ML 250 MG IV (12:06)
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
--- NOTE | 2025-02-15 14:17 | CM.DANOTE ---
Initial DCP Assessment Visit Note Reviewed EMR and team rounds for pt's medical status and updates. Met with pt and her niece, Gillian, at bedside to introduce self and role. Pt is currently residing with Gillian and her family due to the set-up of her home being more assessable for pt's mobility and bathroom needs. Pt is modified independent, and chronically weak/deconditioned. She uses a FWW outside of the home, and holds onto furniture and baig inside the home. Gillian will also transport her home once she's medically cleared for d/c, likely another 1-2 days. Payor: Medicare PCP: Dr. Godinez Pt is a 65 year-old F with a hx of HTN, hepatic encephelopathy, and diabetes with c/o brain fog. She shared that this typically happens when her ammonia levels are high, but she's been taking her lactulose. CT imaging was negative for abnormalities. Chest x-ray was concerning for pneumonia. Pt's labs showed elevated ammonina levels. Plan was made to admit for IV antibiotics and lactulose for high ammonia. This COAT PADDER did provide pt/niece with the application for LTC/JORGE with Medicaid, as well as the General DPOA and DPOA-HC forms. We are working on obtaining a Notary for urs to finalize. Gillian is interested in becoming her pain JORGE cg. DCP will continue to monitor for final planning of the Medicaid and w/[facility] OP f/u needs. Discharge Planning/Care Management CM Discharge Assessment Start: 02/14/25 12:25 Freq: Status: Active Protocol: Document 02/15/25 14:13 DPL (Rec: 02/15/25 14:17 DPL [id number]) Discharge Planning Assessment Assigned Discharge JAY Mccormick Instrumental Teacher Provider Dr. Godinez Insurance Medicare Advance Directives? No History Provided By Family Member,Medical Record Has Patient been No admitted in last 30 days? Prior Living House Arrangements Household Members family Comment Pt is currently staying with her niece. Type of Relies on Others transporation used prior to admit Independent with ADL No: modified independent 's Is patient alert and Yes oriented? Needs Assistance Managing Medications,Home Chores / Shopping With Caregiver for No Another Community Services Physical Therapy,Home Health Nurse used prior to admission: Comment 4WW Patient/Family Home with Home Health Preference Comment [facility] Barriers to No Discharge Discharge Plan Home Community Services Physical Therapy,Home Health Nurse Referrals Initiated Home Health If patient plan is No home with home health: Has signed face to face form been completed? Medicare Choice List Yes Provided Medicare choice list patient,family reviewed on electronic tablet with SNF/HH Preference [facility], was previously on their service. Whiteboard Updated Yes in Patient Room with name and ext. # of Pilling Machine Operator Review Status In Process Please Provide Date 02/15/25 Initial DC Assessment Was Performed
[2025-02-15 19:00] VITALS: BP 118/72; PULSE 64; RESP 18; TEMP 36.2; O2SAT 99
[2025-02-15 20:52] VITALS: BP 118/72; PULSE 64
[2025-02-15] MEDS: RIFAXIMIN 550 MG 550 EACH PO (20:52)
[2025-02-16 06:14] LABS: Add Manual Diff / Slide Review NO; Hematocrit 26.7 % (36-46); Hemoglobin 8.6 g/dL (12.0-16.0); Lymphocytes Absolute Auto 1000 /uL (1100-4500); Mean Corpuscular HGB Conc 32.1 % (30-36); Mean Corpuscular Hemoglobin 27.6 PG (26-34); Mean Corpuscular Volume 85.9 fL (80-100); Platelet Count 93 X10^3/uL (150-400)
[2025-02-16 06:28] LABS: Alanine Aminotransferase 21 IU/L (<35); Albumin 2.8 g/dL (3.5-5.0); Albumin Globulin Ratio 0.9 (1.0-2.8); Alkaline Phosphatase 110 U/L (38-126); Blood Urea Nitrogen 25 mg/dL (7-17); Calcium 8.9 mg/dL (8.4-10.2); Carbon Dioxide 20 mmol/L (22-32); Chloride 112 mmol/L (98-107); Estimated Glomerular Filt Rate 31 mL/min (>60); Globulin 3.2 g/dL (1.7-4.1); Glucose 111 mg/dL (70-99); HEMOLYSIS < 15 (0-50); Potassium 4.1 mmol/L (3.4-5.1); Sodium 140 mmol/L (137-145); Total Protein 6.0 g/dL (6.3-8.2)
[2025-02-16 06:29] LABS: Ammonia (NH3) 33 umol/L (9-30)
[2025-02-16 08:00] VITALS: BP 109/61; PULSE 66; RESP 20; TEMP 36.3; O2SAT 97
[2025-02-16] MEDS: PANTOPRAZOLE DR 40 MG TABLET PO (08:21)
[2025-02-16] MEDS: SPIRONOLACTONE 25 MG TABLET PO (08:21)
[2025-02-16] MEDS: FUROSEMIDE 20 MG TABLET PO (08:21)
[2025-02-16] MEDS: POTASSIUM CHLORIDE 20 MEQ TAB PO (08:26)
[2025-02-16] MEDS: LACTULOSE 20 GM/30 ML SOLUTION 45 GM PO ×4 (08:28→20:58)
[2025-02-16] MEDS: RIFAXIMIN 550 MG 550 EACH PO ×2 (08:28→20:58)
[2025-02-16] MEDS: HEPARIN 5,000 UNIT/ML VIAL 7500 UNIT SUBCUT ×2 (08:29→15:20)
[2025-02-16] MEDS: INSULIN LISPRO 100 UNIT/ML 3ML VIAL SUBCUT ×2 (12:02→16:54)
[2025-02-16] MEDS: AZITHROMYCIN 500 MG in DEXTROSE 5% IN WATER 250 ML 250 MG IV (12:04)
--- NOTE | 2025-02-16 13:52 | CM.DPC ---
Addendum entered by JAY Ramirez 02/16/25 16:20: ADD: Met bedside with pt, tai French, and estrella Irving and they completed POA for financial and medical and made copy of medical to scan into EMR. BF Original Note: DCP Cont: Per MD, pt's ammonia levels have decreased and pt slowly improving with mentation and not yet stable for discharge today. Per previous SW, pt and tai French requesting referral to [facility] as they have used them in the past and referral not yet made. Secure emailed new referral along with completed F2F and HH orders to [facility] to review. SW met bedside with pt and tai French and they have POA pwk for healthcare and financial in the room and updated them that previous SW scheduled in-house notartanita to be bedside around 1530 and tai French will remain bedside until then and did bring in pt's wallet with her id for estrella. Pt has completed medical POA pwk and assigned 3 POAs and working on the financial. Tai French confirms she has the [facility] LTC application as well for in-home JORGE but has not been able to complete it yet but will work with pt on the financial information today and will try to get it to SW by tomorrow Saturday 02/17 to fax in. Plan: SW to follow for plan of home to tai's house in [place] with new [facility] referral made when medically stable. SW to fax discharge summary to [facility] at d/c and fax [facility] LTC application if completed by discharge. JAY Ramirez
[2025-02-16] MEDS: MULTIVITAMIN 1 TABLET 1 TAB PO (15:20)
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
[2025-02-16 19:22] VITALS: BP 120/51; PULSE 60; RESP 19; TEMP 36.1; O2SAT 97
[2025-02-16 20:52] VITALS: BP 120/51; PULSE 60
[2025-02-17] MEDS: HEPARIN 5,000 UNIT/ML VIAL 7500 UNIT SUBCUT ×2 (00:29→11:07)
--- NOTE | 2025-02-17 04:59 | PC.NURSE ---
Late entry: 02/15/25- Ok to give 125mcg tab levothyroxine, per Dr. Figueroa.
[2025-02-17] MEDS: LEVOTHYROXINE 125 MCG TABLET 120 MCG PO (05:08)
[2025-02-17 06:16] LABS: Add Manual Diff / Slide Review NO; Hematocrit 25.8 % (36-46); Hemoglobin 8.3 g/dL (12.0-16.0); Lymphocytes Absolute Auto 1100 /uL (1100-4500); Mean Corpuscular HGB Conc 32.0 % (30-36); Mean Corpuscular Hemoglobin 27.4 PG (26-34); Mean Corpuscular Volume 85.4 fL (80-100); Platelet Count 88 X10^3/uL (150-400)
[2025-02-17 06:30] LABS: Ammonia (NH3) 19 umol/L (9-30)
[2025-02-17 07:00] VITALS: BP 102/62; PULSE 69; RESP 16; TEMP 36.3; O2SAT 94
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
--- NOTE | 2025-02-17 10:25 | PT.IPTN ---
Current Diagnoses Pneumonia, unspecified organism (02/14/25) Physical Therapy Treatment Note M2 PT-IP Current Condition Start: 02/16/25 16:50 Freq: NEEDED Status: Active Protocol: Document 02/16/25 16:51 KJ (Rec: 02/16/25 16:58 KJ [id number]) Physical Therapy Current Condition Current Condition Evaluation Date 02/16/25 Treatment Diagnosis Poor activity tolerance M3 PT-IP Subjective Start: 02/16/25 16:50 Freq: NEEDED Status: Active Protocol: Document 02/17/25 10:25 [facility] (Rec: 02/17/25 12:49 AB [id number]) Subjective Physical Therapy Visit Type Type Treatment Note Visit Start Time 10:25 Visit Stop Time 10:50 Number of ELECTRONIC SCALE TESTER Visits 0 Physical Therapy Visit Comments Patient Comments agreeable to do PT M4 PT-IP Mobility and Gait Start: 02/16/25 16:50 Freq: NEEDED Status: Active Protocol: Document 02/17/25 10:25 [facility] (Rec: 02/17/25 12:49 AB [id number]) PT-Bed Mobility Assessment Supine to Sit Supine to Sit Standby Assistance Sit to Supine Sit to Supine Standby Assistance PT-Transfer Assessment Sit to and From Stand Sit to and from Standby Assistance,Contact Guard Assistance,1 Person Stand Assistance,Use of Upper Extremities Equipment Transfer Assistive None,Gait Belt,4 Wheeled Walker Device Orthotic/Prosthetic No Devices or Brace: Transfers Transfer Destination Chair Transfer Technique ambulated Transfer Ability Level of Assist Standby Assistance,Contact Guard Assistance,1 Person Assistance,Use of Upper Extremities Comments Mobility Comments pt in bed and agreeable to do PT. supine to sit SBA. sit to stand from EOB CGA and ambulated in room without AD CGA. presents with unsteady guarded antalgic gait with slight LOB. pt sat on chair. educated pt on safety and use of AD and agreed. pt has a 4WW that he usually uses oudoors but willing to use indoors at this time. sit to stand SBA and ambulated in room using 4WW SBA. presents with steadier gait and better pacing. stair climbing training: pt completed up/down step stool using foot board as stair rail for support requiring CGA. completed x 3 sets. pt requested to go back to bed and stated that she did not sleep well last night. pt sat on EOB and completed sit to supine SBA. positioned pt in bed. call light and table placed within reach. Gait Assessment Gait Gait Assistance Standby Assistance,Contact Guard Assist Required: Distance (Feet) 30 Able to Maintain Yes Weight Bearing Status During Gait Assistive Devices Assistive Device Gait Belt,4 Wheeled Walker Orthotic/Prosthetic No Devices or Brace: Gait Deviations General Gait Pattern Ataxic,Decreased Stride Length,Decreased Feet Clearance Factors Limiting Gait Function Factors Limiting Decreased Activity Tolerance,Decreased Strength,Poor Gait Function Balance,Poor Safety Awareness Stair Climbing Assessment Evaluation Level of Assist On Contact Guard Assistance Stairs Devices Stair Climbing Left Railing Assistive Devices Technique/Endurance Stair Climbing Ascend and Descend Direction Stair Climbing Step to Step Technique Number of Steps 1 Climbed Stair Climbing Set # 3 Repetitions (reps) M5 PT-IP Objective Assessments Start: 02/16/25 16:50 Freq: NEEDED Status: Active Protocol: Document 02/16/25 16:51 KJ (Rec: 02/16/25 16:58 KJ [id number]) Orientation Orientation/Cognition Level of Alertness Alert Orientation Name,Age,Birthday,Place,Situation Language Function No Deficits Noted Ability Gross Range of Motion Upper Extremity ROM Assessment Within Functional Limits Lower Extremity ROM Assessment Within Functional Limits Impairments edema in BLE Strength Upper Extremity Strength Assessment Within Functional Limits Lower Extremity Strength Assessment Within Functional Limits M6 PT-IP Treatment Start: 02/16/25 16:50 Freq: NEEDED Status: Active Protocol: Document 02/17/25 10:25 [facility] (Rec: 02/17/25 12:49 AB [id number]) Physical Therapy Treatment Education Education Provided Safety M7 PT-IP Assessment and Plan Start: 02/16/25 16:50 Freq: NEEDED Status: Active Protocol: Document 02/17/25 10:25 [facility] (Rec: 02/17/25 12:49 AB [id number]) PT Summary Assessment and Plan Potential Rehabilitation Fair Potential Summary Impairments Pain,ROM,Strength,Balance,Coordination,Bed Mobility, Transfers,Gait,Activity Tolerance Progress Towards Slow Progress due to Medical Issues,Slow Progress due Goals to Activity Tolerance Assessment Summary pt requiring CGA with ambulation without AD and presents with unsteady gait. Recommending use of 4WW at this time and pt agreed. pt lives with her niece who can assist her at home. pt will benefit from HHPT. Goals Transfer Goal Independent Gait Goal Independent Gait Distance 100 Other Goals ascend/descend 2 steps L rail ascending SBA Days to Meet Goals 10 Frequency of Treatment Frequency Of Once a Day Treatment Recommendations To Nursing Amount of Assist 1 Person Assist Needed Discharge Recommendations PT Discharge Home with Assistance,Home Health Recommendations - PT assist 1
[2025-02-17] MEDS: MULTIVITAMIN 1 TABLET 1 TAB PO (11:05)
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
[2025-02-17] MEDS: FUROSEMIDE 20 MG TABLET PO (11:06)
[2025-02-17] MEDS: RIFAXIMIN 550 MG 550 EACH PO (11:06)
[2025-02-17] MEDS: CITALOPRAM 10 MG TABLET PO (11:06)
[2025-02-17] MEDS: POTASSIUM CHLORIDE 20 MEQ TAB PO (11:06)
[2025-02-17] MEDS: PANTOPRAZOLE DR 40 MG TABLET PO (11:06)
[2025-02-17] MEDS: CEFDINIR 300 MG CAPSULE PO (11:06)
[2025-02-17] MEDS: SPIRONOLACTONE 25 MG TABLET PO (11:06)
[2025-02-17 11:07] VITALS: BP 118/74; PULSE 70
[2025-02-17] MEDS: INSULIN LISPRO 100 UNIT/ML 3ML VIAL SUBCUT (12:25)
--- NOTE | 2025-02-17 12:46 | CM.DPNOTE ---
Addendum entered by JAY Apple 02/17/25 17:21: Addendum: DCP uploaded completed and notarized Advanced Directive into pt chart. WILSON Caceres Original Note: DCP Continued: Reviewed EMR and team rounds for pt?s medical status. Per hospitalist, pt cleared for discharge home with family today, 02/17. DCP entered room, introduced self and role. Discussed LTC Medicaid application, pt states her sister has not completed it yet and they anticipate on completing and submitting it themselves post-discharge. Pt denied any other discharge needs at this time. DCP to send discharge summary to [facility] for continuity of care when completed/signed. Plan: Anticipating dc home with sister, Gillian, to transport. Will follow up with [facility] and pt to complete LTC Medicaid application for additional support. CM Team will continue to follow for coordination of discharge plans. WILSON Caceres
[2025-02-17 13:06] LABS: Alanine Aminotransferase 20 IU/L (<35); Albumin 2.6 g/dL (3.5-5.0); Albumin Globulin Ratio 0.8 (1.0-2.8); Alkaline Phosphatase 113 U/L (38-126); Blood Urea Nitrogen 24 mg/dL (7-17); Calcium 8.7 mg/dL (8.4-10.2); Carbon Dioxide 17 mmol/L (22-32); Chloride 113 mmol/L (98-107); Estimated Glomerular Filt Rate 33 mL/min (>60); Globulin 3.1 g/dL (1.7-4.1); Glucose 94 mg/dL (70-99); HEMOLYSIS < 15 (0-50); Potassium 4.0 mmol/L (3.4-5.1); Sodium 136 mmol/L (137-145); Total Protein 5.7 g/dL (6.3-8.2)
--- NOTE | 2025-02-17 16:37 | PC.NURSE ---
Pt discharged home at 1540, escorted off floor in wheelchair accompanied by niece and hospital staff. IV removed, discharge teaching completed including new medications, worsening symptoms and follow up appointment. Patient left the room with all belongings.
== END 2025-02-17 15:45 | disposition home health service (06) | DRG 441 ==
LOC: ED 12:00 → AC 12:24
PROVIDERS: Admitting Provider Hospitalist; Emergency Provider Student in an Organized Health Care Education/Training Program; PCP Family Medicine; Referring Provider Student in an Organized Health Care Education/Training Program; Visit Provider Hospitalist
DX: K76.82 Hepatic encephalopathy (principal); G92.8 Other toxic encephalopathy; Z68.41 Body mass index [BMI] 40.0-44.9, adult; D61.818 Other pancytopenia; E66.01 Morbid (severe) obesity due to excess calories; K74.60 Unspecified cirrhosis of liver; N18.30 Chronic kidney disease, stage 3 unspecified; F32.A Depression, unspecified; E03.9 Hypothyroidism, unspecified; E11.22 Type 2 diabetes mellitus with diabetic chronic kidney disease; E56.8 Deficiency of other vitamins; I35.0 Nonrheumatic aortic (valve) stenosis; Z86.711 Personal history of pulmonary embolism; Z79.84 Long term (current) use of oral hypoglycemic drugs; Z87.19 Personal history of other diseases of the digestive system
CPT/HCPCS: 36415; 70450; 71045; 80053; 81001; 82140; 82550; 82962; 83690; 83735; 84484; 84630; 85025; 85610; 85730; 87040; 87633; 93005; 96365; 96375; 97116; 97161; 97166; 97530; 99284; S0073; J0696; J1644; J1815

== ENCOUNTER 2025-03-04 21:15 | Emergency (ER) | payer MEDICARE, MEDICAID, SELFPAY ==
[2025-02-14 13:53] VITALS: BMI 42.1
[2025-03-04] VITALS (7 sets, daily range): BP systolic 120–151; BP diastolic 55–59; PULSE 57–60; RESP 18; TEMP 36.3; O2SAT 95–100; BMI 42.0
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
[2025-03-04 23:22] LABS: Add Manual Diff / Slide Review NO; Hematocrit 29.2 % (36-46); Hemoglobin 9.4 g/dL (12.0-16.0); Lymphocytes Absolute Auto 900 /uL (1100-4500); Mean Corpuscular HGB Conc 32.2 % (30-36); Mean Corpuscular Hemoglobin 27.3 PG (26-34); Mean Corpuscular Volume 84.7 fL (80-100); Platelet Count 106 X10^3/uL (150-400)
[2025-03-04 23:29] LABS: Ammonia (NH3) 89 umol/L (9-30); Lactate (Lactic Acid) 2.1 mmol/L (0.7-2.1)
[2025-03-04 23:30] LABS: Alanine Aminotransferase 19 IU/L (<35); Albumin 3.6 g/dL (3.5-5.0); Albumin Globulin Ratio 1.0 (1.0-2.8); Alkaline Phosphatase 132 U/L (38-126); Blood Urea Nitrogen 28 mg/dL (7-17); Calcium 9.0 mg/dL (8.4-10.2); Carbon Dioxide 18 mmol/L (22-32); Chloride 115 mmol/L (98-107); Estimated Glomerular Filt Rate 30 mL/min (>60); Globulin 3.7 g/dL (1.7-4.1); Glucose 89 mg/dL (70-99); HEMOLYSIS < 15 (0-50); Lipase 156 U/L (23-300); Magnesium 2.6 mg/dL (1.6-2.3); Potassium 4.6 mmol/L (3.4-5.1); Sodium 141 mmol/L (137-145); Total Protein 7.3 g/dL (6.3-8.2)
[2025-03-04 23:47] LABS: Procalcitonin 0.089 ng/mL (<0.5)
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
[2025-03-05 00:52] LABS: Reflexed Lactate in 2 Hours Y
[2025-03-05 01:03] VITALS: BP 105/67; PULSE 58; RESP 17; O2SAT 97
== END 2025-03-05 01:04 | disposition home or self-care (01) ==
PROVIDERS: Emergency Medicine; Emergency Provider Family Medicine; PCP Family Medicine
DX: K76.82 Hepatic encephalopathy (principal); R41.82 Altered mental status, unspecified; K74.60 Unspecified cirrhosis of liver; E11.9 Type 2 diabetes mellitus without complications; I10 Essential (primary) hypertension; R19.7 Diarrhea, unspecified; K72.10 Chronic hepatic failure without coma
CPT/HCPCS: 36415; 80053; 82140; 83605; 83690; 83735; 84145; 85025; 99281; 99283

== ENCOUNTER → 2025-03-24 16:19 | Outpatient (CLI) | payer MEDICARE, SELFPAY ==
[2025-02-14 13:53] VITALS: BMI 42.1
[2025-03-24 17:42] LABS: Add Manual Diff / Slide Review NO; Hematocrit 32.5 % (36-46); Hemoglobin 10.5 g/dL (12.0-16.0); Lymphocytes Absolute Auto 1000 /uL (1100-4500); Mean Corpuscular HGB Conc 32.3 % (30-36); Mean Corpuscular Hemoglobin 28.0 PG (26-34); Mean Corpuscular Volume 86.7 fL (80-100); Platelet Count 123 X10^3/uL (150-400)
[2025-03-24 17:56] LABS: INR 1.2 (0.9-1.3); Prothrombin Time 13.7 SECONDS (9.4-12.5)
[2025-03-24 18:05] LABS: Alanine Aminotransferase 21 IU/L (<35); Albumin 3.6 g/dL (3.5-5.0); Albumin Globulin Ratio 1.0 (1.0-2.8); Alkaline Phosphatase 126 U/L (38-126); Blood Urea Nitrogen 25 mg/dL (7-17); Calcium 9.4 mg/dL (8.4-10.2); Carbon Dioxide 20 mmol/L (22-32); Chloride 110 mmol/L (98-107); Estimated Glomerular Filt Rate 30 mL/min (>60); Globulin 3.5 g/dL (1.7-4.1); Glucose 120 mg/dL (70-99); HEMOLYSIS < 15 (0-50); Magnesium 2.4 mg/dL (1.6-2.3); Potassium 4.9 mmol/L (3.4-5.1); Sodium 140 mmol/L (137-145); Total Protein 7.1 g/dL (6.3-8.2)
[2025-03-24 18:35] LABS: TSH w/ Reflex to FT4 1.01 uIU/mL (0.47-4.68)
== END ==
PROVIDERS: PCP Family Medicine
DX: E89.0 Postprocedural hypothyroidism (principal); K74.69 Other cirrhosis of liver; R94.4 Abnormal results of kidney function studies; K75.81 Nonalcoholic steatohepatitis (NASH)
CPT/HCPCS: 36415; 80053; 82105; 83735; 84443; 84630; 85025; 85610

== ENCOUNTER 2025-03-26 11:14 | Inpatient (IN) | payer MEDICARE, SELFPAY ==
[2025-02-14 13:53] VITALS: BMI 42.1
[2025-03-26] VITALS (17 sets, daily range): BP systolic 108–135; BP diastolic 53–85; PULSE 62–70; RESP 14–20; TEMP 36.1–36.6; O2SAT 96–100; BMI 41.5
--- NOTE | 2025-03-26 11:34 | DI.RAD.S_ITS ---
PROCEDURE: XR CHEST 1V INDICATIONS: altered mental status TECHNIQUE: One view of the chest was acquired. COMPARISON: [facility], CR, XR CHEST 1V, 02/14/2025, 10:30. FINDINGS: Surgical changes and devices: None. Lungs and pleura: Lungs are clear. No pleural effusions or pneumothorax. Mediastinum: Mediastinal contours appear normal. Heart size is normal. Bones and chest wall: No suspicious bony lesions. Overlying soft tissues appear unremarkable. IMPRESSION: No acute cardiopulmonary abnormality is seen. Approved by: Robert Horowitz M.D. on 03/26/2025 at 11:59
--- NOTE | 2025-03-26 11:55 | EKG_ITS ---
[id number] [address] Test Date: 2025-03-26 Pat Name: Caridad Clements Department: [facility] Room: Gender: Female Chemist Biological: : 1960 Requested By: Order Number: [id number] Reading MD: Samson Cheek MD Measurements Intervals [place] Rate: 64 P: 18 [place]: 188 QRS: -4 QRSD: 74 T: 6 QT: 436 QTc: 449 Interpretive Statements Normal sinus rhythm Possible Inferior infarct , age undetermined Electronically Signed On 03-26-2025 21:52:17 PDT by Samson Cheek MD
[2025-03-26 12:36] LABS: Add Manual Diff / Slide Review NO; Hematocrit 31.1 % (36-46); Hemoglobin 10.1 g/dL (12.0-16.0); Lymphocytes Absolute Auto 900 /uL (1100-4500); Mean Corpuscular HGB Conc 32.5 % (30-36); Mean Corpuscular Hemoglobin 28.1 PG (26-34); Mean Corpuscular Volume 86.3 fL (80-100); Platelet Count 97 X10^3/uL (150-400)
[2025-03-26 12:51] LABS: Ammonia (NH3) 68 umol/L (9-30)
[2025-03-26 12:52] LABS: Alanine Aminotransferase 27 IU/L (<35); Albumin 3.5 g/dL (3.5-5.0); Albumin Globulin Ratio 1.0 (1.0-2.8); Alkaline Phosphatase 137 U/L (38-126); Blood Urea Nitrogen 27 mg/dL (7-17); Calcium 9.7 mg/dL (8.4-10.2); Carbon Dioxide 20 mmol/L (22-32); Chloride 109 mmol/L (98-107); Creatine Kinase 149 U/L (30-135); Estimated Glomerular Filt Rate 29 mL/min (>60); Ethanol (ETOH) < 10 mg/dL (<10); Globulin 3.6 g/dL (1.7-4.1); Glucose 116 mg/dL (70-99); HEMOLYSIS < 15 (0-50); Lactate (Lactic Acid) 2.4 mmol/L (0.7-2.1); Potassium 4.7 mmol/L (3.4-5.1); Sodium 138 mmol/L (137-145); Total Protein 7.1 g/dL (6.3-8.2)
[2025-03-26 13:03] LABS: Troponin I < 0.012 ng/mL (0.01-0.034)
[2025-03-26 13:08] LABS: Procalcitonin 0.144 ng/mL (<0.5)
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
--- NOTE | 2025-03-26 13:17 | DI.CT.S_ITS ---
PROCEDURE: CT HEAD/BRAIN WO CON INDICATIONS: History of altered mental status TECHNIQUE: Noncontrast 4.5 mm thick angled axial sections acquired from the foramen magnum to the vertex, with coronal and sagittal reformats. For radiation dose reduction, the following was used: automated exposure control, adjustment of mA and/or kV according to patient size. COMPARISON: [facility], CT, CT HEAD/BRAIN WO CON, 02/14/2025, 11:30. FINDINGS: Image quality: Diagnostic. CSF spaces: Basal cisterns are patent. No extra-axial fluid collections. Ventricles are normal in size and shape. Brain: No midline shift. No intracranial mass effect or hemorrhage. Cooper- white matter interface is normal. Skull and face: Calvarium and visualized facial bones are intact, without suspicious lesions. Sinuses: Visualized sinuses and mastoids are clear. IMPRESSION: No acute intracranial pathology. Approved by: Robert Horowitz M.D. on 03/26/2025 at 13:10
--- NOTE | 2025-03-26 13:35 | DI.CT.S_ITS ---
PROCEDURE: CT CERVICAL SPINE WO CON INDICATIONS: confusion, fall, hx hepatic encephalopathy TECHNIQUE: Noncontrast 3 mm thick sections acquired from the skull base to the T4 level. Sagittal and coronal reformats were then constructed. For radiation dose reduction, the following was used: automated exposure control, adjustment of mA and/or kV according to patient size. COMPARISON: [facility], CT, CT CERVICAL SPINE WO CON, 08/23/2024, 19:05. FINDINGS: Bones: No fractures or dislocations. Visualized superior ribs are intact. Multilevel degenerative disc disease and arthropathy results in moderate central stenosis C6-7 and severe right foraminal stenosis T2-3 and T3-4 Soft tissues: Prevertebral soft tissues are normal in thickness. No paravertebral hematomas. No apical pneumothoraces. IMPRESSION: No displaced fracture or traumatic subluxation. Multilevel degenerative disc disease and arthropathy results in moderate central stenosis C6-7 and severe right foraminal stenosis at T2-3 and T3-4 Approved by: Robert Horowitz M.D. on 03/26/2025 at 13:23
[2025-03-26 14:06] LABS: Reflexed Lactate in 2 Hours Y
[2025-03-26] MEDS: LACTULOSE 20 GM/30 ML SOLUTION PO (14:25)
[2025-03-26 14:40] LABS: Lactate 2HR (Lactic Acid Rflx) 2.9 mmol/L (0.7-2.1)
[2025-03-26] MEDS: SODIUM CHLORIDE 0.9% 1,000 ML 150 ML IV (15:31)
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
[2025-03-26 16:30] LABS: Appearance Urine UA CLEAR; Bilirubin Urine UA NEGATIVE (NEGATIVE); Color Urine UA YELLOW; Glucose Urine UA 2+ g/dL (Negative); Ketones Urine UA NEGATIVE (NEGATIVE); Leukocyte Esterase Urine UA NEGATIVE (NEGATIVE); Nitrite Urine UA NEGATIVE (Negative); Occult Blood Urine UA NEGATIVE (Negative); Protein Urine UA NEGATIVE (Negative); Specific Gravity Urine UA 1.010 (1.000-1.035); Urobilinogen Urine UA 0.2 E.U./dL (0.2)
[2025-03-26 16:31] LABS: pH Urine UA 5.5 (4.5-8.0)
[2025-03-26 16:35] LABS: Ur Creatinine Normal (Normal); Ur Specific Gravity Normal (Normal); Urine MDMA Negative (Negative); Urine Methamphetamines Negative (Negative); Urine THC Negative (Negative); Urine Tricyclic Antidepressant Negative (Negative); Urine pH Normal (Normal)
[2025-03-26] MEDS: LACTULOSE 20 GM/30 ML SOLUTION 30 GM PO ×2 (19:04→21:28)
--- NOTE | 2025-03-26 19:04 | PC.NURSE ---
Pt arrived from ED at 1600. Niece at bedside. She is A&OX2, forgetful, pleasant and denies pain. She is able to walk with mod assist from gurney to bed. BG is 102 and she tolerates dinner well. She is slow to respond to admission questions, and often does not finish her response but redirectable. NS at 150ml/hr, VS q 4 hr, bed alarm, call light in reach, med recon completed. NF home med patient's niece belen in as las hospitalization they did not have. Placed in pt med drawer as pharmacy gone for the day. Continuous monitoring.
[2025-03-27] VITALS (7 sets, daily range): BP systolic 107–132; BP diastolic 52–76; PULSE 62–69; RESP 18–20; TEMP 35.9–36.6; O2SAT 95–98
[2025-03-27] MEDS: SODIUM CHLORIDE 0.9% 1,000 ML 150 ML IV ×3 (06:36→20:00)
[2025-03-27] MEDS: SPIRONOLACTONE 25 MG TABLET PO (08:39)
[2025-03-27] MEDS: FUROSEMIDE 20 MG TABLET PO (08:39)
[2025-03-27] MEDS: POTASSIUM CHLORIDE 20 MEQ TAB PO (08:39)
[2025-03-27] MEDS: LACTULOSE 20 GM/30 ML SOLUTION 30 GM PO ×2 (08:39→12:19)
[2025-03-27] MEDS: PANTOPRAZOLE DR 40 MG TABLET PO (08:39)
[2025-03-27] MEDS: INSULIN LISPRO 100 UNIT/ML 3ML VIAL SUBCUT (12:22)
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
--- NOTE | 2025-03-27 14:44 | CM.DANOTE ---
Patient is a 65 yo female who was admitted OBS Status on 03/26/25 for Hepatic Encephalopathy. Pt has MCR for insurance and her PCP is Dr. Nestor Godinez at [facility]. EMR was reviewed. Per , pt with hx of non-ETOH liver disease and recurrent hepatic encephalopathy and admitted after GLF with increased confusion. Per RN, pt has been 1PA with FWW in room. SW met bedside with pt and explained role and pt appeared A&Ox3 and able to answer questions and confirms she is still staying at her niece Gillian's house due to the set-up of her home being more assessable for pt's mobility and bathroom needs. Pt is modified independent, and chronically weak/deconditioned. She uses a FWW outside of the home, and holds onto furniture and baig inside the home. Pt states she is still working with [facility] since her discharge last month and feels they are helpful and would like to Resume HH services at d/c. Pt states she does not want or feel SNF is needed and preference is back home with family. SW inquired if Medicaid LTC application had been completed and sent in to [facility] since her discharge last month (as family had begun filling out the application) and pt states she is unsure but her niece would know. Per , he plans to call niece next to discuss pt likely being stable for discharge home today. Since pt only OBS Status, no new orders needed to Resume [facility]. Plan: SW to follow for plan of pt discharge back home with family and [facility] later today and any further identified discharge planning needs. JAY Ramirez Discharge Planning/Care Management CM Discharge Assessment Start: 03/26/25 16:03 Freq: Status: Active Protocol: Document 03/27/25 14:42 BF (Rec: 03/27/25 14:44 [facility] [id number]) Discharge Planning Assessment Assigned Discharge JAY Fung Toolroom Attendant Provider Herbert Insurance Medicare DPOA/Assigned nijacky French Designee Name Contact Information [phone] Advance Directives? No Advance Directives No on File History Provided By Patient,Family Member,Medical Record Has Patient been No admitted in last 30 days? Comment Here last month in Feb 2025 and went home with [facility] Living House Arrangements Household Members family Type of Relies on Others transporation used prior to admit Independent with ADL No 's Is patient alert and Yes oriented? Needs Assistance Meal Prep,Managing Medications,Home Chores / Shopping With Caregiver for No Another Community Services Physical Therapy,Home Health Aid,Home Health Nurse used prior to admission: Comment Open with [facility] Already Rented / FWW / Walker Owned Comment 4WW Patient/Family Home with Home Health Preference Barriers to No Discharge Discharge Plan Home with Home Health Transportation Family Arrangement Referrals Initiated Home Health Whiteboard Updated Yes in Patient Room with name and ext. # of Analysis Or Research Safety Inspector Review Status In Process Please Provide Date 03/27/25 Initial DC Assessment Was Performed Next Review Type Continued Stay Review
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
[2025-03-27 17:58] LABS: Ammonia (NH3) 143 umol/L (9-30)
[2025-03-27] MEDS: LACTULOSE 20 GM/30 ML SOLUTION 60 GM PO (22:52)
[2025-03-27] MEDS: LORATADINE 10 MG TABLET PO (22:53)
[2025-03-28 01:00] VITALS: BP 117/67; PULSE 73; RESP 16; O2SAT 99
[2025-03-28] MEDS: SODIUM CHLORIDE 0.9% 1,000 ML 150 ML IV ×4 (02:00→23:28)
[2025-03-28 05:00] VITALS: BP 120/69; PULSE 70; RESP 16; TEMP 37; O2SAT 99
[2025-03-28] MEDS: LEVOTHYROXINE 112 MCG TABLET PO (06:19)
[2025-03-28 09:00] VITALS: BP 121/74; PULSE 64; RESP 18; TEMP 36; O2SAT 100
[2025-03-28] MEDS: FERROUS SULFATE 325 MG TABLET PO (09:40)
[2025-03-28] MEDS: CITALOPRAM 10 MG TABLET PO (09:41)
[2025-03-28] MEDS: MULTIVITAMIN 1 TABLET 1 TAB PO (09:41)
[2025-03-28] MEDS: PANTOPRAZOLE DR 40 MG TABLET PO (09:42)
[2025-03-28] MEDS: POTASSIUM CHLORIDE 20 MEQ TAB PO (09:42)
[2025-03-28] MEDS: SPIRONOLACTONE 25 MG TABLET PO (09:42)
[2025-03-28] MEDS: FUROSEMIDE 20 MG TABLET PO (09:42)
[2025-03-28] MEDS: LACTULOSE 20 GM/30 ML SOLUTION 60 GM PO ×4 (09:45→21:15)
--- NOTE | 2025-03-28 12:03 | OT.IP.TRT ---
Current Diagnoses Hepatic encephalopathy (03/28/25) Occupational Therapy Treatment Note M2 OT-IP Current Condition Start: 03/27/25 14:01 Freq: Status: Active Protocol: Document 03/27/25 14:01 JEVON (Rec: 03/27/25 14:27 JEVON Desktop) Occupational Therapy Current Condition Current Condition Evaluation Date 03/27/25 Treatment Diagnosis hepatic encephalopathy, decreased self care Diagnosis Onset Date 03/26/25 M3 OT- IP Subjective and Pain Start: 03/27/25 14:01 Freq: Status: Active Protocol: Document 03/28/25 12:27 [facility] (Rec: 03/28/25 12:35 [facility] Desktop) OT- Subjective Occupational Therapy Visit Type Type Treatment Note Visit Start Time 11:25 Visit Stop Time 12:03 Occupational Therapy Visit Comments Patient Comments Pt agreed to get up and go to the bathroom. Patient/Caregiver TO go home. Goals OT Pain Assessment Pain When Pain Assessed At Rest Pain Present Pain Present Denied Pain M4 OT- IP ADL's Start: 03/27/25 14:01 Freq: Status: Active Protocol: Document 03/28/25 12:27 [facility] (Rec: 03/28/25 12:35 [facility] Desktop) OT [id number] Comments OT Self-Feeding Not at meal time. Comments OT ADL-Grooming Comments OT Grooming Comments Pt able to wash her hands at the sink. OT ADL-Oral Care Comments Oral Care Comments Pt states did prior. OT ADL-Dressing General Eval Lower Body Dressing Maximum Assistance Ability Areas Needing Socks Assistance Comments OT Dressing Comments Assist for socks. MEG for gown change. OT ADL-Toileting General Evaluation Toileting Ability Moderate Assistance Comments OT Toileting MEG for completeness to wipe and place barrier cream Comments on her per pt's request. OT ADL-Bathing Comments OT Bathing Comments Not performed. M5 OT- IP IADL's Start: 03/27/25 14:01 Freq: Status: Active Protocol: Document 03/27/25 14:01 JEVON (Rec: 03/27/25 14:27 JEVON Desktop) OT-Instrumental Activities of Daily Living Deficits IADL Deficits No Deficits Identified Home Safety Awareness Awareness of Need Good Awareness for Assistance at Home Ability to Problem Able to Problem Solve Solve Emergency Situations Home Safety Comments Pt is aware that she needs assistance and reports that her niece is able to be with her 29/12. Medication Management Medication Caregiver Administers Management Money Management Money Management Caregiver Provides Assistance Meal Preparation Meal Preparation Caregiver Provides Assist Brasswind Instrument Repairer Brasswind Instrument Repairer Caregiver Provides Assist Driving Driving Caregiver Provides Assist M6 OT- IP Functional Cognition Start: 03/27/25 14:01 Freq: Status: Active Protocol: Document 03/28/25 12:27 [facility] (Rec: 03/28/25 12:35 [facility] Desktop) Cognitive Factors Limiting Selfcare Function Cognitive Comments Cognitive Assessment Pt needing increased time to follow commands. Able to Comments answer home safety questions with 50% accuracy. M7 OT- IP Mobility and Balance Start: 03/27/25 14:01 Freq: Status: Active Protocol: Document 03/28/25 12:27 [facility] (Rec: 03/28/25 12:35 [facility] Desktop) OT- Bed Mobility Assessment Supine to Sit Supine to Sit Assist Standby Assistance OT-Transfer Assessment Sit to and From Stand Sit to and from Standby Assistance Stand Transfers Transfer Ability Standby Assistance Technique Transfer Destination Bed,Chair,Toilet Transfer Technique Stand Step Pivot Devices Transfer Assistive Gait Belt,Front Wheeled Walker Devices OT- Gait Assessment Comments Gait Ability Pt able to walk with the FWW to the bathroom, sink and Comments then to the recliner. OT- Balance Assessment Sitting Balance and Reactions Static Sitting Normal Balance Ability Dynamic Sitting Good Balance Ability Standing Balance and Reactions Static Standing Good Balance Ability Dynamic Standing Good Balance Ability M8 OT- IP Objective Assessments Start: 03/27/25 14:01 Freq: Status: Active Protocol: Document 03/27/25 14:01 JEVON (Rec: 03/27/25 14:27 SHAYNANHLOYDA Desktop) OT Gross Range of Motion Upper Extremity Range of Motion Assessment Within Functional Limits OT Strength Upper Extremity Strength Shoulder L3+, R 4- Elbow B 4 Hand 4 Hand Fugitive Investigator Strength Hand Dominance Right OT-Muscle Tone Assessment Muscle Tone WNL Yes M9 OT- IP Assessment and Plan Start: 03/27/25 14:01 Freq: Status: Active Protocol: Document 03/28/25 12:27 [facility] (Rec: 03/28/25 12:35 [facility] Desktop) OT Summary Assessment and Plan Potential Rehabilitation Fair Potential Analytic Complexity Moderate at Evaluation Summary OT Impairments Strength,Balance,Functional Cognition,Grooming,Dressing ,Toileting,Bathing,Toilet Transfers,Shower Transfers, Activity Tolerance Progress Towards Slow Progress due to Cognition Goals Assessment Summary Pt still needing for safety awareness to keep the FWW in front of her at all times. Assist for completeness for toileting needs and dressing needs today. Pt will benefit from 24/7 assist and home health. Goals Grooming Goal Independent Dressing Goal Independent Toileting Goal Standby Assistance Bathing Goal Standby Assistance Toilet Transfer Goal Independent Shower Transfer Goal Standby Assistance Days to Meet Goals 7 Frequency of Treatment Other frequency 5x/wk Treatment Plan OT Treatment Plan ADL Training,Functional Cognition Training,Functional Mobility,Therapeutic Exercises,Patient/Family Education ,Discharge Planning Other Treatment ACL Recommendations and Next Treatment Focus Discharge Recommendations OT Discharge Home with 24/ Assist Available,Home Health Recommendations Transportation Needs Private Vehicle at Discharge
[2025-03-28] MEDS: INSULIN LISPRO 100 UNIT/ML 3ML VIAL SUBCUT ×2 (12:40→17:50)
--- NOTE | 2025-03-28 14:00 | PT.IPTN ---
Current Diagnoses Hepatic encephalopathy (03/28/25) Physical Therapy Treatment Note M2 PT-IP Current Condition Start: 03/27/25 16:15 Freq: NEEDED Status: Active Protocol: Document 03/27/25 15:50 [facility] (Rec: 03/27/25 16:25 DCW [id number]) Physical Therapy Current Condition Current Condition Evaluation Date 03/27/25 Treatment Diagnosis Confusion, fatigue Onset Date 03/26/25 M3 PT-IP Subjective Start: 03/27/25 16:15 Freq: NEEDED Status: Active Protocol: Document 03/28/25 14:00 AB (Rec: 03/28/25 16:05 AB [id number]) Subjective Physical Therapy Visit Type Type Treatment Note Visit Start Time 14:00 Visit Stop Time 14:25 Number of HISTOLOGY TECH Visits 0 Physical Therapy Visit Comments Patient Comments agreeable to do PT M4 PT-IP Mobility and Gait Start: 03/27/25 16:15 Freq: NEEDED Status: Active Protocol: Document 03/28/25 14:00 AB (Rec: 03/28/25 16:05 AB [id number]) PT-Bed Mobility Assessment Supine to Sit Supine to Sit Standby Assistance,1 Person Assistance,Head of Bed Elevated,Bedrails PT-Transfer Assessment Sit to and From Stand Sit to and from Contact Guard Assistance,1 Person Assistance,Use of Stand Upper Extremities Equipment Transfer Assistive Gait Belt,Front Wheeled Walker Device Orthotic/Prosthetic No Devices or Brace: Transfers Transfer Destination Toilet Transfer Technique ambulated Transfer Ability Level of Assist Standby Assistance,Contact Guard Assistance,1 Person Assistance,Use of Upper Extremities Comments Mobility Comments pt in bed and agreed to get up. requested to use the toilet. supine to sit SBA. able to sit on EOB SBA. sit to stand CGA and ambulated to the toilet using FWW CGA. needed mod cues on turning and safety. required assist with hygiene care. pt with slight confusion. sit to stand from the commode using grab bar CGA and ambulated towards the sink using FWW SBA to CGA. able to maintain standing SBA while completing handwashing. pt requested to go back to bed. ambulated to the bed using FWW SBA to CGA. completed sit to supine SBA. positioned pt in bed. call light and table placed within reach. Gait Assessment Gait Gait Assistance Standby Assistance,Contact Guard Assist Required: Distance (Feet) 15 Able to Maintain Yes Weight Bearing Status During Gait Assistive Devices Assistive Device Gait Belt,Front Wheeled Walker Orthotic/Prosthetic No Devices or Brace: Gait Deviations General Gait Pattern Decreased Stride Length,Decreased Feet Clearance Factors Limiting Gait Function Factors Limiting Decreased Activity Tolerance,Decreased Strength, Gait Function Difficulty Following Directions,Poor Balance,Poor Safety Awareness M5 PT-IP Objective Assessments Start: 03/27/25 16:15 Freq: NEEDED Status: Active Protocol: Document 03/27/25 15:50 DCW (Rec: 03/27/25 16:25 DCW [id number]) Orientation Orientation/Cognition Level of Alertness Alert Language Function Word Finding Difficulties Ability Strength Lower Extremity Strength Hip 4/5 Knee 4/5 Ankle 4/5 M6 PT-IP Treatment Start: 03/27/25 16:15 Freq: NEEDED Status: Active Protocol: Document 03/28/25 14:00 AB (Rec: 03/28/25 16:05 AB [id number]) Physical Therapy Treatment Education Education Provided Safety M7 PT-IP Assessment and Plan Start: 03/27/25 16:15 Freq: NEEDED Status: Active Protocol: Document 03/28/25 14:00 AB (Rec: 03/28/25 16:05 AB [id number]) PT Summary Assessment and Plan Potential Rehabilitation Fair Potential Summary Impairments Pain,ROM,Strength,Balance,Coordination,Sensation,Tone, Cognition,Bed Mobility,Transfers,Gait,Activity Tolerance Progress Towards Slow Progress due to Medical Issues,Slow Progress due Goals to Activity Tolerance,Slow Progress - Other Assessment Summary pt requiring SBA to CGA with mobility using FWW. pt requiring cues for safety due to slight confusion. pt presents with decrease activity tolerance affecting mobility independence. pt lives with her niece. d/c plan depending on progress and if niece will be able to provide assistance to pt. pt will also benefit from HHPT. will continue to assess progress. Goals Bed Mobility Goal Independent Transfer Goal Independent,Front Wheeled Walker Gait Goal Independent,Front Wheel Walker Gait Distance 60 Other Goals improve transfers and ambulation using 4WW mod I 100 ft up/down 2 steps L rail ascending SBA Days to Meet Goals 10 Frequency of Treatment Frequency Of Once a Day Treatment Treatment Plan Physical Therapy Bed Mobility Training,Transfer Training,Gait Training, Treatment Plan Therapeutic Exercise,Balance Retraining,Discharge Planning,Neuromuscular Re-ed,Manual Therapy Discharge Recommendations PT Discharge Home with 29/12 Assist Available,Home Health Recommendations Transportation Needs Private Vehicle at Discharge - PT assist 1
--- NOTE | 2025-03-28 15:31 | CM.DPNOTE ---
DCP Continued: Reviewed EMR and team rounds for pt?s medical status. Per hospitalist, pt not medically cleared yet - will have to increase lactulose dose and determine plan of care from progress. No discharge needs identified at this time. Plan: Anticipating discharge home with family when medically cleared. CM Team will continue to follow for coordination of discharge plans. WILSON Caceres
[2025-03-28 16:08] VITALS: BP 131/67; PULSE 66; RESP 18; TEMP 36; O2SAT 100
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
[2025-03-28 16:19] LABS: Ammonia (NH3) 136 umol/L (9-30)
[2025-03-28 20:00] VITALS: BP 112/62; PULSE 64; RESP 16; TEMP 36; O2SAT 99
[2025-03-28 21:15] VITALS: BP 112/62; PULSE 64
[2025-03-28] MEDS: RIFAXIMIN 550 MG 550 EACH PO (21:15)
[2025-03-29] MEDS: SODIUM CHLORIDE 0.9% 1,000 ML 150 ML IV ×2 (05:55→12:56)
[2025-03-29] MEDS: LEVOTHYROXINE 112 MCG TABLET PO (05:55)
[2025-03-29 08:00] VITALS: BP 126/69; PULSE 68; RESP 20; TEMP 36.5; O2SAT 94
[2025-03-29 08:36] LABS: Ammonia (NH3) 109 umol/L (9-30)
[2025-03-29] MEDS: FUROSEMIDE 20 MG TABLET PO (09:09)
[2025-03-29] MEDS: CITALOPRAM 10 MG TABLET PO (09:10)
[2025-03-29] MEDS: PANTOPRAZOLE DR 40 MG TABLET PO (09:10)
[2025-03-29] MEDS: SPIRONOLACTONE 25 MG TABLET PO (09:10)
[2025-03-29] MEDS: MULTIVITAMIN 1 TABLET 1 TAB PO (09:11)
[2025-03-29] MEDS: FERROUS SULFATE 325 MG TABLET PO (09:11)
[2025-03-29] MEDS: POTASSIUM CHLORIDE 20 MEQ TAB PO (09:11)
[2025-03-29] MEDS: RIFAXIMIN 550 MG 550 EACH PO (09:11)
[2025-03-29] MEDS: LACTULOSE 20 GM/30 ML SOLUTION 60 GM PO ×3 (09:12→17:24)
--- NOTE | 2025-03-29 10:40 | OT.IP.TRT ---
Current Diagnoses Hepatic encephalopathy (03/28/25) Occupational Therapy Treatment Note M2 OT-IP Current Condition Start: 03/27/25 14:01 Freq: Status: Active Protocol: Document 03/27/25 14:01 JEVON (Rec: 03/27/25 14:27 SHAYNANCLOYDA Desktop) Occupational Therapy Current Condition Current Condition Evaluation Date 03/27/25 Treatment Diagnosis hepatic encephalopathy, decreased self care Diagnosis Onset Date 03/26/25 M3 OT- IP Subjective and Pain Start: 03/27/25 14:01 Freq: Status: Active Protocol: Document 03/29/25 10:40 [facility] (Rec: 03/29/25 12:05 [facility] Desktop) OT- Subjective Occupational Therapy Visit Type Type Treatment Note Visit Start Time 10:15 Visit Stop Time 10:40 Occupational Therapy Visit Comments Patient Comments Pt agreed to redo SLUMS and wanting to use the toilet. Patient/Caregiver TO go home. Goals OT Pain Assessment Pain When Pain Assessed At Rest Pain Present Pain Present Denied Pain M4 OT- IP ADL's Start: 03/27/25 14:01 Freq: Status: Active Protocol: Document 03/29/25 10:40 [facility] (Rec: 03/29/25 12:05 [facility] Desktop) OT ADL-Toileting General Evaluation Toileting Ability Moderate Assistance Comments OT Toileting MEG for completeness to wipe and place barrier cream Comments on her per pt's request. OT ADL-Bathing Comments OT Bathing Comments Nursing aid states had pr shower earlier and that pt able to most of it on her own while nursing aid present for the shower. M5 OT- IP IADL's Start: 03/27/25 14:01 Freq: Status: Active Protocol: Document 03/27/25 14:01 JEVON (Rec: 03/27/25 14:27 [facility]NCLOY[facility] Desktop) OT-Instrumental Activities of Daily Living Deficits IADL Deficits No Deficits Identified Home Safety Awareness Awareness of Need Good Awareness for Assistance at Home Ability to Problem Able to Problem Solve Solve Emergency Situations Home Safety Comments Pt is aware that she needs assistance and reports that her niece is able to be with her 24/7. Medication Management Medication Caregiver Administers Management Money Management Money Management Caregiver Provides Assistance Meal Preparation Meal Preparation Caregiver Provides Assist Lot Boss Lot Boss Caregiver Provides Assist Driving Driving Caregiver Provides Assist M6 OT- IP Functional Cognition Start: 03/27/25 14:01 Freq: Status: Active Protocol: Document 03/29/25 10:40 [facility] (Rec: 03/29/25 12:05 [facility] Desktop) Cognitive Factors Limiting Selfcare Function Cognitive Tests SLUMS Pt scored 6/30 today able to just state the state of [place], recall 1/5 objects after time passed, able to draw an x on the triangle and pick out the smallest shape, and able to answer 1/4 questions right after paragraph read. Cognitive Comments Cognitive Assessment Pt had no awareness that the remote was in her hand Comments when asked to turn off the TV. Pt states in the past 6 month that her memory has progressively gotten worse. Pt feels at times that it is suck in her head and not able to get her words out. M7 OT- IP Mobility and Balance Start: 03/27/25 14:01 Freq: Status: Active Protocol: Document 03/29/25 10:40 [facility] (Rec: 03/29/25 12:05 [facility] Desktop) OT-Transfer Assessment Sit to and From Stand Sit to and from Standby Assistance Stand Transfers Transfer Ability Contact Guard Assistance Technique Transfer Destination Chair,Toilet Transfer Technique Stand Step Pivot Devices Transfer Assistive Gait Belt,Front Wheeled Walker Devices Comments Mobility Comments Assist to keep the FWW in front of her at all time for safety. OT- Gait Assessment Comments Gait Ability Pt SBA to at times CGA for safety with FWW. Comments OT- Balance Assessment Sitting Balance and Reactions Static Sitting Normal Balance Ability Dynamic Sitting Good Balance Ability Standing Balance and Reactions Static Standing Good Balance Ability Dynamic Standing Fair Balance Ability M8 OT- IP Objective Assessments Start: 03/27/25 14:01 Freq: Status: Active Protocol: Document 03/27/25 14:01 SHAYNANCLOYDA (Rec: 03/27/25 14:27 SHAYNANCLOYDA Desktop) OT Gross Range of Motion Upper Extremity Range of Motion Assessment Within Functional Limits OT Strength Upper Extremity Strength Shoulder L3+, R 4- Elbow B 4 Hand 4 Hand Head Golf Professional Strength Hand Dominance Right OT-Muscle Tone Assessment Muscle Tone WNL Yes M9 OT- IP Assessment and Plan Start: 03/27/25 14:01 Freq: Status: Active Protocol: Document 03/29/25 10:40 [facility] (Rec: 03/29/25 12:05 [facility] Desktop) OT Summary Assessment and Plan Potential Rehabilitation Fair Potential Analytic Complexity Moderate at Evaluation Summary OT Impairments Strength,Balance,Functional Cognition,Grooming,Dressing ,Toileting,Bathing,Toilet Transfers,Shower Transfers, Activity Tolerance Progress Towards Slow Progress due to Cognition Goals Assessment Summary Pt scored 6/30 on the SLUMS. Pt able to follow routine tasks of ADL's with vc for completeness and safety. Today needing CGA for balance as trying to back up without of the FWW. When medically stable, pt will benefit from 24/7 assist and home health. Goals Grooming Goal Independent Dressing Goal Independent Toileting Goal Standby Assistance Bathing Goal Standby Assistance Toilet Transfer Goal Independent Shower Transfer Goal Standby Assistance Days to Meet Goals 7 Frequency of Treatment Other frequency 5x/wk Treatment Plan OT Treatment Plan ADL Training,Functional Cognition Training,Functional Mobility,Therapeutic Exercises,Patient/Family Education ,Discharge Planning Discharge Recommendations OT Discharge Home with 24/7 Assist Available,Home Health Recommendations Transportation Needs Private Vehicle at Discharge
--- NOTE | 2025-03-29 10:55 | PT.IPTN ---
Current Diagnoses Hepatic encephalopathy (03/28/25) Physical Therapy Treatment Note M2 PT-IP Current Condition Start: 03/27/25 16:15 Freq: NEEDED Status: Active Protocol: Document 03/27/25 15:50 DCW (Rec: 03/27/25 16:25 DCW [id number]) Physical Therapy Current Condition Current Condition Evaluation Date 03/27/25 Treatment Diagnosis Confusion, fatigue Onset Date 03/26/25 M3 PT-IP Subjective Start: 03/27/25 16:15 Freq: NEEDED Status: Active Protocol: Document 03/29/25 10:55 AB (Rec: 03/29/25 13:42 AB [id number]) Subjective Physical Therapy Visit Type Type Treatment Note Visit Start Time 10:55 Visit Stop Time 11:20 Number of EXTRACTOR PLANT OPERATOR Visits 0 Physical Therapy Visit Comments Patient Comments agreeable to do PT M4 PT-IP Mobility and Gait Start: 03/27/25 16:15 Freq: NEEDED Status: Active Protocol: Document 03/29/25 10:55 AB (Rec: 03/29/25 13:42 AB [id number]) PT-Bed Mobility Assessment Sit to Supine Sit to Supine Minimal Assistance,1 Person Assistance PT-Transfer Assessment Sit to and From Stand Sit to and from Contact Guard Assistance,1 Person Assistance,Use of Stand Upper Extremities Equipment Transfer Assistive Gait Belt,4 Wheeled Walker Device Orthotic/Prosthetic No Devices or Brace: Transfers Transfer Destination Toilet Transfer Technique ambulated Transfer Ability Level of Assist Standby Assistance,Contact Guard Assistance,1 Person Assistance,Use of Upper Extremities Comments Mobility Comments pt sitting on the chair and requested to use the toilet . sit to stand from the chair CGA and ambulated to the toilet using 4WW SBA to CGA and cues for safety. pt continues to have slight confusion and requires cues for safety. pt requiring assist with hygiene care and brief management. sit to stand from the toilet CGA and ambulated towards the sink SBA to CGA. able to maintain standing SBA while completing handwashing. pt ambulated in room ~ 30 ft using 4WW SBA to CGA and cues. requested to go back to bed. sit to supine min A and cues. positioned pt in bed. call light and table placed within reach. Gait Assessment Gait Gait Assistance Standby Assistance,Contact Guard Assist Required: Distance (Feet) 30 Able to Maintain Yes Weight Bearing Status During Gait Assistive Devices Assistive Device Gait Belt,4 Wheeled Walker Orthotic/Prosthetic No Devices or Brace: Gait Deviations General Gait Pattern Decreased Stride Length,Decreased Feet Clearance,Step- to Gait Factors Limiting Gait Function Factors Limiting Decreased Activity Tolerance,Decreased Strength, Gait Function Difficulty Following Directions,Poor Balance,Poor Safety Awareness M5 PT-IP Objective Assessments Start: 03/27/25 16:15 Freq: NEEDED Status: Active Protocol: Document 03/27/25 15:50 DCW (Rec: 03/27/25 16:25 DCW [id number]) Orientation Orientation/Cognition Level of Alertness Alert Language Function Word Finding Difficulties Ability Strength Lower Extremity Strength Hip 4/5 Knee 4/5 Ankle 4/5 M6 PT-IP Treatment Start: 03/27/25 16:15 Freq: NEEDED Status: Active Protocol: Document 03/29/25 10:55 AB (Rec: 03/29/25 13:42 AB [id number]) Physical Therapy Treatment Education Education Provided Safety M7 PT-IP Assessment and Plan Start: 03/27/25 16:15 Freq: NEEDED Status: Active Protocol: Document 03/29/25 10:55 AB (Rec: 03/29/25 13:42 AB [id number]) PT Summary Assessment and Plan Potential Rehabilitation Fair Potential Summary Impairments Pain,ROM,Strength,Balance,Coordination,Sensation,Tone, Cognition,Bed Mobility,Transfers,Gait,Activity Tolerance Progress Towards Slow Progress due to Medical Issues,Slow Progress due Goals to Activity Tolerance,Slow Progress - Other Assessment Summary pt requiring SBA to CGA with transfers and ambulation using 4WW but continues to require cues with all tasks for safety due to decrease safety awareness. pt plans to go home and has her niece to assist her at home. pt will benefit from HHPT. Goals Bed Mobility Goal Independent Transfer Goal Independent,Front Wheeled Walker Gait Goal Independent,Front Wheel Walker Gait Distance 60 Other Goals improve transfers and ambulation using 4WW mod I 100 ft up/down 2 steps L rail ascending SBA Days to Meet Goals 10 Frequency of Treatment Frequency Of Once a Day Treatment Treatment Plan Physical Therapy Bed Mobility Training,Transfer Training,Gait Training, Treatment Plan Therapeutic Exercise,Balance Retraining,Discharge Planning,Neuromuscular Re-ed,Manual Therapy Discharge Recommendations PT Discharge Home with 29/12 Assist Available,Home Health Recommendations Transportation Needs Private Vehicle at Discharge - PT assist 1
--- NOTE | 2025-03-29 11:53 | CM.DPC ---
SHAKILAP Cont. Reviewed EMR and team rounds for pt's status updates. She would have been able to d/c home today, however her SLUMS has actually worsened, and her ammonia levels are still high despite increasing Lactulose. Plan is to continue lactulose until pt's mentation/SLUMS improves.
[2025-03-29 12:00] VITALS: BP 136/63; PULSE 78; RESP 20; TEMP 36.4; O2SAT 97
[2025-03-29 12:49] LABS: Add Manual Diff / Slide Review NO; Hematocrit 29.5 % (36-46); Hemoglobin 9.5 g/dL (12.0-16.0); Lymphocytes Absolute Auto 700 /uL (1100-4500); Mean Corpuscular HGB Conc 32.2 % (30-36); Mean Corpuscular Hemoglobin 28.1 PG (26-34); Mean Corpuscular Volume 87.4 fL (80-100); Platelet Count 78 X10^3/uL (150-400)
--- NOTE | 2025-03-29 13:24 | PC.NURSE ---
Patient up and worked with physical therapy, sat in the chair for a couple of hours. She is napping now. She is more alert and oriented, patient knew this RNs name and recognized from working here. Taking all medication and lactulose well. Patient has had two bms and voiding well
--- NOTE | 2025-03-29 15:09 | DI.CT.S_ITS ---
PROCEDURE: CT ABDOMEN LIVER PROTOCOL INDICATIONS: liver protocol TECHNIQUE: 4 phase scanning was performed. Non-contrast 5 mm axial sections acquired from the diaphragm to the iliac crests. Following the administration of intravenous contrast, 5 mm thick arterial-phase, portal venous-phase, and 5-minute delayed phase images were acquired through the liver. 5 mm thick coronal and sagittal reformats were performed. For radiation dose reduction, the following was used: automated exposure control, adjustment of mA and/or kV according to patient size. COMPARISON: [facility], CT, CT ABDOMEN PELVIS WO [facility], 01/05/2025, 13:26. FINDINGS: Image quality: Diagnostic Lower chest: Lower lungs appear unremarkable. Aortic valve calcifications partially seen. Liver: Cirrhotic liver contour. No hypervascular liver lesions or areas of washout Gallbladder and biliary system: Cholecystectomy clips, mildly ectatic biliary system likely related to post surgical state Pancreas: No ductal dilation Spleen: Splenomegaly of 14 cm Adrenals: No discrete nodules Kidneys: No solid renal mass. No hydronephrosis Vessels and lymph nodes: There are significant upper abdominal portal venous varices particularly in the perigastric region. No enlarged lymph nodes by size criteria. Prominent varices also seen within the gastric fundus Bowel and peritoneum: No bowel obstruction. No pathologic ascites Body wall: Mild diffuse anasarca Bones: There are degenerative osseous changes. No aggressive appearing osseous abnormality IMPRESSION: Cirrhosis with sequelae of portal hypertension. There are significant portal venous varices, including varix within the gastric fundus. Splenomegaly. No hypervascular liver lesions identified. Recommend continued HCC surveillance imaging. Other findings above. Dictated by: Alin Barr M.D. on 03/29/2025 at 16:49 Approved by: Alin Barr M.D. on 03/29/2025 at 16:55
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
[2025-03-29 15:35] LABS: Alanine Aminotransferase 28 IU/L (<35); Albumin 3.3 g/dL (3.5-5.0); Albumin Globulin Ratio 1.0 (1.0-2.8); Alkaline Phosphatase 124 U/L (38-126); Blood Urea Nitrogen 22 mg/dL (7-17); Calcium 9.0 mg/dL (8.4-10.2); Carbon Dioxide 13 mmol/L (22-32); Chloride 119 mmol/L (98-107); Estimated Glomerular Filt Rate 34 mL/min (>60); Globulin 3.3 g/dL (1.7-4.1); Glucose 119 mg/dL (70-99); HEMOLYSIS 23 (0-50); Potassium 4.3 mmol/L (3.4-5.1); Sodium 142 mmol/L (137-145); Total Protein 6.6 g/dL (6.3-8.2)
[2025-03-29 16:00] VITALS: BP 122/62; PULSE 83; RESP 20; O2SAT 94
[2025-03-29 18:00] VITALS: BP 132/72; PULSE 78; RESP 18; TEMP 36.4; O2SAT 95
[2025-03-29 20:00] VITALS: BP 116/54; PULSE 56; RESP 17; TEMP 36.2; O2SAT 100
[2025-03-30 01:31] VITALS: BP 122/60; PULSE 64
[2025-03-30] MEDS: SODIUM CHLORIDE 0.9% 1,000 ML 150 ML IV (01:31)
[2025-03-30] MEDS: RIFAXIMIN 550 MG 550 EACH PO ×3 (01:32→21:04)
[2025-03-30] MEDS: LACTULOSE 20 GM/30 ML SOLUTION 60 GM PO ×5 (01:32→21:03)
[2025-03-30 04:00] VITALS: BP 119/68; PULSE 60; RESP 17; TEMP 35.9; O2SAT 98
[2025-03-30] MEDS: LEVOTHYROXINE 112 MCG TABLET PO (05:32)
[2025-03-30 06:00] VITALS: BP 124/85; PULSE 78; RESP 16; TEMP 36.6; O2SAT 96
[2025-03-30 09:55] VITALS: BP 120/51; PULSE 62
[2025-03-30] MEDS: FUROSEMIDE 20 MG TABLET PO (09:55)
[2025-03-30] MEDS: FERROUS SULFATE 325 MG TABLET PO (09:55)
[2025-03-30] MEDS: MULTIVITAMIN 1 TABLET 1 TAB PO (09:56)
[2025-03-30] MEDS: POTASSIUM CHLORIDE 20 MEQ TAB PO (09:56)
[2025-03-30] MEDS: SPIRONOLACTONE 25 MG TABLET PO (09:56)
[2025-03-30] MEDS: PANTOPRAZOLE DR 40 MG TABLET PO (09:56)
--- NOTE | 2025-03-30 10:20 | OT.IP.TRT ---
Current Diagnoses Hepatic encephalopathy (03/28/25) Occupational Therapy Treatment Note M2 OT-IP Current Condition Start: 03/27/25 14:01 Freq: Status: Active Protocol: Document 03/27/25 14:01 JEVON (Rec: 03/27/25 14:27 SHAYNAAKLOYDA Desktop) Occupational Therapy Current Condition Current Condition Evaluation Date 03/27/25 Treatment Diagnosis hepatic encephalopathy, decreased self care Diagnosis Onset Date 03/26/25 M3 OT- IP Subjective and Pain Start: 03/27/25 14:01 Freq: Status: Active Protocol: Document 03/30/25 10:52 [facility] (Rec: 03/30/25 11:05 [facility] Desktop) OT- Subjective Occupational Therapy Visit Type Type Treatment Note Visit Start Time 10:20 Visit Stop Time 10:48 Occupational Therapy Visit Comments Patient Comments Pt agreed to redo SLUMS and having to use the BSC. Patient/Caregiver TO go home. Goals OT Pain Assessment Pain When Pain Assessed At Rest Pain Present Pain Present Denied Pain M4 OT- IP ADL's Start: 03/27/25 14:01 Freq: Status: Active Protocol: Document 03/30/25 10:52 [facility] (Rec: 03/30/25 11:05 [facility] Desktop) OT [id number] Comments OT Self-Feeding Not at meal time. Comments OT ADL-Grooming Comments OT Grooming Comments Pt able to wash her hands at the sink with FWW. OT ADL-Toileting General Evaluation Toileting Ability Standby Assistance Comments OT Toileting VC for completeness to wipe. Comments OT ADL-Bathing Comments OT Bathing Comments Not performed. M5 OT- IP IADL's Start: 03/27/25 14:01 Freq: Status: Active Protocol: Document 03/27/25 14:01 JEVON (Rec: 03/27/25 14:27 [facility]) OT-Instrumental Activities of Daily Living Deficits IADL Deficits No Deficits Identified Home Safety Awareness Awareness of Need Good Awareness for Assistance at Home Ability to Problem Able to Problem Solve Solve Emergency Situations Home Safety Comments Pt is aware that she needs assistance and reports that her niece is able to be with her 24/7. Medication Management Medication Caregiver Administers Management Money Management Money Management Caregiver Provides Assistance Meal Preparation Meal Preparation Caregiver Provides Assist Supervisor Personnel Clerks Supervisor Personnel Clerks Caregiver Provides Assist Driving Driving Caregiver Provides Assist M6 OT- IP Functional Cognition Start: 03/27/25 14:01 Freq: Status: Active Protocol: Document 03/30/25 10:52 [facility] (Rec: 03/30/25 11:05 [facility] Desktop) Cognitive Factors Limiting Selfcare Function Cognitive Tests SLUMS Pt much more alert and scored 19/30 on the SLUMS much improved from the 630 yesterday. Pt still not able to subtract 100-23, able to recall 5 animals in minute, able to recall 3/5 objects after time passed, not able to states 4 digit number backwards, and not able draw the number or hour hands on the clock correctly. Cognitive Comments Cognitive Assessment Pt much more alert today and better with overall safety Comments awareness. Pt feels that she is 70% base to her baseline physically and mentally. M7 OT- IP Mobility and Balance Start: 03/27/25 14:01 Freq: Status: Active Protocol: Document 03/30/25 10:52 [facility] (Rec: 03/30/25 11:05 [facility] Desktop) OT-Transfer Assessment Sit to and From Stand Sit to and from Standby Assistance Stand Transfers Transfer Ability Standby Assistance Technique Transfer Destination Bedside Commode,Chair Transfer Technique Stand Step Pivot Devices Transfer Assistive Gait Belt,Front Wheeled Walker Devices OT- Gait Assessment Comments Gait Ability SBA with FWW. Comments OT- Balance Assessment Sitting Balance and Reactions Static Sitting Normal Balance Ability Dynamic Sitting Good Balance Ability Standing Balance and Reactions Static Standing Good Balance Ability Dynamic Standing Good Balance Ability M8 OT- IP Objective Assessments Start: 03/27/25 14:01 Freq: Status: Active Protocol: Document 03/27/25 14:01 [facility] (Rec: 03/27/25 14:27 [facility] Desktop) OT Gross Range of Motion Upper Extremity Range of Motion Assessment Within Functional Limits OT Strength Upper Extremity Strength Shoulder L3+, R 4- Elbow B 4 Hand 4 Hand Opener Tender Strength Hand Dominance Right OT-Muscle Tone Assessment Muscle Tone WNL Yes M9 OT- IP Assessment and Plan Start: 03/27/25 14:01 Freq: Status: Active Protocol: Document 03/30/25 10:52 [facility] (Rec: 03/30/25 11:05 [facility] Desktop) OT Summary Assessment and Plan Potential Rehabilitation Good Potential Analytic Complexity Moderate at Evaluation Summary OT Impairments Strength,Balance,Functional Cognition,Grooming,Dressing ,Toileting,Bathing,Toilet Transfers,Shower Transfers, Activity Tolerance Progress Towards Progressing Toward Goals Goals Assessment Summary Pt scored 19/30 on the SLUMS today and pt feels that she is 70% back to her baseline physically and mentally . Pt to go home with 24/7 assist and home health. Goals Grooming Goal Independent Dressing Goal Independent Toileting Goal Independent Bathing Goal Standby Assistance Toilet Transfer Goal Independent Shower Transfer Goal Standby Assistance Days to Meet Goals 6 Frequency of Treatment Other frequency 5x/wk Treatment Plan OT Treatment Plan ADL Training,Functional Cognition Training,Functional Mobility,Therapeutic Exercises,Patient/Family Education ,Discharge Planning Discharge Recommendations OT Discharge Home with 24/7 Assist Available,Home Health Recommendations Transportation Needs Private Vehicle at Discharge
--- NOTE | 2025-03-30 10:27 | PT.IPTN ---
Current Diagnoses Hepatic encephalopathy (03/28/25) Physical Therapy Treatment Note M2 PT-IP Current Condition Start: 03/27/25 16:15 Freq: NEEDED Status: Active Protocol: Document 03/27/25 15:50 DCW (Rec: 03/27/25 16:25 DCW [id number]) Physical Therapy Current Condition Current Condition Evaluation Date 03/27/25 Treatment Diagnosis Confusion, fatigue Onset Date 03/26/25 M3 PT-IP Subjective Start: 03/27/25 16:15 Freq: NEEDED Status: Active Protocol: Document 03/30/25 10:13 [facility] (Rec: 03/30/25 10:27 [facility] [id number]) Subjective Physical Therapy Visit Type Type Treatment Note Visit Start Time 09:20 Visit Stop Time 09:45 Number of OUTREACH AND EDUCATION SOCIAL WORKER Visits 0 Physical Therapy Visit Comments Patient Comments pt reports sleepy but agreeable to get up M4 PT-IP Mobility and Gait Start: 03/27/25 16:15 Freq: NEEDED Status: Active Protocol: Document 03/30/25 10:13 [facility] (Rec: 03/30/25 10:27 [facility] [id number]) PT-Bed Mobility Assessment Supine to Sit Supine to Sit Standby Assistance,Head of Bed Elevated,Bedrails Scooting Scooting to Edge of Standby Assistance Bed PT-Transfer Assessment Sit to and From Stand Sit to and from Contact Guard Assistance,Use of Upper Extremities Stand Equipment Transfer Assistive Gait Belt,Front Wheeled Walker Device Gait Assessment Gait Distance (Feet) 140 Assistive Devices Assistive Device Gait Belt,Front Wheeled Walker Gait Deviations General Gait Pattern Decreased Stride Length,Decreased Feet Clearance Factors Limiting Gait Function Factors Limiting Decreased Activity Tolerance,Decreased Strength,Poor Gait Function Balance Comments Gait Comments supine to sit w/HOB elevated about 20 deg and use of bed rail sbA w/min cues for sequencing and SbA for scoot to EOB. Pt stood to fWW CGA with cues for hand placement and stood while PT pulled down brief and cleaned pt up and was able to stand for about 3 min during this SBA w/fWW. Stepped into brief SBA then required max A pulling it up but pt did participate. She then amb with FWW and CGA about 70ft with slow but safe gait. Able to go up/down stairs w/B rail use and CGA and amb back to room 70ft. She sat in chair and was set up for breakfast and left with call light in reach and edu to press call light to get up. Supine BP 106/57 to seated 120/51 Stair Climbing Assessment Evaluation Level of Assist On Contact Guard Assistance Stairs Devices Stair Climbing Left Railing,Right Railing Assistive Devices Technique/Endurance Stair Climbing Ascend and Descend Direction Stair Climbing Step to Step Technique Number of Steps 3 Climbed Stair Climbing Set # 1 Repetitions (reps) PT-Balance Assessment Sitting Balance and Reactions Static Sitting Normal Balance Ability Dynamic Sitting Good Balance Ability Standing Balance and Reactions Static Standing Good Balance Ability Dynamic Standing Fair Balance Ability Device Used FWW M5 PT-IP Objective Assessments Start: 03/27/25 16:15 Freq: NEEDED Status: Active Protocol: Document 03/27/25 15:50 DCW (Rec: 03/27/25 16:25 DCW [id number]) Orientation Orientation/Cognition Level of Alertness Alert Language Function Word Finding Difficulties Ability Strength Lower Extremity Strength Hip 4/5 Knee 4/5 Ankle 4/5 M6 PT-IP Treatment Start: 03/27/25 16:15 Freq: NEEDED Status: Active Protocol: Document 03/30/25 10:13 [facility] (Rec: 03/30/25 10:27 [facility] [id number]) Physical Therapy Treatment Education Education Provided Safety M7 PT-IP Assessment and Plan Start: 03/27/25 16:15 Freq: NEEDED Status: Active Protocol: Document 03/30/25 10:13 [facility] (Rec: 03/30/25 10:27 [facility] [id number]) PT Summary Assessment and Plan Potential Rehabilitation Good Potential Summary Impairments Pain,ROM,Strength,Balance,Coordination,Sensation,Tone, Cognition,Bed Mobility,Transfers,Gait,Activity Tolerance Progress Towards Progressing Toward Goals Goals Assessment Summary Pt oriented to place, person and 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 She will benefit from PT Goals Bed Mobility Goal Independent Transfer Goal Independent,Front Wheeled Walker Gait Goal Independent,Front Wheel Walker Gait Distance 60 Other Goals improve transfers and ambulation using 4WW mod I 100 ft up/down 2 steps L rail ascending SBA Days to Meet Goals 10 Frequency of Treatment Frequency Of Once a Day Treatment Treatment Plan Physical Therapy Bed Mobility Training,Transfer Training,Gait Training, Treatment Plan Therapeutic Exercise,Balance Retraining,Discharge Planning,Neuromuscular Re-ed,Manual Therapy Discharge Recommendations PT Discharge Home with 29/12 Assist Available,Home Health Recommendations - PT assist 1
[2025-03-30] MEDS: INSULIN LISPRO 100 UNIT/ML 3ML VIAL SUBCUT ×2 (12:22→16:55)
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
--- NOTE | 2025-03-30 15:59 | CM.DPC ---
DCP Cont: Per MD and PT, pt more alert today and making some improvements and able to ambulate the halls and no longer planning to attempt hospital transfer. Likely another day and possible discharge home tomorrow. Per Naa, confirm pt open with HH services and only need Resumption Orders at d/c. JAY Ramirez
[2025-03-30 18:00] VITALS: BP 106/53; PULSE 56; RESP 18; TEMP 35.7; O2SAT 100
[2025-03-31 05:03] VITALS: BP 113/63; PULSE 58; RESP 16; TEMP 36.5; O2SAT 98
[2025-03-31] MEDS: LEVOTHYROXINE 112 MCG TABLET PO (06:47)
[2025-03-31 08:00] VITALS: BP 105/72; PULSE 67; RESP 19; TEMP 36.7; O2SAT 96
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
[2025-03-31] MEDS: MULTIVITAMIN 1 TABLET 1 TAB PO (09:44)
[2025-03-31] MEDS: PANTOPRAZOLE DR 40 MG TABLET PO (09:44)
[2025-03-31] MEDS: POTASSIUM CHLORIDE 20 MEQ TAB PO (09:44)
[2025-03-31] MEDS: SPIRONOLACTONE 25 MG TABLET PO (09:45)
[2025-03-31] MEDS: FUROSEMIDE 20 MG TABLET PO (09:45)
[2025-03-31] MEDS: LACTULOSE 20 GM/30 ML SOLUTION 60 GM PO ×4 (09:46→20:12)
[2025-03-31] MEDS: FERROUS SULFATE 325 MG TABLET PO (09:46)
--- NOTE | 2025-03-31 11:20 | PT.IPTN ---
Current Diagnoses Hepatic encephalopathy (03/28/25) Physical Therapy Treatment Note M2 PT-IP Current Condition Start: 03/27/25 16:15 Freq: NEEDED Status: Active Protocol: Document 03/27/25 15:50 DCW (Rec: 03/27/25 16:25 DCW [id number]) Physical Therapy Current Condition Current Condition Evaluation Date 03/27/25 Treatment Diagnosis Confusion, fatigue Onset Date 03/26/25 M3 PT-IP Subjective Start: 03/27/25 16:15 Freq: NEEDED Status: Active Protocol: Document 03/31/25 11:20 AB (Rec: 03/31/25 13:30 AB [id number]) Subjective Physical Therapy Visit Type Type Treatment Note Visit Start Time 11:20 Visit Stop Time 11:50 Number of LIME HIDE INSPECTOR Visits 0 Physical Therapy Visit Comments Patient Comments agreeable to do PT M4 PT-IP Mobility and Gait Start: 03/27/25 16:15 Freq: NEEDED Status: Active Protocol: Document 03/31/25 11:20 AB (Rec: 03/31/25 13:30 AB [id number]) PT-Bed Mobility Assessment Supine to Sit Supine to Sit Standby Assistance PT-Transfer Assessment Sit to and From Stand Sit to and from Standby Assistance,1 Person Assistance,Use of Upper Stand Extremities Equipment Transfer Assistive Gait Belt,4 Wheeled Walker Device Orthotic/Prosthetic No Devices or Brace: Transfers Transfer Destination Chair Transfer Technique ambulated Comments Mobility Comments pt in bed and agreeable to do PT. supine to sit SBA. sit to stand SBA and ambulated in the hallway using 4WW SBA to occasional CGA for safety. pt completed ~ 125 ft. pt agreed to stay up on the chair for lunch. positioned pt on the chair. call light and table placed within reach. Gait Assessment Gait Gait Assistance Standby Assistance,Contact Guard Assist Required: Distance (Feet) 125 Able to Maintain Yes Weight Bearing Status During Gait Assistive Devices Assistive Device Gait Belt,4 Wheeled Walker Orthotic/Prosthetic No Devices or Brace: Gait Deviations General Gait Pattern Decreased Stride Length,Decreased Feet Clearance Factors Limiting Gait Function Factors Limiting Decreased Activity Tolerance,Decreased Strength,Limited Gait Function Range of Motion,Poor Balance,Poor Safety Awareness M5 PT-IP Objective Assessments Start: 03/27/25 16:15 Freq: NEEDED Status: Active Protocol: Document 03/27/25 15:50 DCW (Rec: 03/27/25 16:25 DCW [id number]) Orientation Orientation/Cognition Level of Alertness Alert Language Function Word Finding Difficulties Ability Strength Lower Extremity Strength Hip 4/5 Knee 4/5 Ankle 4/5 M6 PT-IP Treatment Start: 03/27/25 16:15 Freq: NEEDED Status: Active Protocol: Document 03/31/25 11:20 AB (Rec: 03/31/25 13:30 AB [id number]) Physical Therapy Treatment Education Education Provided Safety M7 PT-IP Assessment and Plan Start: 03/27/25 16:15 Freq: NEEDED Status: Active Protocol: Document 03/31/25 11:20 AB (Rec: 03/31/25 13:30 AB [id number]) PT Summary Assessment and Plan Potential Rehabilitation Good Potential Summary Impairments Pain,ROM,Strength,Balance,Coordination,Sensation,Tone, Cognition,Bed Mobility,Transfers,Gait,Activity Tolerance Progress Towards Slow Progress due to Activity Tolerance Goals Assessment Summary pt requiring SBA to CGA with ambulation using 4WW. pt plans to go home and will have her niece to assist her. pt also will benefit from HHPT. Goals Bed Mobility Goal Independent Transfer Goal Independent,Front Wheeled Walker Gait Goal Independent,Front Wheel Walker Gait Distance 60 Other Goals improve transfers and ambulation using 4WW mod I 100 ft up/down 2 steps L rail ascending SBA Days to Meet Goals 10 Frequency of Treatment Frequency Of Once a Day Treatment Treatment Plan Physical Therapy Bed Mobility Training,Transfer Training,Gait Training, Treatment Plan Therapeutic Exercise,Balance Retraining,Discharge Planning,Neuromuscular Re-ed,Manual Therapy Recommendations To Nursing Amount of Assist 1 Person Assist Needed Discharge Recommendations PT Discharge Home with 29/12 Assist Available,Home Health Recommendations Transportation Needs Private Vehicle at Discharge - PT assist 1
[2025-03-31] MEDS: RIFAXIMIN 550 MG 550 EACH PO ×2 (11:54→20:12)
[2025-03-31] MEDS: INSULIN LISPRO 100 UNIT/ML 3ML VIAL SUBCUT (11:56)
--- NOTE | 2025-03-31 13:36 | OT.IP.TRT ---
Current Diagnoses Hepatic encephalopathy (03/28/25) Occupational Therapy Treatment Note M2 OT-IP Current Condition Start: 03/27/25 14:01 Freq: Status: Active Protocol: Document 03/27/25 14:01 DOMINIQUEMICA (Rec: 03/27/25 14:27 [facility] Occupational Therapy Current Condition Current Condition Evaluation Date 03/27/25 Treatment Diagnosis hepatic encephalopathy, decreased self care Diagnosis Onset Date 03/26/25 M3 OT- IP Subjective and Pain Start: 03/27/25 14:01 Freq: Status: Active Protocol: Document 03/31/25 13:27 SHAYNAMSLOYDA (Rec: 03/31/25 13:36 [facility]) OT- Subjective Occupational Therapy Visit Type Type Treatment Note Visit Start Time 12:40 Visit Stop Time 13:10 Occupational Therapy Visit Comments Patient Comments Pt up in chair, agreed to participate in ADLs and SLUMS with OT Patient/Caregiver TO go home. Goals OT Pain Assessment Pain When Pain Assessed At Rest Pain Present Pain Present Allowed to Sleep M4 OT- IP ADL's Start: 03/27/25 14:01 Freq: Status: Active Protocol: Document 03/31/25 13:27 SHAYNAFLOWERLEESAMICA (Rec: 03/31/25 13:36 [facility]) OT IPB-Hgvs-[id number] Comments OT Self-Feeding Not at meal time. Comments OT ADL-Grooming General Evaluation Grooming Ability Independent Comments OT Grooming Comments Pt able to wash her hands at the sink with FWW. OT ADL-Oral Care General Eval Oral Care Ability Independent Comments Oral Care Comments Pt performed all aspects of task I sink side while leaning UB on sides of sink. OT ADL-Dressing Comments OT Dressing Comments not performed OT ADL-Toileting General Evaluation Toileting Ability Standby Assistance Comments OT Toileting Used wet wipe on setup for completeness. Comments OT ADL-Bathing Comments OT Bathing Comments Not performed. M5 OT- IP IADL's Start: 03/27/25 14:01 Freq: Status: Active Protocol: Document 03/27/25 14:01 SHAYNAFLOWERLOYDA (Rec: 03/27/25 14:27 [facility] OT-Instrumental Activities of Daily Living Deficits IADL Deficits No Deficits Identified Home Safety Awareness Awareness of Need Good Awareness for Assistance at Home Ability to Problem Able to Problem Solve Solve Emergency Situations Home Safety Comments Pt is aware that she needs assistance and reports that her niece is able to be with her 29/12. Medication Management Medication Caregiver Administers Management Money Management Money Management Caregiver Provides Assistance Meal Preparation Meal Preparation Caregiver Provides Assist Sales Porter Sales Porter Caregiver Provides Assist Driving Driving Caregiver Provides Assist M6 OT- IP Functional Cognition Start: 03/27/25 14:01 Freq: Status: Active Protocol: Document 03/31/25 13:27 JEVON (Rec: 03/31/25 13:36 [facility] Desktop) Cognitive Factors Limiting Selfcare Function Cognitive Tests SLUMS Pt scored 18/30 today on SLUMS. Pt continues to be unable to subtract 100-23, was able to recall 4 animals in 1 minute, able to recall 4/5 objects after time passed, not able to state 4 digit number backwards, and not able to draw the numbers on the clock correctly. Today, she giorgio many of the numbers in correct location , but left out number 1, 4, 7, and 10 on the clock face . Cognitive Comments Cognitive Assessment Pt was alert throughout session. Pt continues to Comments require increased time to respond. M7 OT- IP Mobility and Balance Start: 03/27/25 14:01 Freq: Status: Active Protocol: Document 03/31/25 13:27 JEVON (Rec: 03/31/25 13:36 [facility]) OT- Bed Mobility Assessment Supine to Sit Supine to Sit Assist Standby Assistance OT-Transfer Assessment Sit to and From Stand Sit to and from Standby Assistance Stand Transfers Transfer Ability Standby Assistance Technique Transfer Destination Bed,Toilet Transfer Technique Stand Step Pivot Devices Transfer Assistive Gait Belt,4 Wheeled Walker Devices Orthotic/Prosthetic No Devices or Brace: Comments Mobility Comments Assist to keep FWW in front of her at all times for safety OT- Gait Assessment Comments Gait Ability SBA with FWW. Comments OT- Balance Assessment Sitting Balance and Reactions Static Sitting Normal Balance Ability Dynamic Sitting Good Balance Ability Standing Balance and Reactions Static Standing Good Balance Ability Dynamic Standing Good Balance Ability M8 OT- IP Objective Assessments Start: 03/27/25 14:01 Freq: Status: Active Protocol: Document 03/27/25 14:01 JEVON (Rec: 03/27/25 14:27 [facility] Desktop) OT Gross Range of Motion Upper Extremity Range of Motion Assessment Within Functional Limits OT Strength Upper Extremity Strength Shoulder L3+, R 4- Elbow B 4 Hand 4 Hand Dry Heat Room Attendant Strength Hand Dominance Right OT-Muscle Tone Assessment Muscle Tone WNL Yes M9 OT- IP Assessment and Plan Start: 03/27/25 14:01 Freq: Status: Active Protocol: Document 03/31/25 13:27 [facility] (Rec: 03/31/25 13:36 [facility] Desktop) OT Summary Assessment and Plan Potential Rehabilitation Good Potential Analytic Complexity Moderate at Evaluation Summary OT Impairments Strength,Balance,Functional Cognition,Grooming,Dressing ,Toileting,Bathing,Toilet Transfers,Shower Transfers, Activity Tolerance Progress Towards Progressing Toward Goals Goals Assessment Summary Pt scored 18/30 on the SLUMS today. Pt performed various ADLS today requiring between S and I with each. Pt needs assist with FWW for safety. Pt with decreased safety awareness. Pt to go home with 24/7 assist and home health. Goals Grooming Goal Independent Dressing Goal Independent Toileting Goal Independent Bathing Goal Standby Assistance Toilet Transfer Goal Independent Shower Transfer Goal Standby Assistance Days to Meet Goals 6 Frequency of Treatment Other frequency 5x/wk Treatment Plan OT Treatment Plan ADL Training,Functional Cognition Training,Functional Mobility,Therapeutic Exercises,Patient/Family Education ,Discharge Planning Other Treatment ACL Recommendations and Next Treatment Focus Discharge Recommendations OT Discharge Home with 24/7 Assist Available,Home Health Recommendations Transportation Needs Private Vehicle at Discharge
--- NOTE | 2025-03-31 14:48 | CM.DPC ---
DCP Cont: Per RN, tai/ELMIRA bedside and has questions about pt's insurance. NEERAJ met bedside with pt (sleeping) and niece and she states pt recently turned 65 and qualified for Medicare and now losing some benefits with Medicaid that covered medications. NEERAJ discussed SHIBA to help determine best options for medication coverage with maybe Part D or a supplement or likely pt might still qualify for PEBB or Medicaid. Provided the contact info for SHIBA at [facility] as they live in [place]. Niece confirms they have not completed the [employer] application as the past month has been very busy but niece realizing now that pt not very safe to leave home alone when she runs to the store and things and realizing they might need assist or financial compensation. NEERAJ strongly encouraged her to complete and send in the [employer] LTC savi to determine if pt qualifies for JORGE as this could compensate niece for some of the CG she does for pt or allow another CG in to assist and give niece time to run errands. Nijacky acknowledges understanding and will work on Medicare enrollment stuff and [employer] application this week. JAY Ramirez
[2025-03-31 16:00] VITALS: BP 116/69; PULSE 60; RESP 12; TEMP 36.4; O2SAT 99
[2025-03-31 20:07] VITALS: BP 109/65; PULSE 62; RESP 16; TEMP 36.2; O2SAT 100
[2025-03-31 20:11] VITALS: BP 109/65; PULSE 62
[2025-03-31 21:00] VITALS: BP 138/65; PULSE 60; RESP 18; TEMP 36.4; O2SAT 99
[2025-04-01 01:16] VITALS: BP 132/68; PULSE 65; RESP 17; TEMP 36.6; O2SAT 96
[2025-04-01] MEDS: LEVOTHYROXINE 112 MCG TABLET PO (05:49)
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
[2025-04-01 08:00] VITALS: BP 119/70; PULSE 60; RESP 17; TEMP 36.3; O2SAT 100
[2025-04-01] MEDS: LACTULOSE 20 GM/30 ML SOLUTION 60 GM PO (08:39)
[2025-04-01] MEDS: POTASSIUM CHLORIDE 20 MEQ TAB PO (08:39)
[2025-04-01] MEDS: CITALOPRAM 10 MG TABLET PO (08:40)
[2025-04-01] MEDS: RIFAXIMIN 550 MG 550 EACH PO (08:40)
[2025-04-01] MEDS: FUROSEMIDE 20 MG TABLET PO (08:40)
[2025-04-01] MEDS: SPIRONOLACTONE 25 MG TABLET PO (08:40)
[2025-04-01] MEDS: PANTOPRAZOLE DR 40 MG TABLET PO (08:40)
[2025-04-01] MEDS: MULTIVITAMIN 1 TABLET 1 TAB PO (08:40)
[2025-04-01] MEDS: FERROUS SULFATE 325 MG TABLET PO (08:40)
[2025-04-01 12:00] VITALS: BP 102/70; PULSE 62; RESP 17; TEMP 36.1; O2SAT 97
--- NOTE | 2025-04-01 16:10 | PC.NURSE ---
Discharge: Feels ready to d/c to home. Is steadier on feet. minimal pain today. Oriented. MD here and gave d/c instructions. Reviewed discharge packet and reviewed. Script given and has 1 RX esent. Questions answered. D/c to home via auto with jon.
== END 2025-04-01 14:30 | disposition home or self-care (01) | DRG 442 ==
LOC: ED 13:13 → AC 15:37
PROVIDERS: Internal Medicine; Admitting Provider Internal Medicine; Emergency Provider Emergency Medicine; PCP Family Medicine; Referring Provider Emergency Medicine; Visit Provider Internal Medicine
DX: K76.82 Hepatic encephalopathy (principal); I38 Endocarditis, valve unspecified; Z68.41 Body mass index [BMI] 40.0-44.9, adult; K75.81 Nonalcoholic steatohepatitis (NASH); E66.01 Morbid (severe) obesity due to excess calories; R07.89 Other chest pain; D69.6 Thrombocytopenia, unspecified; E03.9 Hypothyroidism, unspecified; F32.A Depression, unspecified; E11.22 Type 2 diabetes mellitus with diabetic chronic kidney disease; N18.30 Chronic kidney disease, stage 3 unspecified; I12.9 Hypertensive chronic kidney disease with stage 1 through stage 4 chronic kidney disease, or unspecified chronic kidney disease; K74.60 Unspecified cirrhosis of liver; R19.7 Diarrhea, unspecified; R01.1 Cardiac murmur, unspecified; D50.9 Iron deficiency anemia, unspecified; W18.30XA Fall on same level, unspecified, initial encounter; Z79.84 Long term (current) use of oral hypoglycemic drugs; Z79.890 Hormone replacement therapy; Z87.891 Personal history of nicotine dependence; Z86.711 Personal history of pulmonary embolism; Z79.02 Long term (current) use of antithrombotics/antiplatelets
CPT/HCPCS: 36415; 70450; 71045; 72125; 74170; 80053; 80305; 80320; 81001; 81003; 82140; 82550; 82962; 83605; 84145; 84484; 85025; 93005; 93010; 96360; 97116; 97129; 97166; 97530; 97535; 99284; G0378; J1815; J7030; Q9967

== ENCOUNTER → 2025-04-13 17:19 | Outpatient (CLI) | payer MEDICARE, SELFPAY ==
[2025-04-05 11:55] VITALS: BMI 41.5
[2025-04-13 18:09] LABS: Add Manual Diff / Slide Review NO; Hematocrit 34.8 % (36-46); Hemoglobin 11.4 g/dL (12.0-16.0); Lymphocytes Absolute Auto 1000 /uL (1100-4500); Mean Corpuscular HGB Conc 32.6 % (30-36); Mean Corpuscular Hemoglobin 29.1 PG (26-34); Mean Corpuscular Volume 89.2 fL (80-100); Platelet Count 109 X10^3/uL (150-400)
[2025-04-13 18:23] LABS: Hemoglobin A1C% w Est Avg Glu 4.9 % (4.0-6.0)
[2025-04-13 18:29] LABS: Alanine Aminotransferase 23 IU/L (<35); Albumin 3.5 g/dL (3.5-5.0); Albumin Globulin Ratio 1.0 (1.0-2.8); Alkaline Phosphatase 161 U/L (38-126); Blood Urea Nitrogen 26 mg/dL (7-17); Calcium 9.3 mg/dL (8.4-10.2); Carbon Dioxide 18 mmol/L (22-32); Chloride 110 mmol/L (98-107); Estimated Glomerular Filt Rate 29 mL/min (>60); Globulin 3.5 g/dL (1.7-4.1); Glucose 150 mg/dL (70-99); HEMOLYSIS < 15 (0-50); Potassium 4.6 mmol/L (3.4-5.1); Sodium 138 mmol/L (137-145); Total Protein 7.0 g/dL (6.3-8.2)
== END ==
PROVIDERS: PCP Family Medicine; Referring Provider Family Medicine; Visit Provider Family Medicine
DX: K76.82 Hepatic encephalopathy (principal); E11.65 Type 2 diabetes mellitus with hyperglycemia; I10 Essential (primary) hypertension; E78.2 Mixed hyperlipidemia; E66.01 Morbid (severe) obesity due to excess calories; Z68.42 Body mass index [BMI] 45.0-49.9, adult
CPT/HCPCS: 36415; 80053; 83036; 85025

== ENCOUNTER → 2025-05-03 10:40 | Outpatient (CLI) | payer MEDICARE, SELFPAY ==
[2025-04-05 11:55] VITALS: BMI 41.5
--- NOTE | 2025-05-03 10:43 | DI.US.S_ITS ---
PROCEDURE: US ABDOMEN LIMITED INDICATIONS: Portal hypertension TECHNIQUE: Real-time scanning was performed of the abdominal and retroperitoneal organs, with image documentation. COMPARISON: [facility], , US ABDOMEN LIMITED, 08/12/2024, 10:18. FINDINGS: Liver: Liver is normal in size. Diffusely increased liver parenchyma cul echotexture is seen. Slightly lobulated liver contour is seen. No gross solid appearing hepatic lesion. Normal hepatopetal flow is seen in patent main portal vein. Normal a paddle pedal flow is seen in right portal vein. Gallbladder: Gallbladder is surgically absent. Biliary ducts: Intrahepatic bile ducts are non-dilated. Extrahepatic bile duct caliber measures 7.7 mm. Normal is 6-7 mm or less in diameter, or 10 mm or less post-cholecystectomy. Pancreas: Visualized portions of the pancreas are sonographically normal. Miscellaneous: No free abdominal fluid. IMPRESSION: 1. Cirrhotic appearing liver without discrete hepatic lesion. Normal hepatopetal flow is seen in visualized portal veins. 2. Gallbladder is surgically absent. No biliary ductal dilatation. Dictated by: Sher Marcos M.D. on 05/03/2025 at 12:38 Approved by: Sher Marcos M.D. on 05/03/2025 at 12:39
== END ==
LOC: US 10:42
PROVIDERS: PCP Family Medicine; Referring Provider Family Medicine; Visit Provider Radiology Diagnostic Radiology
DX: K76.6 Portal hypertension (principal); Z90.49 Acquired absence of other specified parts of digestive tract
CPT/HCPCS: 76705

== ENCOUNTER 2025-05-06 10:49 | Inpatient (IN) | payer MEDICARE, SELFPAY ==
[2025-04-05 11:55] VITALS: BMI 41.5
[2025-05-06 11:19] VITALS: PULSE 62; O2SAT 99
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
[2025-05-06 11:28] VITALS: BP 114/64; PULSE 66; RESP 22; TEMP 36.6; O2SAT 100; BMI 40.7
--- NOTE | 2025-05-06 11:28 | EKG_ITS ---
[address] [address] Test Date: 2025-05-06 Pat Name: Caridad Clements Department: Room: Gender: Female Sales Support Representative: AAMIR : 1960 Requested By: Order Number: [id number] Reading MD: Measurements Intervals [place] Rate: 59 P: 22 IA: 174 QRS: -2 QRSD: 76 T: 13 QT: 440 QTc: 435 Interpretive Statements Sinus bradycardia
[2025-05-06 11:30] VITALS: PULSE 61; O2SAT 100
[2025-05-06 11:56] VITALS: BP 108/56; PULSE 57; RESP 17; O2SAT 100
[2025-05-06 12:08] LABS: Add Manual Diff / Slide Review NO; Hematocrit 34.5 % (36-46); Hemoglobin 11.4 g/dL (12.0-16.0); Lymphocytes Absolute Auto 700 /uL (1100-4500); Mean Corpuscular HGB Conc 33.0 % (30-36); Mean Corpuscular Hemoglobin 30.3 PG (26-34); Mean Corpuscular Volume 91.7 fL (80-100); Platelet Count 82 X10^3/uL (150-400)
[2025-05-06 12:15] LABS: Ammonia (NH3) 98 umol/L (9-30)
[2025-05-06 12:17] LABS: Lactate (Lactic Acid) 2.6 mmol/L (0.7-2.1)
[2025-05-06] MEDS: LACTULOSE 20 GM/30 ML SOLUTION PO (12:26)
[2025-05-06 13:15] LABS: Alanine Aminotransferase 22 IU/L (<35); Albumin 3.5 g/dL (3.5-5.0); Albumin Globulin Ratio 1.0 (1.0-2.8); Alkaline Phosphatase 108 U/L (38-126); Blood Urea Nitrogen 40 mg/dL (7-17); Calcium 9.5 mg/dL (8.4-10.2); Carbon Dioxide 17 mmol/L (22-32); Chloride 114 mmol/L (98-107); Estimated Glomerular Filt Rate 28 mL/min (>60); Globulin 3.4 g/dL (1.7-4.1); Glucose 118 mg/dL (70-99); HEMOLYSIS < 15 (0-50); Lipase 156 U/L (23-300); Magnesium 2.4 mg/dL (1.6-2.3); Potassium 4.9 mmol/L (3.4-5.1); Sodium 139 mmol/L (137-145); Total Protein 6.9 g/dL (6.3-8.2)
[2025-05-06] MEDS: LACTATED RINGERS 1,000 ML 1000 ML IV (13:20)
[2025-05-06 13:28] LABS: NT-proBNP (BNP-Adult 18+) 202 pg/mL (<125); Troponin I < 0.012 ng/mL (0.01-0.034)
[2025-05-06 13:35] LABS: Reflexed Lactate in 2 Hours Y
[2025-05-06 14:20] LABS: Lactate 2HR (Lactic Acid Rflx) 3.2 mmol/L (0.7-2.1)
[2025-05-06 17:37] VITALS: BMI 40.7
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
[2025-05-06 18:00] VITALS: BP 125/62; PULSE 57; RESP 16; TEMP 37; O2SAT 99
[2025-05-06] MEDS: LACTULOSE 20 GM/30 ML SOLUTION 30 GM PO ×2 (18:19→21:36)
[2025-05-06] MEDS: SODIUM CHLORIDE 0.45% 1,000 ML 125 ML IV (18:20)
--- NOTE | 2025-05-06 18:34 | PC.NURSE ---
Pt arrived from ED at 1720, transferred from stretcher to bed via slider board. Alert but oriented only to self. VSS on RA. Lungs CTA, bowel sounds present, CMS intact bilaterally. Brief and bedding changed, pt thoroughly cleaned. Pt and family at bedside oriented to room and call light, bed in low position, call light within reach.
[2025-05-06 21:30] VITALS: BP 152/82; PULSE 61; RESP 16; TEMP 36.4; O2SAT 96
[2025-05-06 22:46] LABS: Appearance Urine UA CLEAR; Bilirubin Urine UA NEGATIVE (NEGATIVE); Color Urine UA YELLOW; Glucose Urine UA 2+ g/dL (Negative); Ketones Urine UA NEGATIVE (NEGATIVE); Leukocyte Esterase Urine UA NEGATIVE (NEGATIVE); Nitrite Urine UA NEGATIVE (Negative); Occult Blood Urine UA NEGATIVE (Negative); Protein Urine UA NEGATIVE (Negative); Specific Gravity Urine UA 1.020 (1.000-1.035); Urobilinogen Urine UA 0.2 E.U./dL (0.2)
[2025-05-06 22:56] LABS: pH Urine UA 5.5 (4.5-8.0)
[2025-05-06 23:09] LABS: Culture Indicated Urine Cult Not Indicated
[2025-05-07] MEDS: SODIUM CHLORIDE 0.45% 1,000 ML 125 ML IV (02:18)
[2025-05-07 06:00] VITALS: BP 132/65; PULSE 62; RESP 17; TEMP 36.6; O2SAT 96
[2025-05-07] MEDS: LEVOTHYROXINE 112 MCG TABLET PO (06:39)
[2025-05-07 08:00] VITALS: BP 116/71; PULSE 56; RESP 16; TEMP 36.9; O2SAT 98
[2025-05-07] MEDS: LACTULOSE 20 GM/30 ML SOLUTION 30 GM PO ×4 (08:39→22:14)
[2025-05-07 08:41] VITALS: BP 117/71
[2025-05-07] MEDS: PANTOPRAZOLE DR 40 MG TABLET PO (08:42)
--- NOTE | 2025-05-07 10:03 | PC.NURSE ---
Patient is confused today. She denies pain but is having a hard time following commands. She was incontinent of a large amount of loose stool, cleaned up and bed was changed twice. She is a two max assist with walker. She ate a small amount of breakfast and is now sleeping. Patient is having loose stools as she is taking lactulose for her liver failure and ammonia levels.
[2025-05-07 10:14] LABS: Alanine Aminotransferase 19 IU/L (<35); Albumin 2.8 g/dL (3.5-5.0); Albumin Globulin Ratio 0.9 (1.0-2.8); Alkaline Phosphatase 96 U/L (38-126); Blood Urea Nitrogen 35 mg/dL (7-17); Calcium 9.4 mg/dL (8.4-10.2); Carbon Dioxide 18 mmol/L (22-32); Chloride 116 mmol/L (98-107); Estimated Glomerular Filt Rate 35 mL/min (>60); Globulin 3.1 g/dL (1.7-4.1); Glucose 100 mg/dL (70-99); HEMOLYSIS 17 (0-50); Potassium 4.3 mmol/L (3.4-5.1); Sodium 140 mmol/L (137-145); Total Protein 5.9 g/dL (6.3-8.2)
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
--- NOTE | 2025-05-07 14:39 | CM.DANOTE ---
Patient is a 65 yo female who was admitted INPT Status on 05/06/25 for Hepatic Encephalopathy. Pt has MCR for insurance and her PCP is Dr. Nestor Godinez at [facility]. EMR was reviewed. Per MD, pt with hx of non-ETOH liver disease and recurrent hepatic encephalopathy and admitted after no bm for couple days and increased confusion from ammonia levels. PT/OT ordered and pending. SW met bedside with pt and her sister and explained role and pt appeared A&Ox3 and able to answer questions and confirms she is still staying at her niece/POA Gillian's house due to the set-up of her home being more assessable for pt's mobility and bathroom needs. Pt is modified independent, and chronically weak/deconditioned. She uses a FWW outside of the home, and holds onto furniture and baig inside the home. Pt states she is still working with [facility] since her discharge last month and feels they are helpful and would like to Resume HH services at d/c. Pt states she does not want SNF and preference is back home with family. SW contacted [facility] and they confirm they are open with HH RN/PT/OT with patient and they only need Resumption Orders and d/c summary at discharge and faxed H&P to review. SW inquired if Medicaid LTC application had been completed and sent in to [facility] since her discharge last month (as family had begun filling out the application) and pt states she is unsure but her niece would know. Niece plans to be bedside later today. Plan: SW to follow closely for PT/OT to confirm safe d/c home with family and Resumption of [facility]. JAY Ramirez Discharge Planning/Care Management CM Discharge Assessment Start: 05/06/25 17:37 Freq: Status: Active Protocol: Document 05/07/25 14:36 BF (Rec: 05/07/25 14:39 BF [id number]) Discharge Planning Assessment Assigned Discharge JAY Fung Chief Mate Provider Dr. Nestor Godinez Insurance Medicare DPOA/Assigned niece Gillian Designee Name Advance Directives? Yes Advance Directives No on File History Provided By Patient,Family Member,Medical Record Has Patient been No admitted in last 30 days? Comment Recently here last month and went home with Naa Prior Living House Arrangements Household Members family Type of Relies on Others transporation used prior to admit Independent with ADL No 's Is patient alert and Yes oriented? Needs Assistance Bathing,Meal Prep,Managing Medications,Home Chores / With Shopping Caregiver for No Another Community Services Physical Therapy,Occupational Therapy,Home Health Nurse used prior to admission: Comment Open Naa PT/OT/RN DME Already Rented / Wheelchair,FWW / Walker Owned Comment 4WW Patient/Family Home with Home Health Preference Barriers to No Discharge Discharge Plan Home with Home Health Community Services Physical Therapy,Occupational Therapy,Home Health Nurse Transportation Family Arrangement Referrals Initiated Home Health If patient plan is Yes: only need Resumption Orders home with home health: Has signed face to face form been completed? Medicare Choice List Yes Provided Medicare choice list patient reviewed on electronic tablet with SNF/HH Preference Naa Falcon Updated Yes in Patient Room with name and ext. # of Icu Rn Review Status In Process Please Provide Date 05/07/25 Initial DC Assessment Was Performed Next Review Type Continued Stay Review
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
[2025-05-07 18:00] VITALS: BP 116/66; PULSE 56; RESP 16; TEMP 36.9; O2SAT 99
[2025-05-07 20:47] LABS: Acinetobacter calcoa-baumannii Not Detected (Not Detect); Bacteroides fragilis Not Detected (Not Detect); Candida auris Not Detected (Not Detect); Candida glabrata Not Detected (Not Detect); Cryptococcus neoformans/gatti Not Detected (Not Detect); Enterobacterales Not Detected (Not Detect); Enterococcus faecalis Not Detected (Not Detect); Enterococcus faecium Not Detected (Not Detect); Klebsiella aerogenes Not Detected (Not Detect); Proteus species Not Detected (Not Detect); Serratia marcescens Not Detected (Not Detect); Staphylococcus epidermidis Not Detected (Not Detect); Staphylococcus lugdunensis Not Detected (Not Detect); Staphylococcus species Not Detected (Not Detect); Stenotrophomonas maltophilia Not Detected (Not Detect); Streptococcus agalactiae (Gr B Not Detected (Not Detect); Streptococcus pneumonia Not Detected (Not Detect); Streptococcus pyogenes (Gr A) Not Detected (Not Detect); Streptococcus species Not Detected (Not Detect)
[2025-05-07 22:17] VITALS: BP 107/60; PULSE 66
[2025-05-08 04:00] VITALS: BP 115/53; PULSE 64; RESP 17; TEMP 36.6; O2SAT 96
[2025-05-08] MEDS: LEVOTHYROXINE 112 MCG TABLET PO (06:16)
[2025-05-08] MEDS: PANTOPRAZOLE DR 40 MG TABLET PO (08:11)
[2025-05-08] MEDS: LACTULOSE 20 GM/30 ML SOLUTION 30 GM PO (08:11)
--- NOTE | 2025-05-08 08:27 | PC.NURSE ---
Patient is alert and oriented x3, but forgeful. She is up with one person assist and uses the BSC, patient is on lactulose and has been having some incontinent stools. She is eating breakfast now, bottom and johana area are looking better. Bottom is blanchable.
[2025-05-08 08:54] LABS: Alanine Aminotransferase 25 IU/L (<35); Albumin 3.4 g/dL (3.5-5.0); Albumin Globulin Ratio 1.0 (1.0-2.8); Alkaline Phosphatase 108 U/L (38-126); Blood Urea Nitrogen 29 mg/dL (7-17); Calcium 9.8 mg/dL (8.4-10.2); Carbon Dioxide 19 mmol/L (22-32); Chloride 114 mmol/L (98-107); Estimated Glomerular Filt Rate 36 mL/min (>60); Globulin 3.4 g/dL (1.7-4.1); Glucose 107 mg/dL (70-99); HEMOLYSIS < 15 (0-50); Potassium 4.2 mmol/L (3.4-5.1); Sodium 140 mmol/L (137-145); Total Protein 6.8 g/dL (6.3-8.2)
[2025-05-08 08:57] LABS: Ammonia (NH3) 93 umol/L (9-30)
[2025-05-08 10:28] VITALS: BP 117/75; PULSE 67; RESP 16; TEMP 36.6; O2SAT 96
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
[2025-05-08 14:00] VITALS: BP 118/60; PULSE 60; RESP 17; TEMP 36.8; O2SAT 98
--- NOTE | 2025-05-08 15:20 | CM.DPNOTE ---
DCP note APPLICATION CONSULTANT reviewed EMR per provider, dc timeline unknown. APPLICATION CONSULTANT attempted to meet with pt, sleeping heavily, allowed to rest. APPLICATION CONSULTANT spoke with tai/ELMIRA French on the phone. confirms dcp home with [facility] resumption. per Gillian did not turn in the medicaid LTC savi, will bring by the savi tomorrow to review with this APPLICATION CONSULTANT to fax in. P: dc home with tai and [facility] when stable. will continue to follow closely for DCP coordination JAY Brooks
--- NOTE | 2025-05-08 17:14 | PT.IPTN ---
Current Diagnoses Hepatic encephalopathy (05/06/25) Physical Therapy Treatment Note M2 PT-IP Current Condition Start: 05/07/25 14:55 Freq: NEEDED Status: Active Protocol: Document 05/08/25 16:55 DCW (Rec: 05/08/25 17:21 DCW [id number]) Physical Therapy Current Condition Current Condition Evaluation Date 05/07/25 Treatment Diagnosis non-alcoholic end stage liver disease, confusion secondary to hepatic ence Onset Date 05/06/25 M3 PT-IP Subjective Start: 05/07/25 14:55 Freq: NEEDED Status: Active Protocol: Document 05/08/25 16:55 DCW (Rec: 05/08/25 17:21 DCW [id number]) Subjective Physical Therapy Visit Type Type Treatment Note Visit Start Time 16:55 Visit Stop Time 16:14 Physical Therapy Visit Comments Patient Comments Pt reclined in bed when therapist enters. Agreeable to PT, but dinner arrives at the same time, so would like a short session. M4 PT-IP Mobility and Gait Start: 05/07/25 14:55 Freq: NEEDED Status: Active Protocol: Document 05/08/25 16:55 DCW (Rec: 05/08/25 17:21 DCW [id number]) PT-Transfer Assessment Sit to and From Stand Sit to and from Standby Assistance Stand Equipment Transfer Assistive Gait Belt,Front Wheeled Walker Device Transfers Transfer Destination Chair Transfer Ability Level of Assist Standby Assistance Comments Mobility Comments Pt required Min Ax1 to get legs to EOB, but was then SBA with all other transfers and mobility. Gait Assessment Gait Gait Assistance Standby Assistance Required: Distance (Feet) 60 Able to Maintain Yes Weight Bearing Status During Gait Assistive Devices Assistive Device Gait Belt,Front Wheeled Walker Orthotic/Prosthetic No Devices or Brace: Gait Deviations General Gait Pattern Decreased Stride Length,Decreased Feet Clearance Factors Limiting Gait Function Factors Limiting Decreased Activity Tolerance,Decreased Strength Gait Function Comments Gait Comments Pt ambulates in room FWW /c SBA back and forth around bed two times, then ambulates to chair M5 PT-IP Objective Assessments Start: 05/07/25 14:55 Freq: NEEDED Status: Active Protocol: Document 05/07/25 14:56 [facility] (Rec: 05/07/25 15:16 [facility] [id number]) Orientation Orientation/Cognition Level of Alertness Alert Orientation Name,Place,Situation Gross Range of Motion Upper Extremity ROM Assessment Within Functional Limits Lower Extremity ROM Assessment Within Functional Limits Strength Upper Extremity Strength Assessment Within Functional Limits Lower Extremity Strength Assessment Within Functional Limits Comments Strength Comments generalized weakness M6 PT-IP Treatment Start: 05/07/25 14:55 Freq: NEEDED Status: Active Protocol: Document 05/07/25 14:56 [facility] (Rec: 05/07/25 15:16 [facility] [id number]) Physical Therapy Treatment Exercises Exercises Ankle Pumps,Heel Slides M7 PT-IP Assessment and Plan Start: 05/07/25 14:55 Freq: NEEDED Status: Active Protocol: Document 05/08/25 16:55 DCW (Rec: 05/08/25 17:21 DCW [id number]) PT Summary Assessment and Plan Summary Impairments Strength,Cognition,Bed Mobility,Transfers,Gait,Activity Tolerance Assessment Summary Pt notes feeling much better today, ambulating well with minimal fatigue. Pt denies pain. Pt happy to get up and move, but wanted to sit in chair for dinner. Pt left in recliner with feet down, call gonzalez within reach , and visitor in room. Pt hoping to return home tomorrow with her caregiver. Goals Bed Mobility Goal Independent Transfer Goal Independent,Standby Assistance Gait Goal Standby Assistance Other Goals pt is able to step up 2 steps with railing to enter her home Days to Meet Goals 10 Frequency of Treatment Frequency Of Once a Day Treatment Treatment Plan Physical Therapy Bed Mobility Training,Transfer Training,Gait Training Treatment Plan Other trial of stairs next visit, work on scooting to the Recommendations and edge of the bed for transfers Next Treatment Focus Weight Bearing Status Weight Bearing Full Weight Bearing Status Recommendations To Nursing Amount of Assist 1 Person Assist Needed Discharge Recommendations PT Discharge Home with 29/12 Assist Available Recommendations Other Discharge pt to [facility] with her 24 hour day care teacher Gillian once Recommendations medically stable Transportation Needs Private Vehicle at Discharge
[2025-05-08] MEDS: LACTULOSE 20 GM/30 ML SOLUTION 60 GM PO ×2 (18:15→21:16)
[2025-05-08 18:17] VITALS: BP 106/55; PULSE 60; RESP 16; TEMP 37.2; O2SAT 99
[2025-05-08 20:00] VITALS: BP 110/67; PULSE 58; RESP 18; TEMP 36.4; O2SAT 100
[2025-05-08 21:11] VITALS: BP 106/61; PULSE 62
[2025-05-09 02:00] VITALS: BP 117/69; PULSE 66; RESP 17; TEMP 36.5; O2SAT 98
[2025-05-09] MEDS: LEVOTHYROXINE 112 MCG TABLET PO (07:55)
[2025-05-09] MEDS: PANTOPRAZOLE DR 40 MG TABLET PO (08:00)
[2025-05-09] MEDS: LACTULOSE 20 GM/30 ML SOLUTION 60 GM PO ×2 (08:00→12:29)
--- NOTE | 2025-05-09 09:05 | OT.IP.TRT ---
Current Diagnoses Hepatic encephalopathy (05/06/25) Occupational Therapy Treatment Note M2 OT-IP Current Condition Start: 05/08/25 13:00 Freq: Status: Active Protocol: Document 05/08/25 13:00 JEVON (Rec: 05/08/25 13:17 [email or web address] [id number]) Occupational Therapy Current Condition Current Condition Evaluation Date 05/08/25 Treatment Diagnosis ROLANDO, encephalopathy, decreased self care M3 OT- IP Subjective and Pain Start: 05/08/25 13:00 Freq: Status: Active Protocol: Document 05/09/25 09:05 [facility] (Rec: 05/09/25 10:43 [facility] [id number]) OT- Subjective Occupational Therapy Visit Type Type Treatment Note Visit Start Time 09:05 Visit Stop Time 09:38 Occupational Therapy Visit Comments Patient Comments Pt agreed to do SLUMS and wanting to get up to use the toilet. Patient/Caregiver TO go home. Goals OT Pain Assessment Pain When Pain Assessed At Rest Location Abdomen Pain Behaviors Facial Grimacing,Holding Area M4 OT- IP ADL's Start: 05/08/25 13:00 Freq: Status: Active Protocol: Document 05/09/25 09:05 [facility] (Rec: 05/09/25 10:43 [facility] [id number]) OT ADL-Grooming General Evaluation Grooming Ability Standby Assistance Comments OT Grooming Comments vc for completeness OT ADL-Oral Care Comments Oral Care Comments Pt states did earlier. OT ADL-Toileting General Evaluation Toileting Ability Moderate Assistance Comments OT Toileting Assist for completeness to wipe. Pt will benefit from Comments toilet paper aid or bidet and assist at home. OT ADL-Bathing Comments OT Bathing Comments Not performed, pt will benefit form assist. M5 OT- IP IADL's Start: 05/08/25 13:00 Freq: Status: Active Protocol: Document 05/08/25 13:00 JEVON (Rec: 05/08/25 13:17 JEVON [id number]) OT-Instrumental Activities of Daily Living Deficits IADL Deficits No Deficits Identified Home Safety Awareness Awareness of Need Good Awareness for Assistance at Home Ability to Problem Able to Problem Solve Solve Emergency Situations Home Safety Comments Pt is aware that she needs assistance and reports that her niece is able to be with her all of the time. Medication Management Medication Caregiver Administers Management Money Management Money Management Caregiver Provides Assistance Meal Preparation Meal Preparation Caregiver Provides Assist Accelerator Systems Director Accelerator Systems Director Caregiver Provides Assist Driving Driving Caregiver Provides Assist M6 OT- IP Functional Cognition Start: 05/08/25 13:00 Freq: Status: Active Protocol: Document 05/09/25 09:05 [facility] (Rec: 05/09/25 10:43 [facility] [id number]) Cognitive Factors Limiting Selfcare Function Cognitive Tests SLUMS Pt scored 9/30 today which implies dementia. Pt aware of the state, able to recall 2/5 objects after time passed, able to draw an X on the triangle and pick out the largest shape, and able to answer 2/4 questions right after paragraph read. Cognitive Comments Cognitive Assessment Pt able to answer basic home safety situations. Per pt Comments no longer uses her phone as she has trouble to use it and that her niece uses it. Pt states at times unaware that she has to use the toilet. M7 OT- IP Mobility and Balance Start: 05/08/25 13:00 Freq: Status: Active Protocol: Document 05/09/25 09:05 [facility] (Rec: 05/09/25 10:43 [facility] [id number]) OT-Transfer Assessment Sit to and From Stand Sit to and from Contact Guard Assistance Stand Transfers Transfer Ability Standby Assistance Technique Transfer Destination Car,Toilet Devices Transfer Assistive Gait Belt,Front Wheeled Walker Devices Comments Mobility Comments VC to keep the FWW in front of her. VC to line up in front of the toilet prior to sitting down. OT- Balance Assessment Sitting Balance and Reactions Static Sitting Good Balance Ability Dynamic Sitting Good Balance Ability Standing Balance and Reactions Static Standing Good Balance Ability Dynamic Standing Fair Balance Ability M8 OT- IP Objective Assessments Start: 05/08/25 13:00 Freq: Status: Active Protocol: Document 05/08/25 13:00 JEV[facility] (Rec: 05/08/25 13:17 [email or web address] [id number]) OT Gross Range of Motion Upper Extremity Range of Motion Assessment Within Functional Limits OT Strength Upper Extremity Strength Shoulder L3+ R4- Elbow 4- Hand 4 Hand Manufacturing Engineer Chief Strength Hand Dominance Right OT Sensation Assessment Edema Edema Absent M9 OT- IP Assessment and Plan Start: 05/08/25 13:00 Freq: Status: Active Protocol: Document 05/09/25 09:05 [facility] (Rec: 05/09/25 10:43 [facility] [id number]) OT Summary Assessment and Plan Potential Rehabilitation Excellent Potential Analytic Complexity Moderate at Evaluation Summary OT Impairments Strength,Balance,Functional Cognition,Functional Mobility,Grooming,Dressing,Toileting,Bathing,Toilet Transfers,Shower Transfers,Activity Tolerance Progress Towards Progressing Toward Goals Goals Assessment Summary Pt able to do toileting and oral care needs and needing assist for completeness to wipe. Pt scored 9/30 on the SLUMS which implies dementia. Pt will benefit from 24/ 7 assist at home and mostly needing assist for completeness, safety , and for hygiene needs. Pt will also benefit from home health and bath aid. Goals Grooming Goal Standby Assistance Dressing Goal Standby Assistance Toileting Goal Standby Assistance Bathing Goal Standby Assistance Toilet Transfer Goal Independent Shower Transfer Goal Standby Assistance Days to Meet Goals 2 Treatment Plan OT Treatment Plan ADL Training,Functional Cognition Training,Functional Mobility,Therapeutic Exercises,Patient/Family Education ,Discharge Planning Discharge Recommendations OT Discharge Home with 24/7 Assist Available,Home Health Recommendations Transportation Needs Private Vehicle at Discharge
[2025-05-09 09:25] LABS: Ammonia (NH3) 78 umol/L (9-30)
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
--- NOTE | 2025-05-09 13:22 | CM.DPNOTE ---
DCP note FIBER GLASS WORKER reviewed EMR per provider cleared for DC home today FIBER GLASS WORKER met with pt and nijacky in room. answered medicaid LTC savi questions. niece to complete it today so CM team can fax in. FIBER GLASS WORKER completed expedited form. niece and pt agreeable to home with HH resumption today. FIBER GLASS WORKER completed f2f/order. emailed [facility] resumption information P: dc today home with [facility] and niece support. will continue to follow as needed for DCP Coordination JAY Brooks
[2025-05-09 14:00] VITALS: BP 106/63; PULSE 60; RESP 16; TEMP 36.7; O2SAT 100
--- NOTE | 2025-05-09 14:44 | CM.SWNOTE ---
DCP Note: [facility] LTC Application completed by patient and nieceGillian. FURNACE AND WASH EQUIPMENT OPERATOR scanned and faxed form to [facility] - LTC Services. FURNACE AND WASH EQUIPMENT OPERATOR sent completed [facility] Referral form via fax. FURNACE AND WASH EQUIPMENT OPERATOR scanned both forms into pt EMR. WILSON Caceres
== END 2025-05-09 15:10 | disposition home health service (06) | DRG 442 ==
LOC: ED 13:53 → AC 14:00
PROVIDERS: Admitting Provider Internal Medicine; Emergency Provider Family Medicine; PCP Family Medicine; Referring Provider Family Medicine; Visit Provider Internal Medicine
DX: K76.82 Hepatic encephalopathy (principal); Z68.41 Body mass index [BMI] 40.0-44.9, adult; K75.81 Nonalcoholic steatohepatitis (NASH); I10 Essential (primary) hypertension; E03.9 Hypothyroidism, unspecified; E66.01 Morbid (severe) obesity due to excess calories; F32.A Depression, unspecified; Z79.890 Hormone replacement therapy; Z87.891 Personal history of nicotine dependence
CPT/HCPCS: 36415; 70450; 71045; 76705; 80053; 81001; 82140; 83605; 83690; 83735; 83880; 84484; 85025; 87040; 87077; 87154; 93005; 96360; 96361; 97116; 97129; 97162; 97166; 97530; 97535; 99284; J7050; J7120

== ENCOUNTER → 2025-05-11 13:18 | Outpatient (CLI) | payer MEDICARE, SELFPAY ==
[2025-05-06 17:37] VITALS: BMI 40.7
[2025-05-11 13:54] LABS: Hematocrit 32.9 % (36-46); Hemoglobin 10.8 g/dL (12.0-16.0)
[2025-05-11 14:27] LABS: Blood Urea Nitrogen 27 mg/dL (7-17); Calcium 9.5 mg/dL (8.4-10.2); Carbon Dioxide 19 mmol/L (22-32); Chloride 113 mmol/L (98-107); Estimated Glomerular Filt Rate 31 mL/min (>60); Glucose 126 mg/dL (70-99); HEMOLYSIS < 15 (0-50); Iron 136 ug/dL (37-170); Potassium 4.6 mmol/L (3.4-5.1); Sodium 140 mmol/L (137-145)
[2025-05-11 14:39] LABS: NT-proBNP (BNP-Adult 18+) 489 pg/mL (<125); Percent Iron Saturation 43 % (15-50); Total Iron Binding Capacity 316 ug/dL (265-497); Transferrin 261 mg/dL (206-381)
[2025-05-11 15:04] LABS: Ferritin 50 ng/mL (11-264)
== END ==
PROVIDERS: PCP Family Medicine; Referring Provider Family Medicine; Visit Provider Student in an Organized Health Care Education/Training Program
DX: D50.0 Iron deficiency anemia secondary to blood loss (chronic) (principal); I50.32 Chronic diastolic (congestive) heart failure; D63.1 Anemia in chronic kidney disease; D70.9 Neutropenia, unspecified; N05.9 Unspecified nephritic syndrome with unspecified morphologic changes; N25.81 Secondary hyperparathyroidism of renal origin
CPT/HCPCS: 36415; 80048; 82728; 83540; 83550; 83880; 83970; 85014; 85018

== ENCOUNTER 2025-05-15 08:04 | Inpatient (IN) | payer MEDICARE, SELFPAY ==
[2025-05-15] VITALS (33 sets, daily range): BP systolic 99–140; BP diastolic 31–66; PULSE 47–70; RESP 12–21; TEMP 36.2–36.6; O2SAT 96–100; BMI 41.9
--- NOTE | 2025-05-15 08:26 | EKG_ITS ---
[facility] [address] [address] Test Date: 2025-05-15 Pat Name: Caridad Clements Department: [facility] Room: Gender: Female Cardiology Fellow: : 1960 Requested By: Order Number: [id number] Reading MD: Samson Cheek MD Measurements Intervals [place] Rate: 59 P: 65 MN: 212 QRS: 38 QRSD: 78 T: 49 QT: 448 QTc: 443 Interpretive Statements Sinus bradycardia with 1st degree AV block Low voltage QRS Electronically Signed On 05-15-2025 11:24:32 PST by Samson Cheek MD
--- NOTE | 2025-05-15 08:26 | DI.CT.S_ITS ---
PROCEDURE: CT HEAD/BRAIN WO CON INDICATIONS: Altered mental status TECHNIQUE: Noncontrast 4.5 mm thick angled axial sections acquired from the foramen magnum to the vertex, with coronal and sagittal reformats. For radiation dose reduction, the following was used: automated exposure control, adjustment of mA and/or kV according to patient size. COMPARISON: [facility], CT, CT HEAD/BRAIN WO CON, 05/06/2025, 11:36. FINDINGS: Image quality: Diagnostic. CSF spaces: Basal cisterns are patent. No extra-axial fluid collections. Ventricles are normal in size and shape. Brain: No midline shift. No intracranial mass effect or hemorrhage. Cooper- white matter interface is normal. Skull and face: Calvarium and visualized facial bones are intact, without suspicious lesions. Sinuses: Visualized sinuses and mastoids are clear. IMPRESSION: No acute intracranial pathology. Approved by: Sarah Clayton M.D.,Ph.D. on 05/15/2025 at 10:12
--- NOTE | 2025-05-15 08:27 | DI.CT.S_ITS ---
PROCEDURE: CT ABDOMEN PELVIS WO CON INDICATIONS: Abdominal pain TECHNIQUE: CT of the abdomen and pelvis was obtained without intravenous contrast. Coronal and sagittal reformats were performed. For radiation dose reduction, the following was used: automated exposure control, adjustment of mA and/or kV according to patient size. COMPARISON: , CT, CT ABDOMEN PELVIS WO CON, 01/05/2025, 13:26. FINDINGS: Image quality: Diagnostic. Lower Chest: No significant findings. ABDOMEN: Liver: No contour-deforming mass. Irregular liver contour suggestive of cirrhosis. Gallbladder: Surgically absent Biliary ducts: No biliary dilation. Pancreas: No ductal dilation. Spleen: Size is mildly enlarged. Adrenal Glands: No adrenal nodules. Kidneys and Ureters: No hydronephrosis. No contour-deforming mass. Stomach and Bowel: Normal colonic caliber, without significant wall thickening. Peritoneum: No abnormal intraperitoneal fluid. No free air. Ventral Wall: No significant hernia. Abdominal Nodes: No retroperitoneal or mesenteric adenopathy by size criteria. Vessels: Aorta and inferior vena cava are normal in size. Redemonstration of splenic and Minnie off a LESLY live varices. PELVIS: Pelvic Organs: Unremarkable. Bladder: Unremarkable. Pelvic Nodes: No enlarged lymph nodes. Miscellaneous: No inguinal hernias are seen. Similar prominent inguinal lymph nodes bilaterally. Bones: No aggressive osseous abnormality. Multilevel degenerative changes without acute vertebral body compression fracture. IMPRESSION: Cirrhosis with suggestion of portal hypertension including splenomegaly and upper abdominal varices. Approved by: Sarah Clayton M.D.,Ph.D. on 05/15/2025 at 10:18
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
[2025-05-15 09:24] LABS: INR 1.1 (0.9-1.3); Prothrombin Time 12.3 SECONDS (9.4-12.5)
[2025-05-15 09:27] LABS: Lactate (Lactic Acid) 2.1 mmol/L (0.7-2.1); PTT Partial Thromboplastin Tim 31 SECONDS (25.1-36.5)
[2025-05-15 09:46] LABS: Add Manual Diff / Slide Review NO; Hematocrit 32.7 % (36-46); Hemoglobin 10.7 g/dL (12.0-16.0); Lymphocytes Absolute Auto 700 /uL (1100-4500); Mean Corpuscular HGB Conc 32.8 % (30-36); Mean Corpuscular Hemoglobin 30.1 PG (26-34); Mean Corpuscular Volume 91.8 fL (80-100); Platelet Count 80 X10^3/uL (150-400)
[2025-05-15 09:56] LABS: Ammonia (NH3) 115 umol/L (9-30)
[2025-05-15 10:48] LABS: Reflexed Lactate in 2 Hours Y
[2025-05-15 11:45] LABS: Lactate 2HR (Lactic Acid Rflx) 1.9 mmol/L (0.7-2.1)
[2025-05-15 11:46] LABS: Alanine Aminotransferase 24 IU/L (<35); Albumin 3.1 g/dL (3.5-5.0); Albumin Globulin Ratio 0.9 (1.0-2.8); Alkaline Phosphatase 114 U/L (38-126); Blood Urea Nitrogen 34 mg/dL (7-17); Calcium 9.1 mg/dL (8.4-10.2); Carbon Dioxide 17 mmol/L (22-32); Chloride 119 mmol/L (98-107); Estimated Glomerular Filt Rate 32 mL/min (>60); Globulin 3.3 g/dL (1.7-4.1); Glucose 101 mg/dL (70-99); HEMOLYSIS 40 (0-50); Potassium 4.3 mmol/L (3.4-5.1); Sodium 143 mmol/L (137-145); Total Protein 6.4 g/dL (6.3-8.2)
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
[2025-05-15] MEDS: SODIUM CHLORIDE 0.9% 1,000 ML 50 ML IV (12:24)
[2025-05-15] MEDS: ONDANSETRON 4 MG/2 ML INJ IV (12:24)
[2025-05-15] MEDS: LACTULOSE 20 GM/30 ML SOLUTION 60 GM PO ×2 (12:25→20:06)
--- NOTE | 2025-05-15 14:22 | CM.DANOTE ---
DCP Assessment Note: Pt is a 65yo female, resident of [place], is admitted for acute hepatic encephalopathy. Pt is currently living with her niece, Gillian. Pt's Primary Care Provider is Dr. Nestor Godinez and insurance is Medicare. Reviewed chart and discussed with multidisciplinary team pt's medical status and initial discharge needs. Per ED Provider, pt to be admitted and will start rectal lactulose. Per EMR, pt was admitted 05/06/25-05/09/25 for hepatic encephalopathy and high ammonia levels. DCP met w/patient at bedside; introduced self and role. Patient was found in bed, cooperative with assessment. Pt confirmed living situation and good support in nieceGillian. Pt expressed preference in discharge home with home health when cleared. [facility] BUCKLE INSPECTOR spoke with [facility] and notified of pt's admission, they confirm they were not able to resume care since pt discharged from Acute Care on 05/09/2025. Plan: Anticipating discharge home with home health when medically cleared, halfway care application in progress to have niece as paid caregiver. CM team will follow closely for coordination of discharge plans. WILSON Caceres Discharge Planning/Care Management CM Discharge Assessment Start: 05/15/25 12:21 Freq: Status: Active Protocol: Document 05/15/25 12:39 MW (Rec: 05/15/25 12:43 MW [id number]) Discharge Planning Assessment Assigned Discharge JAY Stephen Algorithm Developer Provider Dr. Nestor Godinez Insurance Medicare DPOA/Assigned Deonte Campos Designee Name Contact Information [phone] Advance Directives? Yes Advance Directives No on File History Provided By Patient,Family Member,Medical Record Has Patient been Yes admitted in last 30 days? Comment 05/06/25-05/09/25, DC home with family and [facility] Prior Living House Arrangements Household Members family Type of Relies on Others transporation used prior to admit Independent with ADL No 's Is patient alert and Yes oriented? Caregiver for No Another DME Already Rented / Wheelchair,FWW / Walker Owned Patient/Family Home with Home Health Preference Discharge Plan Home with Home Health Transportation Family Arrangement Review Status In Process Please Provide Date 05/15/25 Initial DC Assessment Was Performed Next Review Type Continued Stay Review Document 05/15/25 14:21 MW (Rec: 05/15/25 14:22 MW [id number]) Discharge Planning Assessment Assigned Discharge JAY Stephen Algorithm Developer Provider Dr. Nestor Godinez Insurance Medicare DPOA/Assigned Deonte Campos Designee Name Contact Information [phone] Advance Directives? Yes Advance Directives No on File History Provided By Patient,Family Member,Medical Record Has Patient been Yes admitted in last 30 days? Comment 05/06/25-05/09/25, DC home with family and [facility] Prior Living House Arrangements Household Members family Type of Relies on Others transporation used prior to admit Independent with ADL No 's Is patient alert and Yes oriented? Caregiver for No Another DME Already Rented / Wheelchair,FWW / Walker Owned Comment 4WW Patient/Family Home with Home Health Preference Discharge Plan Home with Home Health Transportation Family Arrangement Referrals Initiated Home Health If patient plan is Yes: only need Resumption Orders home with home health: Has signed face to face form been completed? Review Status In Process Please Provide Date 05/15/25 Initial DC Assessment Was Performed Next Review Type Continued Stay Review
--- NOTE | 2025-05-15 16:06 | PC.NURSE ---
Pt's family member handed a vial of Xifaxin 550 mg to this RN for admin during hospital visit. Medication sent to pharmacy for verification and disbursement, per protocol.
[2025-05-15 16:40] LABS: Clostridium difficile toxin AB Not Detected (Not Detect); Enteroaggregative E.coli Not Detected (Not Detect); Enteropathogenic E.coli Not Detected (Not Detect); Enterotoxigenic E.coli It/st Not Detected (Not Detect); Plesiomonsa shigelloides Not Detected (Not Detect); Shiga-like toxin-prod E.coli Not Detected (Not Detect)
--- NOTE | 2025-05-15 17:52 | DI.ECHO.S_ITS ---
[place] +---------+ [facility] : : [address] : : [place] : : [id number] : : Phone: [phone] Echocardiogram Report + + :Name: ROBLES DYSON Study Date: 05/16/2025 Height: 67 in : :[facility] ReadingLocation: Weight: 268 lb : : Gender: Female BSA: 2.3 m2 : :: 1960 Age: 65 yrs BP: 108/50 mmHg: :Reason For Study: AORTIC STENOSIS : :Ordering Physician: ZAHRA, : :BONI Hurst Performed By: Tyrone Herron : :Referring: BONI SWEENEY : + + Interpretation Summary The study quality was technically difficult. The ejection fraction is estimated to be 60-65%. Diastolic parameters suggest probable normal left ventricular diastolic function and normal filling pressures. The left atrium is mildly dilated. The right ventricle grossly appears normal in size with probable normal systolic function. There is moderate to severe aortic stenosis. Pulmonary artery pressures cannot be estimated because of the lack of a measurable TR jet velocity. Compared to the prior study 03/16/2024, the aortic valve gradient has slightly increased. Procedure: A two-dimensional transthoracic echocardiogram with color flow and Doppler was performed. A contrast injection of Definity was performed to improve assessment of LV function. The study quality was technically difficult. Comparison is made with the echocardiogram of 03/16/2024. The patient was in normal sinus rhythm during the exam. Left Ventricle: The left ventricle is normal in size. Left ventricular wall thickness is mildly increased. There is no ventricular septal defect visualized. The ejection fraction is estimated to be 60-65%. There are no focal wall motion abnormalities. Diastolic parameters suggest probable normal left ventricular diastolic function and normal filling pressures. Right Ventricle: The right ventricle is not well visualized. The right ventricle grossly appears normal in size with probable normal systolic function. Atria: The left atrium is mildly dilated. Right atrial size is normal. The interatrial septum is not well visualized. Mitral Valve: There is mild mitral annular calcification. The mitral valve leaflets appear normal. There is no evidence of stenosis, fluttering, or prolapse. There is trace mitral regurgitation. Aortic Valve: The aortic valve is moderately calcified. There is moderate to severe aortic stenosis. The peak aortic velocity is 3.9 m/sec. The aortic valve mean gradient is 36 mmHg. The calculated aortic valve area is 0.9 cm2. Dimensionless index is 0.27. There is trace aortic regurgitation. Tricuspid Valve: The tricuspid valve is not well visualized, but is grossly normal. There is trace tricuspid regurgitation. Pulmonary artery pressures cannot be estimated because of the lack of a measurable TR jet velocity. Pulmonic Valve: The pulmonic valve is not well visualized. There is no pulmonic valvular regurgitation. Great Vessels: The aortic root is normal size. The ascending aorta could not be visualized. The pulmonary artery branches are not well visualized. The inferior vena cava was not visualized. Pericardium/ Pleura There is no pericardial effusion. MMode/2D Measurements & Calculations LVIDd: 5.2 cm LVOT diam: 2.0 cm LVIDs: 3.6 cm Ao root diam: 3.0 cm FS: 30.9 % EPSS: 0.60 cm IVSd: 1.2 cm LVPWd: 1.0 cm LV smith. diameter/BSA (cm/m^2): 2.3 LV sys. diameter/BSA (cm/m^2): 1.6 LA A2 area: 22.6 cm2 RA long axis: 4.1 cm LA A4 area: 31.5 cm2 RA area: 10.8 cm2 LA length (vol): 7.1 cm RA vol: 24.0 ml LA vol: 85.2 ml RA : 10.5 ml/m2 LA vol index: 37.2 ml/m2 TAPSE: 3.0 cm Doppler Measurements & Calculations Ao V2 max: 387.6 cm/sec LVOT Max Pascual: 103.7 cm/sec Ao V2 mean: 285.7 cm/sec LV V1 max P.3 mmHg Ao max P.1 mmHg LV V1 VTI: 26.7 cm Ao mean P.6 mmHg PAULINE(I,D): 0.88 cm2 Ao V2 VTI: 97.9 cm PAULINE(V,D): 0.86 cm2 sev ratio: 0.27 PAULINE indexed to BSA (cm^2/m^2): 0.38 MV E max pascual: 77.4 cm/sec TR max pascual: 256.6 cm/sec MV A max pascual: 64.2 cm/sec TR max P.3 mmHg MV E/A: 1.2 PA V2 max: 113.2 cm/sec Med Peak E' Pascual: 8.2 cm/sec PA V2 mean: 80.9 cm/sec E/E' med: 9.5 PA mean P.9 mmHg Lat Peak E' Pascual: 10.8 cm/sec PA pr(Accel): 41.3 mmHg E/E' lat: 7.2 E/e' average: 8.3 MV dec time: 0.23 sec SV(LVOT): 85.9 ml Reading Physician:03:28 PM
[2025-05-16 03:00] VITALS: BP 108/50; PULSE 63; RESP 20; TEMP 37.1; O2SAT 97
[2025-05-16 05:26] LABS: Hematocrit 28.6 % (36-46); Hemoglobin 9.7 g/dL (12.0-16.0); Lymphocytes Absolute Auto 700 /uL (1100-4500); Mean Corpuscular HGB Conc 33.9 % (30-36); Mean Corpuscular Hemoglobin 31.3 PG (26-34); Mean Corpuscular Volume 92.3 fL (80-100); Platelet Count 76 X10^3/uL (150-400)
[2025-05-16 05:29] LABS: Add Manual Diff / Slide Review SLIDE REVIEW
[2025-05-16 05:38] LABS: Alanine Aminotransferase 22 IU/L (<35); Albumin 2.8 g/dL (3.5-5.0); Albumin Globulin Ratio 0.9 (1.0-2.8); Alkaline Phosphatase 100 U/L (38-126); Blood Urea Nitrogen 31 mg/dL (7-17); Calcium 9.2 mg/dL (8.4-10.2); Carbon Dioxide 18 mmol/L (22-32); Chloride 120 mmol/L (98-107); Estimated Glomerular Filt Rate 34 mL/min (>60); Globulin 3.1 g/dL (1.7-4.1); Glucose 80 mg/dL (70-99); HEMOLYSIS < 15 (0-50); Potassium 3.8 mmol/L (3.4-5.1); Sodium 143 mmol/L (137-145); Total Protein 5.9 g/dL (6.3-8.2)
[2025-05-16] MEDS: PANTOPRAZOLE DR 40 MG TABLET PO (06:15)
[2025-05-16] MEDS: LEVOTHYROXINE 112 MCG TABLET PO (06:15)
[2025-05-16 06:29] LABS: Anisocytosis 2+; Ovalocytes 1+
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
[2025-05-16 07:00] VITALS: BP 107/52; PULSE 54; RESP 15; TEMP 36.3; O2SAT 98
[2025-05-16 07:41] LABS: Ammonia (NH3) 56 umol/L (9-30)
[2025-05-16] MEDS: SODIUM CHLORIDE 0.9% 1,000 ML 50 ML IV (09:02)
[2025-05-16] MEDS: FERROUS SULFATE 325 MG TABLET PO (09:03)
[2025-05-16] MEDS: POTASSIUM CHLORIDE 20 MEQ TAB PO (09:03)
[2025-05-16] MEDS: SPIRONOLACTONE 25 MG TABLET PO (09:03)
[2025-05-16 09:04] VITALS: BP 107/52; PULSE 54
[2025-05-16] MEDS: CITALOPRAM 10 MG TABLET PO (09:04)
[2025-05-16] MEDS: LACTULOSE 20 GM/30 ML SOLUTION 60 GM PO ×4 (09:04→20:42)
[2025-05-16] MEDS: FUROSEMIDE 20 MG TABLET PO (09:06)
[2025-05-16 12:00] VITALS: BP 140/57; PULSE 61; RESP 17; TEMP 36.8; O2SAT 97
--- NOTE | 2025-05-16 13:00 | CM.DPNOTE ---
DCP Continued: Reviewed EMR and team rounds for pt?s medical status. Per hospitalist, pt is improving and likely will be cleared to discharge on 05/17. [facility] established with [facility] , will need discharge summary sent to them when available for resumption orders. Plan: Anticipating discharge home with [facility] on 05/17 or when medically cleared, niece to transport home. CM Team will continue to follow for coordination of discharge plans. DREW CaceresSW
[2025-05-16 16:00] VITALS: BP 110/41; PULSE 47; RESP 16; TEMP 36; O2SAT 100
[2025-05-16 20:00] VITALS: BP 125/62; PULSE 63; RESP 18; TEMP 36.6; O2SAT 98
[2025-05-17] VITALS (7 sets, daily range): BP systolic 103–134; BP diastolic 45–83; PULSE 54–61; RESP 16–18; TEMP 36.2–36.5; O2SAT 96–99
[2025-05-17] MEDS: PANTOPRAZOLE DR 40 MG TABLET PO (05:37)
[2025-05-17] MEDS: LEVOTHYROXINE 112 MCG TABLET PO (05:37)
[2025-05-17 06:17] LABS: Add Manual Diff / Slide Review NO; Hematocrit 30.8 % (36-46); Hemoglobin 10.3 g/dL (12.0-16.0); Lymphocytes Absolute Auto 800 /uL (1100-4500); Mean Corpuscular HGB Conc 33.6 % (30-36); Mean Corpuscular Hemoglobin 30.9 PG (26-34); Mean Corpuscular Volume 92.0 fL (80-100); Platelet Count 66 X10^3/uL (150-400)
[2025-05-17 06:36] LABS: Ammonia (NH3) 69 umol/L (9-30)
[2025-05-17 06:37] LABS: Alanine Aminotransferase 24 IU/L (<35); Albumin 2.9 g/dL (3.5-5.0); Albumin Globulin Ratio 0.9 (1.0-2.8); Alkaline Phosphatase 107 U/L (38-126); Blood Urea Nitrogen 27 mg/dL (7-17); Calcium 9.1 mg/dL (8.4-10.2); Carbon Dioxide 15 mmol/L (22-32); Chloride 119 mmol/L (98-107); Estimated Glomerular Filt Rate 33 mL/min (>60); Globulin 3.2 g/dL (1.7-4.1); Glucose 85 mg/dL (70-99); HEMOLYSIS < 15 (0-50); Potassium 4.0 mmol/L (3.4-5.1); Sodium 141 mmol/L (137-145); Total Protein 6.1 g/dL (6.3-8.2)
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
[2025-05-17] MEDS: LACTULOSE 20 GM/30 ML SOLUTION 60 GM PO ×4 (09:36→22:39)
[2025-05-17] MEDS: SPIRONOLACTONE 25 MG TABLET PO (09:36)
[2025-05-17] MEDS: FERROUS SULFATE 325 MG TABLET PO (09:37)
[2025-05-17] MEDS: FUROSEMIDE 20 MG TABLET PO (09:37)
[2025-05-17] MEDS: POTASSIUM CHLORIDE 20 MEQ TAB PO (09:37)
[2025-05-18] MEDS: LEVOTHYROXINE 112 MCG TABLET PO (06:15)
[2025-05-18] MEDS: PANTOPRAZOLE DR 40 MG TABLET PO (06:15)
[2025-05-18 07:00] VITALS: BP 106/47; PULSE 60; RESP 17; TEMP 35.9; O2SAT 97
[2025-05-18] MEDS: CITALOPRAM 10 MG TABLET PO (08:05)
[2025-05-18] MEDS: FERROUS SULFATE 325 MG TABLET PO (08:05)
[2025-05-18] MEDS: SPIRONOLACTONE 25 MG TABLET PO (08:05)
[2025-05-18] MEDS: FUROSEMIDE 20 MG TABLET PO (08:05)
[2025-05-18] MEDS: POTASSIUM CHLORIDE 20 MEQ TAB PO (08:05)
[2025-05-18] MEDS: LACTULOSE 20 GM/30 ML SOLUTION 60 GM PO (08:18)
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
[2025-05-18 14:31] VITALS: BP 101/47; PULSE 53; RESP 14; TEMP 35.7; O2SAT 99
--- NOTE | 2025-05-18 14:44 | PC.NURSE ---
Addendum entered by Kristin Iraheta, RN 05/18/25 15:29: Pt neice here for transport home. SL D?C intact Home instructions given w/ understanding Pt escorted by staff via W/C to waiting vehicle D/C in stable status Original Note: Pt has had uneventful day. SL intact/patent CBG 78 & 123 w/o incidence. Continues w/ lactolose. MD in to see; pt may D/C this afternoon. Call light w/in reach, pt calls appropriately for needs.
--- NOTE | 2025-05-18 15:17 | CM.DPC ---
DCP Discharge Home with HH Per MD, pt is medically stable to d/c home today with Resumption of HH services. SW met bedside with pt and niece/ELMIRA French and they confirm that they received notice that pt is financially overqualified for Medicaid at this time and has significant spend down as she has too much in group home and assets. They inquired about options for spend down and assist and pt plans to pay nijacky some for her assistance at home but also provided Senior Resource Guidebook and earmarked pages for CG agencies, Assisted Living and Adult Family Homes and provided private CG list for [facility] as well. Spoke at length about the benefits and services for each of those and strongly encourged them to make calls now for CGs and placement as it can sometimes take a while to get set up (mostly for Assisted and Adult Family Homes). Pt and niece appreciative and state they will begin calling places tomorrow. Confirm they want to Resume [facility] and SW secure emailed dc summary and Resumption Orders to [facility]. RN provided d/c instructions. JAY Ramirez
== END 2025-05-18 15:13 | disposition home health service (06) | DRG 442 ==
LOC: ED 08:36 → AC 12:16
PROVIDERS: Admitting Provider Family Medicine; Emergency Provider Emergency Medicine; PCP Family Medicine; Referring Provider Emergency Medicine; Visit Provider Family Medicine
DX: K76.82 Hepatic encephalopathy (principal); D61.818 Other pancytopenia; K75.81 Nonalcoholic steatohepatitis (NASH); E03.9 Hypothyroidism, unspecified; E11.9 Type 2 diabetes mellitus without complications; F32.A Depression, unspecified; I10 Essential (primary) hypertension; I35.0 Nonrheumatic aortic (valve) stenosis; Z87.891 Personal history of nicotine dependence; Z86.711 Personal history of pulmonary embolism; Z79.890 Hormone replacement therapy; Z79.84 Long term (current) use of oral hypoglycemic drugs
CPT/HCPCS: 36415; 70450; 74176; 80053; 82140; 82962; 83605; 84146; 85025; 85610; 85730; 87507; 93005; 93010; 96361; 96374; 99284; C8929; J2405; J7030; Q9957